=== PATIENT | female | born 1990 | race Caucasian/White ===

== ENCOUNTER 2023-05-04 19:56 | Outpatient (REF) | payer MEDICAID, SELFPAY ==
[2023-05-09 13:08] LABS: Age Gdln ACOG Testing Note (.); HPV Aptima Negative (Negative); IGP, Aptima HPV, rfx 16/18,45 Note (.)
== END 2023-05-04 19:57 ==
LOC: LAB 19:56
PROVIDERS: PCP Physician Assistant; Visit Provider Physician Assistant
DX: Z12.4 Encounter for screening for malignant neoplasm of cervix (principal)
CPT/HCPCS: 87624; G0145

== ENCOUNTER 2025-04-19 11:50 | Outpatient (OUT) | payer MEDICAID, SELFPAY ==
[2025-04-19 12:31] LABS: Basophils Percent Auto 0.3 % (0.2-2.0); Eosinophils Absolute Auto 0.1 10^3/uL (0.0-0.7); Eosinophils Percent Auto 1.3 % (0.9-7.0); Hematocrit 40.9 % (36.0-48.0); Hemoglobin 14.1 g/dL (12.0-16.0); Immature Granulocytes Abs Auto 0.01 10^3/uL (0.00-0.03); Immature Granulocytes Pct Auto 0.1 % (0.0-0.5); Lymphocytes Absolute Auto 1.7 10^3/uL (1.2-3.8); Lymphocytes Percent Auto 22.5 % (20.5-60.0); Mean Corpuscular HGB Conc 34.5 g/dL (29.9-35.2); Mean Corpuscular Hemoglobin 33.1 pg (26.7-34.0); Mean Platelet Volume 11.6 fL (9.5-13.5); Monocytes Absolute Auto 0.5 10^3/uL (0.3-0.8); Monocytes Percent Auto 6.9 % (1.7-12.0); Neutrophils Absolute Auto 5.2 10^3/uL (1.4-6.5); Neutrophils Percent Auto 68.9 % (43.0-75.0); Platelet Count 194 10^3/uL (150-450); Red Blood Count 4.26 10^6/uL (4.20-5.40); Red Cell Distribution Width 12.6 % (11.0-15.0); White Blood Count 7.5 10^3/uL (4.0-11.0)
[2025-04-19 12:40] LABS: Amphetamine Screen Urine NEGATIVE (NEGATIVE); Barbiturates Screen Urine NEGATIVE (NEGATIVE); Benzodiazepines Screen Urine NEGATIVE (NEGATIVE); Buprenorphine Screen Urine NEGATIVE (NEGATIVE); Cannabinoid Screen Urine NEGATIVE (NEGATIVE); Cocaine Screen Urine NEGATIVE (NEGATIVE); Methadone Screen Urine NEGATIVE (NEGATIVE); Methamphetamines Screen Urine NEGATIVE (NEGATIVE); Opiate Screen Urine NEGATIVE (NEGATIVE); Oxycodone Screen Urine NEGATIVE (NEGATIVE); Phencyclidine Screen Urine NEGATIVE (NEGATIVE); Tricyclic Antidepressant Urine NEGATIVE (NEGATIVE)
[2025-04-19 12:56] LABS: Estimated Average Glucose 111 mg/dL; Glycohemoglobin A1C 5.5 % (4.5-6.2)
[2025-04-19 13:07] LABS: BOX Test Reference Lab UNITY; BOX Test Sent Out UNITY
[2025-04-21 13:07] LABS: HBsAg Screen Negative (Negative); HCV Ab Non Reactive (Non Reactive); HIV Ab/p24 Ag Screen Non Reactive (Non Reactive)
[2025-04-23 12:08] LABS: Rapid Plasma Reagin, Quant Non Reactive titer (NonRea<1:1)
== END 2025-04-19 11:51 | disposition home or self-care (01) ==
LOC: LAB 12:37
PROVIDERS: PCP Family Medicine; Visit Provider Obstetrics & Gynecology
DX: Z34.01 Encounter for supervision of normal first pregnancy, first trimester (principal); Z36.0 Encounter for antenatal screening for chromosomal anomalies; N92.6 Irregular menstruation, unspecified
CPT/HCPCS: 36415; 80307; 83036; 85025; 86592; 86762; 86803; 86850; 86900; 86901; 87086; 87340; 87389

== ENCOUNTER 2025-05-23 08:53 | Outpatient (OUT) | payer MEDICAID, SELFPAY ==
--- OUTSIDE RECORDS SUMMARY | 2025-05-23 08:57 | XMS_ITS | Encounter Summary ---
Author Organization [facility] Address [address] [place] [address] Care Team Providers Care County Sheriff Name Role Phone Yamel Guerrero MD Primary Care Provider [phone] Yamel Guerrero MD Unavailable Encounter Details Date Type Department Care Team (Late st Contact Info) Description 05/15/2023 Abstract [facility] [address] [place] [address] Nellie Mnazo, RECOVERY ASSISTANT Social History Tobacco Use Types Packs/Day Years Used Date Smoking Tobacco: Never Smokeless Tobacco: Never Tobacco Cessation:Counseling Given: Not Answered Alcohol Use Standard Drinks/Week Comments Never 0 (1 standard drink = 0.6 oz pur e alcohol) caffeine: 2-3 cups per day Humiliation, Afraid, Rape, and Kick questionnair e Answer Date Recorded Within the last year, have y ou been afraid of your partner or ex-partner? No 05/09/2023 Within the last year, have y ou been humiliated or emotionally abused in other ways by your partner or ex-partner? No Within the last year, have y ou been kicked, hit, slapped, or otherwise physically hurt by your partner or ex-partner? No 05/09/2023 Within the last year, have y ou been raped or forced to have any kind of sexual activity by your partner or ex-partner? No 05/09/2023 Social Connection and Isolat ion Panel [NHANES] Answer Date Recorded In a typical week, how many times do you talk on the phone with family, friends, or neighbors? More than three times a week 05/09/2023 How often do you get togethe r with friends or relatives? Once a week 05/09/2023 How often do you attend chur ch or druze services? Never 05/09/2023 Do you belong to any clubs o r organizations such as faith groups, unions, fraternal or athletic groups, or school groups? No 05/09/2023 How often do you attend meet ings of the clubs or organizations you belong to? Never 05/09/2023 Are you , , di vorced, , never , or living with a partner? Living with partner 05/09/2023 AUDIT-C Answer Date Recorded Q1: How often do you have a drink containing alcohol? Never 05/09/2023 Q2: How many drinks containi ng alcohol do you have on a typical day when you are drinking? Patient does not drink Q3: How often do you have si x or more drinks on one occasion? Never 05/09/2023 Overall Financial Resource Strain (CARDIA) Answe r Date Recorded How hard is it for you to pa y for the very basics like food, housing, medical care, and heating? Not very hard 05/09/2023 PHQ-2 Answer Date Recorded Patient Health Questionnaire-2 Score 0 05/10/2023 [facility] - Occupational Stress Questionnaire Answer Date Recorded Do you feel stress - tense, restless, nervous, or anxious, or unable to sleep at night because your mind is troubled all the time - these days? To some extent 05/09/2023 Exercise Vital Sign Answer Date Recorde d On average, how many days pe r week do you engage in moderate to strenuous exercise (like a brisk walk)? 5 days 05/09/2023 On average, how many minutes do you engage in exercise at this level? 40 min 05/09/2023 Hunger Vital Sign Answer Date Recorded Within the past 12 months, y ou worried that your food would run out before you got the money to buy more. Never true 05/09/20 23 Within the past 12 months, t he food you bought just didn't last and you didn't have money to get more. Never true 05/09/2023 PRAPARE - Transportation Answer Date Re corded In the past 12 months, has l ack of transportation kept you from medical appointments or from getting medications? No 04/27 In the past 12 months, has l ack of transportation kept you from meetings, work, or from getting things needed for daily living? No 05/09/2023 Housing Stability Vital Sign Answer Sergey e Recorded In the last 12 months, was t here a time when you were not able to pay the mortgage or rent on time? No 05/09/2023 In the last 12 months, how many places have you lived? 1 05/09/2023 In the last 12 months, was t here a time when you did not have a steady place to sleep or slept in a mcc (including now)? No 05/09/2023 Comments No Sex and Gender Information Value Date Recorded Sex Assigned at Female 04/30/2023 3:31 PM EDT Legal Sex Female 7:09 PM EDT Gender Identity Female 04/30/2023 3:31 PM EDT Sexual Orientation Not on file COVID-19 Exposure Response Date Recorded In the last 10 days, have yo u been in contact with someone who was confirmed or suspected to have Coronavirus/COVID-19? No / Unsure 05/09/2023 10:38 PM EDT documented as of this encounter Plan of Treatment Upcoming Encounters Date Type Department Care Team (Late st Contact Info) Description 06/02/2025 9:50 AM EDT Routine [facility] [address] [address] Luis E Bray, DO [address] [facility] [address] [place], [place] [id number] documented as of this encounter Visit Diagnoses Not on filedocumented in this encounter Care Teams County Sheriff Relationship Specialty Start Date End Date Yamel Guerrero MD PCP - General Family Medicine 05/04/23 Yamel Guerrero MD [address] [place] [address] PCP - [facility] Jake STEWARD/[employer]ESS [employer] 02/26/24 documented as of this encounter
--- OUTSIDE RECORDS SUMMARY | 2025-05-23 08:57 | XMS_ITS | Encounter Summary ---
Author Organization [facility] Address [address] [place] [address] Care Team Providers Care Rug Dyer Helper Name Role Phone Yamel Guerrero MD Primary Care Provider [phone] Yamel Guerrero MD Unavailable Encounter Details Date Type Department Care Team (Late st Contact Info) Description 06/05/2023 Abstract [facility] [address] [place] [address] Nellie Manzo, FUR GRADER Social History Tobacco Use Types Packs/Day Years Used Date Smoking Tobacco: Never Smokeless Tobacco: Never Alcohol Use Standard Drinks/Week Comments Never 0 [...] often do you attend chur ch or taoism services? Never 05/09/2023 Do you belong to any clubs o r organizations such as religious groups, unions, fraternal or athletic groups, or [...] Date Recorded Patient Health Questionnaire-2 Score 0 05/31/2023 [facility] Occupational Stress Questionnaire Answer Date Recorded [...] place to sleep or slept in a fpc (including now)? No 05/09/2023 Comments No Sex [...] suspected to have Coronavirus/COVID-19? No / Unsure 05/30/2023 10:58 AM EDT documented as of this encounter Plan of Treatment Upcoming Encounters Date Type Department Care Team (Late st Contact Info) Description 06/02/2025 9:50 AM EDT Routine [facility] [address] [facility] [place] [address] Luis E Bray DO [address] [facility] [place] [address] documented as of this encounter Visit Diagnoses Not on filedocumented in this encounter Care Teams Rug Dyer Helper Relationship Specialty Start Date End Date Yamel Guerrero MD PCP - General Family Medicine 05/04/23 Yamel Guerrero MD [address] [facility] [place] [address] PCP - [facility] Jake BUSINESS SERVICES DIRECTOR 02/26/24 documented as of this encounter
--- OUTSIDE RECORDS SUMMARY | 2025-05-23 08:57 | XMS_ITS | Clinical Summary ---
Author Organization [employer] [facility] Address [id number] [address] [place] [address] Care Team Providers Care Steel Welder Name Role Phone Yamel Guerrero MD Primary Care Provider [phone] Allergies No known active allergies Medications PNV no.95/ferrous fum/folic ac ( ORAL) Take 1 tablet by mouth. Active CLINDAMYCIN PHOSPHATE TOP Apply topically. Active fluocinonide (LIDEX) 0.05 % external solution Apply 1 application topically 2 (two) times a day. Active promethazine (PHENERGAN) 25 mg tablet Take 25 mg by mouth every 6 (six) hours as needed for nausea or vomiting. Active hydroxyprogeste rafa caproate (HYDROXYPROGEST ERONE CAPR,BULK,) 100 % powder 9 Active vit,fabian 74/iron/folic ( VITAMIN 1+1 ORAL) Vitamin one daily Active fluticasone propionate (FLONASE) 50 mcg/actuation nasal spray fluticasone propionate 50 mcg/actuation nasal spray,suspension Active mupirocin (BACTROBAN) 2 % ointmentIndicat ions:Epistaxis Applied intranasally bilaterally 2 times daily 15 g 9 Active Active Problems Problem Noted Date Diagnosed Date Epistaxis 10/08/2019 Nasal congestion related to 10/08/2019 Tonsillar hypertrophy 10/08/2019 Raynaud's phenomenon 08/02/2019 History of delivery, currently 08/02/2019 Undifferentiated connective tissue disease 12/18 Resolved Problems Problem Noted Date Diagnosed Date Resolved Date Subacute sinusitis 09/04/2018 9 Nasal congestion 08/21/2018 08/02/2019 Family History Medical History Relation Name Comments Cancer Father Stroke Father Relation Name Status Comments Father Social History Tobacco Use Types Packs/Day Years Used Date Smoking Tobacco: Never Smokeless Tobacco: Never Alcohol Use Standard Drinks/Week Comments Never 0 (1 standard drink = 0.6 oz pur e alcohol) AUDIT-C Answer Date Recorded Frequency of Alcohol Consumption Never 07/26/2019 Average Number of Drinks Not on file 019 Frequency of Binge Drinking Not on file 06/29 PHQ-2 Answer Date Recorded Total Score 0 10/08/2019 Childcare Answer Date Recorded Childcare Unknown 05/08/2019 Employment Answer Date Recorded Employment Unknown 05/08/2019 Purpose - Life Answer Date Recorded Purpose and direction in life Unknown Comments No Sex and Gender Information Value Date Recorded Sex Assigned at Not on file Legal Sex Female 11:38 AM EDT Gender Identity Not on file Sexual Orientation Not on file Last Filed Vital Signs Vital Sign Reading Time Taken Comments Blood Pressure 112/62 10/08/2019 10:47 AM EST Pulse 80 08/02/2019 9:07 AM EDT Temperature - - Respiratory Rate - - Oxygen Saturation - - Inhaled Oxygen Concentration - - Weight 81.2 kg (179 lb) 10/08/2019 10:47 AM EST Height 162.6 cm (5' 4 ) 10/08/2019 10:47 AM EST Body Mass Index 30.73 10/08/2019 10:47 AM EST Plan of Treatment Health Maintenance Due Date Last Done Comments Depression Screening 2000 Tobacco Screening 2000 Adult BMI Screening 2006 Pap Smear 2009 Influenza Vaccine 07/28/2025 11/11/2022, 10/17/2019 DTaP,Tdap and Td Vaccines (7 - Tdap) 11/11/2032 11/11/2022, 08/03/1994, 07/01/1991, Additional history exists Medical Devices Not on file Insurance [facility] MEDICAID Care Teams Steel Welder Relationship Specialty Start Date End Date Yamel Guerrero MD PCP - General Family Medicine 06/03/17
--- OUTSIDE RECORDS SUMMARY | 2025-05-23 08:57 | XMS_ITS | Encounter Summary ---
Author Organization [facility] Address [address] [place] [address] Care Team Providers Care Metal Checker Name Role Phone Yamel Guerrero MD Primary Care Provider Yamel Guerrero MD Unavailable Encounter Details Date Type Department Care Team (Late st Contact Info) Description 04/14/2025 Results Follow-Up [facility] OB [address] [place] [address] Julissa Aranda LPN [address] [place] [address] Social History Tobacco Use Types Packs/Day Years [...] often do you attend chur ch or baptism services? Never 05/09/2023 Do you belong to any clubs o r organizations such as worship groups, unions, fraternal or athletic groups, or [...] Answer Date Recorded Patient Health Questionnaire-2 Score 1 10/12/2023 [facility] Answer Date Recorded [...] place to sleep or slept in a chcf (including now)? No 05/09/2023 Estimated Date of Delivery Comme nts Yes 11/14/2025 Based on last me nstrual period of 02/07/2025 Sex and Gender Information Value Date Recorded Sex Assigned at Female 04/30/2023 3:31 PM EDT Legal Sex Female 7:09 PM EDT Gender Identity Female 04/30/2023 3:31 PM EDT Sexual Orientation Not on file documented as of this encounter Miscellaneous Notes * Result Encounter Note - Julissa Aranda LPN - 04/14/2025 3:52 PM EDT Pt called back and was transferred upfront to schedule luisa friend. * Result Encounter Note - Julissa Aranda LPN - 04/14/2025 3:00 PM EDT Attempted to call pt but she did not answer. Left detailed voicemail to call office back documented in this encounter Plan of Treatment Upcoming Encounters Date Type Department Care Team (Late st Contact Info) Description 06/02/2025 9:50 AM EDT Routine [facility] OB [address] [facility] [place] [address] Luis E Bray, DO [address] [facility] [place] [address] documented as of this encounter Visit Diagnoses Not on filedocumented in this encounter Additional Health Concerns Assessment Noted Time PHQ-9 Depression Total Score: 4 10/12/20 23 9:00 AM EST documented as of this encounter Care Teams Metal Checker Relationship Specialty Start Date End Date Yamel Guerrero MD PCP - General Family Medicine 05/04/23 Yamel Guerrero MD [address] [place] [address] PCP - [facility] Jake TELEMETRY RN 02/26/24 documented as of this encounter
--- OUTSIDE RECORDS SUMMARY | 2025-05-23 08:57 | XMS_ITS ---
Author Organization [facility] ction (ClinicalSummary Clone) Address Unknown Care Team Providers Care Manifold Operator Name Role Phone Unavailable Primary Care Physician Unavailab le Results * [UNITY] ANEUPLOIDY NIPT Performed by: [employer] Component Value Range Date Fraction 5.7% 04/27/2025 05 :07 pm UTC Rh(D) NIPT RhD DETECTED 04/27/2025 05:0 7 pm UTC Sex Chromosome Aneuploidy NOT DETECTED 05:07 pm UTC Monosomy X LOW RISK <1 in 10,000 2024 05:07 pm UTC Trisomy 13 LOW RISK <1 in 10,000 2024 05:07 pm UTC Trisomy 18 LOW RISK <1 in 10,000 2024 05:07 pm UTC Trisomy 21 LOW RISK <1 in 10,000 2024 05:07 pm UTC Sex FEMALE 04/27/2025 05:0 7 pm UTC Gestation BRICEÑO 04/27/20 05:07 pm UTC For detailed report, see PDF See PDF 04/27/2025 05:07 pm UTC 04/27/2025 05:0 7 pm UTC Social History Observation Value Start Date End Date
--- OUTSIDE RECORDS SUMMARY | 2025-05-23 08:57 | XMS_ITS | Patient Health Record ---
Author Organization [facility] Address [address] [place], [place] [address] Care Team Providers Care Assistant Loan Processor Name Role Phone Frederick Renee Unavailable [phone] Angela Chua Unavailable [phone] Allergies No Known Allergies Reason For Referral No Information Medications Medication SIG (Take, Route, Fr equency, Duration) Notes Start Date End Date Status Peridex 0.12 % swish 30 seconds 2x/ day. Spit, do not rinse. Do not eat or drink for 30 minutes after. Mouth/Throat 2x/day for 14 days 03/24/2022 Not-Taking Social History Tobacco Use: Social History Observation Description Date Details (start date - stop date) Never Smoker NA - NA Sex Assigned At : Social History Observation Description Sex Assigned At Female Tobacco Use/Smoking Question Answer Notes Tobacco use: nonsmoker Problems Problem Type SNOMED Code ICD Code Onset Dates Problem Status W/U Status Risk Notes Problem [id number] BMI 36.0-36.9,ad ult (Z68.36) Active confirmed Problem [id number] BMI 37.0-37.9, adult (Z68.37) Active confirmed Vital Signs Heart Rate 86 /min 11/14/2024 Blood pressure diastolic 76 mm Hg 11/14/2024 Weight-kg 99.79 kg 11/14/2024 Height 64 in 11/14/2024 Blood pressure systolic 128 mm Hg 11/14/2024 Weight 220 lbs 11/14/2024 BMI 37.76 kg/m2 11/14/2024 Encounters Encounter Location Date Provider Diagnosis [facility] [address] [place], [place] [id number] 11/14/2024 Angela Chua BMI 37.0-37.9, tiffany lt Z68.37 ; Dietary counseling Z71.3 ; Exercise counseling Z71.82 and Encounter for dental examination and cleaning without abnormal findings Z01.20 Assessments Encounter Date Diagnosis (ICD Code) Assessment Notes Treatment Notes Treatment Clinical Notes Section Notes 11/14/2024 BMI 37.0-37.9, adult (ICD-10 - Z68.37) 11/14/2024 Dietary counseling (ICD-10 - Z71.3) 11/14/2024 Exercise counseling (ICD-10 - Z71.82) 11/14/2024 Encounter for dental examination and cleaning without abnormal findings (ICD-10 - Z01.20) Plan Of Treatment No Information Insurance Providers Payer Name Payer Address Payer Phone Subscriber Number Group Number Insured Name Patient Relationship to Insured Coverage Start Date Coverage End Date zzDAnthem [employer] [facility] [address] [place] [address] [id number] Betty Kennedy Self - patient is the insured 4 DMedicaid C after [place] [address] [place], [place] [id number] Betty Kennedy Self - patient is the insured 4
--- OUTSIDE RECORDS SUMMARY | 2025-05-23 08:57 | XMS_ITS | Encounter Summary ---
Author Organization [facility] Address [address] [place] [address] Care Team Providers Care Bacon Skinner Name Role Phone Yamel Guerrero MD Primary Care Provider [phone] Yamel Guerrero MD Unavailable Encounter Details Date Type Department Care Team (Late st Contact Info) Description 06/08/2023 Abstract [facility] [address] [place] [address] Yamel Guerrero MD [address] [place] [address] Social History Tobacco Use Types Packs/Day Years [...] often do you attend chur ch or congregational services? Never 05/09/2023 Do you belong to any clubs o r organizations such as anabaptist groups, unions, fraternal or athletic groups, or [...] Recorded Patient Health Questionnaire-2 Score 0 05/31/2023 [facility] - Occupational Stress Questionnaire Answer Date Recorded [...] place to sleep or slept in a longterm (including now)? No 05/09/2023 Comments No Sex [...] AM EDT Routine [facility] OB [address] [place] [address] Luis E Bray, DO [address] [facility] [address] [place] [place], [place] [id number] documented as of this encounter Visit Diagnoses Not on filedocumented in this encounter Care Teams Bacon Skinner Relationship Specialty Start Date End Date Yamel Guerrero MD PCP - General Family Medicine 05/04/23 Yamel Guerrero MD [address] [place] [address] PCP - NOMVivienne Joseph MICROFILM PROCESSOR 02/26/24 documented as of this encounter
--- OUTSIDE RECORDS SUMMARY | 2025-05-23 08:57 | XMS_ITS | Clinical Summary ---
Author Organization [facility] Address [address] [place] [address] Care Team Providers Care Appeals Manager Name Role Phone Yamel Guerrero MD Primary Care Provider [phone] Yamel Guerrero MD Unavailable Allergies No known active allergies Medications buPROPion XL (Wellbutrin XL) 300 MG 24 hr tabletIndicatio ns:Anxiety Take 1 tablet (300 mg) by mouth in the morning. Do not crush, chew, or split.. 30 tablet 1 08/29/2023 Active metFORMIN XR (Glucophage-XR) 500 MG 24 hr tabletIndicatio ns:Insulin resistance Take 1 tablet (500 mg) by mouth in the evening. Take with meals. Do not crush, chew, or split. 30 tablet 2 08/29/2023 Active albuterol HFA 90 mcg/act inhalerIndicati ons:Wheezing,Ac ofelia cough Inhale 2 puffs every 4 (four) hours if needed for wheezing. 18 g 10/14/2023 Active ondansetron (Zofran) 4 MG tabletIndicatio ns:Nausea and vomiting in ([facility]) Take 1 tablet (4 mg) by mouth every 6 (six) hours if needed for nausea or vomiting for up to 30 doses Take 1 tablet by mouth every 6 hours as needed for nausea. 30 tablet 3 04/07/2025 Active promethazine (Phenergan) 12.5 MG tabletIndicatio ns:Nausea and vomiting in ([facility]) Take 1 tablet (12.5 mg) by mouth every 6 (six) hours if needed for nausea or vomiting for up to 30 doses Take 1 tablet by mouth every 6 hours as needed for nausea. 30 tablet 2 04/16/2025 Active metoclopramide (Reglan) 10 MG tabletIndicatio ns:Nausea and vomiting in ([facility]) Take 1 tablet (10 mg) by mouth in the morning and 1 tablet (10 mg) at noon and 1 tablet (10 mg) in the evening. Take before meals. Take 1 tablet by mouth 30 minutes prior to meals 3 times daily as needed for nausea. 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, without psychotic features 05/10/2023 Thyromegaly 05/10/2023 Tonsillar hypertrophy 10/08/2019 Raynaud's phenomenon 08/02/2019 Undifferentiated connective tissue disease 12/18 Estimated Date of Delivery Comme nts Yes 11/14/2025 Based on last me nstrual period of 02/07/2025 Resolved Problems Problem Noted Date Diagnosed Date Resolved Date Carpal tunnel syndrome 05/10/202305/31 Encounters Date Type Department Care Team Description 05/01/2025 11:10 AM EDT Routine [facility] [address] [place] [address] Luis E Bray, First trimester ([facility]); 11 weeks gestation of ([facility]); Diabetes mellitus screening; Nausea and vomiting in ([facility]) 05/01/2025 Bamboo flowsheet [facility] [address] [place] [address] Luis E Bray, 04/28/2025 Abstract [facility] [address] [place] [address] Luis E Bray, DO 04/26/2025 Travel 04/19/2025 Clinisync Result Encounter [facility] External Department Unsolicited Provider, Generic External Data 04/16/2025 Telephone [facility] [address] [place] [address] Julissa Aranda LPN 04/14/2025 Results Follow-Up [facility] [address] [place] [address] Julissa Aranda LPN 04/11/2025 10:00 AM EDT Initial [facility] [address] [place] [id number] GA: [id number] 04/11/2025 9:30 AM EDT Ancillary Procedure [facility] [address] [place] [id number] Missed menses 04/10/2025 Travel 04/07/20[address] Tele[address] [facility] [address] [place] [address] Milly Guzman MA from Last 3 Months Family History Medical History Relation Name Comments Cancer Brother Ayo quintanilla (thyroid cancer) Cancer Father Panda quintanilla(throat cancer) Stroke Father Panda dwight(throat cancer) Throat cancer Father Panda dwight(throat cancer) Aneurysm Maternal Grandfather Colon cancer Maternal Grandmother Arthritis Mother Urszula dwight Arthritis Mother's Sister Aunt Diabetes Mother's Sister Aunt Stroke Paternal Grandfather Dad Relation Name Status Comments Brother Ayo dwight (thyroid cancer) Father Panad quintanilla(throat cancer) Alive Maternal Grandfather Maternal Grandmother Mother Urszula dwight Alive Mother's Sister Aunt Paternal Grandfather Dad Paternal Grandmother Social History Tobacco Use Types Packs/Day Years [...] 05/09/2023 How often do you attend chur or congregational services? Never 05/09/2023 Do you belong to any clubs o r organizations such as moravian groups, unions, fraternal or athletic groups, or [...] Recorded Patient Health Questionnaire-2 Score 1 10/12/2023 [facility] - Occupational Stress Questionnaire Answer [...] place to sleep or slept in a care home (including now)? No 05/09/2023 Estimated Date of Delivery Comme nts Yes 11/14/2025 Based on last me nstrual period of 02/07/2025 Sex and Gender Information Value Date Recorded Sex Assigned at Female 04/30/2023 3:31 PM EDT Legal Sex Female 7:09 PM EDT Gender Identity Female 04/30/2023 3:31 PM EDT Sexual Orientation Not on file Last Filed Vital Signs Vital Sign Reading Time Taken Comments Blood Pressure 112/70 05/01/2025 11:40 AM EDT Pulse 78 10/23/2023 4:27 PM EST Temperature 37 C (98.6 F) 10/23/2023 4:27 PM EST Respiratory Rate 18 10/23/2023 4:27 PM EST Oxygen Saturation 98% 10/23/2023 4:27 PM EST Inhaled Oxygen Concentration - - Weight 107 kg (234 lb 12.8 oz) 05/01/2025 11:40 AM EDT Height 162.6 cm (5' 4 ) 10/23/2023 4:27 PM EST Body Mass Index 40.3 10/23/2023 4:27 PM EST Plan of Treatment Upcoming Encounters Date Type Department Care Team (Late st Contact Info) Description 06/02/2025 9:50 AM EDT Routine [facility] [address] [place] [phone] Luis E Bray, DO [address] [place] [address] Health Maintenance Due Date Last Done Comments Influenza Vaccine (Season Ended) 2025 11/11/20, 10/17/2019 Pap Smear 04/06/2027 04/06/2022 Cervical Cancer Screening 07/13/2028 HPV/Cotest 07/13/2028 07/13/2023 Procedures Procedure Name Priority Date/Time Associated Diagnosis Comments HBSAG SCREEN Routine 04/19/2025 12:17 PM EDT RAPID PLASMA REAGIN, QUANT Routine 04/19/2025 12:17 PM EDT HIV AB/P24 AG WITH REFLEX Routine 04/19/2025 12:17 PM EDT HCV ANTIBODY RFX TO QUANT PCR Routine 04/19/2025 12:17 PM EDT ALL RUBELLA IGG AB Routine 04/19/2025 12 :17 PM EDT ALL TYPE AND SCREEN Routine 04/19/2025 1 2:17 PM EDT BOX TEST Routine 04/19/2025 12:17 PM EDT MLR HEMOGLOBIN A1C Routine 04/19/2025 12 :17 PM EDT ALL CBC WITH AUTO DIFF Routine 04/19/2025 12:17 PM EDT URINE CULTURE, ROUTINE Routine 04/19/2025 11:45 AM EDT [facility] DRUG SCREEN RAPID (URINE) Routine 04/19/2025 11:45 AM EDT POCT URINALYSIS DIPSTICK Routine 04/11/2025 10:37 AM EDT Missed menses POCT , URINE Routine 04/11/2025 10:37 AM EDT Missed menses US OB TRANSVAGINAL Routine 04/11/2025 10 :04 AM EDT Missed menses THINPREP PAP AND HPV MRNA E6/E7 W/RFL HPV 16,18/45 Routine 07/13/2023 10:11 AM EDT Well woman exam with routine gynecological exam PAP SMEAR Routine 04/06/2022 12:00 AM EDT from Last 3 Months or Most Recently Relevant to Health Maintenance Results * BOX TEST (04/19/2025 12:17 PM EDT) BOX TEST SENT OUT [facility] [address]1 [facility] BOX2 04/19/25 [facility] 04/19/2025 12:1 7 PM EDT 04/19/2025 12:23 PM EDT Narrative [facility] - 04/19/2025 1:07 PM EDT [place] us Luis E Katarina DO LAB BLOOD ORDERABLES Final Resul t [facility] * HBSAG SCREEN (04/19/2025 12:17 PM EDT) HBSAG SCREEN Negative Negative [facility] Comment: Performed at: - [facility] [id number] Room Service Runner: Floyd Baez PhD, Phone: [phone] 04/19/2025 12:1 7 PM EDT 04/19/2025 12:23 PM EDT Narrative [facility] - 04/23/2025 12:08 PM EDT Lusi E Katarina DO LAB BLOOD ORDERABLES Final Resul t Performing Organization Address [facility] [[email or web address]] Co de Phone Number [facility] * RAPID PLASMA REAGIN, QUANT (04/19/2025 12:17 PM EDT) RAPID PLASMA REAGIN, QUANT Non Reactive NonRea<1: 1 titer [facility] Comment: Please Note: This test does not meet current guidelines for screening and diagnosis of syphilis. This test is intended for following treatment response in patients being treated for syphilis infection. To screen for syphilis infection, a reflex cascade that includes both RPR and a treponema-specific assay should be utilized, such as Treponema pallidum (Syphilis) Screening [place] (099400) or Rapid Plasma Reagin (RPR) Test With Reflex to Quantitative RPR and Confirmatory Treponema pallidum Antibodies ([id number]). Performed at: [facility] [id number] Room Service Runner: Floyd Baez PhD, Phone: [phone] 04/19/2025 12:1 7 PM EDT 04/19/2025 12:23 PM EDT Narrative [facility] - 04/23/2025 12:08 PM EDT Luis E Katarina DO LAB BLOOD ORDERABLES Final Resul t Performing Organization Address City/[facility] [[email or web address]] Co de Phone Number [facility] * HIV AB/P24 AG WITH REFLEX (04/19/2025 12:17 PM EDT) Pathologist [facility] HIV AB/P24 AG SCREEN Non Reactive Non Reactive [facility] Comment: HIV-1/HIV-2 antibodies and HIV-1 p24 antigen were NOT detected. There is no laboratory evidence of HIV infection. HIV Negative Performed at: [facility] [id number] Room Service Runner: Floyd Baez PhD, Phone: [phone] 04/19/2025 12:1 7 PM EDT 04/19/2025 12:23 PM EDT Narrative [facility] - 04/21/2025 1:07 PM EDT Generic External Data Provider LAB BLOOD ORDERAB LES Final Result Performing Organization Address [facility] [[email or web address]] Co de Phone Number [facility] * HCV ANTIBODY RFX TO QUANT PCR (04/19/2025 12:17 PM EDT) [facility] HCV AB Non Reactive Non Reactive [facility] INTERPRETATION: Comment . [facility] Comment: Not infected with HCV unless early or acute infection is suspected (which may be delayed in an immunocompromised individual), or other evidence exists to indicate HCV infection. Performed at: [facility] [id number] Room Service Runner: Floyd Baez PhD, Phone: [phone] 04/19/2025 12:1 7 PM EDT 04/19/2025 12:23 PM EDT Narrative [facility] - 04/21/2025 1:07 PM EDT Generic External Data Provider LAB BLOOD ORDERAB LES Final Result Performing Organization Address [facility] [[email or web address]] Co de Phone Number [facility] * MLR HEMOGLOBIN A1C (04/19/2025 12:17 PM EDT) [facility] GLYCOHEMOGLOBIN A1C 5.5 4.5 - 6.2 % [facility] Comment: ADA RECOMMENDED LIMIT 4.0 - 6.0 ADA THERAPEUTIC TARGET < 7.0 ACTION SUGGESTED > 7.0 ESTIMATED AVERAGE GLUCOSE 111 mg/dL [facility] 04/19/2025 12:1 7 PM EDT 04/19/2025 12:23 PM EDT Narrative [facility] - 04/19/2025 1:03 PM EDT Generic External Data Provider [facility] F inal Result Performing Organization Address City/[facility]/ZIP Co de Phone Number [facility] * ALL TYPE AND SCREEN (04/19/2025 12:17 PM EDT) [facility] BLOOD TYPE O Positive [facility] ANTIBODY SCREEN NEGATIVE [facility] 04/19/2025 12:1 7 PM EDT 04/19/2025 12:23 PM EDT Narrative [facility] - 04/19/2025 1:57 PM EDT [facility] , us Luis E Bray DO CLINISYNC Final Result [facility] * ALL RUBELLA IGG AB (04/19/2025 12:17 PM EDT) [facility] RUBELLA ANTIBODIES, IGG 3.60 Immune >0.99 index [facility] Comment: Non-immune <0.90 Equivocal 0.90 - 0.99 Immune >0.99 Performed at: [facility] [address] [id number] Room Service Runner: Floyd Baez PhD, Phone: [phone] 04/19/2025 12:1 7 PM EDT 04/19/2025 12:23 PM EDT Narrative [facility] - 04/21/2025 1:07 PM EDT us Generic External Data Provider CLIN[facility]YNC F inal Result Performing Organization Address City/[facility]/ZIP Co de Phone Number [facility] * ALL CBC WITH AUTO DIFF (04/19/2025 12:17 PM EDT) Pathologist [facility] WBC 7.5 4.0 - 11.0 10 3/uL [facility] RBC 4.26 4.20 - 5.40 10 6/uL [facility] TB HGB 14.1 12.0 - 16.0 g/dL TB TB HCT 40.9 36.0 - 48.0 % [facility] MCV 96.0 81.0 - 99.0 fL [facility]H TBH MCH 33.1 26.7 - 34.0 pg TBH TBH MCHC 34.5 29.9 - 35.2 g/dL [facility] TB RDW 12.6 11.0 - 15.0 % [facility] TB PLT 194 150 - 450 10 3/uL [facility]H TBH MPV 11.6 9.5 - 13.5 fL [facility] NEUTROPHILS PERCENT AUTO 68.9 43.0 - 75.0 % [facility] LYMPHOCYTES PERCENT AUTO 22.5 20.5 - 60.0 % [facility] MONOCYTES PERCENT AUTO 6.9 1.7 - 12.0 % [facility]H EO % 1.3 0.9 - 7.0 % [facility] BASOPHILS PERCENT AUTO 0.3 0.2 - 2.0 % [facility] IMMATURE GRANULOCYTES PCT AUTO 0.1 0.0 - 0.5 % [facility] NEUTROPHILS ABSOLUTE AUTO 5.2 1.4 - 6.5 10 3/uL [facility] LYMPHOCYTES ABSOLUTE AUTO 1.7 1.2 - 3.8 10 3/uL [facility] MONOCYTES ABSOLUTE AUTO 0.5 0.3 - 0.8 10 3/uL TBH TBH EO # 0.1 0.0 - 0.7 10 3/uL TBH BASOPHILS ABSOLUTE AUTO 0.0 0.0 - 0.1 10 3/uL [facility] IMMATURE GRANULOCYTES ABS AUTO 0.01 0.00 - 0.03 10 3/uL [facility] 04/19/2025 12:1 7 PM EDT 04/19/2025 12:23 PM EDT Narrative [facility] - 04/19/2025 12:37 PM EDT Luis E Bray DO CLINISYNC Final Result [facility] * URINE CULTURE, ROUTINE (04/19/2025 11:45 AM EDT) Pathologist [facility] URINE CULTURE, ROUTINE Urine Culture, Routine [facility] URINE CULTURE, ROUTINE Mixed urogenital alesia [facility] URINE CULTURE, ROUTINE 10,000-25,000 colony forming units per mL [facility] URINE CULTURE, ROUTINE [facility]formed at: [facility]INE CULTURE, ROUTINE [address] [place], [place] [id number] [facility] URINE CULTURE, ROUTINE Room Service Runner: Floyd Baez PhD, Phone: [phone] [facility] 04/19/2025 11:4 5 AM EDT 04/19/2025 12:23 PM EDT Narrative [facility] - 04/21/2025 5:10 AM EDT Generic External Data Provider LAB BLOOD ORDERAB LES Final Result [facility] * [facility] DRUG SCREEN RAPID (URINE) (04/19/2025 11:45 AM EDT) CANNABINOID SCREEN URINE NEGATIVE NEGATIVE [facility]H PHENCYCLIDINE SCREEN URINE NEGATIVE NEGATIVE [facility] COCAINE SCREEN URINE NEGATIVE NEGATIVE [facility]H METHAMPHETAMINES SCREEN URINE NEGATIVE NEGATIVE TBH OPIATE SCREEN URINE NEGATIVE NEGATIVE TBH AMPHETAMINE SCREEN URINE NEGATIVE NEGATIVE TBH BENZODIAZEPINES SCREEN URINE NEGATIVE NEGATIVE TBH TRICYCLIC ANTIDEPRESSANT URINE NEGATIVE NEGATIVE TBH METHADONE SCREEN URINE NEGATIVE NEGATIVE TBH BARBITURATES SCREEN URINE NEGATIVE NEGATIVE TBH OXYCODONE SCREEN URINE NEGATIVE NEGATIVE TBH BUPRENORPHINE SCREEN URINE NEGATIVE NEGATIVE [facility] Comment: DRUG CLASS TEST SYSTEM CUT-OFF CONCENTRATIONS ARE FOLLOWS: AMP (Amphetamine): 500 ng/mL BAR (Barbiturates): 200 ng/mL BZO (Benzodiazepines): 150 ng/mL BUP (Buprenorphine): 10 ng/mL NARCISA (Cocaine): 150 ng/mL mAMP (Methamphetamine): 500 ng/mL MTD (Methadone): 200 ng/mL OPI (Opiates): 100 ng/mL OXY (Oxycodone): 100 ng/mL PCP (Phencyclidine): 25 ng/mL THC (Cannabinoids): 50 ng/mL TCA (Trycyclic Antidepressants): 300 ng/mL 04/19/2025 11:4 5 AM EDT 04/19/2025 12:23 PM EDT Narrative [facility] - 04/19/2025 12:40 PM EDT us Luis E Katarina DO CLINISYNC Final Result [facility] * (ABNORMAL) POCT , urine manually resulted (04/11/2025 10:37 AM EDT) Preg Test, Ur Positive Negative Urine 04/11/2025 10:3 7 AM EDT Luis E Katarina DO POINT OF CARE TEST ENTER/EDIT OR DERABLES Final Result * (ABNORMAL) POCT urinalysis dipstick manually resulted (04/11/2025 10:37 AM EDT) Color, UA Yellow Clarity, UA Clear Glucose, UA Negative Negative - 2000(110) ++++ mg/dL Bilirubin, UA Negative Negative - 4(70) +++ mg/dL Ketones, UA Negative Negative - 160(16) ++++ mg/dL Spec Grav, UA 1.015 1 - 1.03 Blood, UA Negative Negative - 50 Nico/mcL pH, UA 5.5 5 - 9 Protein, UA Positive Negative - 2000(20) ++++ mg/dL Urobilinogen, UA 1.0 0.2 - 12 mg/dL Leukocytes, UA Negative Negative - 500+++ Karson/mcL Nitrite, UA Negative Negative - Positive Urine 04/11/2025 10:3 7 AM EDT us Luis E Katarina DO POINT OF CARE TEST ENTER/EDIT OR DERABLES Final Result * US OB transvaginal (04/11/2025 10:04 AM EDT) Anatomical Region Laterality Modality Body Ultrasound 04/13/2025 9:20 PM EDT Narrative 04/13/2025 9:20 PM EDT EXAM: US OB TRANSVAGINAL HISTORY: Dating. COMPARISON: None available. TECHNIQUE: Two-dimensional transvaginal grayscale ultrasound imaging of the pelvis was performed. Color Doppler evaluation of the ovaries was also performed. FINDINGS: The uterus demonstrates a normal homogeneous echotexture. The cervix measures 4.3 cm in length and the cervical os is closed. The bilateral ovaries are not visualized. No fluid is present within the cul-de-sac. There is a single, live intrauterine gestation identified with a heart rate of 186 beats per minute and a crown-rump length measurement of 1.9 cm, correlating to a gestational age of 8 weeks 3 days (+/- 5 days). There is a 1.1 cm subchorionic hemorrhage visualized. A yolk sac is visualized. IMPRESSION: 1. Single, live intrauterine gestation 9 weeks, 0 days by LMP. Today's ultrasound measurements correlate with a gestational age of 8 weeks 3 days (+/- 5 days). KEVIN by today's ultrasound is 11/18/2025. 2. tachycardia. A short-term follow-up ultrasound is recommended to monitor heart rate. 3. Small subchorionic hemorrhage. 4. Bilateral ovaries not visualized. Interpreted by: Electronically signed by SANJAY NORMAN II, MD, PHD at 13-Apr-2025 09:18:27 PM [facility] Procedure Note Sanjay Norman MD - 04/13/2025 EXAM: US OB TRANSVAGINAL HISTORY: Dating. COMPARISON: None available. TECHNIQUE: Two-dimensional transvaginal grayscale ultrasound imaging ofthe pelvis was performed. Color Doppler evaluation of the ovaries was alsoperformed. FINDINGS: The uterus demonstrates a normal homogeneous echotexture. The cervixmeasures 4.3 cm in length and the cervical os is closed. The bilateral ovaries are not visualized. No fluid is present within the cul-de-sac. There is a single, live intrauterine gestation identified with a fetalheart rate of 186 beats per minute and a crown-rump length measurement of1.9 cm, correlating to a gestational age of 8 weeks 3 days (+/- 5 days).There is a 1.1 cm subchorionic hemorrhage visualized. A yolk sac isvisualized. IMPRESSION: 1. Single, live intrauterine gestation 9 weeks, 0 days by LMP. Today'sultrasound measurements correlate with a gestational age of 8 weeks 3 days(+/- 5 days). KEVIN by today's ultrasound is 11/18/2025. 2. tachycardia. A short-term follow-up ultrasound is recommended tomonitor heart rate. 3. Small subchorionic hemorrhage. 4. Bilateral ovaries not visualized. Interpreted by: Electronically signed by SANJAY NORMAN II, MD, PHD [id number] 09:18:27 PM [facility] us Luis E Bray DO [facility] US PROCEDURES Final Resul t * THINPREP PAP AND HPV MRNA E6/E7 W/RFL HPV 16,18/45 (07/13/2023 10:11 AM EDT) Fabi KELLEY LAB BLOOD ORDERABLES Final Resul t EXTERNAL LAB * Pap Smear (04/06/2022 12:00 AM EDT) Swab Cervical swab / Unknown Historical Provider LAB CYTOLOGY ORDERABLES F inal Result EXTERNAL LAB from Last 3 Months or Most Recently Relevant to Health Maintenance Insurance [facility] MEDICAID [place] Care Teams Appeals Manager Relationship Specialty Start Date End Date Yamel Guerrero MD PCP - General Family Medicine 05/04/23 Yamel Guerrero MD [address] [place] [address] PCP - [facility] Jake STRUCTURAL WELDER 02/26/24
--- OUTSIDE RECORDS SUMMARY | 2025-05-23 08:57 | XMS_ITS | Encounter Summary ---
Author Organization [facility] Address [address] [place] [address] Care Team Providers Care Office Helper Clerical Name Role Phone Yamel Guerrero MD Primary Care Provider [phone] Yamel Guerrero MD Unavailable Encounter Details Date Type Department Care Team (Late st Contact Info) Description 04/28/2025 Abstract [facility] OB [address] [place] [address] Luis E Bray, DO [address] [place] [place], [place] [id number] Social History Tobacco Use Types Packs/Day Years [...] often do you attend chur ch or jew services? Never 05/09/2023 Do you belong to any clubs o r organizations such as tenriism groups, unions, fraternal or athletic groups, or [...] Recorded Patient Health Questionnaire-2 Score 1 10/12/2023 [facility] Answer Date Recorded [...] place to sleep or slept in a senior care (including now)? No 05/09/2023 Estimated Date of Delivery Comme nts Yes 11/14/2025 Based on last me nstrual period of 02/07/2025 Sex and Gender Information Value Date Recorded Sex Assigned at Female 04/30/2023 3:31 PM EDT Legal Sex Female 7:09 PM EDT Gender Identity Female 04/30/2023 3:31 PM EDT Sexual Orientation Not on file documented as of this encounter Plan of Treatment Upcoming Encounters Date Type Department Care Team (Late st Contact Info) Description 06/02/2025 9:50 AM EDT Routine [facility] OB [address] [place] [address] Luis E Bray DO [address] [place] [address] documented as of this encounter Visit Diagnoses Not on filedocumented in this encounter Additional Health Concerns Assessment Noted Time PHQ-9 Depression Total Score: 4 10/12/20 23 9:00 AM EST documented as of this encounter Care Teams Office Helper Clerical Relationship Specialty Start Date End Date Yamel Guerrero MD PCP - General Family Medicine 05/04/23 Yamel Guerrero MD [address] [place] [address] PCP - [facility] Jake DRUGLESS DOCTOR 02/26/24 documented as of this encounter
--- OUTSIDE RECORDS SUMMARY | 2025-05-23 08:57 | XMS_ITS | Encounter Summary ---
Author Organization [facility] Address [address] [place] [address] Care Team Providers Care Health Care Recruiter Name Role Phone Yamel Guerrero MD Primary Care Provider [phone] Yamel Guerrero MD Unavailable Encounter Details Date Type Department Care Team (Late st Contact Info) Description 06/02/2023 Abstract [facility] [address] [place] [address] Nellie Manzo, POWDER CUTTING OPERATOR Social History Tobacco Use Types Packs/Day Years [...] often do you attend chur ch or advent services? Never 05/09/2023 Do you belong to any clubs o r organizations such as yarsanism groups, unions, fraternal or athletic groups, or [...] Recorded Patient Health Questionnaire-2 Score 0 05/31/2023 [facility] - [facility]ational Stress Questionnaire [...] a care home (including now)? No 05/09/2023 Comments No Sex [...] Description 06/02/2025 9:50 AM EDT [facility] OB [address] [place] [address] Luis E Bray DO [address] [facility] [place] [address] documented as of this encounter Visit Diagnoses Not on filedocumented in this encounter Care Teams Health Care Recruiter Relationship Specialty Start Date End Date aYmel Guerrero MD PCP - General Family Medicine 05/04/23 Yamel Guerrero MD [address] [facility] [place] [address] PCP - [facility] Jake BROOMCORN SEEDER 02/26/24 documented as of this encounter
[2025-05-23 10:38] LABS: Glucose 1 Hour 172 mg/dL (<130)
== END 2025-05-23 08:54 | disposition home or self-care (01) ==
LOC: LAB 08:54
PROVIDERS: PCP Family Medicine; Visit Provider Obstetrics & Gynecology
DX: Z13.1 Encounter for screening for diabetes mellitus (principal)
CPT/HCPCS: 36415; 82950

== ENCOUNTER 2025-06-02 19:32 | Outpatient (REF) | payer MEDICAID, SELFPAY ==
[2025-06-05 12:18] LABS: Age Gdln ACOG Testing Note (.); IGP, Aptima HPV, rfx 16/18,45 Note (.)
== END 2025-06-02 19:33 | disposition home or self-care (01) ==
LOC: LAB 19:32
PROVIDERS: PCP Family Medicine; Visit Provider Obstetrics & Gynecology
DX: Z01.419 Encounter for gynecological examination (general) (routine) without abnormal findings (principal)
CPT/HCPCS: 87624; 88175

== ENCOUNTER 2025-06-23 13:32 | Outpatient (OUT) | payer MEDICAID, SELFPAY ==
--- OUTSIDE RECORDS SUMMARY | 2025-06-23 13:35 | XMS_ITS | Encounter Summary ---
Author Organization [facility] Address [address] [place] [address] Care Team Providers Care Aircraft Launch And Recovery Technician Name Role Phone Yamel Guerrero MD Primary Care Provider [phone] Yamel Guerrero MD Unavailable Encounter Details Date Type Department Care Team (Late st Contact Info) Description 06/08/2023 Abstract [facility] Family Medicine [address] [place] [id number] Yamel Guerrero MD [address] [place] [address] Social History Tobacco Use Types [...] often do you attend chur ch or zoroastrianism services? Never 05/09/2023 Do you belong to any clubs o r organizations such as hindu groups, unions, fraternal or athletic groups, or [...] Recorded Patient Health Questionnaire-2 Score 0 [facility] Answer Date Recorded [...] place to sleep or slept in a fci (including now)? No 05/09/2023 Comments No Sex [...] Care Team (Late st Contact Info) Description 07/03/2025 9:00 AM EDT Ancillary Procedure [facility] Kaylen ALVARADO [address] [place] [id number] 07/03/2025 10:10 AM EDT Routine CHARLIE ALVARADO [address] [place] [phone] Luis E Bray DO [address] [place], [place] [id number] documented as of this encounter Visit Diagnoses Not on filedocumented in this encounter Care Teams Aircraft Launch And Recovery Technician Relationship Specialty Start Date End Date Yamel Guerrero MD PCP - General Family Medicine 05/04/23 Yamel Guerrero MD [address] [place] [address] PCP - CHARLIE Joseph [employer]CRETE STONE FINISHING SUPERVISOR 02/26/24 documented as of this encounter
--- OUTSIDE RECORDS SUMMARY | 2025-06-23 13:35 | XMS_ITS | Clinical Summary ---
Author Organization [facility] Address [address] [place] [address] Care Team Providers Care Stock Grader Name Role Phone Yamel Guerrero MD Primary Care Provider [phone] Yamel Guerrero MD Unavailable Allergies No known active allergies Medications buPROPion XL (Wellbutrin XL) 300 MG 24 hr tabletIndicatio ns:Anxiety Take 1 tablet (300 mg) by mouth in the morning. Do not crush, chew, or split.. 30 tablet 1 08/29/20 23 Active metFORMIN XR (Glucophage-XR) 500 MG 24 hr tabletIndicatio ns:Insulin resistance Take 1 tablet (500 mg) by mouth in the evening. Take with meals. Do not crush, chew, or split. 30 tablet 2 08/29/20 23 Active albuterol HFA 90 mcg/act inhalerIndicati ons:Wheezing,Ac sauk-suiattle cough Inhale 2 puffs every 4 (four) hours if needed for wheezing. 18 g 10/14/20 23 Active ondansetron (Zofran) 4 MG tabletIndicatio ns:Nausea and vomiting in ([facility]) Take 1 tablet (4 mg) by mouth every 6 (six) hours if needed for nausea or vomiting for up to 30 doses Take 1 tablet by mouth every 6 hours as needed for nausea. 30 tablet 3 04/07/20 25 Active promethazine (Phenergan) 12.5 MG tabletIndicatio ns:Nausea and vomiting in ([facility]) Take 1 tablet (12.5 mg) by mouth every 6 (six) hours if needed for nausea or vomiting for up to 30 doses Take 1 tablet by mouth every 6 hours as needed for nausea. 30 tablet 2 04/16/20 25 Active metoclopramide (Reglan) 10 MG tabletIndicatio ns:Nausea and vomiting in ([facility]) Take 1 tablet (10 mg) by mouth in the morning and 1 tablet (10 mg) at noon and 1 tablet (10 mg) in the evening. Take before meals. Take 1 tablet by mouth 30 minutes prior to meals 3 times daily as needed for nausea. 90 tablet 05/01/20 25 Active Pharmacist Choice Lancets miscIndications :Gestational diabetes mellitus (GDM), antepartum, gestational diabetes method of control unspecified ([facility]HS-HCC),[place] glucose tolerance test USE 1 LANCET TO CHECK FSBS 4 TIMES DAILY 150 each 3 06/02/20 25 Active Lancets Ultra Thin miscIndications :Gestational diabetes mellitus (GDM), antepartum, gestational diabetes method of control unspecified ([facility]-H[facility]),[place] glucose tolerance test 1 each by In Vitro route Daily Use to check FSBS four times daily 150 each 3 06/02/20 25 025 Active Alcohol Swabs (Alcohol Prep Pad) 70 % padsIndications :Gestational diabetes mellitus (GDM), antepartum, gestational diabetes method of control unspecified ([facility]-HCC),[place] glucose tolerance test Apply 1 Pad topically Daily Use four times daily to check FSBS. 150 each 3 06/02/20 25 Active Glucose Blood (Blood Glucose Test) stripIndication s:Gestational diabetes mellitus (GDM), antepartum, gestational diabetes method of control unspecified (HHS-HCC),[place] glucose tolerance test 1 strip by In Vitro route Daily Use in the morning prior to breakfast, 1 hour after each meal for a total of 4times daily. 150 strip 3 06/02/20 25 025 Active Blood Glucose Monitoring Suppl (D-Care Glucometer) w/Device kitIndications: Gestational diabetes mellitus (GDM), antepartum, gestational diabetes method of control unspecified (HHS-HCC),[place] glucose tolerance test 1 kit Daily Use four times daily to check FSBS. In the morning prior to breakfast & 1 hour after each meal for a total of 4times daily. 1 kit 06/02/20 25 026 Active Lancets Ultra Thin miscIndications :Gestational diabetes mellitus (GDM), antepartum, gestational diabetes method of control unspecified (HHS-HCC),[place] glucose tolerance test 1 each by In Vitro route Daily Use to check FSBS four times daily 150 each 3 05/26/20 25 025 Discontinued Alcohol Swabs (Alcohol Prep Pad) 70 % padsIndications :Gestational diabetes mellitus (GDM), antepartum, gestational diabetes method of control unspecified (HHS-HCC),[place] glucose tolerance test Apply 1 Pad topically Daily Use four times daily to check FSBS. 150 each 3 05/26/20 25 025 Discontinued( erapy completed) Glucose Blood (Blood Glucose Test) stripIndication s:Gestational diabetes mellitus (GDM), antepartum, gestational diabetes method of control unspecified (HHS-HCC),[place] glucose tolerance test 1 strip by In Vitro route Daily Use in the morning prior to breakfast, 1 hour after each meal for a total of 4times daily. 150 strip 3 05/26/20 25 025 Discontinued( erapy completed) Glucose Blood (Blood Glucose Test) stripIndication s:Gestational diabetes mellitus (GDM), antepartum, gestational diabetes method of control unspecified (HHS-HCC),[place] glucose tolerance test 1 strip by In Vitro route Daily Use in the morning prior to breakfast, 1 hour after each meal for a total of 4times daily. 150 strip 3 05/26/20 25 025 Discontinued( erapy completed) Active Problems Problem Noted Date Diagnosed Date [...] Encounters Date Type Department Care Team Description 06/20/2025 Patient Outreach [facility] [address] [place] [address] Fabi Sanchez LPN 06/10/2025 Orders Only [facility] [address] [place] [address] Ann Finn MA 06/02/2025 9:50 AM [place] [address] Fabi Martinez PA Second trimester ([facility]); 16 weeks gestation of ([facility]); Well woman exam with routine gynecological exam; Exposure to STD; Need for maternal serum alpha-protein (MSAFP) screening ([facility]); Screening, , for anatomic survey ([facility]); Gestational diabetes mellitus (GDM), antepartum, gestational diabetes method of control unspecified ([facility]); Elevated glucose tolerance test 06/02/2025 Clinisync Result Encounter [facility] External Department Unsolicited Luis E Bray, 06/02/2025 External Result Encounter [facility] External Department Unsolicited Luis E Bray, DO 06/02/2025 Bamboo flowsheet [facility] [place] [address] Luis E Bray, DO 06/01/2025 Refill [facility] [address] [place] [address] Luis E Bray, DO Gestational diabetes mellitus (GDM), antepartum, gestational diabetes method of control unspecified ([facility]); Elevated glucose tolerance test 05/26/2025 Telephone [facility] [address] [place] [address] Luis E Bray, 05/26/2025 Travel 05/23/2025 Clinisync Result Encounter [facility] External Department Unsolicited Provider, Generic External Data 05/01/2025 11:10 AM EDT Routine [facility] [place] [phone] Luis E Bray, DO First trimester ([facility]); 11 weeks gestation of ([facility]); Diabetes mellitus screening; Nausea and vomiting in ([facility]) 05/01/2025 Bamboo flowsheet [place] [address] Luis E Bray, 04/28/2025 Abstract [facility] [place] [address] Luis E Bray, DO 04/26/2025 Travel 04/19/2025 Clinisync Result Encounter [facility]OM[facility] External Department Unsolicited Provider, Generic External Data 04/16/20[place] [phone] Julissa Aranda, ORAL HYGIENIST 04/14/2025 Results Follow-Up [facility] [place] [phone] Julissa Aranda, ORAL HYGIENIST 04/11/2025 10:00 AM [place] [address] GA: [id number] 04/11/2025 9:30 AM EDT Ancillary Procedure [facility] [address] Missed menses 04/10/2025 Travel 04/07/2025 Telephone [place] [phone] Milly Guzman MA from Last 3 Months Family History Medical History Relation Name Comments Cancer Brother Ayo kennedy (thyroid cancer) Cancer Father Panda kennedy(throat cancer) Stroke Father Panda kennedy(throat cancer) Throat cancer Father Panda kennedy(throat cancer) Aneurysm Maternal Grandfather Colon cancer Maternal Grandmother Arthritis Mother Urszula dwight Arthritis Mother's Sister Aunt Diabetes Mother's Sister Aunt Stroke Paternal Grandfather Dad Relation Name Status Comments Brother Ayo kennedy (thyroid cancer) Father Panda kennedy(throat cancer) Alive Maternal Grandfather Maternal Grandmother Mother [...] often do you attend chur ch or restorationist services? Never 05/09/2023 Do you belong to any clubs o r organizations such as methodist groups, unions, fraternal or athletic groups, or [...] Recorded Patient Health Questionnaire-2 Score 1 10/12/2023 [facility] - Occupational Stress [...] place to sleep or slept in a residential (including now)? No 05/09/2023 Estimated Date of [...] Sign Reading Time Taken Comments Blood Pressure 112/68 06/02/2025 10:02 AM EDT Pulse 78 10/23/2023 4:27 PM EST Temperature 37 C (98.6 F) 10/23/2023 4:27 PM EST Respiratory Rate 18 10/23/2023 4:27 PM EST Oxygen Saturation 98% 10/23/2023 4:27 PM EST Inhaled Oxygen Concentration - - Weight 108 kg (237 lb) 06/02/2025 10:02 AM EDT Height 162.6 cm (5' 4 ) 10/23/2023 4:27 PM EST Body Mass Index 40.68 10/23/2023 4:27 PM EST Plan of Treatment Upcoming Encounters Date Type Department Care Team (Late st Contact Info) Description 07/03/2025 9:00 AM EDT Ancillary Procedure [facility] [address] [address] [place] [phone] 07/03/2025 10:10 AM EDT Routine [facility] [address] [address] [facility] [place] [address] Luis E Bray DO [address] [address] Health Maintenance Due Date Last Done Comments Influenza Vaccine (#1) 2025 11/11/2022, 2018 Cervical Cancer Screening 06/02/2030 HPV/Cotest 06/02/2030 07/13/2023 Pap Smear 06/02/2030 06/02/2025, 04/06/2022 Procedures Procedure Name Priority Date/Time Associated Diagnosis Comments RECURRENT VAGINITIS (HTRX) Routine 06/02/2025 11:14 AM EDT POCT URINALYSIS DIPSTICK Routine 06/02/2025 10:02 AM EDT Second trimester ([facility]) IGP,APTIMA HPV,AGE GDLN Routine 06/02/2025 9:42 AM EDT PAP SMEAR Routine 06/02/2025 12:00 AM EDT GLUCOSE 1 HOUR Routine 05/23/2025 10:05 AM EDT HBSAG SCREEN Routine 04/19/2025 12:17 PM EDT [...] CULTURE, ROUTINE Routine 04/19/2025 11:45 AM EDT [facility] DRUG SCREEN RAPID (URINE) Routine 04/19/2025 11:45 AM EDT POCT URINALYSIS DIPSTICK Routine 04/11/2025 10:37 AM EDT Missed menses POCT , URINE Routine 04/11/2025 10:37 AM EDT Missed menses US OB TRANSVAGINAL Routine 04/11/2025 10 :04 AM EDT Missed menses THINPREP PAP AND HPV MRNA E6/E7 W/RFL HPV 16,18/45 Routine 07/13/2023 10:11 AM EDT Well woman exam with routine gynecological exam from Last 3 Months or Most Recently Relevant to Health Maintenance Results * RECURRENT VAGINITIS (HTRX) (06/02/2025 11:14 AM EDT) [facility] ATOPOBIUM VAGINAE 0 19.961 - 24.689 ppm 06/03/2025 6:26 AM EDT [facility] ATOPOBIUM VAGINAE Not Detected 19.961 - 24.689 ppm 06/03/2025 6:26 AM EDT [facility] BVAB 2,3 (BACTERIAL VAGINOSIS ASSOCIATED BACTERIA 2, 3); MOBILUNCUS SPP 0 19.961 - 24.689 ppm 06/03/2025 6:26 AM EDT [facility] BVAB 2,3 (BACTERIAL VAGINOSIS ASSOCIATED BACTERIA 2, 3); MOBILUNCUS SPP Not Detected 19.961 - 24.689 ppm 06/03/2025 6:26 AM EDT [facility] HALEIGH ALBICANS, PARAPSILOSIS, TROPICALIS 0 19.961 - 30.770 ppm 06/03/2025 6:26 AM EDT [facility] HALEIGH ALBICANS, PARAPSILOSIS, TROPICALIS Not Detected 19.961 - 30.770 ppm 06/03/2025 6:26 AM EDT [facility] HALEIGH GLABRATA 0 23.000 - 32.138 ppm 06/03/2025 6:26 AM EDT [facility] HALEIGH GLABRATA Not Detected 23.000 - 32.138 ppm 06/03/2025 6:26 AM EDT [facility] HALEIGH KRUSEI 0 23.000 - 32.271 ppm 06/03/2025 6:26 AM EDT [facility] HALEIGH KRUSEI Not Detected 23.000 - 32.271 ppm 06/03/2025 6:26 AM EDT [facility] CHLAMYDIA TRACHOMATIS 0 23.000 - 31.467 ppm 06/03/2025 6:26 AM EDT [facility] CHLAMYDIA TRACHOMATIS Not Detected 23.000 - 31.467 ppm 06/03/2025 6:26 AM EDT [facility] GARDNERELLA VAGINALIS 0 19.961 - 24.689 ppm 06/03/2025 6:26 AM EDT [facility] GARDNERELLA VAGINALIS Not Detected 19.961 - 24.689 ppm 06/03/2025 6:26 AM EDT [facility] MEGASPHAERA (TYPES 1, 2) 0 19.961 - 24.689 ppm 06/03/2025 6:26 AM EDT [facility] MEGASPHAERA (TYPES 1, 2) Not Detected 19.961 - 24.689 ppm 06/03/2025 6:26 AM EDT [facility] NEISSERIA GONORRHOEAE 0 23.000 - 32.117 ppm 06/03/2025 6:26 AM EDT [facility] NEISSERIA GONORRHOEAE Not Detected 23.000 - 32.117 ppm 06/03/2025 6:26 AM EDT [facility] TRICHOMONAS VAGINALIS 0 23.000 - 32.119 ppm 06/03/2025 6:26 AM EDT [facility] TRICHOMONAS VAGINALIS Not Detected 23.000 - 32.119 ppm 06/03/2025 6:26 AM EDT [facility] MYCOPLASMA GENITALIUM 0 19.961 - 24.689 ppm 06/03/2025 6:26 AM EDT [facility] MYCOPLASMA GENITALIUM Not Detected 19.961 - 24.689 ppm 06/03/2025 6:26 AM EDT [facility] Tissue 06/02/2025 11:1 4 AM EDT 06/03/2025 1:25 AM EDT [employer] LAB BLOOD ORDERABLES Final Resul t [facility] [place] [address] * (ABNORMAL) POCT urinalysis dipstick manually resulted (06/02/2025 10:02 AM EDT) Only the most recent of2 resultswithin the time period is included. Color, UA Ivon Clarity, UA Clear Glucose, UA Negative Negative - 2000(110) ++++ mg/dL Bilirubin, UA Negative Negative - 4(70) +++ mg/dL Ketones, UA Positive Negative - 160(16) ++++ mg/dL Spec Grav, UA 1.010 1 - 1.03 Blood, UA Negative Negative - 50 Nico/mcL pH, UA 7.0 5 - 9 Protein, UA Negative Negative - 2000(20) ++++ mg/dL Urobilinogen, UA 0.2 0.2 - 12 mg/dL Leukocytes, UA Negative Negative - 500+++ Karson/mcL Nitrite, UA Negative Negative - Positive Urine 06/02/2025 10:0 2 AM EDT Luis E Katarina DO POINT OF CARE TEST ENTER/EDIT OR DERABLES Final Result * IGP,APTIMA HPV,AGE GDLN (06/02/2025 9:42 AM EDT) AGE GDLN ACOG TESTING Note . [facility] Comment: TESTS RESULT FLAG UNITS REF RANGE LAB Clinician Provided Cytology Information Source.............Cervix No. of containers..01 ThinPrep Vial Age Algo ACOG Lenore... 28 FLAG LEGEND: L-Low Normal,H-High Normal,LL-Alert Low,HH-Alert High <-Panic Low,>-Panic High,A-Abnormal,AA-Critical Abnormal Performed at: 01 =G [facility] [phone] Joan Hyatt MD, IGP, APTIMA HPV, RFX 16/18,45 Note . [facility] Comment: TESTS RESULT FLAG UNITS REF RANGE LAB DIAGNOSIS: 02 NEGATIVE FOR INTRAEPITHELIAL LESION OR MALIGNANCY. Specimen adequacy: 02 Satisfactory for evaluation. No endocervical component is identified. Performed by: 02 [facility] [employer] [facility] [employer] ([facility]) . 02 Note: Note 02 The Pap smear is a screening test designed to aid in the detection of premalignant and malignant conditions of the uterine cervix. It is not a diagnostic procedure and should not be used as the sole means of detecting cervical cancer. Both false-positive and false-negative reports do occur. Test Methodology: Note 02 This liquid based ThinPrep(R) pap test was screened with the use of an image guided system. HPV Genotype Reflex Note 02 Criteria not met, HPV Genotype not performed. FLAG LEGEND: L-Low Normal,H-High Normal,LL-Alert Low,HH-Alert High <-Panic Low,>-Panic High,A-Abnormal,AA-Critical Abnormal Performed at: [address] [phone] Joan Hyatt MD, HPV APTIMA Negative Negative [facility] Comment: This nucleic acid amplification test detects fourteen high- risk HPV types (16,18,31,33,35,39,45,51,52,56,58,59,66,68) without differentiation. Performed at: =[address] [id number] Project Analyst: Joan Hyatt MD, Phone: [phone] Performed at: [facility] [id number] Project Analyst: Joan Hyatt MD, Phone: [phone] 06/02/2025 9:42 AM EDT 06/02/2025 9:39 PM EDT Narrative [facility] - 06/05/2025 12:18 PM EDT SPATULA-ALONE CERVIX Generic External Data Provider LAB BLOOD ORDERAB LES Final Result Performing Organization Address [facility]/ZIP Co de Phone Number [facility] * Pap Smear (06/02/2025 12:00 AM EDT) Swab Cervical swab / Unknown Luis E Bray DO LAB CYTOLOGY ORDERABLES Final Re sult Performing Organization Address [facility]/ZIP Co de Phone Number EXTERNAL LAB * (ABNORMAL) GLUCOSE 1 HOUR (05/23/2025 10:05 AM EDT) GLUCOSE 1 HOUR 172(H) <130 mg/dL [facility] 05/23/2025 10:0 5 AM EDT 05/23/2025 10:06 AM EDT Narrative [facility] - 05/23/2025 10:47 AM EDT Luis E Katarina DO LAB BLOOD ORDERABLES Final Resul t Performing Organization Address [facility] Co de Phone Number [facility] * BOX TEST (04/19/2025 12:17 PM EDT) BOX TEST SENT OUT [facility] BOX1 [facility] BOX2 04/19/25 [facility] 04/19/2025 12:1 7 PM EDT 04/19/2025 12:23 PM EDT Narrative [facility] - 04/19/2025 1:07 PM EDT UNITY Luis E Katarina DO LAB BLOOD ORDERABLES Final Resul t Performing Organization Address [facility] de Phone Number [facility] * HBSAG SCREEN (04/19/2025 12:17 PM EDT) Pathologist [facility] HBSAG SCREEN Negative Negative [facility] Comment: Performed at: [address] [id number] Project Analyst: Floyd Baez PhD, Phone: [phone] 04/19/2025 12:1 7 PM EDT 04/19/2025 12:23 PM EDT Narrative [facility] - 04/23/2025 12:08 PM EDT Luis E Katarina DO LAB BLOOD ORDERABLES Final Resul t Performing Organization Address [facility] Co de Phone Number [facility] * RAPID PLASMA REAGIN, QUANT (04/19/2025 12:17 PM EDT) Pathologist [facility] RAPID PLASMA REAGIN, QUANT Non Reactive NonRea<1: 1 titer [facility] Comment: Please Note: This test does not meet current guidelines for screening and diagnosis of syphilis. This test is intended for following treatment response in patients being treated for syphilis infection. To screen for syphilis infection, a reflex cascade that includes both RPR and a treponema-specific assay should be utilized, such as Treponema pallidum (Syphilis) Screening [place] ([id number]) or Rapid Plasma Reagin (RPR) Test With Reflex to Quantitative RPR and Confirmatory Treponema pallidum Antibodies ([id number]). Performed at: [address] [id number] Project Analyst: Floyd Baez PhD, Phone: [phone] 04/19/2025 12:1 7 PM EDT 04/19/2025 12:23 PM EDT Narrative [facility] - 04/23/2025 12:08 PM EDT Luis E Bray DO LAB BLOOD ORDERABLES Final Resul t Performing Organization Address City/[facility]/ZIP Co de Phone Number [facility] TB * HIV AB/P24 AG WITH REFLEX (04/19/2025 12:17 PM EDT) Pathologist [facility] HIV AB/P24 AG SCREEN Non Reactive Non Reactive [facility] Comment: HIV-1/HIV-2 antibodies and HIV-1 p24 antigen were NOT detected. There is no laboratory evidence of HIV infection. HIV Negative Performed at: [address] [id number] Project Analyst: Floyd Baez PhD, Phone: [phone] 04/19/2025 12:1 7 PM EDT 04/19/2025 12:23 PM EDT Narrative [facility] - 04/21/2025 1:07 PM EDT Generic External Data Provider LAB BLOOD ORDERAB LES Final Result Performing Organization Address City/[facility]/ZIP Co de Phone Number [facility] TB * HCV ANTIBODY RFX TO QUANT PCR (04/19/2025 12:17 PM EDT) HCV AB Non Reactive Non Reactive TB INTERPRETATION: Comment . TB Comment: Not infected with HCV unless early or acute infection is suspected (which may be delayed in an immunocompromised individual), or other evidence exists to indicate HCV infection. Performed at: - [facility] [id number] Project Analyst: Floyd Baez PhD, Phone: [phone] 04/19/2025 12:1 7 PM EDT 04/19/2025 12:23 PM EDT Narrative [facility] - 04/21/2025 1:07 PM EDT Generic External Data Provider LAB BLOOD ORDERAB LES Final Result [facility] TB * MLR HEMOGLOBIN A1C (04/19/2025 12:17 PM EDT) [facility] GLYCOHEMOGLOBIN A1C 5.5 4.5 - 6.2 % [facility] Comment: ADA RECOMMENDED LIMIT 4.0 - 6.0 ADA THERAPEUTIC TARGET < 7.0 ACTION SUGGESTED > 7.0 ESTIMATED AVERAGE GLUCOSE 111 mg/dL [facility] 04/19/2025 12:1 7 PM EDT 04/19/2025 12:23 PM EDT Narrative [facility] - 04/19/2025 1:03 PM EDT Generic External Data Provider [facility] F inal Result Performing Organization Address [facility]/ZIP Co de Phone Number [facility] TB * ALL TYPE AND SCREEN (04/19/2025 12:17 PM EDT) [facility] BLOOD TYPE O Positive [facility] ANTIBODY SCREEN NEGATIVE [facility] 04/19/2025 12:1 7 PM EDT 04/19/2025 12:23 PM EDT Narrative [facility] - 04/19/2025 1:57 PM EDT [facility] , Luis E Bray DO CLINISYNC Final Result Performing Organization Address [facility]/ZIP Co de Phone Number [facility] TB * ALL RUBELLA IGG AB (04/19/2025 12:17 PM EDT) RUBELLA ANTIBODIES, IGG 3.60 Immune >0.99 index [facility] Comment: Non-immune <0.90 Equivocal 0.90 - 0.99 Immune >0.99 Performed at: [facility] [address] [id number] Project Analyst: Floyd Baez PhD, Phone: [phone] 04/19/2025 12:1 7 PM EDT 04/19/2025 12:23 PM EDT Narrative [facility] - 04/21/2025 1:07 PM EDT us Generic External Data Provider [facility] F inal Result [facility] * ALL CBC WITH AUTO DIFF (04/19/2025 12:17 PM EDT) TB WBC 7.5 4.0 - 11.0 10 3/uL [facility] TB RBC 4.26 4.20 - 5.40 10 6/uL [facility] TB HGB 14.1 12.0 - 16.0 g/dL TB TB HCT 40.9 36.0 - 48.0 % TB TB MCV 96.0 81.0 - 99.0 fL TB TB MCH 33.1 26.7 - 34.0 pg [facility] TB MCHC 34.5 29.9 - 35.2 g/dL TB TB RDW 12.6 11.0 - 15.0 % TB TB PLT 194 150 - 450 10 3/uL TB TB MPV 11.6 9.5 - 13.5 fL TB NEUTROPHILS PERCENT AUTO 68.9 43.0 - 75.0 % [facility] LYMPHOCYTES PERCENT AUTO 22.5 20.5 - 60.0 % [facility] MONOCYTES PERCENT AUTO 6.9 1.7 - 12.0 % [facility] TBH EO % 1.3 0.9 - 7.0 % [facility] BASOPHILS PERCENT AUTO 0.3 0.2 - 2.0 % TB IMMATURE GRANULOCYTES PCT AUTO 0.1 0.0 - [...] Narrative [facility] - 04/19/2025 12:37 PM EDT us Luis E Katarina DO CLINISYNC Final Result [facility] * URINE CULTURE, ROUTINE (04/19/2025 11:45 AM EDT) URINE CULTURE, ROUTINE Urine Culture, Routine [facility] URINE CULTURE, ROUTINE Mixed urogenital alesia [facility] URINE CULTURE, ROUTINE 10,000-25,000 colony forming units per mL [facility] URINE CULTURE, ROUTINE Performed at: - [facility] URINE CULTURE, ROUTINE [address] [place] [id number] [facility] URINE CULTURE, ROUTINE Project Analyst: Floyd Baez PhD, Phone: [phone] [facility] 04/19/2025 11:4 5 AM EDT 04/19/2025 12:23 PM EDT Narrative [facility] - 04/21/2025 5:10 AM EDT us Generic External Data Provider LAB BLOOD ORDERAB LES Final Result [facility] * TB DRUG SCREEN RAPID (URINE) (04/19/2025 11:45 AM [...] Luis E Katarina DO CLINIS[facility] Final Result [facility] * (ABNORMAL) POCT , urine manually resulted (04/11/2025 10:37 AM EDT) Preg Test, Ur Positive Negative Urine 04/11/2025 10:3 7 AM EDT us [...] II, MD, PHD at 13-Apr-2025 09:18:27 PM [facility] Procedure Note Sanjay Norman MD - [...] signed by SANJAY NORMAN II, MD, PHD [id number] 09:18:27 PM [facility] us Luis E Bray DO IMG OB US PROCEDURES Final Resul t * THINPREP PAP AND HPV MRNA E6/E7 W/RFL HPV 16,18/45 (07/13/2023 10:11 AM EDT) us Fabi [facility]ELLEY LAB BLOOD ORDERABLES Final Resul t EXTERNAL LAB from Last 3 Months or Most Recently Relevant to Health Maintenance Insurance [place] [employer] [place]ID [place] Member Subscriber Plan / Payer (Ef fective 2022-Present) Name:Betty Kennedy Relation to Subscriber:Self Name:Betty Kennedy Payer ID:Not on file Group ID:[id number] Type:Not on file Address: [facility] [id number] [place] [id number] Care Teams Stock Grader Relationship Specialty Start Date End Date Yamel Guerrero MD PCP - General Family Medicine 05/04/23 Yamel Guerrero MD [address] [place], [place] [id number] PCP - [facility] ANTIQUE FURNITURE RESTORER 02/26/24
--- OUTSIDE RECORDS SUMMARY | 2025-06-23 13:35 | XMS_ITS | Encounter Summary ---
Author Organization [facility] Address [address] [place] [address] Care Team Providers Care Track Watchman Name Role Phone Yamel Guerrero MD Primary Care Provider [phone] Yamel Guerrero MD Unavailable Encounter Details Date Type Department Care Team (Late st Contact Info) Description 06/05/2023 [facility] [address] [place] [id number] Nellie Manzo, MACHINE SETTER SHEET METAL Social History Tobacco Use Types Packs/Day Years [...] often do you attend chur ch or hoahaoism services? Never 05/09/2023 Do you belong to any clubs o r organizations such as lutheran groups, unions, fraternal or athletic groups, or [...] Recorded Patient Health Questionnaire-2 Score 0 05/31/2023 [facility] - Occupational Stress Questionnaire Answer Date [...] to sleep or slept in a senior living (including now)? No 05/09/2023 Comments No Sex [...] EDT Ancillary Procedure [facility] Kaylen ALVARADO [address] [place] [address] 07/03/2025 10:10 AM EDT Routine [facility] Kaylen ALVARADO [address] [place] [address] Luis E Bray DO [address] [place] [address] documented as of this encounter Visit Diagnoses Not on filedocumented in this encounter Care Teams Track Watchman Relationship Specialty Start Date End Date Yamel Guerrero MD PCP - General Family Medicine 05/04/23 Yamel Guerrero MD [address] [place] [address] PCP - CHARLIE Joseph HOUSING ASSISTANT PROPERTY MANAGER 02/26/24 documented as of this encounter
--- OUTSIDE RECORDS SUMMARY | 2025-06-23 13:35 | XMS_ITS | Encounter Summary ---
Author Organization [facility] Address [address] [place] [address] Care Team Providers Care Chemical Plant Operator Supervisor Name Role Phone Yamel Guerrero MD Primary Care Provider [phone] Yamel Guerrero MD Unavailable Encounter Details Date Type Department Care Team (Late st Contact Info) Description 04/28/2025 Abstract [facility] Kaylen ALVARADO [address] [place] [phone] Luis E Bray DO [address] [facility] [address] [place], [place] [id number] Social History Tobacco Use Types Packs/Day Years [...] often do you attend chur ch or sabianist services? Never 05/09/2023 Do you belong to any clubs o r organizations such as alevism groups, unions, fraternal or athletic groups, or [...] Score 1 10/12/2023 [facility] Questionnaire Answer Date Recorded [...] place to sleep or slept in a intermediate (including now)? No 05/09/2023 Estimated Date of [...] EDT Ancillary Procedure [facility] Kaylen ALVARADO [address] [facility] [place] [address] 07/03/2025 10:10 AM EDT Routine NOMVivienne ALVARADO [address] [place] [address] Luis E Bray DO [address] [place], [place] [id number] documented as of this encounter Visit Diagnoses Not on filedocumented in this encounter Additional Health Concerns Assessment Noted Time PHQ-9 Depression Total Score: 4 10/12/20 23 9:00 AM EST documented as of this encounter Care Teams Chemical Plant Operator Supervisor Relationship Specialty Start Date End Date Yamel Guerrero MD PCP - General Family Medicine 05/04/23 Yamel Guerrero MD [address] [place] [address] PCP - CHARLIE Joseph CLINICAL MATERIAL HANDLER 02/26/24 documented as of this encounter
--- OUTSIDE RECORDS SUMMARY | 2025-06-23 13:35 | XMS_ITS ---
Author Organization [facility] Address [address] [place] [address] Care Team Providers Care Insurance Executive Name Role Phone Yamel Guerrero MD Primary Care Provider [phone] Yamel Guerrero MD Unavailable Comprehensive Maternal Care ([facility]) Status:Closed (Closed) Start date:06/18/2025 Enrollment date:06/20/2025 Enrollment reason:Identified by Health Plan End date:06/20/2025 Close reason:Unable to reach patient Continued Care and Services Coordination
--- OUTSIDE RECORDS SUMMARY | 2025-06-23 13:35 | XMS_ITS | Patient Health Record ---
Author Organization [facility] vices Address [address] [place], [place] [id number] Care Team Providers Care Hydraulic Bull Riveter Operator Name Role Phone Frederick Renee Unavailable [phone] Angela Chua Unavailable [phone] Allergies No Known Allergies Reason For Referral [...] Problem Status W/U Status Risk Notes Problem [id number] BMI 36.0-36.9,ad ult (Z68.36) Active confirmed Problem [id number] BMI 37.0-37.9, adult (Z68.37) Active confirmed Vital Signs Heart Rate 86 /min 11/14/2024 Blood pressure diastolic 76 mm Hg 11/14/2024 Weight-kg 99.79 kg 11/14/2024 Height 64 in 11/14/2024 Blood pressure systolic 128 mm Hg 11/14/2024 Weight 220 lbs 11/14/2024 BMI 37.76 kg/m2 11/14/2024 Encounters Encounter Location Date Provider Diagnosis [facility] [address] [place], [place] [id number] 11/14/2024 Angela Chua BMI 37.0-37.9, tiffany lt [...] Start Date Coverage End Date zzDAnthem D[employer] [facility] [address] [place] [address] [id number] Betty Kennedy Self - patient is the insured 4 DMedicaid C after [place] [address] [place], [place] [id number] Betty Kennedy Self - patient is the insured 4
--- OUTSIDE RECORDS SUMMARY | 2025-06-23 13:35 | XMS_ITS | Encounter Summary ---
Author Organization [facility] Address [address] [place] [address] Care Team Providers Care Director Financial Planning Name Role Phone Yamel Guerrero MD Primary Care Provider Yamel Guerrero MD Unavailable Encounter Details Date Type Department Care Team (Late st Contact Info) Description 05/15/2023 Abstract [facility] Family Medicine [address] [place] [phone] Nellie Manzo, PAGE MAKEUP SYSTEM OPERATOR Social History Tobacco Use Types Packs/Day [...] often do you attend chur ch or evangelical services? Never 05/09/2023 Do you belong to any clubs o r organizations such as holiness groups, unions, fraternal or athletic groups, or [...] Recorded Patient Health Questionnaire-2 Score 0 05/10/2023 [facility] - Occupational Stress Questionnaire Answer Date [...] place to sleep or slept in a skilled nursing (including now)? No 05/09/2023 Comments No Sex [...] Description 07/03/2025 9:00 AM EDT Ancillary Procedure NOM[facility]ivienne ALVARADO [address] [facility] [address] 07/03/2025 10:10 AM EDT Routine CHARLIE ALVARADO [address] [place] [address] Luis E Bray DO [address] [place], [place] [id number] documented as of this encounter Visit Diagnoses Not on filedocumented in this encounter Care Teams Director Financial Planning Relationship Specialty Start Date End Date Yamel Guerrero MD PCP - General Family Medicine 05/04/23 Yamel Guerrero MD [address] [place] [address] PCP - CHARLIE Joseph CHIEF INVESTMENT OFFICER 02/26/24 documented as of this encounter
--- OUTSIDE RECORDS SUMMARY | 2025-06-23 13:35 | XMS_ITS | Encounter Summary ---
Author Organization [facility] Address [address] [place] [address] Care Team Providers Care Marine Fire Fighter Name Role Phone Yamel Guerrero MD Primary Care Provider [phone] Yamel Guerrero MD Unavailable Encounter Details Date Type Department Care Team (Late st Contact Info) Description 06/20/2025 Patient Outreach [facility] [address] [place] [address] Fabi Sanchez, LAUREL [address] [place] [address] Social History Tobacco Use Types Packs/Day Years [...] any clubs o r organizations such as restorationist groups, unions, fraternal or athletic groups, or [...] Recorded Patient Health Questionnaire-2 Score 1 10/12/2023 [facility]ational [facility] Questionnaire Answer Date [...] place to sleep or slept in a alf (including now)? No 05/09/2023 Estimated Date of Delivery Comme nts Yes 11/14/2025 Based on last me nstrual period of 02/07/2025 Sex and Gender Information Value Date Recorded Sex Assigned at Female 04/30/2023 3:31 PM EDT Legal Sex Female 7:09 PM EDT Gender Identity Female 04/30/2023 3:31 PM EDT Sexual Orientation Not on file documented as of this encounter Progress Notes * Fabi Sanchez LPN - 06/20/2025 11:22 AM EDT Initial Outreach. Call to pt X2, LVM. MyChart communication sent. documented in this encounter Plan of Treatment Upcoming Encounters Date Type Department Care Team (Late st Contact Info) Description 07/03/2025 9:00 AM EDT Ancillary Procedure [facility] Kaylen ALVARADO [address] [facility] [place] [place] [address] 07/03/2025 10:10 AM EDT Routine NOMVivienne ALVARADO [address] [place] [address] Luis E Bray DO [address] [place] [address] documented as of this encounter Visit Diagnoses Not on filedocumented in this encounter Additional Health Concerns Assessment Noted Time PHQ-9 Depression Total Score: 4 10/12/20 23 9:00 AM EST documented as of this encounter Care Teams Marine Fire Fighter Relationship Specialty Start Date End Date Yamel Guerrero MD PCP - General Family Medicine 05/04/23 Yamel Guerrero MD [address] [place] [address] PCP - CHARLIE Joseph FRONT ATTENDANT 02/26/24 documented as of this encounter
--- OUTSIDE RECORDS SUMMARY | 2025-06-23 13:35 | XMS_ITS | Clinical Summary ---
Author Organization [employer] [facility] Address [id number] [address] [place] [address] Care Team Providers Care Web Pressman Name Role Phone Yamel Guerrero MD Primary Care Provider [phone] Allergies No known active allergies Medications PNV [...] exists Medical Devices Not on file Insurance [facility] MEDICAID Care Teams Web Pressman Relationship Specialty Start Date End Date Yamel Guerrero MD PCP - General Family Medicine 06/03/17
--- OUTSIDE RECORDS SUMMARY | 2025-06-23 13:35 | XMS_ITS | Encounter Summary ---
Author Organization [facility] Address [address] [place] [address] Care Team Providers Care Paper Control Clerk Name Role Phone Yamel Guerrero MD Primary Care Provider [phone] Yamel Guerrero MD Unavailable Encounter Details Date Type Department Care Team (Late st Contact Info) Description 06/10/2025 Orders Only [facility] Kaylen ALVARADO [address] [facility] [place] [address] Ann Finn MA [address] [facility] [place] [address] Social History Tobacco Use Types Packs/Day Years [...] often do you attend chur ch or moravian services? Never 05/09/2023 Do you belong to [...] Recorded Patient Health Questionnaire-2 Score 1 10/12/2023 [facility]at ional [facility] - Occupational [...] place to sleep or slept in a assisted (including now)? No 05/09/2023 Estimated Date of [...] Description 07/03/2025 9:00 AM EDT Ancillary Procedure CHARLIE ALVARADO [address] [facility] [place] [address] 07/03/2025 10:10 AM EDT Routine CHARLIE ALVARADO [address] [facility] [facility] [place] [phone] Luis E Bray DO [address] [place], [place] [address] documented as of this encounter Procedures Procedure Name Priority Date/Time Associated Diagnosis Comments PAP SMEAR Routine 06/02/2025 12:00 AM EDT documented in this encounter Results * Pap Smear (06/02/2025 12:00 AM EDT) Swab Cervical swab / Unknown us Luis E Bray DO LAB CYTOLOGY ORDERABLES Final Re sult EXTERNAL LAB documented in this encounter Visit Diagnoses Not on filedocumented in this encounter Additional Health Concerns Assessment Noted Time PHQ-9 Depression Total Score: 4 10/12/20 23 9:00 AM EST documented as of this encounter Care Teams Paper Control Clerk Relationship Specialty Start Date End Date Yamel Guerrero MD PCP - General Family Medicine 05/04/23 Yamel Guerrero MD [address] [place] [address] PCP - CHARLIE Joseph REAL ESTATE OFFICER 02/26/24 documented as of this encounter
--- OUTSIDE RECORDS SUMMARY | 2025-06-23 13:35 | XMS_ITS | Encounter Summary ---
Author Organization [facility] Address [address] [place] [address] Care Team Providers Care Powerhouse Mechanic Name Role Phone Yamel Guerrero MD Primary Care Provider [phone] Yamel Guerrero MD Unavailable Encounter Details Date Type Department Care Team (Late st Contact Info) Description 06/02/2023 [facility] [address] [place] [phone] Nellie Manzo, ASSURANCE SERVICES MANAGER HEALTH CARE Social History Tobacco Use Types Packs/Day Years [...] often do you attend chur ch or anglican services? Never 05/09/2023 Do you belong to any clubs o r organizations such as confucianism groups, unions, fraternal or athletic groups, or [...] Recorded Patient Health Questionnaire-2 Score 0 05/31/2023 [facility] - Occupational Stress Questionnaire Answer Date [...] in a intermediate (including now)? No 05/09/2023 Comments No Sex [...] EDT Ancillary Procedure [facility] Kaylen ALVARADO [address] [facility] [place] [address] 07/03/2025 10:10 AM EDT Routine [facility] Kaylen ALVARADO [address] [place] [address] Luis E Bray DO [address] [place] [address] documented as of this encounter Visit Diagnoses Not on filedocumented in this encounter Care Teams Powerhouse Mechanic Relationship Specialty Start Date End Date Yamel Guerrero MD PCP - General Family Medicine 05/04/23 Yamel Guerrero MD [address] [place] [address] PCP - CHARLIE Joseph COPIER TECHNICIAN 02/26/24 documented as of this encounter
--- OUTSIDE RECORDS SUMMARY | 2025-06-23 13:36 | XMS_ITS | Encounter Summary ---
Author Organization [facility] Address [address] [place] [address] Care Team Providers Care Chief Of Safety And Protection Name Role Phone Yamel Guerrero MD Primary Care Provider [phone] Yamel Guerrero MD Unavailable Encounter Details Date Type Department Care Team (Late st Contact Info) Description 04/14/2025 Results Follow-Up CHARLIE ALVARADO [address] [place] [phone] Julissa Aranda LPN [address] [place] [address] Social History Tobacco Use Types [...] often do you attend chur ch or latter day services? Never 05/09/2023 Do you belong to any clubs o r organizations such as mandaen groups, unions, fraternal or athletic groups, or [...] Recorded Patient Health Questionnaire-2 Score 1 10/12/2023 [facility] of Occupat ional [facility] - Occupational Stress Questionnaire Answer [...] place to sleep or slept in a fdc (including now)? No 05/09/2023 Estimated Date of [...] 07/03/2025 9:00 AM EDT Ancillary Procedure [facility] Di OBGYN [address] [facility] [place] [address] 07/03/2025 10:10 AM EDT Routine [facility] Di OBGYN [address] [facility] [place] [place] [phone] Luis E Bray DO [address] [facility] [address] [place], [place] [address] documented as of this encounter Visit Diagnoses Not on filedocumented in this encounter Additional Health Concerns Assessment Noted Time PHQ-9 Depression Total Score: 4 10/12/20 23 9:00 AM EST documented as of this encounter Care Teams Chief Of Safety And Protection Relationship Specialty Start Date End Date Yamel Guerrero MD PCP - General Family Medicine 05/04/23 Yamel Guerrero MD [address] [facility] [place] [address] PCP - [facility] Jake SALON COORDINATOR 02/26/24 documented as of this encounter
== END 2025-06-23 13:33 | disposition home or self-care (01) ==
LOC: LAB 13:33
PROVIDERS: PCP Family Medicine; Visit Provider Obstetrics & Gynecology
DX: Z34.92 Encounter for supervision of normal pregnancy, unspecified, second trimester (principal); Z36.1 Encounter for antenatal screening for raised alphafetoprotein level
CPT/HCPCS: 36415; 82105

== ENCOUNTER 2025-08-27 09:42 | Outpatient (OUT) | payer MEDICAID, SELFPAY ==
--- OUTSIDE RECORDS SUMMARY | 2025-08-13 11:10 | XMS_ITS | Encounter Summary ---
Author Organization [facility] Address [address] [place] [address] Care Team Providers Care Print Controller Name Role Phone Yamel Guerrero MD Primary Care Provider [phone] Yamel Guerrero MD Unavailable Reason for Visit * Reason Comments Routine Visit Encounter Details Date Type Department Care Team (Late st Contact Info) Description 08/13/2025 11:10 AM EDT Routine [facility] [address] [phone] Luis E Bray DO [address] [place], [facility] 26 weeks gestation of ([facility]); Second trimester ([facility]); Gestational diabetes mellitus (GDM), antepartum, gestational diabetes method of control unspecified ([facility]) Social History Tobacco Use Types Packs/Day Years [...] often do you attend chur ch or restoration services? Never 05/09/2023 Do you belong to any clubs o r organizations such as jewish groups, unions, fraternal or athletic groups, or [...] Recorded Patient Health Questionnaire-2 Score 1 10/12/2023 [facility]at ionor Health - Occupational Stress Questionnaire Answer Date [...] on file documented as of this encounter Last Filed Vital Signs Vital Sign Reading Time Taken Comments Blood Pressure 110/70 08/13/2025 11:17 AM EDT Pulse - - Temperature - - Respiratory Rate - - Oxygen Saturation - - Inhaled Oxygen Concentration - - Weight 109 kg (241 lb 6.4 oz) 08/13/2025 11:17 A M EDT Height - - Body Mass Index 41.44 10/23/2023 4:27 PM EST documented in this encounter Progress Notes * Sonia Coker LPN - 08/13/2025 11:10 AM EDT Reason for Appointment: Patient ID: Betty Quintanilla is a 34 y.o. female who presents for Routine Visit Patient presents today for Return OB appointment. MEDICATIONS Current Outpatient Medications Medication Instructions albuterol HFA 90 mcg/act inhaler 2 puffs, Inhalation, Every 4 hours PRN Alcohol Swabs (Alcohol Prep Pad) 70 % pads 1 Pad, Topical, Daily, Use four times daily to check FSBS. Blood Glucose Monitoring Suppl ([employer] Glucometer) w/Device kit 1 kit, Does not apply, Daily, Use four times daily to check FSBS. In the morning prior to breakfast & 1 hour after each meal for a total of 4times daily. buPROPion XL (WELLBUTRIN XL) 300 mg, Oral, Daily, Do not crush, chew, or split. metFORMIN XR (GLUCOPHAGE-XR) 500 mg, Oral, Daily with evening meal, Do not crush, chew, or split. metoclopramide (REGLAN) 10 mg, Oral, 3 times daily before meals, Take 1 tablet by mouth 30 minutes prior to meals 3 times daily as needed for nausea. ondansetron (ZOFRAN) 4 mg, Oral, Every 6 hours PRN, Take 1 tablet by mouth every 6 hours as needed for nausea. Pharmacist Choice Lancets mis USE 1 LANCET TO CHECK FSBS 4 TIMES DAILY MV-Min-Fe Fum-FA-DHA ( 1 PO) 1 tablet, Daily promethazine (PHENERGAN) 12.5 mg, Oral, Every 6 hours PRN, Take 1 tablet by mouth every 6 hours as needed for nausea. ALLERGIES No Known Allergies PROBLEMS Active Ambulatory Problems Diagnosis Date Noted Elevated antinuclear antibody (ROSEMARY) level 05/10/2023 Gastroesophageal reflux disease without esophagitis 05/10/2023 Raynaud's phenomenon 08/02/2019 Severe single current episode of major depressive disorder, without psychotic features ([facility]) 05/10/2023 Thyromegaly 05/10/2023 Tonsillar hypertrophy 10/08/2019 Undifferentiated connective tissue disease ([facility]) 12/18/2017 Systemic lupus erythematosus ([facility]) 05/31/2023 Anxiety 06/29/2023 Obesity due to excess calories without serious comorbidity 06/29/2023 Resolved Ambulatory Problems Diagnosis Date Noted Carpal tunnel syndrome 05/10/2023 Past Medical History: Diagnosis Date ROSEMARY positive Autoimmune disorder ([facility]) COPD (chronic obstructive pulmonary disease) (HCC) Depression Folliculitis GERD (gastroesophageal reflux disease) Headache Obesity Ovarian cyst Pleurisy Raynaud phenomenon HISTORY PAST MEDICAL HISTORY SOCIAL HISTORY Past Medical History: Diagnosis Date ROSEMARY positive Anxiety Autoimmune disorder (HCC) COPD (chronic obstructive pulmonary disease) (HCC) Depression Folliculitis GERD (gastroesophageal reflux disease) Headache Obesity Ovarian cyst Pleurisy Raynaud phenomenon Thyromegaly Social History Tobacco Use Smoking status: Never Smokeless tobacco: Never Substance Use Topics Alcohol use: Never Comment: caffeine: 2-3 cups per day Drug use: Never FAMILY HISTORY Family History Problem Relation Name Age of Onset Arthritis Mother Urszula dwight Throat cancer Father Panda dwight(throat cancer) Stroke Father Panda quintanilla(throat cancer) Cancer Father Panda quintanilla(throat cancer) Colon cancer Maternal Grandmother Aneurysm Maternal Grandfather Stroke Paternal Grandfather Dad Arthritis Mother's Sister Aunt Diabetes Mother's Sister Aunt Cancer Brother Ayo quintanilla (thyroid cancer) SURGICAL HISTORY History reviewed. No pertinent surgical history. REVIEW OF SYSTEMS Review of Systems: Review of Systems Constitutional: Negative. HENT: Negative. Eyes: Negative. Respiratory: Negative. Cardiovascular: Negative. Gastrointestinal: Negative. Genitourinary: Negative. Musculoskeletal: Negative. Skin: Negative. Neurological: Negative. All other systems reviewed and are negative. Hematological: Negative. Endocrine: Negative. Allergic/Immunologic: Negative. OBJECTIVE Objective: Physical Exam Constitutional: Appearance: Normal appearance. She is well-developed. Cardiovascular: Rate and Rhythm: Normal rate and regular rhythm. Pulmonary: Effort: Pulmonary effort is normal. Breath sounds: Normal breath sounds. Abdominal: General: Bowel sounds are normal. There is no distension. Palpations: Abdomen is soft. Tenderness: There is no abdominal tenderness. There is no guarding or rebound. Musculoskeletal: General: No swelling. Normal range of motion. Right lower leg: No edema. Left lower leg: No edema. Neurological: Mental Status: She is alert and oriented to person, place, and time. Skin: General: Skin is warm and dry. Psychiatric: Mood and Affect: Mood normal. Behavior: Behavior normal. Vitals and nursing note reviewed. Exam conducted with a spin table operator present. Vitals: Estimated body mass index is 41.44 kg/m?? as calculated from the following: Height as of 10/23/23: 5' 4 . Weight as of this encounter: 241 lb 6.4 oz. BP: 110/70 Patient's last menstrual period was 02/07/2025. ASSESSMENT & PLAN ICD-10-CM 1. 26 weeks gestation of ([facility]) Z3A.26 POCT urinalysis dipstick manually resulted 2. Second trimester ([facility]) Z34.92 POCT urinalysis dipstick manually resulted Return OB: Patient presents today for a routine obstetrics appointment. Patient is currently 26w5d . Patient states she is doing well but has complaints of being tired due to current . Patient has verbalizes frequent movement. labor precautions was discussed/given and patient was instructed to perform kick counts three times a day. Orders Placed This Encounter Procedures POCT urinalysis dipstick manually resulted Follow Up: Patient is to return to office in 2 week for routine OB appointment. Documented by Sonia Coker LPN on behalf of: Luis E Bray DO documented in this encounter Plan of Treatment Upcoming Encounters Date Type Department Care Team (Late st Contact Info) Description 08/27/2025 10:20 AM EDT [facility] [address] [place] [address] Catarina Barnes NP [address] [place] [phone] Scheduled Orders Name Type Priority Associated Diagnoses Orde r Schedule US OB follow up transabdominal approach Imaging Routine Gestational diabetes mellitus (GDM), antepartum, gestational diabetes method of control unspecified ([facility]) [id number] for 4 Occurrences starting 08/13/2025 until 02/10/2026 documented as of this encounter Procedures Procedure Name Priority Date/Time Associated Diagnosis Comments POCT URINALYSIS DIPSTICK Routine 08/13/2025 11:24 AM EDT 26 weeks gestation of ([facility]) Second trimester ([facility]) documented in this encounter Results * (ABNORMAL) POCT urinalysis dipstick manually resulted (08/13/2025 11:24 AM EDT) Color, UA Yellow Clarity, UA Clear Glucose, UA Negative Negative - 1999(110) ++++ mg/dL Bilirubin, UA Negative Negative - 4(70) +++ mg/dL Ketones, UA Positive Negative - 160(16) ++++ mg/dL Spec Grav, UA 1.015 1 - 1.03 Blood, UA Negative Negative - 50 Nico/mcL pH, UA 6.0 5 - 9 Protein, UA Negative Negative - 1999(20) ++++ mg/dL Urobilinogen, UA 1.0 0.2 - 12 mg/dL Leukocytes, UA Negative Negative - 500+++ Karson/mcL Nitrite, UA Negative Negative - Positive Urine 08/13/2025 11:2 4 AM EDT Luis E Bray DO POINT OF CARE TEST ENTER/EDIT OR DERABLES Final Result documented in this encounter Visit Diagnoses Diagnosis 26 weeks gestation of ([facility]) Second trimester ([facility]) state, incidental Gestational diabetes mellitus (GDM), antepartum, gestational diabetes method of control unspecified ([facility]) documented in this encounter Additional Health Concerns Assessment Noted Time PHQ-9 Depression Total Score: 4 10/12/20 23 9:00 AM EST documented as of this encounter Care Teams Print Controller Relationship Specialty Start Date End Date Yamel Guerrero MD PCP - General Family Medicine 05/04/23 Yamel Guerrero MD [address] [place] [address] PCP - CHARLIE Joseph MANAGER CONTRACTING 02/26/24 documented as of this encounter
--- OUTSIDE RECORDS SUMMARY | 2025-08-27 09:45 | XMS_ITS | Encounter Summary ---
Author Organization [facility] Address [address] [place] [address] Care Team Providers Care Extended Day Teacher Name Role Phone Yamel Guerrero MD Primary Care Provider Yamel Guerrero MD Unavailable Encounter Details Date Type Department Care Team (Late st Contact Info) Description 06/05/2023 Abstract [facility] Family Medicine [address] [place] [phone] Nellie Manzo, ASSISTANT COOK Social History Tobacco Use Types Packs/Day Years [...] often do you attend chur ch or christian services? Never 05/09/2023 Do you belong to any clubs o r organizations such as temple groups, unions, fraternal or athletic groups, or [...] Recorded Patient Health Questionnaire-2 Score 0 05/31/2023 [facility] - Occupational Stress Questionnaire Answer Date [...] 08/27/2025 10:20 AM EDT Routine [facility] Kaylen WALTERN [address] [place] [place] [address] Catarina Barnes NP [address] [place] [address] documented as of this encounter Visit Diagnoses Not on filedocumented in this encounter Care Teams Extended Day Teacher Relationship Specialty Start Date End Date Yamel Guerrero MD PCP - General Family Medicine 05/04/23 Yamel Guerrero MD [address] [place] [address] PCP - [facility] COMMERCIAL COLLECTIONS SPECIALIST 02/26/24 documented as of this encounter
--- OUTSIDE RECORDS SUMMARY | 2025-08-27 09:45 | XMS_ITS | Encounter Summary ---
Author Organization [facility] Address [address] [place] [address] Care Team Providers Care Medical Staff Specialist Name Role Phone Yamel Guerrero MD Primary Care Provider [phone] Yamel Guerrero MD Unavailable Encounter Details Date Type Department Care Team (Late st Contact Info) Description 06/08/2023 [facility] [address] [place] [phone] Yamel Guerrero MD [address] [place] [address] Social History Tobacco Use Types [...] often do you attend chur ch or restorationism services? Never 05/09/2023 Do you belong to any clubs o r organizations such as jainism groups, unions, fraternal or athletic groups, or [...] Recorded Patient Health Questionnaire-2 Score 0 05/31/2023 [facility] Questionnaire Answer Date Recorded [...] in a residential (including now)? No 05/09/2023 Comments No Sex [...] 08/27/2025 10:20 AM EDT Routine [facility] OBGYBud [address] [place] [address] Catarina Barnes NP [address] [facility] [address] [place] [address] documented as of this encounter Visit Diagnoses Not on filedocumented in this encounter Care Teams Medical Staff Specialist Relationship Specialty Start Date End Date Yamel Guerrero MD PCP - General Family Medicine 05/04/23 Yamel Guerrero MD [address] [place] [address] PCP - [facility] DOCUMENTATION ANALYST 02/26/24 documented as of this encounter
--- OUTSIDE RECORDS SUMMARY | 2025-08-27 09:45 | XMS_ITS | Patient Health Record ---
Author Organization [facility] [place] Address [address] [place] [address] Care Team Providers Care Supervisor Bleach Plant Name Role Phone Yamel Guerrero MD Primary Care Provider Unavailabl e Reason For Referral No Information Medications Medication SIG (Take, Route, Frequency, Duration) Notes Start Date End Date Status Vitamin Act marcus Hydroxychloroquine Sulfate Not-Taking Social History Tobacco Use: Social History Observation Description Date Details (start date - stop date) Never Smoker NA - NA Tobacco Use/Smoking Question Answer Notes Patient is a nonsmoker Plan Of Treatment No Information Insurance Providers Payer Name Payer Address Payer Phone Subscriber Number Group Number Insured Name Patient Relationship to Insured Coverage Start Date Coverage End Date [employer] [address] [place] [address] [id number] AYDE THOMPSON Self - patient is the insured
--- OUTSIDE RECORDS SUMMARY | 2025-08-27 09:45 | XMS_ITS | Encounter Summary ---
Author Organization [facility] Address [address] [place] [address] Care Team Providers Care Senior Solutions Engineer Name Role Phone Yamel Guerrero MD Primary Care Provider [phone] Yamel Guerrero MD Unavailable Encounter Details Date Type Department Care Team (Late st Contact Info) Description 06/02/2023 Abstract [facility] Family Medicine [address] [place] [phone] Nellie Manzo, SUPERVISOR ASBESTOS TEXTILE Social History Tobacco Use Types Packs/Day Years [...] often do you attend chur ch or anabaptism services? Never 05/09/2023 Do you belong to [...] Recorded Patient Health Questionnaire-2 Score 0 05/31/2023 [facility] - Occupational Stress Questionnaire [...] a senior care (including now)? No 05/09/2023 Comments No Sex [...] AM EDT Routine [facility] WALTERN [address] [facility] [facility] [place] [address] Catarina Barnes NP [address] [facility] [address] [place] [address] documented as of this encounter Visit Diagnoses Not on filedocumented in this encounter Care Teams Senior Solutions Engineer Relationship Specialty Start Date End Date Yamel Guerrero MD PCP - General Family Medicine 05/04/23 Yamel Guerrero MD [address] [place] [address] PCP - [facility] FACILITIES MANAGER 02/26/24 documented as of this encounter
--- OUTSIDE RECORDS SUMMARY | 2025-08-27 09:45 | XMS_ITS | Clinical Summary ---
Author Organization [employer] Address [id number] [address] [place] [address] Care Team Providers Care Rn Informatics Name Role Phone Yamel Guerrero MD Primary Care Provider [phone] Allergies No known active allergies Medications PNV [...] exists Medical Devices Not on file Insurance [facility] MEDICAID Care Teams Rn Informatics Relationship Specialty Start Date End Date Yamel Guerrero MD PCP - General Family Medicine 06/03/17
--- OUTSIDE RECORDS SUMMARY | 2025-08-27 09:45 | XMS_ITS | Encounter Summary ---
Author Organization [facility] Address [address] [place] [address] Care Team Providers Care Construction Millwright Name Role Phone Yamel Guerrero MD Primary Care Provider [phone] Yamel Guerrero MD Unavailable Encounter Details Date Type Department Care Team (Late st Contact Info) Description 07/03/2025 Abstract [facility] ALVARADO [address] [place] [phone] Luis E Bray DO [address] [place], [place] [phone] Social History Tobacco Use Types Packs/Day Years [...] often do you attend chur ch or episcopalian services? Never 05/09/2023 Do you belong to any clubs o r organizations such as congregation groups, unions, fraternal or athletic groups, or [...] Recorded Patient Health Questionnaire-2 Score 1 10/12/2023 [facility]ational Stress Questionnaire Answer Date [...] place to sleep or slept in a long-term (including now)? No 05/09/2023 Estimated Date of [...] AM EDT Routine [facility]BGYN [address] [place] [address] Catarina Barnes NP [address] [place] [address] documented as of this encounter Visit Diagnoses Not on filedocumented in this encounter Additional Health Concerns Assessment Noted Time PHQ-9 Depression Total Score: 4 10/12/20 23 9:00 AM EST documented as of this encounter Care Teams Construction Millwright Relationship Specialty Start Date End Date Yamel Guerrero MD PCP - General Family Medicine 05/04/23 Yamel Guerrero MD [address] [place] [address] PCP - CHARLIE Joseph [facility] 02/26/24 documented as of this encounter
--- OUTSIDE RECORDS SUMMARY | 2025-08-27 09:45 | XMS_ITS | Encounter Summary ---
Author Organization [facility] Address [address] [place] [address] Care Team Providers Care Prenatal Genetic Counselor Name Role Phone Yamel Guerrero MD Primary Care Provider [phone] Yamel Guerrero MD Unavailable Encounter Details Date Type Department Care Team (Late st Contact Info) Description 05/15/2023 Abstract [facility] Family Medicine [address] [place] [address] Nellie Manzo, RN RESIDENTIAL Social History Tobacco Use Types Packs/Day Years [...] often do you attend chur ch or episcopal services? Never 05/09/2023 Do you belong to any clubs o r organizations such as druze groups, unions, fraternal or athletic groups, or [...] Recorded Patient Health Questionnaire-2 Score 0 05/10/2023 [facility] - Occupational Stress Questionnaire Answer Date [...] place to sleep or slept in a prison (including now)? No 05/09/2023 Comments No Sex [...] 08/27/2025 10:20 AM EDT Routine [facility] Kaylen ALVARADO [address] [place] [address] Catarina Barnes NP [address] [place] [address] documented as of this encounter Visit Diagnoses Not on filedocumented in this encounter Care Teams Prenatal Genetic Counselor Relationship Specialty Start Date End Date Yamel Guerrero MD PCP - General Family Medicine 05/04/23 Yamel Guerrero MD [address] [place] [address] PCP - [facility] CLAIMS CUSTOMER SERVICE REPRESENTATIVE 02/26/24 documented as of this encounter
--- OUTSIDE RECORDS SUMMARY | 2025-08-27 09:45 | XMS_ITS | Patient Health Record ---
Author Organization [facility] vices Address [address] [place], [place] [id number] Care Team Providers Care Concession Cashier Name Role Phone Renee Mack Unavailable [phone] Toma Angela Unavailable [phone] Allergies No Known Allergies Reason For Referral No Information Medications Medication SIG (Take, Route, Fr equency, Duration) Notes Start Date End Date Status Peridex 0.12 % swish 30 seconds 2x/ day. Spit, do not rinse. Do not eat or drink for 30 minutes after. Mouth/Throat 2x/day; Duration: 14 days 03/24/2022 Not-Taking Social History Tobacco Use: Social History Observation Description Date Details (start date - stop date) Never Smoker NA - NA Sex Assigned At : Social History Observation Description Sex Assigned At Female Tobacco Use/Smoking Question Answer Notes Tobacco use: nonsmoker Problems Problem Type SNOMED Code ICD Code Onset Dates Problem Status W/U Status Risk Notes Problem Obese class II (039038494443 105) BMI 36.0-36.9,ad ult (Z68.36) Active confirmed Problem Obese class II (019215890368 105) BMI 37.0-37.9, adult (Z68.37) Active confirmed Vital Signs Heart Rate 86 /min 11/14/2024 Blood pressure diastolic 76 mm Hg 11/14/2024 Weight-kg 99.79 kg 11/14/2024 Height 64 in 11/14/2024 Blood pressure systolic 128 mm Hg 11/14/2024 Weight 220 lbs 11/14/2024 BMI 37.76 kg/m2 11/14/2024 Encounters Encounter Location Date Provider Diagnosis [facility] [address] [place], [place] [id number] 11/14/2024 Angela Chua BMI 37.0-37.9, tiffany lt [...] Start Date Coverage End Date zzDAnthem [employer] [facility] [address] [place] [address] [id number] Betty Kennedy Self - patient is the insured 4 DMedicaid CFC after [place] [address] [place], [place] [id number] Betty Kennedy Self - patient is the insured 4
--- OUTSIDE RECORDS SUMMARY | 2025-08-27 09:45 | XMS_ITS | Encounter Summary ---
Author Organization [facility] Address [address] [place] [address] Care Team Providers Care Temporary Office Assistant Name Role Phone Yamel Guerrero MD Primary Care Provider [phone] Yamel Guerrero MD Unavailable Encounter Details Date Type Department Care Team (Late st Contact Info) Description 08/13/2025 Bamboo flowsheet [facility] [address] [place] [phone] Luis E Bray DO [address] [facility] [address] [place] [id number] Social History Tobacco Use Types Packs/Day Years [...] often do you attend chur ch or mandaen services? Never 05/09/2023 Do you belong to any clubs o r organizations such as latter-day groups, unions, fraternal or athletic groups, or [...] Recorded Patient Health Questionnaire-2 Score 1 10/12/2023 [facility] - Occupational Stress Questionnaire Answer Date [...] a skilled nursing (including now)? No 05/09/2023 Estimated Date of [...] AM EDT Routine [facility] [address] [place] [address] Catarina Barnes NP [address] [place] [address] documented as of this encounter Visit Diagnoses Not on filedocumented in this encounter Additional Health Concerns Assessment Noted Time PHQ-9 Depression Total Score: 4 10/12/20 9:00 AM EST documented as of this encounter Care Teams Temporary Office Assistant Relationship Specialty Start Date End Date Yamel Guerrero MD PCP - General Family Medicine 05/04/23 Yamel Guerrero MD [address] [place] [address] PCP - CHARLIE Joseph DATA PROCESSING EQUIPMENT REPAIRER 02/26/24 documented as of this encounter
--- OUTSIDE RECORDS SUMMARY | 2025-08-27 09:45 | XMS_ITS | Clinical Summary ---
Author Organization [facility] Address [address] [place] [address] Care Team Providers Care Trimming Inspector Name Role Phone Yamel Guerrero MD Primary Care Provider [phone] Yamel Guerrero MD Unavailable Allergies No known active allergies Medications buPROPion XL (Wellbutrin XL) 300 MG 24 hr tabletIndication s:Anxiety Take 1 tablet (300 mg) by mouth in the morning. Do not crush, chew, or split.. 30 tablet 1 3 Active Additional Information Patient not taking.Reported on 08/13/2025 metFORMIN XR (Glucophage-XR) 500 MG 24 hr tabletIndication s:Insulin resistance Take 1 tablet (500 mg) by mouth in the evening. Take with meals. Do not crush, chew, or split. 30 tablet 2 3 Active Additional Information Patient not taking.Reported on 08/13/2025 albuterol HFA 90 mcg/act inhalerIndicatio ns:Wheezing,Acut e cough Inhale 2 puffs every 4 (four) hours if needed for wheezing. 18 g 3 Active Additional Information Patient not taking.Reported on 08/13/2025 ondansetron (Zofran) 4 MG tabletIndication s:Nausea and vomiting in ([facility]) Take 1 tablet (4 mg) by mouth every 6 (six) hours if needed for nausea or vomiting for up to 30 doses Take 1 tablet by mouth every 6 hours as needed for nausea. 30 tablet 3 5 Active Additional Information Patient not taking.Reported on 08/13/2025 promethazine (Phenergan) 12.5 MG tabletIndication s:Nausea and vomiting in ([facility]) Take 1 tablet (12.5 mg) by mouth every 6 (six) hours if needed for nausea or vomiting for up to 30 doses Take 1 tablet by mouth every 6 hours as needed for nausea. 30 tablet 2 5 Active Additional Information Patient not taking.Reported on 08/13/2025 metoclopramide (Reglan) 10 MG tabletIndication s:Nausea and vomiting in ([facility]) Take 1 tablet (10 mg) by mouth in the morning and 1 tablet (10 mg) at noon and 1 tablet (10 mg) in the evening. Take before meals. Take 1 tablet by mouth 30 minutes prior to meals 3 times daily as needed for nausea. 90 tablet 5 Active Additional Information Patient not taking.Reported on 08/13/2025 Pharmacist Choice Lancets miscIndications: Gestational diabetes mellitus (GDM), antepartum, gestational diabetes method of control unspecified ([facility]),Elevat ed glucose tolerance test USE 1 LANCET TO CHECK FSBS 4 TIMES DAILY 150 each 3 5 Active Additional Information Patient not taking.Reported on 08/13/2025 Alcohol Swabs (Alcohol Prep Pad) 70 % padsIndications: Gestational diabetes mellitus (GDM), antepartum, gestational diabetes method of control unspecified ([facility]),Elevat ed glucose tolerance test Apply 1 Pad topically Daily Use four times daily to check FSBS. 150 each 3 5 Active Additional Information Patient not taking.Reported on 08/13/2025 Blood Glucose Monitoring Suppl (D-Care Glucometer) w/Device kitIndications:G estational diabetes mellitus (GDM), antepartum, gestational diabetes method of control unspecified ([facility]),Elevat ed glucose tolerance test 1 kit Daily Use four times daily to check FSBS. In the morning prior to breakfast & 1 hour after each meal for a total of 4times daily. 1 kit 5 06/02/20 26 Active Additional Information Patient not taking.Reported on 08/13/2025 MV-Min-Fe Fum-FA-DHA ( 1 PO) Take 1 tablet by mouth Daily Active Active Problems Problem Noted Date Diagnosed [...] Encounters Date Type Department Care Team Description 08/13/2025 11:10 [place] [address] Luis E Bray, 26 weeks gestation of ([facility]); Second trimester ([facility]); Gestational diabetes mellitus (GDM), antepartum, gestational diabetes method of control unspecified ([facility]) 08/13/2025 [place] [address] Luis E Bray, 08/12/2025 Travel 08/11/2025 [place] [address] Luis E Bray, 08/04/2025 10:00 AM [place] [address] Encounter for follow-up ultrasound of anatomy ([facility]) 07/29/2025 Travel 07/15/2025 9:00 [place] [address] Luis E Bray, Second trimester ([facility]); 22 weeks gestation of ([facility]); Encounter for follow-up ultrasound of anatomy ([facility]) 07/15/2025 [place] [address] Luis E Bray, 07/08/2025 Travel 07/03/2025 10:10 [place] [address] Luis E Bray, Second trimester ([facility]); 20 weeks gestation of ([facility]) 07/03/2025 9:00 AM EDT [place] [phone] Screening, , for anatomic survey ([facility]) 07/03/20[place] [address] Luis E Bray, 07/02/2025 Travel 06/23/2025 Clinisync Result Encounter NOM[facility] External Department Unsolicited Luis E Bray DO 06/20/2025 Patient Outreach [facility] [address] [place] [place] [address] Fabi Sanchez LPN 06/10/2025 [place] [address] Ann Finn MA 06/02/2025 9:50 [place] [phone] Fabi Martinez PA Second trimester ([facility]); 16 weeks gestation of ([facility]); Well woman exam with routine gynecological exam; Exposure to STD; Need for maternal serum alpha-protein (MSAFP) screening ([facility]); Screening, , for anatomic survey ([facility]); Gestational diabetes mellitus (GDM), antepartum, gestational diabetes method of control unspecified ([facility]); Elevated glucose tolerance test 06/02/2025 Clinisync Result Encounter NOM[facility] External Department Unsolicited Luis E Bray, DO 06/02/2025 External Result Encounter NOMS External Department Unsolicited Luis E Bray, DO 06/02/2025 Bamboo flowsheet [facility] [address] [place] [phone] Luis E Bray, DO 06/01/2025 Refill [facility] [address] [place] [address] Luis E Bray, DO Gestational diabetes mellitus (GDM), antepartum, gestational diabetes method of control unspecified ([facility]); Elevated glucose tolerance test from Last 3 Months Family History Medical [...] often do you attend chur ch or mandaeism services? Never 05/09/2023 Do you belong to [...] Recorded Patient Health Questionnaire-2 Score 1 10/12/2023 [facility] - Occupational Stress Questionnaire Answer Date [...] Pressure 110/70 08/13/2025 11:17 AM EDT Pulse 78 10/23/2023 4:27 PM EST Temperature 37 C (98.6 F) 10/23/2023 4:27 PM EST Respiratory Rate 18 10/23/2023 4:27 PM EST Oxygen Saturation 98% 10/23/2023 4:27 PM EST Inhaled Oxygen Concentration - - Weight 109 kg (241 lb 6.4 oz) 08/13/2025 11:17 A M EDT Height 162.6 cm (5' 4 ) 10/23/2023 4:27 PM EST Body Mass Index 41.44 10/23/2023 4:27 PM EST Plan of Treatment Upcoming Encounters Date Type Department Care Team (Late st Contact Info) Description 08/27/2025 10:20 AM EDT Routine [facility] [address] [place] [phone] Catarina Barnes, BUILDING ASSOCIATE [address] [place] [address] Health Maintenance Due Date Last Done Comments Influenza Vaccine (#1) 2025 11/11/2022, 2018 Cervical Cancer Screening 06/02/2030 HPV/Cotest 06/02/2030 07/13/2023 Pap Smear 06/02/2030 06/02/2025, 04/06/2022 Procedures Procedure Name Priority Date/Time Associated Diagnosis Comments POCT URINALYSIS DIPSTICK Routine 08/13/2025 11:24 AM EDT 26 weeks gestation of ([facility]) Second trimester ([facility]) US OB LIMITED 1+ FETUSES Routine 08/04/2025 10:29 AM EDT Encounter for follow-up ultrasound of anatomy ([facility]) POCT URINALYSIS DIPSTICK Routine 07/15/2025 9:30 AM EDT Second trimester ([facility]) 22 weeks gestation of ([facility]) POCT URINALYSIS DIPSTICK Routine 07/03/2025 10:25 AM EDT Second trimester ([facility]) 20 weeks gestation of ([facility]) US OB 14+ WEEKS ANATOMY SCAN Routine 07/03/2025 9:59 AM EDT Screening, , for anatomic survey ([facility]) AFP, SERUM, OPEN SPINA BIFIDA Routine 06/23/2025 1:45 PM EDT RECURRENT VAGINITIS (HTRX) Routine 06/02/2025 11:14 AM EDT POCT URINALYSIS DIPSTICK Routine 06/02/2025 10:02 AM EDT Second trimester ([facility]) IGP,APTIMA HPV,AGE GDLN Routine 06/02/2025 9:42 AM EDT PAP SMEAR Routine 06/02/2025 12:00 AM EDT THINPREP PAP AND HPV MRNA E6/E7 W/RFL HPV 16,18/45 Routine 07/13/2023 10:11 AM EDT Well woman exam with routine gynecological exam from Last 3 Months or Most Recently Relevant to Health Maintenance Results * (ABNORMAL) POCT urinalysis dipstick manually resulted (08/13/2025 11:24 AM EDT) Only the most recent of4 resultswithin the time period is included. Color, UA Yellow Clarity, UA Clear Glucose, [...] Positive Urine 08/13/2025 11:2 4 AM EDT us Luis E Katarina DO POINT OF CARE TEST ENTER/EDIT OR DERABLES Final Result * US OB limited 1+ fetuses (08/04/2025 10:29 AM EDT) Anatomical Region Laterality Modality Body Ultrasound 08/05/2025 11:0 0 AM EDT Impressions 08/05/2025 11:40 AM EDT Adequate morphologic evaluation, appropriate for age TRANSCRIBED BY: ELECTRONICALLY SIGNED BY: Michael Dennis MD Narrative 08/05/2025 11:40 AM EDT FINDINGS: Single viable intrauterine with cephalic presentation, normal cardiac and activity, heart rate 141 bpm. Normal, adequate visualization of the nose/lips, RVOT, LVOT with 3 vessel cord. Procedure Note Michael Dennis MD - 08/05/2025 FINDINGS: Single viable intrauterine with cephalic presentation, normalcardiac and activity, heart rate 141 bpm. Normal, adequate visualization of the nose/lips, RVOT, LVOT with 3 vesselcord. IMPRESSION: Adequate morphologic evaluation, appropriate for age TRANSCRIBED BY: ELECTRONICALLY SIGNED BY: Michael Dennis MD us Luis E Bray DO IM OB US PROCEDURES Final Resul t * US OB 14+ weeks anatomy scan (07/03/2025 9:59 AM EDT) Anatomical Region Laterality Modality Body Ultrasound 07/03/2025 2:41 PM EDT Impressions 07/04/2025 7:31 AM EDT Single, live intrauterine , current sonographic age of 20 weeks and 4 days, with an estimated date of delivery of November 16, 2025. * Estimated Weight (g) by Percentile is based upon an accurate estimated age based on last menstrual period. TRANSCRIBED BY: ELECTRONICALLY SIGNED BY: Michael Dennis MD Narrative 07/04/2025 7:31 AM EDT FINDINGS: A single, live intrauterine is present with normal cardiac rate of 148 beats per minute. Normal activity and amniotic fluid volume. Morphology is grossly normal. The placenta is posterior, inferior margin 3.5 cm from the closed internal cervical os, length 4 cm. The current sonographic age is 20 weeks and 4 days, based on the following measurements: BPD 4.6 cm (19 weeks, 5 days) Head Circumference 17.6 cm (20 weeks, 1 day) Abdominal Circumference 15.8 cm (21 weeks, 0 days) Femur Length 3.7 cm (21 weeks, 4 days) Presentation Breech Placenta Posterior Weight (g) by Percentile 57.7 % * These measurements result in an estimated date of delivery of November 16, 2025. The current estimated weight is 398 grams (0 pounds, 14 ounces). Procedure Note Michael Dennis MD - 07/04/2025 FINDINGS: A single, live intrauterine is present with normal cardiacrate of 148 beats per minute. Normal activity and amniotic fluidvolume. Morphology is grossly normal. The placenta is posterior, inferiormargin 3.5 cm from the closed internal cervical os, length 4 cm. Thecurrent sonographic age is 20 weeks and 4 days, based on the followingmeasurements: BPD 4.6 cm (19 weeks, 5 days) Head Circumference 17.6 cm (20 weeks, 1 day) Abdominal Circumference 15.8 cm (21 weeks, 0 days) Femur Length 3.7 cm (21 weeks, 4 days) Presentation Breech Placenta Posterior Weight (g) by Percentile 57.7 % * These measurements result in an estimated date of delivery of October. The current estimated weight is 398 grams (0 pounds, 14ounces). IMPRESSION: Single, live intrauterine , current sonographic age of 20 weeksand 4 days, with an estimated date of delivery of November 16, 2025. * Estimated Weight (g) by Percentile is based upon an accurateestimated age based on last menstrual period. TRANSCRIBED BY: ELECTRONICALLY SIGNED BY: Michael Dennis MD Luis E Bray DO [facility] OB US PROCEDURES Final Resul t * AFP, SERUM, OPEN SPINA BIFIDA (06/23/2025 1:45 PM EDT) Pathologist [facility] RESULTS Report . [facility] TEST RESULTS: *Screen Negative* . [facility] GEST. AGE ON COLLECTION DATE 19.4 . weeks [facility] GESTAT. AGE BASED ON LMP . [facility] Comment: Recalculations are not recommended when gestational dating by LMP and ultrasound are within 10 days. [age] [facility] RACE . [facility] WEIGHT 237 . lbs [facility] INSULIN DEP DIABETES No . [facility] MULTIPLE GESTATION No . [facility] AFP VALUE 45.9 . ng/mL [facility] AFP MOM 1.16 . [facility] OSBR RISK 1 IN 7366 . [facility] INTERPRETATION Comment . [facility] Comment: Interpretation: Screen Negative This result is screen negative for OSB. The AFP MoM calculated is based on the gestational age provided. MS-AFP can identify up to 80% of open neural tube defects. Closed neural tube defects and some open defects may not be detected by this test. This test does not screen for Down Syndrome or Trisomy 18. If screening for Down Syndrome or Trisomy 18 is desired, contact [facility] to discuss available options. The [employer] recommends amniocentesis be offered to women age 35 and older. COMMENT: Comment . [facility] Comment: Latoya Anderson, Ph.D., [facility] Director References: Available Upon Request. Multiples Of Median Cutoffs For AFP Elevations Altman 2.5 Black 2.8 IDD 2.0 Twins 4.5 Abbreviation Definitions IDD - Insulin Dep Diabetes OSBR - Open Spina Bifida Risk For further inquiries contact [employer] [facility] at [phone]. This test was developed and its performance characteristics determined by [employer]. It has not been cleared or approved by the Food and Drug Administration. Performed at: [facility] [place], [place] [id number] Work Force Advisor: Kyra Lozano [facility], Phone: [phone] 06/23/2025 1:45 PM EDT 06/23/2025 1:49 PM EDT Anahi TANNER - 06/25/2025 1:07 AM EDT N N LMP [id number] 3 16 N 1 Y 237 N N N N N White/ Generic External Data Provider LAB BLOOD ORDERAB LES Final Result [facility] * RECURRENT VAGINITIS (HTRX) (06/02/2025 11:14 AM EDT) ATOPOBIUM VAGINAE 0 19.961 - 24.689 ppm 06/03/2025 6:26 AM EDT [facility] ATOPOBIUM VAGINAE Not Detected 19.961 - 24.689 ppm 06/03/2025 6:26 AM EDT [facility] BVAB 2,3 (BACTERIAL VAGINOSIS ASSOCIATED BACTERIA 2, 3); MOBILUNCUS SPP 0 19.961 - 24.689 ppm 06/03/2025 6:26 AM EDT [facility] BVAB 2,3 (BACTERIAL VAGINOSIS ASSOCIATED BACTERIA 2, 3); MOBILUNCUS SPP Not Detected 19.961 - 24.689 ppm 06/03/2025 6:26 AM EDT [facility] HALEIGH ALBICANS, PARAPSILOSIS, TROPICALIS 0 19.961 - 30.770 ppm 06/03/2025 6:26 AM EDT [facility] HALEIGH ALBICANS, PARAPSILOSIS, TROPICALIS Not Detected 19.961 - 30.770 ppm 06/03/2025 6:26 AM EDT [facility] HALEIGH GLABRATA 0 23.000 - 32.138 ppm 06/03/2025 6:26 AM EDT [facility] HALEIGH GLABRATA Not Detected 23.000 - 32.138 ppm 06/03/2025 6:26 AM EDT [facility] HALEIGH KRUSEI 0 23.000 - 32.271 ppm 06/03/2025 6:26 AM EDT [facility] HALEIGH KRUSEI Not Detected 23.000 - 32.271 ppm 06/03/2025 6:26 AM EDT [facility] CHLAMYDIA TRACHOMATIS 0 23.000 - 31.467 ppm 06/03/2025 6:26 AM EDT [facility] CHLAMYDIA TRACHOMATIS Not Detected 23.000 - 31.467 ppm 06/03/2025 6:26 AM EDT [facility] GARDNERELLA VAGINALIS 0 19.961 - 24.689 ppm 06/03/2025 6:26 AM EDT [facility] GARDNERELLA VAGINALIS Not Detected 19.961 - 24.689 ppm 06/03/2025 6:26 AM EDT [facility] MEGASPHAERA (TYPES 1, 2) 0 19.961 - 24.689 ppm 06/03/2025 6:26 AM EDT [facility] MEGASPHAERA (TYPES 1, 2) Not Detected 19.961 - 24.689 ppm 06/03/2025 6:26 AM EDT [facility] NEISSERIA GONORRHOEAE 0 23.000 - 32.117 ppm 06/03/2025 6:26 AM EDT [facility] NEISSERIA GONORRHOEAE Not Detected 23.000 - 32.117 ppm 06/03/2025 6:26 AM EDT [facility] TRICHOMONAS VAGINALIS 0 23.000 - 32.119 ppm 06/03/2025 6:26 AM EDT [facility] TRICHOMONAS VAGINALIS Not Detected 23.000 - 32.119 ppm 06/03/2025 6:26 AM EDT [facility] MYCOPLASMA GENITALIUM 0 19.961 - 24.689 ppm 06/03/2025 6:26 AM EDT [facility] MYCOPLASMA GENITALIUM Not Detected 19.961 - 24.689 ppm 06/03/2025 6:26 AM EDT [facility] Tissue 06/02/2025 11:1 4 AM EDT 06/03/2025 1:25 AM EDT us Luis E Bray DO LAB BLOOD ORDERABLES Final Resul t [facility] [address] [place] [address] * IGP,APTIMA HPV,AGE GDLN (06/02/2025 9:42 AM EDT) AGE GDLN ACOG TESTING Note . [facility] Comment: TESTS RESULT FLAG UNITS REF RANGE LAB Clinician Provided Cytology Information Source.............Cervix No. of containers..01 ThinPrep Vial Age Algo ACOG Lenore... 30-65 01 FLAG LEGEND: L-Low Normal,H-High Normal,LL-Alert Low,HH-Alert High <-Panic Low,>-Panic High,A-Abnormal,AA-Critical Abnormal Performed at: 01 =G [address] [address] Joan Hyatt MD, IGP, APTIMA HPV, RFX 16/18,45 Note . [facility] Comment: TESTS RESULT FLAG UNITS REF RANGE LAB DIAGNOSIS: 02 NEGATIVE FOR INTRAEPITHELIAL LESION OR MALIGNANCY. Specimen adequacy: 02 Satisfactory for evaluation. No endocervical component is identified. Performed by: [employer], Ship Ceiler ([facility]) . 02 Note: Note 02 The [...] <-Panic Low,>-Panic High,A-Abnormal,AA-Critical Abnormal Performed at: [address] [address] Joan Hyatt MD, HPV APTIMA Negative Negative [facility] Comment: This nucleic acid amplification test detects fourteen high- risk HPV types (16,18,31,33,35,39,45,51,52,56,58,59,66,68) without differentiation. Performed at: =[address] [id number] Work Force Advisor: Joan Hyatt MD, Phone: [phone] Performed at: [address] [id number] Work Force Advisor: Joan Hyatt MD, Phone: [phone] 06/02/2025 9:42 AM EDT 06/02/2025 9:39 PM EDT Narrative ABELINOISYNC - 06/05/2025 12:18 PM EDT SPATULA-ALONE CERVIX Generic External Data Provider LAB BLOOD ORDERAB LES Final Result Performing Organization Address [facility] Co de Phone Number [facility] * Pap Smear (06/02/2025 12:00 AM EDT) Swab Cervical swab / Unknown us Luis E Bray DO LAB CYTOLOGY ORDERABLES Final Re sult Performing Organization Address [facility]/ZIP Co de Phone Number EXTERNAL LAB * THINPREP PAP AND HPV MRNA E6/E7 W/RFL HPV 16,18/45 (07/13/2023 10:11 AM EDT) us Fabi KELLEY LAB BLOOD ORDERABLES Final Resul t EXTERNAL LAB from Last 3 Months or Most Recently Relevant to Health Maintenance Insurance [facility] [employer] [place] Care Teams Trimming Inspector Relationship Specialty Start Date End Date Yamel Guerrero MD PCP - General Family Medicine 05/04/23 Yamel Guerrero MD [address] [place] [address] PCP - [facility] Jake [employer] 02/26/24
--- OUTSIDE RECORDS SUMMARY | 2025-08-27 09:45 | XMS_ITS | Encounter Summary ---
Author Organization [facility] Address [address] [place] [address] Care Team Providers Care Hotel Registration Clerk Name Role Phone Yamel Guerrero MD Primary Care Provider [phone] Yamel Guerrero MD Unavailable Encounter Details Date Type Department Care Team (Late st Contact Info) Description 08/11/2025 Abstract [facility] [address] [place] [phone] Luis E Bray DO [address] [place], [place] [id number] Social History Tobacco Use Types Packs/Day Years [...] often do you attend chur ch or spiritism services? Never 05/09/2023 Do you belong to any clubs o r organizations such as scientologist groups, unions, fraternal or athletic groups, or [...] Recorded Patient Health Questionnaire-2 Score 1 10/12/2023 [employer] [facility] Questionnaire Answer Date Recorded [...] place to sleep or slept in a retirement (including now)? No 05/09/2023 Estimated Date of [...] AM EDT Routine [facility] [address] [place] [address] Catarina Barnes NP [address] [place] [address] documented as of this encounter Visit Diagnoses Not on filedocumented in this encounter Additional Health Concerns Assessment Noted Time PHQ-9 Depression Total Score: 4 10/12/20 23 9:00 AM EST documented as of this encounter Care Teams Hotel Registration Clerk Relationship Specialty Start Date End Date Yamel Guerrero MD PCP - General Family Medicine 05/04/23 Yamel Guerrero MD [address] [place] [address] PCP - CHARLIE Joseph [facility] 02/26/24 documented as of this encounter
--- OUTSIDE RECORDS SUMMARY | 2025-08-27 09:45 | XMS_ITS | Encounter Summary ---
Author Organization [facility] Address [address] [place] [address] Care Team Providers Care Director Of Academic Support Name Role Phone Yamel Guerrero MD Primary Care Provider [phone] Yamel Guerrero MD Unavailable Encounter Details Date Type Department Care Team (Late st Contact Info) Description 04/28/2025 Abstract [facility] Kaylen ALVARADO [address] [place] [phone] Luis E Bray DO [address] [facility] [address] [address] [place], [place] [id number] Social History Tobacco Use Types Packs/Day Years [...] often do you attend chur ch or caodaism services? Never 05/09/2023 Do you belong to [...] Recorded Patient Health Questionnaire-2 Score 1 10/12/2023 [facility] Questionnaire Answer Date [...] AM EDT Routine [facility] Kaylen OBGYN [address] [place] [address] Catarina Barnes NP [address] [place] [address] documented as of this encounter Visit Diagnoses Not on filedocumented in this encounter Additional Health Concerns Assessment Noted Time PHQ-9 Depression Total Score: 4 10/12/20 23 9:00 AM EST documented as of this encounter Care Teams Director Of Academic Support Relationship Specialty Start Date End Date Yamel Guerrero MD PCP - General Family Medicine 05/04/23 Yamel Guerrero MD [address] [place] [address] PCP - CHARLIE Joseph [facility] 02/26/24 documented as of this encounter
--- OUTSIDE RECORDS SUMMARY | 2025-08-27 09:45 | XMS_ITS | Encounter Summary ---
Author Organization [facility] Address [address] [place] [address] Care Team Providers Care Lei Maker Name Role Phone Yamel Guerrero MD Primary Care Provider [phone] Yamel Guerrero MD Unavailable Encounter Details Date Type Department Care Team (Late st Contact Info) Description 06/10/2025 Orders Only [facility] Kaylen ALVARADO [address] [facility] [place] [address] Ann Finn MA [address] [facility] [place] [address] Social History Tobacco Use Types Packs/Day Years [...] any clubs o r organizations such as mosque groups, unions, fraternal or athletic groups, or [...] Recorded Patient Health Questionnaire-2 Score 1 10/12/2023 [facility]at ional [facility] - Occupational Stress [...] in a prison (including now)? No 05/09/2023 Estimated Date of [...] [address] [facility] [place] [address] Catarina Barnes NP [address] [facility] [address] [place] [address] documented as of this encounter Procedures Procedure Name Priority Date/Time Associated Diagnosis Comments PAP SMEAR Routine 06/02/2025 12:00 AM EDT documented in this encounter Results * Pap Smear (06/02/2025 12:00 AM EDT) Swab Cervical swab / Unknown us Lui Se Katarina DO LAB CYTOLOGY ORDERABLES Final Re sult EXTERNAL LAB documented in this encounter Visit Diagnoses Not on filedocumented in this encounter Additional Health Concerns Assessment Noted Time PHQ-9 Depression Total Score: 4 10/12/20 23 9:00 AM EST documented as of this encounter Care Teams Lei Maker Relationship Specialty Start Date End Date Yamel Guerrero MD PCP - General Family Medicine 05/04/23 Yamel Guerrero MD [address] [place] [address] PCP - [facility] Jake COMPENSATION SPECIALIST 02/26/24 documented as of this encounter
--- OUTSIDE RECORDS SUMMARY | 2025-08-27 09:46 | XMS_ITS | Encounter Summary ---
Author Organization [facility] Address [address] [place] [address] Care Team Providers Care Anthropologist Name Role Phone Yamel Guerrero MD Primary Care Provider [phone] Yamel Guerrero MD Unavailable Encounter Details Date Type Department Care Team (Late st Contact Info) Description 04/14/2025 Results Follow-Up CHARLIE MELGARGYBud [address] [place] [phone] Julissa Aranda LPN [address] [place] [address] OB transvaginal Social History Tobacco Use Types Packs/Day Years [...] often do you attend chur ch or bahai services? Never 05/09/2023 Do you belong to [...] Recorded Patient Health Questionnaire-2 Score 1 10/12/2023 [facility] Occupat ional Health - Occupational [...] place to sleep or slept in a long term (including now)? No 05/09/2023 Estimated Date of [...] luisa friend. * Result Encounter Note - Julisas Aranda LPN - 04/14/2025 3:00 PM EDT Attempted to call pt but she did not answer. Left detailed voicemail to call office back documented in this encounter Plan of Treatment Upcoming Encounters Date Type Department Care Team (Late st Contact Info) Description 08/27/2025 10:20 AM EDT Routine [facility] Di MELGARGYBud [address] [place] [address] Catarina Barnes, [place] [address] [place] [address] documented as of this encounter Visit Diagnoses Not on filedocumented in this encounter Additional Health Concerns Assessment Noted Time PHQ-9 Depression Total Score: 4 10/12/20 23 9:00 AM EST documented as of this encounter Care Teams Anthropologist Relationship Specialty Start Date End Date Yamel Guerrero MD PCP - General Family Medicine 05/04/23 Yamel Guerrero MD [address] [place] [address] PCP - [facility] Jake KITCHEN STEWARD 02/26/24 documented as of this encounter
--- NOTE | 2025-08-27 09:51 | US_ITS ---
The [address] [address] Patient Name: AYDE THOMPSON MRN: [id number] date: 1990 Sex: F Assigned Patient Location: Current Patient Location: US Accession/Order Number: [id number] Exam Date: 08/27/2025 09:52 Report Date: 08/27/2025 11:15 At the request of: JOSSY GAYTAN DO Procedure: US OB growth ULTRASOUND OB GROWTH COMPARISON: None CLINICAL DATA: History of labor There is a single live intrauterine gestation in cephalic presentation. There is cardiac and somatic activity with heart rate of 141 bpm. The amniotic fluid index measures 16.0 cm which is in normal range. There is an anterior placenta. The following measurements were obtained: Biparietal diameter 7.2 cm 28 weeks 6 days 40% Head circumference 27.0 cm 29 weeks 3 days 39% Abdominal circumference 26.9 cm 31 weeks 0 days 95% Femur length 5.4 cm 28 weeks 5 days 33% The composite ultrasound age based these measurements is 29 weeks 4 days +/- 2 weeks 0 days. The estimated date of delivery is 11/08/2025. The estimated weight is 3 lbs. 4 oz. +/- 8 ounces (81%). US/US OB growth IMPRESSION: SINGLE LIVE INTRAUTERINE GESTATION WITH ULTRASOUND AGE OF 29 WEEKS 4 DAYS. Impression dictated by: Sonia Hernandez M.D. 08/27/2025 11:15 AM Dictation Location: [place] [address] Electronically authenticated by: [id number] Y Date: 08/27/2025 11:15
== END 2025-08-27 09:43 | disposition home or self-care (01) ==
LOC: US 09:43
PROVIDERS: PCP Family Medicine; Visit Provider Obstetrics & Gynecology
DX: O24.419 Gestational diabetes mellitus in pregnancy, unspecified control (principal); Z3A.29 29 weeks gestation of pregnancy
CPT/HCPCS: 76816

== ENCOUNTER 2025-09-03 10:34 | Outpatient (OUT) | payer MEDICAID, SELFPAY ==
[2025-09-03 10:55] LABS: Hematocrit 35.6 % (36.0-48.0); Hemoglobin 12.1 g/dL (12.0-16.0); Immature Granulocytes Abs Auto 0.05 10^3/uL (0.00-0.03); Immature Granulocytes Pct Auto 0.5 % (0.0-0.5); Lymphocytes Absolute Auto 1.4 10^3/uL (1.2-3.8); Mean Corpuscular HGB Conc 34.0 g/dL (29.9-35.2); Mean Corpuscular Hemoglobin 33.6 pg (26.7-34.0); Mean Corpuscular Volume 98.9 fL (81.0-99.0); Platelet Count 151 10^3/uL (150-450); Red Blood Count 3.60 10^6/uL (4.20-5.40); White Blood Count 10.6 10^3/uL (4.0-11.0)
== END 2025-09-03 10:35 | disposition home or self-care (01) ==
LOC: LAB 10:35
PROVIDERS: PCP Family Medicine; Visit Provider Nurse Practitioner Family
DX: O24.419 Gestational diabetes mellitus in pregnancy, unspecified control (principal); Z13.1 Encounter for screening for diabetes mellitus
CPT/HCPCS: 36415; 83036; 85025

== ENCOUNTER 2025-09-22 11:26 | Outpatient (OUT) | payer MEDICAID, SELFPAY ==
--- OUTSIDE RECORDS SUMMARY | 2025-09-09 10:00 | XMS_ITS | Encounter Summary ---
Author Organization [facility] Address [address] [place] [address] Care Team Providers Care Oil Well Pumper Name Role Phone Yamel Guerrero MD Primary Care Provider [phone] Yamel Guerrero MD Unavailable Encounter Details DateTypeDepartmentCare Team (Latest Contact Info)Bunczgidvmn46/14/2025 10:00 AM EDTAncillary Procedure [facility] Kaylen OBGYBud [address] [place] [address] [place] [phone] Gestational diabetes mellitus (GDM), antepartum, gestational diabetes method of control unspecified([facility]) Social History Tobacco UseTypesPacks/DayYears UsedDateSmoking Tobacco: NeverSmokeless [...] relatives?Once a week05/09/2023How often do you attend pentecostal or restorationist services?Never05/09/2023o you belong to any clubs or organizations such as pentecostal groups, unions, fraternal or athletic groups, or school groups?No05/09/2023How often do you attend meetings of the clubs or organizations you belong to?Never05/09/2023re you , , , , never , or living with a partner?Living with chpchos3505/09/2023 AUDIT-CAnswerDate RecordedQ1: How often do you have [...] very hard 05/09/2023HQ-2AnswerDate RecordedPatient Health Questionnaire-2 Score1 10/12/2023[facility] - Occupational Stress QuestionnaireAnswerDate RecordedDo you feel stress - tense, restless, nervous, or anxious, or unable to sleep at night because yourmind is troubled all the time - these days?To some vmstyw7505/09/2023Exercise Vital SignAnswerDate Recorded On average, how many [...] steady place to sleep or slept in ashelter (including now)?No05/09/2023 Estimated Date of ZmbmezbpYskonymqWjz43/19/2025Based on last menstrual period of 02/07/2025Sex and Gender InformationValueDate RecordedSex Assigned at BirthFemale 04/30/2023 3:31 PM EDTLegal AnmVtrxiy74/15/2023 7:09 PM EDTGender IdentityFemale 04/30/2023 3:31 PM EDTSexual OrientationNot on filedocumented as of this encounter Plan of Treatment DateTypeDepartmentCare Team (Latest Contact Info)Iyxzjptkyhw87/28/2025 10:00 AM EDTRoutine [facility] Kaylen ALVARADO [address] [place] [address] Lusi E Bray, [address] [facility] [address] [place], [place] [address] 10/08/2025 11:00 AM ESTAncillary Procedure NOMVivienne ALVARADO [address] [facility] [place] [address] documented as of this encounter Procedures Procedure NamePriorityDate/TimeAssociated DiagnosisCommentsUS OB FOLLOW UP TRANSABDOMINAL FOFYBINIHfujpyc51/14/2025 10:39 AM EDT Gestational diabetes mellitus (GDM), antepartum, gestational diabetes method of control unspecified([facility]) documented in this encounter Results * US OB follow up transabdominal approach (09/09/2025 10:39 AM EDT)Anatomical RegionLateralityModalityBodyUltrasoundSpecimen (Source)Anatomical Location / LateralityCollection Method / VolumeCollection TimeReceived Time09/09/2025 12:26 PM EDT Impressions 09/10/2025 7:05 AM EDT Single, live intrauterine , current sonographic age of 31 weeks and 4 days, with an estimated date of delivery of November 07, 2025 * ??Estimated Weight (g) by Percentile is based upon an accurate estimated age based onlast menstrual period. ? TRANSCRIBED BY: ? ELECTRONICALLY SIGNED BY: Michael Dennis MD Narrative 09/10/2025 7:05 AM EDT FINDINGS: A single, live intrauterine is present with normal cardiac rate of 148 ??beats per minute. Normal activity and amniotic fluid volume. Amniotic fluid index is 15.0 ??cm. ??Morphology is grossly normal. Cervix not seen due to positioning. ??The current sonographic age is 31 weeks and 4 days, based on the following measurements: BPD ?7.6cm ?? (30 weeks,4 ??days) Head Circumference ?28.1cm (30 weeks, 6 days) Abdominal Circumference ? 28.8cm (32 weeks, 5 ??days) Femur Length ? 6.2cm (32 weeks,2 days) Presentation ? Cephalic ? Weight (g) by Percentile ??89.2 % * These measurements result in an estimated date of delivery of ??November 07, 2025. The current estimated weight is 1929 grams ( 4 pound, ?4ounces). ?? Comparison made with prior examination of August 04, 2025 and July 03, 2025 at that time percentile weight was 57.7% and estimated deliver was November 16, 2025. Procedure Note Michael Dennis MD - 09/10/2025 FINDINGS: A single, live intrauterine is present with normal cardiacrate of 148 beats per minute. Normal activity and amniotic fluidvolume. Amniotic fluid index is 15.0 cm. Morphology is grossly normal.Cervix not seen due to positioning. The current sonographic age is 31weeks and 4 days, based on the following measurements: BPD 7.6cm (30 weeks,4 days) Head Circumference 28.1cm (30 weeks, 6 days) Abdominal Circumference 28.8cm (32 weeks, 5 days) Femur Length 6.2cm (32 weeks,2 days) Presentation Cephalic Weight (g) by Percentile 89.2 % * These measurements result in an estimated date of delivery of 2024. The current estimated weight is 1929 grams ( 4 pound,4ounces). Comparison made with prior examination of August 04, 2025 and June at that time percentile weight was 57.7% and estimated deliver wasDecemb2024. IMPRESSION: Single, live intrauterine , current sonographic age of 31 weeksand 4 days, with an estimated date of delivery of November 07, 2025 * Estimated Weight (g) by Percentile is based upon an accurateestimated age based on last menstrual period. TRANSCRIBED BY: ELECTRONICALLY SIGNED BY: Michael Dennis MD Authorizing ProviderResult TypeResult StatusCorey [facility] [place] PROCEDURES Final Result documented in this encounter Visit Diagnoses Diagnosis Gestational diabetes mellitus (GDM), antepartum, gestational diabetes method of control unspecified([facility]) documented in this encounter Additional Health Concerns AssessmentNoted TimePHQ-9 Depression Total Score: 9:00 AM EST documented as of this encounter Care Teams Team MemberRelationshipSpecialtyStart DateEnd Date Yamel Guerrero MD PCP - GeneralFamily Medicine05/04/23 Yamel Guerrero MD [address] [place] [address] PCP - CHARLIE Joseph [facility]02/26/24documented as of this encounter
--- OUTSIDE RECORDS SUMMARY | 2025-09-09 10:50 | XMS_ITS | Encounter Summary ---
Author Organization [facility] Address [address] [place] [address] Care Team Providers Care Edge Finisher Name Role Phone Yamel Guerrero MD Primary Care Provider [phone] Yamel Guerrero MD Unavailable Reason for Visit * ReasonCommentsRoutine Visit Encounter Details DateTypeDepartmentCare Team (Latest Contact Info)Htmtxkczrcq69/14/2025 10:50 AM EDTRoutine [facility] Kaylen OBGEOFF [address] [place] [phone] Fabi Martinez PA [address] [place], [place] [id number] Third trimester ([facility]); 30 weeks gestation of ([facility]) Social History Tobacco UseTypesPacks/DayYears UsedDateSmoking Tobacco: NeverSmokeless [...] relatives?Once a week05/09/2023How often do you attend mormonism or religion services?Never05/09/2023o you belong to any clubs or organizations such as mormonism groups, unions, fraternal or athletic groups, or school groups?No05/09/2023How often do you attend meetings of the clubs or organizations you belong to?Never05/09/2023re you , , , , never , or living with a partner?Living with guskpzy0705/09/2023 AUDIT-CAnswerDate RecordedQ1: How often do you have [...] very hard 05/09/2023HQ-2AnswerDate RecordedPatient Health Questionnaire-2 Score1 10/12/2023[facility] [place] [facility] - Occupational Stress QuestionnaireAnswerDate RecordedDo you feel stress - tense, restless, nervous, or anxious, or unable to sleep at night because yourmind is troubled all the time - these days?To some xdwxjo7205/09/2023Exercise Vital SignAnswerDate Recorded On average, how many [...] steady place to sleep or slept in [facility] (including now)?No05/09/2023 Estimated Date of TgrdremqAihtfvquRue95/19/2025Based on last menstrual period of 02/07/2025Sex and Gender InformationValueDate RecordedSex Assigned at BirthFemale 04/30/2023 3:31 PM EDTLegal GabKvmsao50/15/2023 7:09 PM EDTGender IdentityFemale 04/30/2023 3:31 PM EDTSexual OrientationNot on filedocumented as of this encounter Last Filed Vital Signs Vital SignReadingTime TakenCommentsBlood Xmhqlwnj274/801 11:08 AM EDT Pulse--Temperature--Respiratory Rate--Oxygen Saturation--Inhaled Oxygen Concentration--Xivfli312 kg (244 lb 12.8 oz)09/09/2025 11:08 AM EDTHeight--Body Mass Index42.02112/23/2022 4:27 PM ESTdocumented in this encounter Progress Notes * ALLIE Farmer - 09/09/2025 10:50 AM EDT Reason for Appointment: Patient ID: Mercedes Quintanilla is a 35 y.o. female who [...] 6 hours as needed for nausea. ALLERGIES Allergies[1] PROBLEMS Active Ambulatory Problems Diagnosis Date Noted Elevated antinuclear antibody ([facility]) level 05/10/2023 Gastroesophageal reflux disease without esophagitis 05/10/2023 Raynaud's phenomenon 08/02/2019 Severe single current episode of major depressive disorder, without psychotic features ([facility]) 05/10/2023 Thyromegaly 05/10/2023 Tonsillar hypertrophy 10/08/2019 Undifferentiated connective tissue disease ([facility]) 12/18/2017 Systemic lupus erythematosus ([facility]) 05/31/2023 Anxiety 06/29/2023 Obesity due to excess calories without serious comorbidity 06/29/2023 Resolved Ambulatory Problems Diagnosis Date Noted Carpal tunnel syndrome 05/10/2023 Past Medical History: Diagnosis Date [facility] positive Autoimmune disorder ([facility]) COPD (chronic obstructive pulmonary disease) ([facility]) Depression Folliculitis GERD (gastroesophageal reflux disease) Headache Obesity Ovarian cyst Pleurisy Raynaud phenomenon HISTORY PAST MEDICAL HISTORY SOCIAL HISTORY Medical History[2] Social History Tobacco Use Smoking status: Never Smokeless tobacco: Never Substance Use Topics Alcohol use: Never Comment: caffeine: 2-3 cups per day Drug use: Never FAMILY HISTORY Family History[3] SURGICAL HISTORY Surgical History[4] REVIEW OF SYSTEMS Review of Systems: Review of Systems Constitutional: Negative. HENT: Negative. Eyes: Negative. Respiratory: Negative. Cardiovascular: Negative. Gastrointestinal: Negative. Genitourinary: Negative. Musculoskeletal: Negative. Skin: Negative. Neurological: Negative. All other systems reviewed and are negative. Hematological: Negative. Endocrine: Negative. Allergic/Immunologic: Negative. OBJECTIVE Objective: Physical Exam Constitutional: Appearance: Normal appearance. She is normal weight. HENT: Head: Normocephalic. Cardiovascular: Rate and Rhythm: Normal rate. Pulses: Normal pulses. Pulmonary: Effort: Pulmonary effort is normal. Breath sounds: Normal breath sounds. Abdominal: Palpations: Abdomen is soft. Musculoskeletal: General: Normal range of motion. Neurological: General: No focal deficit present. Mental Status: She is alert and oriented to person, place, and time. Psychiatric: Mood and Affect: Mood normal. Behavior: Behavior normal. Thought Content: Thought content normal. Judgment: Judgment normal. Vitals and nursing note reviewed. Vitals: Estimated body mass index is 42.02 kg/m?? as calculated from the following: Height as of 10/23/23: 5' 4 . Weight as of this encounter: 244 lb 12.8 oz. BP: 120/80 Patient's last menstrual period was 02/07/2025. ASSESSMENT & PLAN ICD-10-CM 1. Third trimester ([facility]) Z34.93 2. 30 weeks gestation of ([facility]) Z3A.30 POCT urinalysis dipstick manually resulted US biophysical profile w non stress test Return OB: Patient presents today for a routine obstetrics appointment. Patient is currently 30w4d . Patient states she is doing well but has complaints of being tired due to current . Patient has verbalizes frequent movement. labor precautions was discussed/given and patient was instructed to perform kick counts three times a day. Orders Placed This Encounter Procedures US biophysical profile w non stress test POCT urinalysis dipstick manually resulted Follow Up: Patient is to return to office in 2 week for routine OB appointment. Documented by ALLIE Farmer on behalf of: ALLIE Farmer [1] No Known Allergies [2] Past Medical History: Diagnosis Date [facility] positive Anxiety Autoimmune disorder ([facility]) COPD (chronic obstructive pulmonary disease) ([facility]) Depression Folliculitis GERD (gastroesophageal reflux disease) Headache Obesity Ovarian cyst Pleurisy Raynaud phenomenon Thyromegaly [3] Family History Problem Relation Name Age of Onset Arthritis Mother Urszula dwight Throat cancer Father Panda dwight(throat cancer) Stroke Father Panda dwight(throat cancer) Cancer Father Panda quintanilla(throat cancer) Colon cancer Maternal Grandmother Aneurysm Maternal Grandfather Stroke Paternal Grandfather Dad Arthritis Mother's Sister Aunt Diabetes Mother's Sister Aunt Cancer Brother Ayo quintanilla (thyroid cancer) [4] History reviewed. No pertinent surgical history. documented in this encounter Plan of Treatment DateTypeDepartmentCare Team (Latest Contact Info)Nwzbjyohaqg48/28/2025 10:00 AM EDTRoutine [facility] Kaylen ALVARADO [address] [place] [phone] Luis E Bray DO [address] [place] [address] 10/08/2025 11:00 AM ESTAncillary Procedure [facility] Kaylen ALVARADO [address] [place] [phone] NameTypePriorityAssociated DiagnosesOrder ScheduleUS biophysical profile w non stress testImagingRoutine 30 weeks gestation of ([facility]) Expected: 09/09/2025 (Approximate), Expires: 03/10/2026documented as of this encounter Procedures Procedure NamePriorityDate/TimeAssociated DiagnosisCommentsPOCT URINALYSIS MJHCJCPIYpuvnpe02/14/2025 11:15 AM EDT 30 weeks gestation of ([facility]) documented in this encounter Results * (ABNORMAL) POCT urinalysis dipstick manually resulted (09/09/2025 11:15 AM EDT)ComponentValueRef RangeTest MethodAnalysis TimePerformed AtPathologist SignatureColor, UAYellowClarity, UAClearGlucose, UANegativeNegative - 1999(110) ++++ mg/dLBilirubin, UANegativeNegative - 4(70) +++ mg/dLKetones, UA NegativeNegative - 160(16) ++++ mg/dLSpec Grav, UA1.0151 - 1.03Blood, UA NegativeNegative - 50 Nico/mcLpH, UA6.05 - 9Protein, UATraceNegative - 2000(20) ++++ mg/dLUrobilinogen, UA2.00.2 - 12 mg/dLLeukocytes, UANegativeNegative - 500+++ Karson/mcLNitrite, UANegativeNegative - PositiveSpecimen (Source) Anatomical Location / LateralityCollection Method / VolumeCollection Time Received TqubOjgeo55/14/2025 11:15 AM EDT Narrative Authorizing ProviderResult TypeResult StatusSentara Hal[facility] TEST ENTER/EDIT ORDERABLESFinal Result documented in this encounter Visit Diagnoses Diagnosis Third trimester ([facility]) state, incidental 30 weeks gestation of ([facility]) documented in this encounter Additional Health Concerns AssessmentNoted TimePHQ-9 Depression Total Score: 9:00 AM EST documented as of this encounter Care Teams Team MemberRelationshipSpecialtyStart DateEnd Date Yamel Guerrero MD PCP - GeneralFamily Medicine05/04/23 Yamel Guerrero MD [address] [place] [address] PCP - CHARLIE Joseph [facility]02/26/24documented as of this encounter
--- OUTSIDE RECORDS SUMMARY | 2025-09-22 11:29 | XMS_ITS ---
Author Organization [facility] Source Produ ction (ClinicalSummary Clone) Address Unknown Care Team Providers Care Mannequin Mold Maker Name Role Phone Unavailable Primary Care Physician Unavailab le Results * [UNITY] ANEUPLOIDY NIPT Performed by: [employer] Component Value Range Date Fraction 5.7% 04/27/2025 05:07 pm UTCRh(D) NIPTRhD XEHFDRPF87/01/2025 05:07 pm UTCSex Chromosome AneuploidyNOT ZUFNGHTX12/01/2025 05:07 pm UTCMonosomy XLOW RISK <1 in , 05:07 pm UTCTrisomy 13LOW RISK <1 in , 05:07 pm UTCTrisomy 18LOW RISK <1 in , 05:07 pm UTCTrisomy 21LOW RISK <1 in 10, 05:07 pm UTCFetal VncCEQSOZ78/01/2025 05:07 pm UTCPregnancy NgnsbgynfWVVPNDUSP26/01/2025 05:07 pm UTCFor detailed report, see PDFSee PDF 04/27/2025 05:07 pm UTC04/27/2025 05:07 pm UTC Social History Observation Value Start Date End Date
--- OUTSIDE RECORDS SUMMARY | 2025-09-22 11:29 | XMS_ITS | Encounter Summary ---
Author Organization [facility] Address [address] [place] [address] Care Team Providers Care Collar Packer Name Role Phone Yamel Guerrero MD Primary Care Provider [phone] Yamel Guerrero MD Unavailable Encounter Details DateTypeDepartmentCare Team (Latest Contact Info)Tlpmkhsmdce46/13/2025Travel Social History Tobacco UseTypesPacks/DayYears UsedDateSmoking Tobacco: NeverSmokeless [...] relatives?Once a week05/09/2023How often do you attend zoroastrianism or advent services?Never05/09/2023o you belong to any clubs or organizations such as zoroastrianism groups, unions, fraternal or athletic groups, or school groups?No05/09/2023How often do you attend meetings of the clubs or organizations you belong to?Never05/09/2023re you , , , , never , or living with a partner?Living with krtkfag3205/09/2023 AUDIT-CAnswerDate RecordedQ1: How often do you have [...] very hard 05/09/2023HQ-2AnswerDate RecordedPatient Health Questionnaire-2 Score1 10/12/2023[facility] [place] of Occup[facility] Health - Occupational Stress QuestionnaireAnswerDate RecordedDo you feel stress - tense, restless, nervous, or anxious, or unable to sleep at night because yourmind is troubled all the time - these days?To some wwenev9405/09/2023Exercise Vital SignAnswerDate Recorded On average, how many [...] in ashelter (including now)?No05/09/2023 Estimated Date of YhxwfyuqQlcpcdhfGxr49/19/2025Based on last menstrual period of 02/07/2025Sex and Gender InformationValueDate RecordedSex Assigned at BirthFemale 04/30/2023 3:31 PM EDTLegal WheNqthmi23/15/2023 7:09 PM EDTGender IdentityFemale 04/30/2023 3:31 PM EDTSexual OrientationNot on filedocumented as of this encounter Plan of Treatment DateTypeDepartmentCare Team (Latest Contact Info)Pbnmugechsy61/28/2025 10:00 AM EDTRoutine [facility] Kaylen ALVARADO [address] [place] [address] Luis E Bray DO [address] [place], [place] [address] 10/08/2025 11:00 AM ESTAncillary Procedure NOMVivienne ALVARADO [address] [place] [address] documented as of this encounter Visit Diagnoses Not on filedocumented in this encounter Additional Health Concerns AssessmentNoted TimePHQ-9 Depression Total Score: 9:00 AM EST documented as of this encounter Care Teams Team MemberRelationshipSpecialtyStart DateEnd Date Yamel Guerrero MD PCP - GeneralFamily Medicine05/04/23 Yamel Guerrero MD [address] [place] [address] PCP - [facility]02/26/24documented as of this encounter
--- OUTSIDE RECORDS SUMMARY | 2025-09-22 11:29 | XMS_ITS | Clinical Summary ---
Author Organization [facility] Address [address] [place] [address] Care Team Providers Care Youth Care Specialist Name Role Phone Yamel Guerrero MD Primary Care Provider [phone] Yamel Guerrero MD Unavailable Allergies No known active allergies Medications MedicationSigDispense QuantityRefillsLast FilledStart DateEnd DateStatus buPROPion XL (Wellbutrin XL) 300 MG 24 hr tablet Indications:AnxietyTake 1 tablet (300 mg) by mouth in the morning. Do not crush, chew, or split.. 30 tablet ctive Additional Information Patient not taking.Reported on 08/13/2025 metFORMIN XR (Glucophage-XR) 500 MG 24 hr tablet Indications:Insulin resistanceTake 1 tablet (500 mg) by mouth in the evening. Take with meals. Do not crush, chew, or split. 30 tablet ctive Additional Information Patient not taking.Reported on 08/13/2025 albuterol HFA 90 mcg/act inhaler Indications:Wheezing,Acute coughInhale 2 puffs every 4 (four) hours if needed for wheezing. 18 g 3Active Additional Information Patient not taking.Reported on 08/13/2025 ondansetron (Zofran) 4 MG tablet Indications:Nausea and vomiting in (HHS-HCC)Take 1 tablet (4 mg) by mouth every 6 (six) hours if needed for nausea or vomiting for up to 30 doses Take 1 tablet by mouth every 6 hours as needed for nausea. 30 tablet 5Active Additional Information Patient not taking.Reported on 08/13/2025 promethazine (Phenergan) 12.5 MG tablet Indications:Nausea and vomiting in (HHS-HCC)Take 1 tablet (12.5 mg) by mouth every 6 (six) hours if needed for nausea or vomiting for up to 30 doses Take 1 tablet by mouth every 6 hours as needed for nausea. 30 tablet 5Active Additional Information Patient not taking.Reported on 08/13/2025 metoclopramide (Reglan) 10 MG tablet Indications:Nausea and vomiting in (HHS-HCC)Take 1 tablet (10 mg) by mouth in the morning and 1 tablet (10 mg) at noon and 1 tablet (10 mg) in the evening. Take before meals. Take 1 tablet by mouth 30 minutes prior to meals 3 times daily as needed for nausea. 90 tablet 5Active Additional Information Patient not taking.Reported on 08/13/2025 Pharmacist Choice Lancets [facility] Indications:Gestational diabetes mellitus (GDM), antepartum, gestational diabetes method of control unspecified(HHS-HCC),Elevated glucose tolerance test USE 1 LANCET TO CHECK FSBS 4 TIMES DAILY 150 each 5Active Additional Information Patient not taking.Reported on 08/13/2025 Alcohol Swabs (Alcohol Prep Pad) 70 % pads Indications:Gestational diabetes mellitus (GDM), antepartum, gestational diabetes method of control unspecified(HHS-HCC),Elevated glucose tolerance test Apply 1 Pad topically Daily Use four times daily to check FSBS. 150 each 5Active Additional Information Patient not taking.Reported on 08/13/2025 Blood Glucose Monitoring Suppl (D-Care Glucometer) w/Device kit Indications:Gestational diabetes mellitus (GDM), antepartum, gestational diabetes method of control unspecified(HHS-HCC),Elevated glucose tolerance test1 kit Daily Use four times daily to check FSBS. In the morning prior to breakfast & 1 hour after each meal for a total of 4times daily. 1 kit 6Active Additional Information Patient not taking.Reported on 08/13/2025 MV-Min-Fe Fum-FA-DHA ( 1 PO) Take 1 tablet by mouth DailyActive Active Problems ProblemNoted DateDiagnosed FwfvTozvkec96/03/2023Obesity due to excess calories without serious zdttebzqvsw60/03/2023Systemic lupus zfqfdmhpggter19/05/2023 Elevated antinuclear antibody (ROSEMARY) level05/10/2023astroesophageal reflux disease without efarrgwqcdl36/14/2023Severe single current episode of major depressive disorder, without psychotic harsyvgn32/14/8586Cioywvpgghp88/14/2023 Tonsillar /12/2019Raynaud's fwqqyfrjvw69/06/2019Undifferentiated connective tissue ffmxiyo7612/18/2017Estimated Date of DeliveryCommentsYes 11/14/2025ased on last menstrual period of 02/07/2025 Resolved Problems ProblemNoted DateDiagnosed DateResolved DateCarpal tunnel hacdhlch14/14/2023 05/31/2023 Encounters DateTypeDepartmentCare WofgLdzxlmsevld21/14/2025 10:50 [place] [address] Fabi Martinez PA Third trimester ([facility]); 30 weeks gestation of ([facility])09/09/2025 10:00 AM EDTAncillary Procedure [facility] [address] [address] [place] [address] Gestational diabetes mellitus (GDM), antepartum, gestational diabetes method of control unspecified([facility])09/08/20257136Ieqebz88/08/2025linisync Result Encounter [facility]OM[facility] External Department Unsolicited Provider, Generic External Data 08/27/2025 10:20 AM EDTRoutine [facility] [address] [place] [address] Catarina Barnes NP 28 weeks gestation of ([facility]); Third trimester ([facility]); Gestational diabetes mellitus (GDM), antepartum, gestational diabetes method of control unspecified([facility]); Diabetes mellitus ouyxtjtnz27/01/2025bstract [facility] [address] [place] [address] Jossy Bray DO 08/27/2025linisync Result Encounter NOMS External Department Unsolicited Provider, Generic External Data 08/27/2025amb flowsheet [facility] [address] [place] [phone] Catarina Barnes NP 08/13/2025 11:10 AM EDTRoutine [facility] [address] [facility] [place] [phone] Jossy Bray, 26 weeks gestation of ([facility]); Second trimester ([facility]); Gestational diabetes mellitus (GDM), antepartum, gestational diabetes method of control unspecified([facility])08/13/2025amb flowsheet [facility] [address] [place] [address] Jossy Bray, 08/12/20258977Vvustf34/15/2025bstract [facility] [address] [place] [address] Jossy Bray, 08/04/2025 10:00 AM EDTAncillary Procedure [facility] [address] Encounter for follow-up ultrasound of anatomy ([facility])07/29/2025Travel 07/15/2025 9:00 AM EDTRoutine [facility] [place] [address] Jossy Bray, Second trimester ([facility]); 22 weeks gestation of ([facility]); Encounter for follow-up ultrasound of anatomy ([facility])07/15/2025amb flowsheet [facility] [address] [facility] [place] [address] Jossy Bray, 07/08/20250946Mwhfyf93/07/2025 10:10 AM EDTRoutine [facility] [address] Jossy Bray DO Second trimester ([facility]); 20 weeks gestation of ([facility])07/03/2025 9:00 AM EDTAncillary Procedure [facility] [address] [place], [place] [address] [address] Screening, , for anatomic survey ([facility])5Abstract [facility] [place] [address] Jossy Bray DO 07/02/20253035Tethrm95/28/2025Clinisync Result Encounter [facility]OM[facility] External Department Unsolicited Jossy Bray DO from Last 3 Months Family History Medical HistoryRelationNameCommentsCancerBrotherMatt donna (thyroid cancer) CancerFatherDan donna(throat cancer)StrokeFatherDan donna(throat cancer)Throat cancerFatherDan donna(throat cancer)AneurysmMaternal GrandfatherColon cancer Maternal GrandmotherArthritisMotherPatti bynataArthritisMother's SisterAunt DiabetesMother's SisterAuntStrokePaternal GrandfatherDadRelationNameStatus CommentsBrotherMatt donna (thyroid cancer)FatherDan donna(throat cancer)Alive Maternal GrandfatherDeceasedMaternal GrandmotherDeceasedMotherPatti byersAlive Mother's SisterAuntPaternal GrandfatherDadDeceasedPaternal GrandmotherDeceased Social History Tobacco UseTypesPacks/DayYears UsedDateSmoking Tobacco: NeverSmokeless Tobacco: Never Tobacco Cessation:Counseling Given: Not Answered Alcohol UseStandard Drinks/WeekCommentsNever0 (1 standard drink = 0.6 [...] week05/09/2023How often do you attend mormonism or shinto services?Never05/09/2023o you belong to any clubs or organizations such as mormonism groups, unions, fraternal or athletic groups, or school groups?No05/09/2023How often do you attend meetings of the clubs or organizations you belong to?Never05/09/2023re you , , , , never , or living with a partner?Living with yecdqrw0105/09/2023 AUDIT-CAnswerDate RecordedQ1: How often do you have [...] very hard 05/09/2023HQ-2AnswerDate RecordedPatient Health Questionnaire-2 Score1 10/12/2023Fin[facility] - Occupational Stress QuestionnaireAnswerDate RecordedDo you feel stress - tense, restless, nervous, or anxious, or unable to sleep at night because yourmind is troubled all the time - these days?To some vznmsf6905/09/2023Exercise Vital SignAnswerDate Recorded On average, how many [...] steady place to sleep or slept in [facility] (including now)?No05/09/2023 Estimated Date of DvvllexsPfgxygtkQlv45/19/2025Based on last menstrual period of 02/07/2025Sex and Gender InformationValueDate RecordedSex Assigned at BirthFemale 04/30/2023 3:31 PM EDTLegal UmpRgbbwp25/15/2023 7:09 PM EDTGender IdentityFemale 04/30/2023 3:31 PM EDTSexual OrientationNot on file Last Filed Vital Signs Vital SignReadingTime TakenCommentsBlood Euspoyrr948/8010 11:08 AM EDT Vcimd0612 4:27 PM BRMAaajguibuzk42 ??C (98.6 ??F)10/23/2023 4:27 PM EST Respiratory Jpxe976012/23/2022 4:27 PM ESTOxygen Mbumdpggdo06%10/23/2023 4:27 PM ESTInhaled Oxygen Concentration--Tfhgmu215 kg (244 lb 12.8 oz)09/09/2025 11:08 AM MOZXvzrgx778.6 cm (5' 4 )10/23/2023 4:27 PM ESTBody Mass Index42.02112/23/2022 4:27 PM EST Plan of Treatment DateTypeDepartmentCare Team (Latest Contact Info)Axthtpnrptf87/28/2025 10:00 AM EDTRoutine [facility] [address] [place] [address] Jossy Bray, [address] [place], [place] [phone] 10/08/2025 11:00 AM ESTAncillary Procedure [facility] [address] [facility] [place] [phone] Health MaintenanceDue DateLast DoneCommentsInfluenza Vaccine (#1)07/28/2025 11/11/2022, 10/17/2019Cervical Cancer Iseopdrjz45/07/2030HPV/Ipllay5906/02/2030 3Pap Smear06/02/, 04/06/2022 Procedures Procedure NamePriorityDate/TimeAssociated DiagnosisCommentsPOCT URINALYSIS ECNOXTIPJkanupr34/14/2025 11:15 AM EDT 30 weeks gestation of ([facility]) US OB FOLLOW UP TRANSABDOMINAL WAQMGEFZUfsjjag07/14/2025 10:39 AM EDT Gestational diabetes mellitus (GDM), antepartum, gestational diabetes method of control unspecified([facility]) MLR HEMOGLOBIN K5BPyxnqhc42/08/2025 10:44 AM EDT ALL CBC WITH AUTO AUWYPdndvvy58/08/2025 10:44 AM EDT US OB DTMBBX2408/27/2025 11:15 AM EDT POCT URINALYSIS JLPAZAAPKdfrdgs82/01/2025 10:37 AM EDT 28 weeks gestation of ([facility]) Third trimester ([facility]) POCT URINALYSIS TSNBAYPJCzcyfwz23/17/2025 11:24 AM EDT 26 weeks gestation of ([facility]) Second trimester ([facility]) US OB LIMITED 1+ JKGYLZRQarbtqy02/08/2025 10:29 AM EDT Encounter for follow-up ultrasound of anatomy ([facility]) POCT URINALYSIS TPBEODTZVhjdoty95/19/2025 9:30 AM EDT Second trimester ([facility]) 22 weeks gestation of ([facility]) POCT URINALYSIS FEXKWZWEXgwmqwg80/07/2025 10:25 AM EDT Second trimester ([facility]) 20 weeks gestation of ([facility]) US OB 14+ WEEKS ANATOMY YYQCSjoprrp82/07/2025 9:59 AM EDT Screening, , for anatomic survey ([facility]) AFP, SERUM, OPEN SPINA FUZEZKQknvwdn58/28/2025 1:45 PM EDT PAP GUKQTPvrntaw93/07/2025 12:00 AM EDTTHINPREP PAP AND HPV MRNA E6/E7 W/RFL HPV 16,18/27Gzhmwwv04/17/2023 10:11 AM EDT Well woman exam with routine gynecological exam from Last 3 Months or Most Recently Relevant to Health Maintenance Results * (ABNORMAL) POCT urinalysis dipstick manually resulted (09/09/2025 11:15 AM EDT) Only the most recent of5 resultswithin the time period is included. ComponentValueRef RangeTest MethodAnalysis TimePerformed AtPathologist Signature Color, UAYellowClarity, UAClearGlucose, UANegativeNegative - 2000(110) ++++ mg/dLBilirubin, UANegativeNegative - 4(70) +++ mg/dLKetones, UANegativeNegative - 160(16) ++++ mg/dLSpec Grav, UA1.0151 - 1.03Blood, UANegativeNegative - 50 Nico/mcLpH, UA6.05 - 9Protein, UATraceNegative - 2000(20) ++++ mg/dLUrobilinogen, UA2.00.2 - 12 mg/dLLeukocytes, UANegativeNegative - 500+++ Karson/mcLNitrite, UA NegativeNegative - PositiveSpecimen (Source)Anatomical Location / Laterality Collection Method / VolumeCollection TimeReceived BfpjEgvzb52/14/2025 11:15 AM EDT Narrative Authorizing ProviderResult TypeResult StatusAmy [facility] TEST ENTER/EDIT ORDERABLESFinal Result * US OB follow up transabdominal approach [...] percentile weight was 57.7% and estimated deliver wasNovember 16, 2025. IMPRESSION: Single, live intrauterine , current sonographic age of 31 weeksand 4 days, with an estimated date of delivery of November 07, 2025 * Estimated Weight (g) by Percentile is based upon an accurateestimated age based on last menstrual period. TRANSCRIBED BY: ELECTRONICALLY SIGNED BY: Michael Dennis MD Authorizing ProviderResult TypeResult StatusJossy Katarina DOIMG OB US PROCEDURES Final Result * MLR HEMOGLOBIN A1C (09/03/2025 10:44 AM EDT)ComponentValueRef RangeTest Method Analysis TimePerformed AtPathologist SignatureGLYCOHEMOGLOBIN A1C5.24.5 - 6.2 %TBHComment: ADA RECOMMENDED LIMIT 4.0 - 6.0 ADA THERAPEUTIC TARGET < 7.0 ACTION SUGGESTED > 7.0 ESTIMATED AVERAGE KCHIJVT566yz/dLTBHSpecimen (Source)Anatomical Location / LateralityCollection Method / VolumeCollection TimeReceived Time09/03/2025 10:44 AM EDT1 10:45 AM EDT Narrative [facility] - 09/03/2025 12:20 PM EDT Authorizing ProviderResult TypeResult StatusCatarina Molly NPCLINISYNCFinal ResultPerforming OrganizationAddressCity/State/ZIP CodePhone Number [facility]INPROM[facility] * (ABNORMAL) ALL CBC WITH AUTO DIFF (09/03/2025 10:44 AM EDT)ComponentValueRef RangeTest MethodAnalysis TimePerformed AtPathologist SignatureTBH WBC10.64.0 - 11.0 10 3/uLTBHTBH RBC3.60(L)4.20 - 5.40 10 6/uLTBHTBH HGB12.112.0 - 16.0 g/dL TBHTBH HCT35.6(L)36.0 - 48.0 %TBHTBH MCV98.981.0 - 99.0 fLTBHTBH MCH33.626.7 - 34.0 pgTBHTBH MCHC34.029.9 - 35.2 g/dLTBHTBH RDW14.311.0 - 15.0 %TBHTBH LZM013 150 - 450 10 3/uLTBHTBH MPV11.29.5 - 13.5 fLTBHNEUTROPHILS PERCENT AUTO79.8(H) 43.0 - 75.0 %TBHLYMPHOCYTES PERCENT AUTO12.9(L)20.5 - 60.0 %TBHMONOCYTES PERCENT AUTO5.51.7 - 12.0 %TBHTBH EO %0.90.9 - 7.0 %TBHBASOPHILS PERCENT AUTO 0.40.2 - 2.0 %TBHIMMATURE GRANULOCYTES PCT AUTO0.50.0 - 0.5 %TBHNEUTROPHILS ABSOLUTE AUTO8.5(H)1.4 - 6.5 10 3/uLTBHLYMPHOCYTES ABSOLUTE AUTO1.41.2 - 3.8 10 3/uLTBHMONOCYTES ABSOLUTE AUTO0.60.3 - 0.8 10 3/uLTBHTBH EO #0.10.0 - 0.7 10 3/uLTBHBASOPHILS ABSOLUTE AUTO0.00.0 - 0.1 10 3/uLTBHIMMATURE GRANULOCYTES ABS AUTO0.05(H)0.00 - 0.03 10 3/uLTBHSpecimen (Source)Anatomical Location / LateralityCollection Method / VolumeCollection TimeReceived Time09/03/2025 10:44 AM EDT1 10:45 AM EDT Narrative [facility] - 09/03/2025 10:56 AM EDT Authorizing ProviderResult TypeResult StatusKristina Molly NPCLINISYNCFinal ResultPerforming OrganizationAddressCity/State/ZIP CodePhone Number [facility]INIS[facility]NC TB * US OB GROWTH (08/27/2025 11:15 AM EDT)Anatomical RegionLateralityModalityOther Specimen (Source)Anatomical Location / LateralityCollection Method / Volume Collection TimeReceived Time08/27/2025 11:15 AM EDT Narrative 08/27/2025 11:17 AM EDT [facility] ?[address] ? [place] [address] ? Ultrasound Report ? Signed ? Patient: DONNABETTY R ? MR#: [id number] ?? : 1990 ?Acct:[id number] ?? Age/Sex: 35 / F ?ADM Date: 08/27/25 ?? Loc: US ? Attending Dr: Jossy Bray D.O. ? Ordering Physician: Jossy Bray D.O. ?? Date of Service: 08/27/25 ?? Procedure(s): US OB growth ?? Accession Number(s): [id number] ? cc: YAMEL GUERRERO ; Jossy Bray D.O. ? [facility] ? [address] ? [place] [address] ? Patient Name: ?? BETTY THOMPSON ? MRN: [facility]:[id number] ? date: 1990 ?Sex: F ?? Assigned Patient Location: US ?? Current Patient Location: US ?? Accession/Order Number: [id number] ?? Exam Date: 08/27/2025 ??09:52 ?Report Date: 08/27/2025 ??11:15 ? At the request of: ?? JOSSY ??KATARINA ??DO ? Procedure: ??US OB growth ? ULTRASOUND OB GROWTH ? COMPARISON: None ? CLINICAL DATA: History of labor ? There is a single live intrauterine gestation in cephalic presentation. ??There ?? is cardiac and somatic activity with heart rate of 141 bpm. ??The ?? amniotic fluid index measures 16.0 cm which is in normal range. ??There is an ?? anterior placenta. ?? The following measurements were obtained: ?? Biparietal diameter ? 7.2 cm ?? 28 weeks 6 days ?40% ?? Head circumference ? 27.0 cm ?? 29 weeks 3 days ?39% ?? Abdominal circumference ?26.9 cm ??31 weeks 0 days ? 95% ?? Femur length ?5.4 cm ?? 28 weeks 5 days ?33% ?? The composite ultrasound age based these measurements is 29 weeks 4 days +/- 2 ?? weeks 0 days. ??The estimated date of delivery is 11/08/2025. ??The estimated ?? weight is 3 lbs. 4 oz. +/- 8 ounces (81%). ? US/US OB growth ?? IMPRESSION: ? SINGLE LIVE INTRAUTERINE GESTATION WITH ULTRASOUND AGE OF 29 WEEKS 4 DAYS. ? Impression dictated by: Sonia Hernandez M.D. ??08/27/2025 11:15 AM ? Dictation Location: [facility]02 ? Electronically authenticated by: [id number] ??Y ?? Date: 08/27/2025 ??11:15 ? Dictated By: ?Sonia Hernandez M.D. ? Signed By: ?08/27/ 1117 ? DD/ 1115 ? TD/TT: ? Major Gifts Officer: Procedure Note Radiology, Radiologist, - 08/27/2025 [place] [address] Ultrasound Report Signed Patient: BETTY THOMPSON RMR#: [id number] : 1990Acct:[id number] Age/Sex: 35 / FADM Date: 08/27/25 Loc: US Attending Dr: Jossy Bray D.O. Ordering Physician: Jossy Bray D.O. Date of Service: 08/27/25 Procedure(s): US OB growth Accession Number(s): [id number] cc: YAMEL GUERRERO ; Jossy Bray D.O. The [place] [id number] Patient Name: BETTY THOMPSON MRN: H:[id number] date: 1990 Sex: F Assigned Patient Location: Current Patient Location: US Accession/Order Number: [id number] Exam Date: 08/27/2025 09:52 Report Date: 08/27/2025 11:15 At the request of: JOSSY BRAY DO Procedure: US OB growth ULTRASOUND OB GROWTH COMPARISON: None CLINICAL DATA: History of labor There is a single live intrauterine gestation in cephalic presentation.There is cardiac and somatic activity with heart rate of 141 bpm. The amniotic fluid index measures 16.0 cm which is in normal range. There isan anterior placenta. The following measurements were obtained: Biparietal diameter 7.2 cm 28 weeks 6 days 40% Head circumference 27.0 cm 29 weeks 3 days 39% Abdominal circumference 26.9 cm 31 weeks 0 days 95% Femur length 5.4 cm 28 weeks 5 days 33% The composite ultrasound age based these measurements is 29 weeks 4 days+/- 2 weeks 0 days. The estimated date of delivery is 11/08/2025. Theestimated weight is 3 lbs. 4 oz. +/- 8 ounces (81%). US/US OB growth IMPRESSION: SINGLE LIVE INTRAUTERINE GESTATION WITH ULTRASOUND AGE OF 29 WEEKS 4 DAYS. Impression dictated by: Sonia Hernandez M.D. 08/27/2025 11:15 AM Dictation Location: [place] [address] Electronically authenticated by: [id number] Y Date: 1:15 Dictated By: Sonia Hernandez M.D. Signed By:08/27/25 1117 DD/ 1115 TD/TT: Major Gifts Officer: Authorizing ProviderResult TypeResult StatusGeneric External Data Provider CLINIS[facility]NC IMAGINGFinal Result * US OB limited 1+ fetuses (08/04/2025 10:29 AM EDT)Anatomical RegionLaterality ModalityBodyUltrasoundSpecimen (Source)Anatomical Location / Laterality Collection Method / VolumeCollection TimeReceived Time08/05/2025 11:00 AM EDT Impressions 08/05/2025 11:40 AM EDT Adequate morphologic evaluation, appropriate for age TRANSCRIBED BY: ? ELECTRONICALLY SIGNED BY: Michael Dennis MD Narrative 08/05/2025 11:40 AM EDT FINDINGS: Single viable intrauterine with cephalic presentation, normal cardiac and activity,heart rate 141 bpm. Normal, adequate visualization of [...] Michael Dennis MD Authorizing ProviderResult TypeResult StatusCorey Katarina DOI OB US PROCEDURES Final Result * US OB 14+ weeks anatomy scan (07/03/2025 9:59 AM EDT)Anatomical Region LateralityModalityBodyUltrasoundSpecimen (Source)Anatomical Location / LateralityCollection Method / VolumeCollection TimeReceived Time07/03/2025 2:41 PM EDT Impressions 07/04/2025 7:31 AM EDT Single, live intrauterine , current sonographic age of 20 weeks and 4 days, with an estimated date of delivery of November 16, 2025. * ??Estimated Weight (g) by Percentile is based upon an accurate estimated age based onlast menstrual period. ?? TRANSCRIBED BY: ? ELECTRONICALLY SIGNED BY: Michael Dennis MD Narrative 07/04/2025 7:31 AM EDT FINDINGS: A single, live intrauterine is present with normal cardiac rate of 148 beats per minute. Normal activity and amniotic fluid volume. Morphology is grossly normal. The placenta isposterior, inferior margin 3.5 cm from the closed internal cervical os, length 4 cm. ??The current sonographic age is 20 weeks and 4 days, based on the following measurements: ?BPD ? 4.6 cm (19 weeks, 5 days) ?Head Circumference ?17.6 cm (20 weeks, 1 day) ?Abdominal Circumference ?15.8 cm (21 weeks, 0 days) ?Femur Length ?3.7 cm (21 weeks, 4 days) ?Presentation ? Breech ?Placenta ? Posterior ? Weight (g) by Percentile ??57.7 % * These measurements result in an estimated date of delivery of November 16, 2025. ??The current estimated weight is 398 grams (0 pounds, 14 ounces). ?? Procedure Note Michael Dennis MD - 07/04/2025 [...] Michael Dennis MD Authorizing ProviderResult TypeResult StatusCorey Katarina DOI OB US PROCEDURES Final Result * AFP, SERUM, OPEN SPINA BIFIDA (06/23/2025 1:45 PM EDT)ComponentValueRef Range Test MethodAnalysis TimePerformed AtPathologist SignatureRESULTSReport.TBHTEST RESULTS:*Screen Negative*.TBHGEST. AGE ON COLLECTION DATE19.4. weeksTBHGESTAT. AGE BASED ONLMP.TBHComment: Recalculations are not recommended when gestational dating by LMP and ultrasound are within 10 days. MATERNAL AGE AT EDD37.2. yrTBHRACECaucasian.SGBUFQCWQ283. lbsTBHINSULIN DEP DIABETESNo.TBHMULTIPLE GESTATIONNo.TBHAFP VALUE45.9. ng/mLTBHAFP MOM1.16.TBHOSBR RISK 1 [id number].TBHINTERPRETATIONComment.TBHComment: Interpretation: Screen Negative This result is screen [...] Genetic Customer Services to discuss available options. ??The [place] [employer] recommends amniocentesis be offered to women age 35 and older. COMMENT:Comment.TBHComment: Latoya Anderson, Ph.D., [facility] Director References: Available Upon Request. Multiples Of Median Cutoffs ?For AFP Elevations Altamn ?? 2.5 ? Black ?2.8 IDD ? 2.0 ? Twins ?4.5 ?Abbreviation Definitions IDD - Insulin Dep Diabetes OSBR - Open Spina Bifida Risk For further inquiries contact [email or web address] [facility] at [phone]. This test was developed and its performance characteristics determined by [employer]. It has not been cleared or approved by the Food and Drug Administration. Performed at: ??[facility] [place], [place] ??[id number] Dipping Machine Operator: Kyra Lozano Formerly [facility], Phone: ??[phone] Specimen (Source)Anatomical Location / LateralityCollection Method / Volume Collection TimeReceived Time06/23/2025 1:45 PM EDT06/23/2025 1:49 PM EDT Narrative [facility] - 06/25/2025 1:07 AM EDT N N LMP [id number] 3 16 N 1 Y 237 N N N N N White/ Authorizing ProviderResult TypeResult StatusGeneric External Data ProviderLAB BLOOD ORDERABLESFinal ResultPerforming OrganizationAddressCity/State/ZIP Code Phone Number [facility] * Pap Smear (06/02/2025 12:00 AM EDT)Specimen (Source)Anatomical Location / LateralityCollection Method / VolumeCollection TimeReceived TimeSwabCervical swab / Unknown Narrative Authorizing ProviderResult TypeResult StatusCorey Katarina DOLAB CYTOLOGY ORDERABLESFinal ResultPerforming OrganizationAddressCity/State/ZIP CodePhone Number EXTERNAL LAB * THINPREP PAP AND HPV MRNA E6/E7 W/RFL HPV 16,18/45 (07/13/2023 10:11 AM EDT) Narrative Authorizing ProviderResult TypeResult StatusAmy [place] PALAB BLOOD ORDERABLES Final ResultPerforming OrganizationAddressCity/State/ZIP CodePhone Number EXTERNAL LAB from Last 3 Months or Most Recently Relevant to Health Maintenance Insurance Care Teams Team MemberRelationshipSpecialtyStart DateEnd Date Yamel Guerrero MD PCP - GeneralFamily Medicine05/04/23 Yamel Guerrero MD [address] [place] [address] PCP - JORDANS Jake [facility]02/26/24
--- OUTSIDE RECORDS SUMMARY | 2025-09-22 11:29 | XMS_ITS | Clinical Summary ---
Author Organization [facility] Address [address] [place] [address] Care Team Providers Care Urban Planning Teacher Name Role Phone Unavailable Primary Care Provider Unavailabl e Social History Tobacco UseTypesPacks/DayYears UsedDateSmoking Tobacco: Never Assessed CommentsUnknownSex and Gender InformationValueDate RecordedSex Assigned at Not on fileLegal QaxIvcbii22/29/2022 11:30 PM EDTGender IdentityNot on file Sexual OrientationNot on file Last Filed Vital Signs Vital SignReadingTime TakenCommentsBlood Eyrpsbsi033/7611/14/2019 2:45 PM EST Ruyrl191411/14/2019 2:45 PM ESTTemperature--Respiratory Rate--Oxygen Kvcckcfflq07% 09/23/2019 2:45 PM EDTInhaled Oxygen Concentration--Eeirnm30.6 kg (160 lb) 11/14/2019 2:43 PM YMSYouejo026.6 cm (5' 4 )11/14/2019 2:43 PM ESTBody Mass Index27.4611/14/2019 2:43 PM EST Plan of Treatment Not on file
--- OUTSIDE RECORDS SUMMARY | 2025-09-22 11:29 | XMS_ITS | Clinical Summary ---
Author Organization [employer] Address [id number] [address] [place] [address] Care Team Providers Care Skin Tanner Name Role Phone Yamel Guerrero MD Primary Care Provider [phone] Allergies No known active allergies Medications MedicationSigDispense QuantityRefillsLast FilledStart DateEnd DateStatus PNV no.95/ferrous fum/folic ac ( ORAL) Take 1 tablet by mouth.Active CLINDAMYCIN PHOSPHATE TOP Apply topically.Active fluocinonide (LIDEX) 0.05 % external solution Apply 1 application topically 2 (two) times a day.Active promethazine (PHENERGAN) 25 mg tablet Take 25 mg by mouth every 6 (six) hours as needed for nausea or vomiting.Active hydroxyprogesterone caproate (HYDROXYPROGESTERONE CAPR,BULK,) 100 % powder 07/18/2019Active vit,fabian 74/iron/folic ( VITAMIN 1+1 ORAL) Vitamin one dailyActive fluticasone propionate (FLONASE) 50 mcg/actuation nasal spray fluticasone propionate 50 mcg/actuation nasal spray,suspensionActive mupirocin (BACTROBAN) 2 % ointment Indications:EpistaxisApplied intranasally bilaterally 2 times daily 15 g 10/08/2019Active Active Problems ProblemNoted DateDiagnosed FfcpJorvlofuq10/12/2019Nasal congestion related to vhmipifqn25/12/2019Tonsillar hfehyvssnxd22/12/2019Raynaud's huwdtuiavg47/06/2019 History of delivery, currently cxnjnred49/06/2019Undifferentiated connective tissue nrwgtcq2212/18/2017 Resolved Problems ProblemNoted DateDiagnosed DateResolved DateSubacute yvttqiisi62/09/2018 08/02/2019Nasal Family History Medical HistoryRelationNameCommentsCancerFatherStrokeFatherRelationNameStatus CommentsFather Social History Tobacco UseTypesPacks/DayYears UsedDateSmoking Tobacco: NeverSmokeless Tobacco: NeverAlcohol UseStandard Drinks/WeekCommentsNever0 (1 standard drink = 0.6 oz pure alcohol)AUDIT-CAnswerDate RecordedFrequency of Alcohol ConsumptionNever 07/26/2019Average Number of DrinksNot on file07/26/2019Frequency of Binge DrinkingNot on file07/26/2019PHQ-2AnswerDate RecordedTotal Kofgk77412/08/2018 ChildcareAnswerDate LflxkkjoVnyyknrbbMommjdt88/12/2019EmploymentAnswerDate ObtbitibEwtkadykysBncknep31/12/2019Purpose - LifeAnswerDate RecordedPurpose and direction in mklnHjoqqpu02/11/2021CommentsNoSex and Gender Information ValueDate RecordedSex Assigned at BirthNot on fileLegal WyyLtqpuv13/06/2015 11:38 AM EDTGender IdentityNot on fileSexual OrientationNot on file Last Filed Vital Signs Vital SignReadingTime TakenCommentsBlood Nvnpfhcv003/6210/08/2019 10:47 AM EST Jnshp1955/06/2019 9:07 AM EDTTemperature--Respiratory Rate--Oxygen Saturation-- Inhaled Oxygen Concentration--Atzznq80.2 kg (179 lb)10/08/2019 10:47 AM EST Arrtbu630.6 cm (5' 4 )10/08/2019 10:47 AM ESTBody Mass Index30.7310/08/2019 10:47 AM EST Plan of Treatment Health MaintenanceDue DateLast DoneCommentsDepression Qcutssknd14/28/2000Tobacco Wagqginkb20/28/2000Adult BMI Kdjumndat08/28/2006Pap Smear2009Influenza Adhfdpr01/01/127274/, 10/17/2019DTaP,Tdap and Td Vaccines (7 - Tdap) 2101/12/2022, 08/03/1994, 07/01/1991, Additional history exists Medical Devices Not on file Insurance Care Teams Team MemberRelationshipSpecialtyStart DateEnd Yamel Guerrero MD PCP - GeneralFamily Medicine06/03/17
--- NOTE | 2025-09-22 11:31 | US_ITS ---
[address] [address] Patient Name: AYDE THOMPSON MRN: [id number] date: 1990 Sex: F Assigned Patient Location: [facility] Current Patient Location: Accession/Order Number: [id number] Exam Date: 09/22/2025 11:34 Report Date: 09/22/2025 22:42 At the request of: ROMERO ARITA Procedure: US OB BPP w non-stress Ultrasound biophysical profile INDICATION: 30 weeks gestation COMPARISON: 08/27/2025 FINDINGS IMPRESSION: Cephalic position. heart rate 134 beats per minutes. PACO measures 14.3 cm. 8/8 score biophysical profile Impression dictated by: Alex Rich M.D. 09/22/2025 10:42 PM Dictation [facility] Electronically authenticated by: [id number] Y Date: 09/22/2025 22:42
[2025-09-22 12:13] VITALS: BP 123/60; PULSE 86
== END 2025-09-22 13:00 | disposition home or self-care (01) ==
LOC: US 11:26 → FBC 11:30
PROVIDERS: PCP Family Medicine; Visit Provider Physician Assistant
DX: Z34.93 Encounter for supervision of normal pregnancy, unspecified, third trimester (principal); Z3A.30 30 weeks gestation of pregnancy
CPT/HCPCS: 76818

== ENCOUNTER 2025-09-25 09:58 | Outpatient (OUT) | payer MEDICAID, SELFPAY ==
--- OUTSIDE RECORDS SUMMARY | 2025-08-27 10:20 | XMS_ITS | Encounter Summary ---
Author Organization [facility] Address [address] [place] [address] Care Team Providers Care Manager R D Name Role Phone Yamel Guerrero MD Primary Care Provider [phone] Yamel Guerrero MD Unavailable Reason for Visit * ReasonCommentsRoutine Visit Encounter Details DateTypeDepartmentCare Team (Latest Contact Info)Cvvumopcjnu75/01/2025 10:20 AM EDTRoutine [facility] [address] [place] [address] Catarina Barnes, [place] [address] [facility] [place] [address] 28 weeks gestation of ([facility]); Third trimester ([facility]); Gestational diabetes mellitus (GDM), antepartum, gestational diabetes method of control unspecified([facility]); Diabetes mellitus screening Social History Tobacco UseTypesPacks/DayYears [...] relatives?Once a week05/09/2023How often do you attend baptist or jainism services?Never05/09/2023o you belong to any clubs or organizations such as baptist groups, unions, fraternal or athletic groups, or school groups?No05/09/2023How often do you attend meetings of the clubs or organizations you belong to?Never05/09/2023re you , , , , never , or living with a partner?Living with jhekbuj6705/09/2023 AUDIT-CAnswerDate RecordedQ1: How often do you have [...] very hard 05/09/2023HQ-2AnswerDate RecordedPatient Health Questionnaire-2 Score1 10/12/2023[facility] [facility] - Occupational Stress QuestionnaireAnswerDate RecordedDo you feel stress - tense, restless, nervous, or anxious, or unable to sleep at night because yourmind is troubled all the time - these days?To some iystql0805/09/2023Exercise Vital SignAnswerDate Recorded On average, how many [...] steady place to sleep or slept in [facility] (including now)?No05/09/2023 Estimated Date of BpaeqljoYlbtczgbHsl05/19/2025Based on last menstrual period of 02/07/2025Sex and Gender InformationValueDate RecordedSex Assigned at BirthFemale 04/30/2023 3:31 PM EDTLegal LgfXrgjue78/15/2023 7:09 PM EDTGender IdentityFemale 04/30/2023 3:31 PM EDTSexual OrientationNot on filedocumented as of this encounter Last Filed Vital Signs Vital SignReadingTime TakenCommentsBlood Wfuawrka884/7008/27/2025 10:32 AM EDT Pulse--Temperature--Respiratory Rate--Oxygen Saturation--Inhaled Oxygen Concentration--Qelppt285 kg (243 lb 1.9 oz)08/27/2025 10:32 AM [...] to check FSBS. Blood Glucose Monitoring Suppl (D-Remerge Glucometer) w/Device kit 1 kit, Does not [...] as needed for nausea. Pharmacist Choice [facility] [place] LANCET TO CHECK FSBS 4 [...] of major depressive disorder, without psychotic features ([facility]) 05/10/2023 Thyromegaly 05/10/2023 Tonsillar hypertrophy 10/08/2019 Undifferentiated [...] nursing note reviewed. Exam conducted with a journeyman pipefitter present. Vitals: Estimated body mass index is 41.73 kg/m?? as calculated from the following: Height as of 11/27/23: 5' 4 . Weight as of this encounter: 243 lb 1.9 oz. BP: 110/70 Patient's last menstrual period was 02/07/2025. ASSESSMENT & PLAN ICD-10-CM 1. 28 weeks gestation of ([facility]) Z3A.28 POCT urinalysis dipstick manually resulted 2. Third trimester ([facility]) Z34.93 POCT urinalysis dipstick manually resulted 3. Gestational diabetes mellitus (GDM), antepartum, gestational diabetes method of control unspecified ([facility]) O24.419 Hemoglobin A1c 4. Diabetes mellitus screening [...] Plan of Treatment DateTypeDepartmentCare Team (Latest Contact Info)Jxyvxksejpz72/12/2025 11:00 AM ESTAncillary Procedure [facility] Kaylen ALVARADO [address] [place] [phone] 10/08/2025 11:30 AM ESTRoutine NOMVivienne ALVARADO [address] [place] [address] Fabi Martinez PA [address] [facility] [address] [address] NameTypePriorityAssociated DiagnosesOrder ScheduleCBCLabRoutine Diabetes mellitus screening Expected: 08/27/2025 (Approximate), Expires: 08/27/2026Hemoglobin Z6mCroYiigcpp Gestational diabetes mellitus (GDM), antepartum, gestational diabetes method of control unspecified([facility]) Diabetes mellitus screening Ordered: 08/27/2025documented as of this encounter Procedures Procedure NamePriorityDate/TimeAssociated DiagnosisCommentsPOCT URINALYSIS FNFLUSQPAmkrhgh47/01/2025 10:37 AM EDT 28 weeks gestation of ([facility]) Third trimester ([facility]) documented in this encounter Results * POCT [...] Visit Diagnoses Diagnosis 28 weeks gestation of ([facility]) Third trimester ([facility]) state, incidental Gestational diabetes mellitus (GDM), antepartum, gestational diabetes method of control unspecified([facility]) Diabetes mellitus screening Screening for diabetes mellitus documented in this encounter Additional Health Concerns AssessmentNoted TimePHQ-9 Depression Total Score: 9:00 AM EST documented as of this encounter Care Teams Team MemberRelationshipSpecialtyStart DateEnd Date Yamel Guerrero MD PCP - GeneralFacaly Medicine05/04/23 Yamel Guerrero MD [address] [place] [address] PCP - [facility] Jake [facility]02/26/24documented as of this encounter
--- OUTSIDE RECORDS SUMMARY | 2025-09-23 10:00 | XMS_ITS | Encounter Summary ---
Author Organization [facility] Address [address] [place] [address] Care Team Providers Care Poultry Scientist Name Role Phone Yamel Guerrero MD Primary Care Provider [phone] Yamel Guerrero MD Unavailable Reason for Visit * ReasonCommentsRoutine Visit Encounter Details DateTypeDepartmentCare Team (Latest Contact Info)Qcdnszuuefb62/28/2025 10:00 AM EDTRoutine [facility] [address] [phone] Luis E Bray DO [address] [place], [place] [phone] 32 weeks gestation of ([facility]); Third trimester ([facility]); Gestational diabetes mellitus (GDM), antepartum, gestational diabetes method of control unspecified([facility]) Social History Tobacco UseTypesPacks/DayYears UsedDateSmoking Tobacco: NeverSmokeless [...] relatives?Once a week05/09/2023How often do you attend lutheran or rastafari services?Never05/09/2023o you belong to any clubs or organizations such as lutheran groups, unions, fraCloudkick or athletic groups, or school groups?No05/09/2023How often do you attend meetings of the clubs or organizations you belong to?Never05/09/2023re you , , , , never , or living with a partner?Living with noaxaft6005/09/2023 AUDIT-CAnswerDate RecordedQ1: How often do you have [...] very hard 05/09/2023HQ-2AnswerDate RecordedPatient Health Questionnaire-2 Score1 10/12/2023[facility] [place] [facility] - Occupational Stress QuestionnaireAnswerDate RecordedDo you feel stress - tense, restless, nervous, or anxious, or unable to sleep at night because yourmind is troubled all the time - these days?To some sypfum5105/09/2023Exercise Vital SignAnswerDate Recorded On average, how many [...] steady place to sleep or slept in [place] (including now)?No05/09/2023 Estimated Date of KxnljhpaXiclrhjaBpi85/19/2025Based on last menstrual period of 02/07/2025Sex and Gender InformationValueDate RecordedSex Assigned at BirthFemale 04/30/2023 3:31 PM EDTLegal VwwZfgthz90/15/2023 7:09 PM EDTGender IdentityFemale 04/30/2023 3:31 PM EDTSexual OrientationNot on filedocumented as of this encounter Last Filed Vital Signs Vital SignReadingTime TakenCommentsBlood Xscttpfp604/7009/23/2025 10:09 AM EDT Pulse--Temperature--Respiratory Rate--Oxygen Saturation--Inhaled Oxygen Concentration--Opsbpp401 kg (246 lb 12.8 oz)09/23/2025 10:09 AM [...] nursing note reviewed. Exam conducted with a clinical training coordinator present. Vitals: Estimated body mass index is 42.36 kg/m?? as calculated from the following: Height as of 10/23/23: 5' 4 . Weight as of this encounter: 246 lb 12.8 oz. BP: 110/70 Patient's last menstrual period was 02/07/2025. Assessment/Plan ICD-10-CM 1. 32 weeks gestation of ([facility]) Z3A.32 POCT urinalysis dipstick manually resulted 2. Third trimester ([facility]) Z34.93 POCT urinalysis dipstick manually resulted 3. Gestational diabetes mellitus (GDM), antepartum, gestational diabetes method of control unspecified ([facility]) O24.419 Return OB: Patient presents today for [...] Plan of Treatment DateTypeDepartmentCare Team (Latest Contact Info)Zcbxivxcuuj41/12/2025 11:00 AM ESTAncillary Procedure [facility] [address] [phone] 10/08/2025 11:30 AM ESTRoutine [facility] [address] [phone] Fabi Martinez PA [address] [place], [place] [phone] documented as of this encounter Procedures Procedure NamePriorityDate/TimeAssociated DiagnosisCommentsPOCT URINALYSIS VESHZMNGRjhljol24/28/2025 10:15 AM EDT 32 weeks gestation of ([facility]) Third trimester ([facility]) documented in this encounter Results * (ABNORMAL) [...] Location / LateralityCollection Method / VolumeCollection TimeReceived YwcpRlcfz95/28/2025 10:15 AM EDT Narrative Authorizing ProviderResult TypeResult StatusCorey Katarina DOPOINT OF CARE TEST ENTER/EDIT ORDERABLESFinal Result documented in this encounter Visit Diagnoses Diagnosis 32 weeks gestation of ([facility]) Third trimester ([facility]) state, incidental Gestational diabetes mellitus (GDM), antepartum, gestational diabetes method of control unspecified([facility]) documented in this encounter Additional Health Concerns AssessmentNoted TimePHQ-9 Depression Total Score: 9:00 AM EST documented as of this encounter Care Teams Team MemberRelationshipSpecialtyStart DateEnd Date Yamel Guerrero MD PCP - GeneralFamily Medicine05/04/23 Yamel Guerrero MD [address] [place] [address] PCP - [facility]02/26/24documented as of this encounter
--- OUTSIDE RECORDS SUMMARY | 2025-09-25 10:02 | XMS_ITS | Encounter Summary ---
Author Organization [facility] Address [address] [place] [address] Care Team Providers Care Dynamic Etching Processor Name Role Phone Yamel Guerrero MD Primary Care Provider [phone] Yamel Guerrero MD Unavailable Encounter Details DateTypeDepartmentCare Team (Latest Contact Info)Lcadzwsvtag64/27/2025Travel Social History Tobacco UseTypesPacks/DayYears UsedDateSmoking Tobacco: NeverSmokeless [...] relatives?Once a week05/09/2023How often do you attend caodaism or restoration services?Never05/09/2023o you belong to any clubs or organizations such as caodaism groups, unions, fraternal or athletic groups, or school groups?No05/09/2023How often do you attend meetings of the clubs or organizations you belong to?Never05/09/2023re you , , , , never , or living with a partner?Living with rtqxfpu7505/09/2023 AUDIT-CAnswerDate RecordedQ1: How often do you have [...] RecordedPatient Health Questionnaire-2 Score1 10/12/2023[facility] [place] of Occupational Health - Occupational Stress QuestionnaireAnswerDate RecordedDo you feel stress - tense, restless, nervous, or anxious, or unable to sleep at night because yourmind is troubled all the time - these days?To some zwqykz0805/09/2023Exercise Vital SignAnswerDate Recorded On average, how many [...] in ashelter (including now)?No05/09/2023 Estimated Date of MhdwcwqqXmowpauhRru26/19/2025Based on last menstrual period of 02/07/2025Sex and Gender InformationValueDate RecordedSex Assigned at BirthFemale 04/30/2023 3:31 PM EDTLegal ZmxTcikpq77/15/2023 7:09 PM EDTGender IdentityFemale 04/30/2023 3:31 PM EDTSexual OrientationNot on filedocumented as of this encounter Plan of Treatment DateTypeDepartmentCare Team (Latest Contact Info)Rtxgsvbcjje85/12/2025 11:00 AM ESTAncillary Procedure [facility] [address] [place] [address] [place] [phone] 10/08/2025 11:30 AM ESTRoutine [facility] [address] [place] [phone] Fabi Martinez PA [address] [place] [address] documented as of this encounter Visit Diagnoses Not on filedocumented in this encounter Additional Health Concerns AssessmentNoted TimePHQ-9 Depression Total Score: 9:00 AM EST documented as of this encounter Care Teams Team MemberRelationshipSpecialtyStart DateEnd Date Yamel Guerrero MD PCP - GeneralFamily Medicine05/04/23 Yamel Guerrero MD [address] [place] [address] PCP - [facility]4/12/20documented as of this encounter
--- OUTSIDE RECORDS SUMMARY | 2025-09-25 10:02 | XMS_ITS | Encounter Summary ---
Author Organization [facility] Address [address] [place] [address] Care Team Providers Care Performance Improvement Consultant Name Role Phone Yamel Guerrero MD Primary Care Provider [phone] Yamel Guerrero MD Unavailable Encounter Details DateTypeDepartmentCare Team (Latest Contact Info)Uhilgddrtpp18/29/2025bstract [facility] [address] [place] [phone] Luis E Bray DO [address] [place], [place] [phone] Social History Tobacco UseTypesPacks/DayYears UsedDateSmoking Tobacco: NeverSmokeless [...] relatives?Once a week05/09/2023How often do you attend sikh or voodoo services?Never05/09/2023o you belong to any clubs or organizations such as sikh groups, unions, fraVODECLIC or athletic groups, or school groups?No05/09/2023How often do you attend meetings of the clubs or organizations you belong to?Never05/09/2023re you , , , , never , or living with a partner?Living with vfpeozu8505/09/2023 AUDIT-CAnswerDate RecordedQ1: How often do you have [...] very hard 05/09/2023HQ-2AnswerDate RecordedPatient Health Questionnaire-2 Score1 10/12/2023[facility] [place] of Occupational Health - Occupational Stress QuestionnaireAnswerDate RecordedDo you feel stress - tense, restless, nervous, or anxious, or unable to sleep at night because yourmind is troubled all the time - these days?To some xprpav1805/09/2023Exercise Vital SignAnswerDate Recorded On average, how many [...] in ashelter (including now)?No05/09/2023 Estimated Date of DnhkiefqMrhxvjaqExp64/19/2025Based on last menstrual period of 02/07/2025Sex and Gender InformationValueDate RecordedSex Assigned at BirthFemale 04/30/2023 3:31 PM EDTLegal SoxHbttwz16/15/2023 7:09 PM EDTGender IdentityFemale 04/30/2023 3:31 PM EDTSexual OrientationNot on filedocumented as of this encounter Plan of Treatment DateTypeDepartmentCare Team (Latest Contact Info)Izwsuikfemc84/12/2025 11:00 AM ESTAncillary Procedure [facility] [address] [place] [phone] 10/08/2025 11:30 AM ESTRoutine [facility] [address] [place] [address] Fabi Martinez PA [address] [place], [place] [phone] documented as of this encounter Visit Diagnoses Not on filedocumented in this encounter Additional Health Concerns AssessmentNoted TimePHQ-9 Depression Total Score: 9:00 AM EST documented as of this encounter Care Teams Team MemberRelationshipSpecialtyStart DateEnd Date Yamel Guerrero MD PCP - GeneralFamily Medicine05/04/23 Yamel Guerrero MD [address] [place] [address] PCP - [facility]02/26/24documented as of this encounter
--- OUTSIDE RECORDS SUMMARY | 2025-09-25 10:02 | XMS_ITS | Clinical Summary ---
Author Organization [facility] Address [address] [place] [address] Care Team Providers Care Biology Professor Name Role Phone Yamel Guerrero MD Primary Care Provider [phone] Yamel Guerrero MD Unavailable Allergies No known active allergies Medications MedicationSigDispense QuantityRefillsLast FilledStart DateEnd DateStatus MV-Min-Fe Fum-FA-DHA ( 1 PO) Take 1 tablet by mouth DailyActive buPROPion XL (Wellbutrin XL) 300 MG 24 hr tablet Indications:AnxietyTake 1 tablet (300 mg) by mouth in the morning. Do not crush, chew, or split.. 30 tablet Discontinued metFORMIN XR (Glucophage-XR) 500 MG 24 hr tablet Indications:Insulin resistanceTake 1 tablet (500 mg) by mouth in the evening. Take with meals. Do not crush, chew, or split. 30 tablet Discontinued albuterol HFA 90 mcg/act inhaler Indications:Wheezing,Acute coughInhale 2 puffs every 4 (four) hours if needed for wheezing. 18 g Discontinued ondansetron (Zofran) 4 MG tablet Indications:Nausea and vomiting in ([facility])Take 1 tablet (4 mg) by mouth every 6 (six) hours if needed for nausea or vomiting for up to 30 doses Take 1 tablet by mouth every 6 hours as needed for nausea. 30 tablet Discontinued promethazine (Phenergan) 12.5 MG tablet Indications:Nausea and vomiting in ([facility])Take 1 tablet (12.5 mg) by mouth every 6 (six) hours if needed for nausea or vomiting for up to 30 doses Take 1 tablet by mouth every 6 hours as needed for nausea. 30 tablet Discontinued metoclopramide (Reglan) 10 MG tablet Indications:Nausea and vomiting in ([facility])Take 1 tablet (10 mg) by mouth in the morning and 1 tablet (10 mg) at noon and 1 tablet (10 mg) in the evening. Take before meals. Take 1 tablet by mouth 30 minutes prior to meals 3 times daily as needed for nausea. 90 tablet Discontinued Pharmacist Choice Lancets [facility] [place] Indications:Gestational diabetes mellitus (GDM), antepartum, gestational diabetes method of control unspecified([facility]),Elevated glucose tolerance test USE 1 LANCET TO CHECK FSBS 4 TIMES DAILY 150 each Discontinued Alcohol Swabs (Alcohol Prep Pad) 70 % pads Indications:Gestational diabetes mellitus (GDM), antepartum, gestational diabetes method of control unspecified([facility]),Elevated glucose tolerance test Apply 1 Pad topically Daily Use four times daily to check FSBS. 150 each Discontinued Blood Glucose Monitoring Suppl (D-Care Glucometer) w/Device kit Indications:Gestational diabetes mellitus (GDM), antepartum, gestational diabetes method of control unspecified([facility]),Elevated glucose tolerance test1 kit Daily Use four times daily to check FSBS. In the morning prior to breakfast & 1 hour after each meal for a total of 4times daily. 1 kit Discontinued Active Problems ProblemNoted DateDiagnosed DygqKptadpm60/03/2023Obesity due to excess calories without serious mxcqnwodgrk50/03/2023Systemic lupus rlvqmukbifbrg00/05/2023 Elevated antinuclear antibody (ROSEMARY) level05/10/2023astroesophageal reflux disease without faclhxwobsc78/14/2023Severe single current episode of major depressive disorder, without psychotic lgnpxixl46/14/6450Tzgkuboxyjq47/14/2023 Tonsillar /12/2019Raynaud's yzvxlbvuif64/06/2019Undifferentiated connective tissue wfvkedp9412/18/2017Estimated Date of DeliveryCommentsYes 11/14/2025ased on last menstrual period of 02/07/2025 Resolved Problems ProblemNoted DateDiagnosed DateResolved DateCarpal tunnel crmmiwkg59/14/2023 05/31/2023 Encounters DateTypeDepartmentCare CzsjBnsjhmaitnc47/29/2025[place] [phone] Jossy Bray DO 09/23/2025 10:00 [place] [address] Jossy Bray, 32 weeks gestation of ([facility]); Third trimester ([facility]); Gestational diabetes mellitus (GDM), antepartum, gestational diabetes method of control unspecified([facility])09/23/2025amboo [place] [phone] Jossy Bray, 09/22/2025linisync Result Encounter [facility]OM[facility] External Department Unsolicited Fabi Arita PA 09/22/20252878Hqhxns11/14/2025 10:50 [place] [phone] Fabi Arita PA Third trimester ([facility]); 30 weeks gestation of ([facility])09/09/2025 10:00 AM EDTAncillary [place] [phone] Gestational diabetes mellitus (GDM), antepartum, gestational diabetes method of control unspecified([facility])09/08/20251101Idkzym61/08/2025Clinisync Result Encounter [facility]OM[facility] External Department Unsolicited Provider, Generic External Data 08/27/2025 10:20 AM EDTRoutine [facility] [address] [phone] Catarina Barnes, [place] 28 weeks gestation of ([facility]); Third trimester ([facility]); Gestational diabetes mellitus (GDM), antepartum, gestational diabetes method of control unspecified([facility]); Diabetes mellitus /01/2025bstract [facility] [address] [facility] [phone] Jossy Bray, DO 08/27/2025linisync Result Encounter [facility]OM[facility] External Department Unsolicited Provider, Generic External Data 08/27/2025amboo flowsheet [facility] [address] [facility] [address] Catarina Barnes NP 08/13/2025 11:10 AM EDTRoutine [facility] [address] [facility] [address] Jossy Bray, 26 weeks gestation of ([facility]); Second trimester ([facility]); Gestational diabetes mellitus (GDM), antepartum, gestational diabetes method of control unspecified([facility])08/13/2025amboo flowsheet [facility] [address] [facility] [phone] Jossy Bray, 08/12/20253711Vvfxzf06/15/2025bstract [facility] [place] [facility] [address] [phone] Jossy Bray, DO 08/04/2025 10:00 AM EDTAncillary Procedure [facility] [address] [facility] [address] Encounter for follow-up ultrasound of anatomy ([facility])07/29/2025Travel 07/15/2025 9:00 [place] [address] Jossy Bray, Second trimester ([facility]); 22 weeks gestation of ([facility]); Encounter for follow-up ultrasound of anatomy ([facility])07/15/2025[place] [address] Jossy Bray, 07/08/20256384Poduip56/07/2025 10:10 [place] [address] Jossy Bray, Second trimester ([facility]); 20 weeks gestation of ([facility])07/03/2025 9:00 AM EDTAncillary [place] [address] Screening, , for anatomic survey ([facility])07/03/20[place] [address] Jossy Bray, 07/02/2025Travelfrom Last 3 Months Family History Medical HistoryRelationNameCommentsCancerBrotherMatt donna (thyroid cancer) CancerFatherDan donna(throat cancer)StrokeFatherDan donna(throat cancer)Throat cancerFatherDan donna(throat cancer)AneurysmMaternal GrandfatherColon cancer Maternal GrandmotherArthritisMotherPatti byersArthritisMother's SisterAunt DiabetesMother's SisterAuntStrokePaternal GrandfatherDadRelationNameStatus CommentsBrotherMatt donna (thyroid [...] relatives?Once a week05/09/2023How often do you attend anabaptism or episcopal services?Never05/09/2023o you belong to any clubs or organizations such as anabaptism groups, unions, fraternal or athletic groups, or school groups?No05/09/2023How often do you attend meetings of the clubs or organizations you belong to?Never05/09/2023re you , , , , never , or living with a partner?Living with xqjrmab8805/09/2023 AUDIT-CAnswerDate RecordedQ1: How often do you have [...] very hard 05/09/2023HQ-2AnswerDate RecordedPatient Health Questionnaire-2 Score1 10/12/2023[facility] [employer] - Occupational Stress QuestionnaireAnswerDate RecordedDo you feel stress - tense, restless, nervous, or anxious, or unable to sleep at night because yourmind is troubled all the time - these days?To some iyolhp9405/09/2023Exercise Vital SignAnswerDate Recorded On average, how many [...] in ashelter (including now)?No05/09/2023 Estimated Date of QtbydxhcDxvvzejeOgw55/19/2025Based on last menstrual period of 02/07/2025Sex and Gender InformationValueDate RecordedSex Assigned at BirthFemale 04/30/2023 3:31 PM EDTLegal ErqUxxgxp98/15/2023 7:09 PM EDTGender IdentityFemale 04/30/2023 3:31 PM EDTSexual OrientationNot on file Last Filed Vital Signs Vital SignReadingTime TakenCommentsBlood Ejeuwurn481/7010 10:09 AM EDT Bswol3384 4:27 PM ZYROvnzzgfawse28 ??C (98.6 ??F)10/23/2023 4:27 PM EST Respiratory Rqao263412/23/2022 4:27 PM ESTOxygen Gzdhigpmpa46%10/23/2023 4:27 PM ESTInhaled Oxygen Concentration--Bfqbrj450 kg (246 lb 12.8 oz)09/23/2025 10:09 AM RTHPqtrhs132.6 cm (5' 4 )10/23/2023 4:27 PM ESTBody Mass Index42.36112/23/2022 4:27 PM EST Plan of Treatment DateTypeDepartmentCare Team (Latest Contact Info)Qfwvbbqouyk49/12/2025 11:00 AM ESTAncillary Procedure [facility] [address] [place] [address] [place] [phone] 10/08/2025 11:30 AM ESTRoutine [facility] [address] [place] [address] [place] [phone] Fabi Arita PA [address] [place], [place] [phone] Health MaintenanceDue DateLast DoneCommentsMMR Vaccines (1 of 1 - Standard series)1989DTaP/Tdap/Td Vaccines (1 - Tdap)1995Varicella Vaccines (1 of 2 - 13+ 2-dose series)2001Hepatitis B Vaccines (1 of 3 - 19+ 3-dose series)2007HPV Vaccines (1 - 3-dose SCDM series)2015COVID-19 Vaccine (1 - season)2025Influenza Vaccine (#1)/, 10/17/2019Cervical Cancer Drbfoviqs66/07/2030HPV/Yqgdkh72/3Pap Smear, 04/06/2022HIB VaccinesAged OutNo longer eligible based on patient's age to complete this topicHepatitis A VaccinesAged OutNo longer eligible based on patient's age to complete this topicIPV VaccinesAged OutNo longer eligible based on patient's age to complete this topicMeningococcal B VaccineAged OutNo longer eligible based on patient's age to complete this topicMeningococcal VaccineAged OutNo longer eligible based on patient's age to complete this topicPneumococcal Vaccine: Pediatrics (0 to 5 Years) and At-Risk Patients (6 to 64 Years)Aged OutNo longer eligible based on patient's age to complete this topicRotavirus VaccinesAged OutNo longer eligible based on patient's age to complete this topic Procedures Procedure NamePriorityDate/TimeAssociated DiagnosisCommentsPOCT URINALYSIS ALFPYVIITbnjsiw09/28/2025 10:15 AM EDT 32 weeks gestation of ([facility]) Third trimester ([facility]) US OB BPP W NON-QDWQQA5809/22/2025 10:42 PM EDT POCT URINALYSIS TFRYNGOXEmbqsko85/14/2025 11:15 AM EDT 30 weeks gestation of ([facility]) US OB FOLLOW UP TRANSABDOMINAL IJRQTEGXSbxzduc66/14/2025 10:39 AM EDT Gestational diabetes mellitus (GDM), antepartum, gestational diabetes method of control unspecified([facility]) MLR HEMOGLOBIN I2HFejpeap49/08/2025 10:44 AM EDT ALL CBC WITH AUTO JOWNSkfntzf22/08/2025 10:44 AM EDT US OB PTQPYU2508/27/2025 11:15 AM EDT POCT URINALYSIS ABOHHUATXtnrhfx22/01/2025 10:37 AM EDT 28 weeks gestation of ([facility]) Third trimester ([facility]) POCT URINALYSIS WIYANRASZxyytsc55/17/2025 11:24 AM EDT 26 weeks gestation of ([facility]) Second trimester ([facility]) US OB LIMITED 1+ XCKGJDIVmpounh00/08/2025 10:29 AM EDT Encounter for follow-up ultrasound of anatomy ([facility]) POCT URINALYSIS KEGDLQFNAycwdqu84/19/2025 9:30 AM EDT Second trimester ([facility]) 22 weeks gestation of ([facility]) POCT URINALYSIS OCFMEILWKbkkwcc76/07/2025 10:25 AM EDT Second trimester ([facility]) 20 weeks gestation of ([facility]) US OB 14+ WEEKS ANATOMY EEAVFnajxcl57/07/2025 9:59 AM EDT Screening, , for anatomic survey ([facility]) PAP EILFMCrxrdwg04/07/2025 12:00 AM EDTTHINPREP PAP AND HPV MRNA E6/E7 W/RFL HPV 16,18/33Jrapfrn24/17/2023 10:11 AM EDT Well woman exam with routine gynecological exam from Last 3 Months or Most Recently Relevant to Health Maintenance Results * (ABNORMAL) POCT urinalysis dipstick manually resulted (09/23/2025 10:15 AM EDT) Only the most recent of6 resultswithin the time period is included. ComponentValueRef RangeTest MethodAnalysis TimePerformed AtPathologist Signature Color, UAYellowClarity, UAClearGlucose, UANegativeNegative - 2000(110) ++++ mg/dLBilirubin, UANegativeNegative - 4(70) +++ mg/dLKetones, UAPositiveNegative - 160(16) ++++ mg/dLSpec Grav, UA1.0251 - 1.03Blood, UANegativeNegative - 50 Nico/mcLpH, UA6.05 - 9Protein, UAPositiveNegative - 2000(20) ++++ mg/dL Urobilinogen, UA1.00.2 - 12 mg/dLLeukocytes, UANegativeNegative - 500+++ Karson/mcL Nitrite, UANegativeNegative - PositiveSpecimen (Source)Anatomical Location / LateralityCollection Method / VolumeCollection TimeReceived AtoiSlyuu52/28/2025 10:15 AM EDT Narrative Authorizing ProviderResult TypeResult StatusCorey Katarina DOPOINT OF CARE TEST ENTER/EDIT ORDERABLESFinal Result * US OB BPP W NON-STRESS (09/22/2025 10:42 PM EDT)Anatomical Region LateralityModalityOtherSpecimen (Source)Anatomical Location / Laterality Collection Method / VolumeCollection TimeReceived Time09/22/2025 10:42 PM EDT Narrative 09/22/2025 10:45 PM EDT [facility] ?[address] ? [place] [address] ? Ultrasound Report ? Signed ? Patient: BETTY THOMPSON R ? MR#: [id number] ?? : 1990 ?Acct:[id number] ?? Age/Sex: 35 / F ?ADM Date: 09/22/25 ?? Loc: US ? Attending Dr: Fabi Arita ? Ordering Physician: Fabi Arita ?? Date of Service: 09/22/25 ?? Procedure(s): US OB BPP w non-stress ?? Accession Number(s): [id number] ? cc: Fabi Arita; YAMEL GUERRERO ? [facility] ? [address] ? [place] [address] ? Patient Name: ?? BETTY R DONNA ? MRN: [facility]:[id number] ? date: 1990 ?Sex: F ?? Assigned Patient Location: [facility] ?? Current Patient Location: ? Accession/Order Number: [id number] ?? Exam Date: 09/22/2025 ??11:34 ?Report Date: 09/22/2025 ??22:42 ? At the request of: ?? FABI ??JUAN J ? Procedure: ??US OB BPP w non-stress ? Ultrasound biophysical profile ? INDICATION: 30 weeks gestation ? COMPARISON: 08/27/2025 ? FINDINGS IMPRESSION: Cephalic position. ?? heart rate 134 beats per ?? minutes. ??PACO measures 14.3 cm. ??8/8 score biophysical profile ? Impression dictated by: Alex Rich M.D. ??09/22/2025 10:42 PM ? Dictation Location: RADIO-PC-29 ? Electronically authenticated by: [id number] ??Y ?? Date: 09/22/2025 ??22:42 ? Dictated By: ?Alex Rich M.D. ? Signed By: ?09/22/252244 ? DD/ 2242 ? TD/TT: ? Controlled Area Checker: Procedure Note Radiology, Radiologist, MD - 09/22/2025 [facility] [place] [id number] Ultrasound Report Signed Patient: BETTY THOMPSON RMR#: [id number] : 1990Acct:[id number] Age/Sex: 35 / FADM Date: 09/22/25 Loc: US Attending Dr: Fabi Arita Ordering Physician: Fabi Arita Date of Service: 09/22/25 Procedure(s): US OB BPP w non-stress Accession Number(s): [id number] cc: Fabi Arita; YAMEL GUERRERO [place] [id number] Patient Name: BETTY THOMPSON MRN: [id number]:[id number] date: 1990 Sex: F Assigned Patient Location: [facility] Current Patient Location: Accession/Order Number: [id number] Exam Date: 09/22/2025 11:34 Report Date: 09/22/2025 22:42 At the request of: FABI ARITA Procedure: US OB BPP w non-stress Ultrasound biophysical profile INDICATION: 30 weeks gestation COMPARISON: 08/27/2025 FINDINGS IMPRESSION: Cephalic position. heart rate 134 beats per minutes. PACO measures 14.3 cm. 8/8 score biophysical profile Impression dictated by: Alex Rich M.D. 09/22/2025 10:42 PM Dictation Location: [place] [address] Electronically authenticated by: [id number] Y Date: 2:42 Dictated By: Alex iRch M.D. Signed By:09/22/252244 DD/ 41 TD/TT: Controlled Area Checker: Authorizing ProviderResult TypeResult StatusAmy Petoskey [facility] IMAGINGFinal Result * US OB follow up transabdominal [...] Dennis MD Authorizing ProviderResult TypeResult StatusCorey Katarina DOIMG OB US PROCEDURES Final Result * MLR HEMOGLOBIN A1C (09/03/2025 10:44 AM EDT)ComponentValueRef RangeTest Method Analysis TimePerformed AtPathologist SignatureGLYCOHEMOGLOBIN A1C5.24.5 - 6.2 %TBHComment: ADA RECOMMENDED LIMIT 4.0 - 6.0 ADA THERAPEUTIC TARGET < 7.0 ACTION SUGGESTED > 7.0 ESTIMATED AVERAGE UOESAUN908ok/dLTBHSpecimen (Source)Anatomical Location / LateralityCollection Method / VolumeCollection TimeReceived Time10/06/2025 10:44 AM EDT1 10:45 AM EDT Narrative CLINISYNC - 09/03/2025 12:20 PM EDT Authorizing ProviderResult TypeResult StatusCatarina Barnes NPCLINISYNCFinal ResultPerforming OrganizationAddressCity/State/ZIP CodePhone Number [facility] * (ABNORMAL) ALL CBC WITH AUTO DIFF (09/03/2025 10:44 AM EDT)ComponentValueRef RangeTest MethodAnalysis TimePerformed AtPathologist SignatureTBH WBC10.64.0 - 11.0 10 3/uLTBHTBH RBC3.60(L)4.20 - 5.40 10 6/uLTBHTBH HGB12.112.0 - 16.0 g/dL TBHTBH HCT35.6(L)36.0 - 48.0 %TBHTBH MCV98.981.0 - 99.0 fLTBHTBH MCH33.626.7 - 34.0 pgTBHTBH MCHC34.029.9 - 35.2 g/dLTBHTBH RDW14.311.0 - 15.0 %TBHTBH HSO900 150 - 450 10 3/uLTBHTBH MPV11.29.5 - [...] Molly NPCLINISYNCFinal ResultPerforming OrganizationAddressCity/State/ZIP CodePhone Number CLINISYNC [facility] * US OB GROWTH (08/27/2025 11:15 AM EDT)Anatomical RegionLateralityModalityOther Specimen (Source)Anatomical Location / LateralityCollection Method / Volume Collection TimeReceived Time08/27/2025 11:15 AM EDT Narrative 08/27/2025 11:17 AM EDT [facility] ?[address] ? [place] [address] ? Ultrasound Report ? Signed ? Patient: BETTY THOMPSON R ? MR#: [id number] ?? : 1990 ?Acct:[id number] ?? Age/Sex: 35 / F ?ADM Date: 08/27/25 ?? Loc: US ? Attending Dr: Jossy Bray D.O. ? Ordering Physician: Jossy Bray D.O. ?? Date of Service: 08/27/25 ?? Procedure(s): US OB growth ?? Accession Number(s): [id number] ? cc: YAMEL GUERRERO ; Jossy Bray D.O. ? [facility] ? [address] ? [place] [address] ? Patient Name: ?? BETTY THOMPSON ? MRN: [id number] ? date: 1990 ?Sex: F ?? Assigned Patient Location: US ?? Current Patient Location: US ?? Accession/Order Number: [id number] ?? Exam Date: 08/27/2025 ??09:52 ?Report Date: [...] M.D. ??08/27/2025 11:15 AM ? Dictation Location: [place] [address] ? Electronically authenticated by: [id number] ??Y ?? Date: 08/27/2025 ??11:15 ? Dictated By: ?David,Sonia M.D. ? Signed By: ?08/27/25 1117 ? DD/ ? TD/TT: ? Controlled Area Checker: Procedure Note Radiology, Radiologist, MD - 08/27/2025 [facility] [place] [id number] Ultrasound Report Signed Patient: BETTY THOMPSON RMR#: [id number] : 1990Acct:[id number] Age/Sex: 35 / FADM Date: 08/27/25 Loc: US Attending Dr: Jossy Bray D.O. Ordering Physician: Jossy Bray D.O. Date of Service: 08/27/25 Procedure(s): US OB growth Accession Number(s): [id number] cc: YAMEL GUERRERO ; Jossy Bray D.O. [place] [id number] Patient Name: BETTY THOMPSON MRN: [facility]:[id number] date: 1990 Sex: F Assigned Patient Location: US Current Patient Location: US Accession/Order Number: [id number] Exam Date: 08/27/2025 09:52 Report Date: 08/27/2025 [...] Hernandez M.D. 08/27/2025 11:15 AM Dictation Location: [place] [address] Electronically authenticated by: [id number] Y Date: 1:15 Dictated By: Sonia Hernandez M.D. Signed By:08/27/25 1117 DD/ 1115 TD/TT: Controlled Area Checker: Authorizing ProviderResult TypeResult StatusGeneric External Data Provider [...] Dennis MD Authorizing ProviderResult TypeResult StatusCorey Katarina MENDEZ OB US PROCEDURES Final Result * US [...] BY: Michael Dennis MD Authorizing ProviderResult TypeResult StatusCorejulio cesar Bray DOIMG OB US PROCEDURES Final Result * Pap Smear (06/02/2025 12:00 AM EDT)Specimen (Source)Anatomical Location / LateralityCollection Method / VolumeCollection TimeReceived TimeSwabCervical swab / Unknown Narrative Authorizing ProviderResult TypeResult StatusCorey Katarina DOLAB CYTOLOGY ORDERABLESFinal ResultPerforming OrganizationAddressCity/State/ZIP CodePhone Number EXTERNAL LAB * THINPREP PAP AND HPV MRNA E6/E7 W/RFL HPV 16,18/45 (07/13/2023 10:11 AM EDT) Narrative Authorizing ProviderResult TypeResult StatusAmy Juan J PALAB BLOOD ORDERABLES Final ResultPerforming OrganizationAddressCity/State/ZIP CodePhone Number EXTERNAL LAB from Last 3 Months or Most Recently Relevant to Health Maintenance Insurance Care Teams Team MemberRelationshipSpecialtyStart DateEnd Yamel Guerrero MD PCP - GeneralFamily Medicine05/04/23 Yamel Guerrero MD [address] [place] [phone] CHARIS Joseph [facility]02/26/24
--- OUTSIDE RECORDS SUMMARY | 2025-09-25 10:02 | XMS_ITS | Clinical Summary ---
Author Organization [employer] Address [id number] [address] [place] [address] Care Team Providers Care Home Worker Name Role Phone Yamel Guerrero MD Primary Care Provider [phone] Allergies No known active allergies Medications MedicationSigDispense [...] 15 g 10/08/2019Active Active Problems ProblemNoted DateDiagnosed RilqWzoerwzqi61/12/2019Nasal congestion related to vwpzrniyf35/12/2019Tonsillar wnhrjqbojde04/12/2019Raynaud's /06/2019 History of delivery, currently bxodqscd68/06/2019Undifferentiated connective tissue mdwxfcw2912/18/2017 Resolved Problems ProblemNoted DateDiagnosed DateResolved DateSubacute zdbybodwv23/09/2018 08/02/2019Nasal ucdvnquace95 Family History Medical HistoryRelationNameCommentsCancerFatherStrokeFatherRelationNameStatus CommentsFather Social History Tobacco UseTypesPacks/DayYears UsedDateSmoking Tobacco: NeverSmokeless Tobacco: NeverAlcohol UseStandard Drinks/WeekCommentsNever0 (1 standard drink = 0.6 oz pure alcohol)AUDIT-CAnswerDate RecordedFrequency of Alcohol ConsumptionNever 07/26/2019Average Number of DrinksNot on file07/26/2019Frequency of Binge DrinkingNot on file07/26/2019PHQ-2AnswerDate RecordedTotal Qzdqa67712/08/2018 ChildcareAnswerDate ExicdiqzTedbzkhrwQlfgupm24/12/2019EmploymentAnswerDate MotpjvzvFrbspeihktUvzakzs39/12/2019Purpose - LifeAnswerDate RecordedPurpose and direction in dwrfNeqceen01/11/2021CommentsNoSex and Gender Information ValueDate RecordedSex Assigned at BirthNot on fileLegal YheIdsyby13/06/2015 11:38 AM EDTGender IdentityNot on fileSexual OrientationNot on file Last Filed Vital Signs Vital SignReadingTime TakenCommentsBlood Axcyqtcm028/6210/08/2019 10:47 AM EST Lkuiu6261/06/2019 9:07 AM EDTTemperature--Respiratory Rate--Oxygen Saturation-- Inhaled Oxygen Concentration--Uvmnzt56.2 kg (179 lb)10/08/2019 10:47 AM EST Wuxkkh480.6 cm (5' 4 )10/08/2019 10:47 AM ESTBody Mass Index30.7310/08/2019 10:47 AM EST Plan of Treatment Health MaintenanceDue DateLast DoneCommentsDepression Mpykhbepr84/28/2000Tobacco Vogcwsewu25/28/2000Adult BMI Cmtzfextc06/28/2006Pap Smear2009Influenza Wckugav63/01/272336/, 10/17/2019DTaP,Tdap and Td Vaccines (7 - Tdap) 2101/12/2022, 08/03/1994, 07/01/1991, Additional history exists Medical Devices Not on file Insurance Care Teams Team MemberRelationshipSpecialtyStart DateEnd Yamel Guerrero MD PCP - GeneralFamily Medicine06/03/17
--- OUTSIDE RECORDS SUMMARY | 2025-09-25 10:02 | XMS_ITS | Clinical Summary ---
Author Organization [facility] Address [address] [place] [address] Care Team Providers Care District Wire Chief Name Role Phone Unavailable Primary Care Provider Unavailabl e Social History Tobacco UseTypesPacks/DayYears UsedDateSmoking Tobacco: Never Assessed CommentsUnknownSex and Gender InformationValueDate RecordedSex Assigned at Not on fileLegal WztSnkdra05/29/2022 11:30 PM EDTGender IdentityNot on file Sexual OrientationNot on file Last Filed Vital Signs Vital SignReadingTime TakenCommentsBlood Tvkrvzqf795/7611/14/2019 2:45 PM EST Soxyr823011/14/2019 2:45 PM ESTTemperature--Respiratory Rate--Oxygen Koxxwhegrh24% 09/23/2019 2:45 PM EDTInhaled Oxygen Concentration--Lglnxv84.6 kg (160 lb) 11/14/2019 2:43 PM ZTAWuieto161.6 cm (5' 4 )11/14/2019 2:43 PM ESTBody Mass Index27.4611/14/2019 2:43 PM EST Plan of Treatment Not on file
--- OUTSIDE RECORDS SUMMARY | 2025-09-25 10:02 | XMS_ITS | Encounter Summary ---
Author Organization [facility] Address [address] [place] [address] Care Team Providers Care Litigation Secretary Name Role Phone Mino East MD Primary Care Provider [phone] Mino East MD Unavailable Encounter Details DateTypeDepartmentCare Team (Latest Contact Info)Qdgjehkthpc76/27/2025Clinisync Result Encounter [facility] External Department Unsolicited Fabi Arita PA [address] [place] [address] [place], [place] [id number] Social History Tobacco UseTypesPacks/DayYears UsedDateSmoking Tobacco: NeverSmokeless [...] relatives?Once a week05/09/2023How often do you attend protestant or adventist services?Never05/09/2023o you belong to any clubs or organizations such as protestant groups, unions, fraternal or athletic groups, or school groups?No05/09/2023How often do you attend meetings of the clubs or organizations you belong to?Never05/09/2023re you , , , , never , or living with a partner?Living with iujofli1105/09/2023 AUDIT-CAnswerDate RecordedQ1: How often do you have [...] very hard 05/09/2023HQ-2AnswerDate RecordedPatient Health Questionnaire-2 Score1 10/12/2023[facility] [place] of Occupational Health - Occupational Stress QuestionnaireAnswerDate RecordedDo you feel stress - tense, restless, nervous, or anxious, or unable to sleep at night because yourmind is troubled all the time - these days?To some rbutgq7305/09/2023Exercise Vital SignAnswerDate Recorded On average, how many [...] in ashelter (including now)?No05/09/2023 Estimated Date of FbpppytnRsmjkdksEck16/19/2025Based on last menstrual period of 02/07/2025Sex and Gender InformationValueDate RecordedSex Assigned at BirthFemale 04/30/2023 3:31 PM EDTLegal ZmqLeasbl75/15/2023 7:09 PM EDTGender IdentityFemale 04/30/2023 3:31 PM EDTSexual OrientationNot on filedocumented as of this encounter Plan of Treatment DateTypeDepartmentCare Team (Latest Contact Info)Qznmmoaqzgh25/12/2025 11:00 AM ESTAncillary Procedure [facility] [place] [facility] [address] [facility] [place] [address] 10/08/2025 11:30 AM ESTRoutine [facility] [place] [facility] [address] [facility] [place] [address] Fabi Arita PA [address] [facility] [address] [place], [place] [address] documented as of this encounter Procedures Procedure NamePriorityDate/TimeAssociated DiagnosisCommentsUS OB BPP W NON-QIWZAZ3509/22/2025 10:42 PM EDT documented in this encounter Results * US OB BPP W NON-STRESS (09/22/2025 10:42 PM EDT)Anatomical Region LateralityModalityOtherSpecimen (Source)Anatomical Location / Laterality Collection Method / VolumeCollection TimeReceived Time09/22/2025 10:42 PM EDT Narrative 09/22/2025 10:45 PM EDT [facility] ?[address] ? [place] [address] ? Ultrasound Report ? Signed ? Patient: DONNA,MERCEDES R ? MR#: [id number] ?? : 1990 ?Acct:[id number] ?? Age/Sex: 35 / F ?ADM Date: 09/22/25 ?? Loc: US ? Attending Dr: Fabi Arita ? Ordering Physician: Fabi Arita ?? Date of Service: 09/22/25 ?? Procedure(s): US OB BPP w non-stress ?? Accession Number(s): [id number] ? cc: Fabi Arita; [place] ? [facility] ? [address] ? [place] [address] ? Patient Name: ?? MERCEDES THOMPSON ? MRN: [facility]:[id number] ? date: 1990 ?Sex: F ?? Assigned Patient Location: [facility] ?? Current Patient Location: ? Accession/Order Number: [id number] ?? Exam Date: 09/22/2025 ??11:34 ?Report Date: [...] Dictation Location: RADIO-PC-29 ? Electronically authenticated by: [id number] ??Y ?? Date: 09/22/2025 ??22:42 ? Dictated By: ?Alex Rich M.D. ? Signed By: ?09/22/252244 ? DD/ 41 ? TD/TT: ? Affiliate Marketing Coordinator: Procedure Note Radiology, Radiologist, MD - 09/22/[address] [place] [address] Ultrasound Report Signed Patient: MERCEDES THOMPSON RMR#: [id number] : 1990Acct:[id number] Age/Sex: 35 / FADM Date: 09/22/25 Loc: US Attending Dr: Fabi Arita Ordering Physician: Fabi Arita Date of Service: 09/22/25 Procedure(s): US OB BPP w non-stress Accession Number(s): [id number] cc: Fabi Arita; [place] [address] Patient Name: MERCEDES THOMPSON MRN: [id number] date: 1990 Sex: F Assigned Patient Location: [facility] Current Patient Location: Accession/Order Number: [id number] Exam Date: 09/22/2025 11:34 Report Date: 09/22/2025 22:42 At the request of: FABI ARITA Procedure: US OB BPP w non-stress Ultrasound biophysical profile INDICATION: 30 weeks gestation COMPARISON: 08/27/2025 FINDINGS IMPRESSION: Cephalic position. heart rate 134 beats per minutes. PACO measures 14.3 cm. 8/8 score biophysical profile Impression dictated by: Alex Rich M.D. 09/22/2025 10:42 PM Dictation Location: [place] [address] Electronically authenticated by: [id number] Y Date: 2:42 Dictated By: Alex Rich M.D. Signed By:09/22/252244 DD/ 41 TD/TT: Affiliate Marketing Coordinator: Authorizing ProviderResult TypeResult StatusFabi Arita PACLINISYNC IMAGINGFinal Result documented in this encounter Visit Diagnoses Not on filedocumented in this encounter Additional Health Concerns AssessmentNoted TimePHQ-9 Depression Total Score: 9:00 AM EST documented as of this encounter Care Teams Team MemberRelationshipSpecialtyStart DateEnd Date Mino East MD PCP - GeneralFamily Medicine05/04/23 Mino East MD [address] [place] [address] PCP - [facility] Jake [facility]02/26/24documented as of this encounter
--- OUTSIDE RECORDS SUMMARY | 2025-09-25 10:02 | XMS_ITS | Encounter Summary ---
Author Organization [facility] Address [address] [place] [address] Care Team Providers Care Monument Setter Name Role Phone Yamel Guerrero MD Primary Care Provider [phone] Yamel Guerrero MD Unavailable Encounter Details DateTypeDepartmentCare Team (Latest Contact Info)Ejskbzylfst95/28/2025Bamboo flowsheet [facility] [place] [facility] [address] [place] [address] Luis E Bray DO [address] [place] [address] Social History Tobacco UseTypesPacks/DayYears UsedDateSmoking Tobacco: NeverSmokeless [...] week05/09/2023How often do you attend episcopalian or advent services?Never05/09/2023o you belong to any clubs or organizations such as episcopalian groups, unions, fraBiOxyDyn or athletic groups, or school groups?No05/09/2023How often do you attend meetings of the clubs or organizations you belong to?Never05/09/2023re you , , , , never , or living with a partner?Living with bspcrep6605/09/2023 AUDIT-CAnswerDate RecordedQ1: How often do you have [...] very hard 05/09/2023HQ-2AnswerDate RecordedPatient Health Questionnaire-2 Score1 10/12/2023[facility] [place] of Occupational Health - Occupational Stress QuestionnaireAnswerDate RecordedDo you feel stress - tense, restless, nervous, or anxious, or unable to sleep at night because yourmind is troubled all the time - these days?To some pmthxu5505/09/2023Exercise Vital SignAnswerDate Recorded On average, how many [...] in ashelter (including now)?No05/09/2023 Estimated Date of HxlmodgfJlmdtdjyRrk25/19/2025Based on last menstrual period of 02/07/2025Sex and Gender InformationValueDate RecordedSex Assigned at BirthFemale 04/30/2023 3:31 PM EDTLegal TotGxdfox10/15/2023 7:09 PM EDTGender IdentityFemale 04/30/2023 3:31 PM EDTSexual OrientationNot on filedocumented as of this encounter Plan of Treatment DateTypeDepartmentCare Team (Latest Contact Info)Xnhlxsslsgb34/12/2025 11:00 AM ESTAncillary Procedure [facility] [place] [facility] [address] [facility] [place] [address] 10/08/2025 11:30 AM ESTRoutine [facility] [facility] [address] [facility] [place] [address] Fabi Martinez PA [address] [facility] [address] [place], [place] [address] documented as of this encounter Visit Diagnoses Not on filedocumented in this encounter Additional Health Concerns AssessmentNoted TimePHQ-9 Depression Total Score: 9:00 AM EST documented as of this encounter Care Teams Team MemberRelationshipSpecialtyStart DateEnd Date Yamel Guerrero MD PCP - GeneralFamily Medicine05/04/23 Yamel Guerrero MD [address] [place] [address] PCP - CHARLIE Joseph [facility]02/26/24documented as of this encounter
[2025-09-25 10:08] VITALS: BP 115/65; PULSE 104
== END 2025-09-25 10:35 | disposition home or self-care (01) ==
LOC: FBCO 09:58 → FBC 10:04
PROVIDERS: PCP Family Medicine; Visit Provider Obstetrics & Gynecology
DX: O09.523 Supervision of elderly multigravida, third trimester (principal); Z3A.32 32 weeks gestation of pregnancy
CPT/HCPCS: 59025

== ENCOUNTER 2025-09-29 11:33 | Outpatient (OUT) | payer MEDICAID, SELFPAY ==
--- OUTSIDE RECORDS SUMMARY | 2025-08-27 09:20 | XMS_ITS | Encounter Summary ---
Author Organization [facility] Address [address] [place] [address] Care Team Providers Care Paper Finisher Name Role Phone Yamel Guerrero MD Primary Care Provider [phone] Yamel Guerrero MD Unavailable Reason for Visit * ReasonCommentsRoutine Visit Encounter Details DateTypeDepartmentCare Team (Latest Contact Info)Djqhtpdyfkv78/01/2025 10:20 AM EDTRoutine [facility] [address] [place] [place] [address] Catarina Barnes, [place] [address] [place] [address] 28 weeks gestation of ([facility]); Third trimester ([facility]); Gestational diabetes mellitus (GDM), antepartum, gestational diabetes method of control unspecified([facility]); Diabetes mellitus screening Social History Tobacco UseTypesPacks/DayYears [...] relatives?Once a week05/09/2023How often do you attend restoration or sikh services?Never05/09/2023o you belong to any clubs or organizations such as restoration groups, unions, fraternal or athletic groups, or school groups?No05/09/2023How often do you attend meetings of the clubs or organizations you belong to?Never05/09/2023re you , , , , never , or living with a partner?Living with tzowbrc7505/09/2023 AUDIT-CAnswerDate RecordedQ1: How often do you have [...] very hard 05/09/2023HQ-2AnswerDate RecordedPatient Health Questionnaire-2 Score1 10/12/2023[facility] [place] [facility] - Occupational Stress QuestionnaireAnswerDate RecordedDo you feel stress - tense, restless, nervous, or anxious, or unable to sleep at night because yourmind is troubled all the time - these days?To some xrgvdg6005/09/2023Exercise Vital SignAnswerDate Recorded On average, how many [...] steady place to sleep or [facility])?No05/09/2023 Estimated Date of NcweumaxJkbvjaixUqd92/19/2025Based on last menstrual period of 02/07/2025Sex and Gender InformationValueDate RecordedSex Assigned at BirthFemale 04/30/2023 3:31 PM EDTLegal YtzLvetfd38/15/2023 7:09 PM EDTGender IdentityFemale 04/30/2023 3:31 PM EDTSexual OrientationNot on filedocumented as of this encounter Last Filed Vital Signs Vital SignReadingTime TakenCommentsBlood Oxumgnfk507/7008/27/2025 10:32 AM EDT Pulse--Temperature--Respiratory Rate--Oxygen Saturation--Inhaled Oxygen Concentration--Iexgde209 kg (243 lb 1.9 oz)08/27/2025 10:32 AM [...] to check FSBS. Blood Glucose Monitoring Suppl (D-NextUser Glucometer) w/Device kit 1 kit, Does not [...] as needed for nausea. Pharmacist Choice Lancets [facility] USE 1 LANCET TO CHECK FSBS 4 [...] of major depressive disorder, without psychotic features ([facility]) 05/10/2023 Thyromegaly 05/10/2023 Tonsillar hypertrophy 10/08/2019 Undifferentiated [...] nursing note reviewed. Exam conducted with a geothermal installer present. Vitals: Estimated body mass index is 41.73 kg/m?? as calculated from the following: Height as of 11/27/23: 5' 4 . Weight as of this encounter: 243 lb 1.9 oz. BP: 110/70 Patient's last menstrual period was 02/07/2025. ASSESSMENT & PLAN ICD-10-CM 1. 28 weeks gestation of ([facility]) Z3A.28 POCT urinalysis dipstick manually resulted 2. Third trimester ([facility]) Z34.93 POCT urinalysis dipstick manually resulted 3. Gestational diabetes mellitus (GDM), antepartum, gestational diabetes method of control unspecified ([facility]) O24.419 Hemoglobin A1c 4. Diabetes mellitus screening [...] Plan of Treatment DateTypeDepartmentCare Team (Latest Contact Info)Iawomucgvcf23/12/2025 11:00 AM ESTAncillary Procedure [facility] ALVARADO [address] [place] [phone] 10/08/2025 11:30 AM ESTRoutine NOMVivienne ALVARADO [address] [place] [address] Fabi Martinez PA [address] [place] [address] NameTypePriorityAssociated DiagnosesOrder ScheduleCBCLabRoutine Diabetes mellitus screening Expected: 08/27/2025 (Approximate), Expires: 08/27/2026Hemoglobin T2wObkLvfjbbv Gestational diabetes mellitus (GDM), antepartum, gestational diabetes method of control unspecified([facility]) Diabetes mellitus screening Ordered: 08/27/2025documented as of this encounter Procedures Procedure NamePriorityDate/TimeAssociated DiagnosisCommentsPOCT URINALYSIS STRXDCSPPyhnofm49/01/2025 10:37 AM EDT 28 weeks gestation of ([facility]) Third trimester ([facility]) documented in this encounter Results * POCT [...] Visit Diagnoses Diagnosis 28 weeks gestation of ([facility]) Third trimester ([facility]) state, incidental Gestational diabetes mellitus (GDM), antepartum, gestational diabetes method of control unspecified([facility]) Diabetes mellitus screening Screening for diabetes mellitus documented in this encounter Additional Health Concerns AssessmentNoted TimePHQ-9 Depression Total Score: 9:00 AM EST documented as of this encounter Care Teams Team MemberRelationshipSpecialtyStart DateEnd Date Yamel Guerrero MD [address] [place], [place] [phone] PCP - GeneralFamily Medicine05/04/23 Yamel Guerrero MD [address] [place] [address] PCP - [facility] CPC02/26/24documented as of this encounter
--- OUTSIDE RECORDS SUMMARY | 2025-09-23 09:00 | XMS_ITS | Encounter Summary ---
Author Organization [facility] Address [address] [place] [address] Care Team Providers Care Tilt Wall Supervisor Name Role Phone Yamel Guerrero MD Primary Care Provider [phone] Yamel Guerrero MD Unavailable Reason for Visit * ReasonCommentsRoutine Visit Encounter Details DateTypeDepartmentCare Team (Latest Contact Info)Pcubvajywmw95/28/2025 10:00 AM EDTRoutine [facility] [address] [place] [phone] Luis E Bray DO [address] [place] [place], [place] [phone] 32 weeks gestation of ([facility]); Third trimester ([facility]); Gestational diabetes mellitus (GDM), antepartum, gestational diabetes method of control unspecified([facility]) Social History Tobacco UseTypesPacks/DayYears UsedDateSmoking Tobacco: NeverSmokeless [...] week05/09/2023How often do you attend mormonism or mormonism services?Never05/09/2023o you belong to any clubs or organizations such as mormonism groups, unions, fraPaperless Post or athletic groups, or school groups?No05/09/2023How often do you attend meetings of the clubs or organizations you belong to?Never05/09/2023re you , , , , never , or living with a partner?Living with ibljvwu0005/09/2023 AUDIT-CAnswerDate RecordedQ1: How often do you have [...] very hard 05/09/2023HQ-2AnswerDate RecordedPatient Health Questionnaire-2 Score1 10/12/2023[facility] [place] [facility] Occup[facility] - Occupational Stress QuestionnaireAnswerDate RecordedDo you feel stress - tense, restless, nervous, or anxious, or unable to sleep at night because yourmind is troubled all the time - these days?To some nnmypd9705/09/2023Exercise Vital SignAnswerDate Recorded On average, how many [...] steady place to sleep or slept in cl[place]elter (including now)?No05/09/2023 Estimated Date of DgbdcrhmDrilqjcaPha31/19/2025Based on last menstrual period of 02/07/2025Sex and Gender InformationValueDate RecordedSex Assigned at BirthFemale 04/30/2023 3:31 PM EDTLegal HbuJnlblj46/15/2023 7:09 PM EDTGender IdentityFemale 04/30/2023 3:31 PM EDTSexual OrientationNot on filedocumented as of this encounter Last Filed Vital Signs Vital SignReadingTime TakenCommentsBlood Iotdryze292/7009/23/2025 10:09 AM EDT Pulse--Temperature--Respiratory Rate--Oxygen Saturation--Inhaled Oxygen Concentration--Caqele838 kg (246 lb 12.8 oz)09/23/2025 10:09 AM [...] nursing note reviewed. Exam conducted with a rework operator present. Vitals: Estimated body mass index is 42.36 kg/m?? as calculated from the following: Height as of 10/23/23: 5' 4 . Weight as of this encounter: 246 lb 12.8 oz. BP: 110/70 Patient's last menstrual period was 02/07/2025. Assessment/Plan ICD-10-CM 1. 32 weeks gestation of ([facility]) Z3A.32 POCT urinalysis dipstick manually resulted 2. Third trimester ([facility]) Z34.93 POCT urinalysis dipstick manually resulted 3. Gestational diabetes mellitus (GDM), antepartum, gestational diabetes method of control unspecified ([facility]) O24.419 Return OB: Patient presents today for [...] Plan of Treatment DateTypeDepartmentCare Team (Latest Contact Info)Yzsjhfmrxze97/12/2025 11:00 AM ESTAncillary Procedure [facility] [address] [place] [address] 10/08/2025 11:30 AM ESTRoutine [facility] [address] [place] [phone] Fabi Martinez PA [address] [place], [place] [phone] documented as of this encounter Procedures Procedure NamePriorityDate/TimeAssociated DiagnosisCommentsPOCT URINALYSIS VUHOYKNNIrmhfsf66/28/2025 10:15 AM EDT 32 weeks gestation of ([facility]) Third trimester ([facility]) documented in this encounter Results * (ABNORMAL) [...] Location / LateralityCollection Method / VolumeCollection TimeReceived HfsmRsirv36/28/2025 10:15 AM EDT Narrative Authorizing ProviderResult TypeResult StatusCorey Katarina DOPOINT OF CARE TEST ENTER/EDIT ORDERABLESFinal Result documented in this encounter Visit Diagnoses Diagnosis 32 weeks gestation of ([facility]) Third trimester ([facility]) state, incidental Gestational diabetes mellitus (GDM), antepartum, gestational diabetes method of control unspecified([facility]) documented in this encounter Additional Health Concerns AssessmentNoted TimePHQ-9 Depression Total Score: 9:00 AM EST documented as of this encounter Care Teams Team MemberRelationshipSpecialtyStart DateEnd Date Yamel Guerrero MD [address] [place], [place] [phone] PCP - GeneralFamily Medicine05/04/23 Yamel Guerrero MD [address] [place], [place] [phone] PCP - [facility] Jake PLAZA02/26/24documented as of this encounter
--- OUTSIDE RECORDS SUMMARY | 2025-09-29 11:37 | XMS_ITS | Encounter Summary ---
Author Organization [facility] Address [address] [place] [address] Care Team Providers Care Tool Keeper Name Role Phone Mino East MD Primary Care Provider [phone] Mino East MD Unavailable Encounter Details DateTypeDepartmentCare Team (Latest Contact Info)Pmpmgvrljdu97/27/2025Clinisync Result Encounter [facility] External Department Unsolicited Fabi Arita PA [address] [place] [address] [place], [place] [address] Social History Tobacco UseTypesPacks/DayYears UsedDateSmoking Tobacco: NeverSmokeless [...] relatives?Once a week05/09/2023How often do you attend synagogue or caodaism services?Never05/09/2023o you belong to any clubs or organizations such as synagogue groups, unions, fraternal or athletic groups, or school groups?No05/09/2023How often do you attend meetings of the clubs or organizations you belong to?Never05/09/2023re you , , , , never , or living with a partner?Living with kxsdabj5005/09/2023 AUDIT-CAnswerDate RecordedQ1: How often do you have [...] very hard 05/09/2023HQ-2AnswerDate RecordedPatient Health Questionnaire-2 Score1 10/12/2023[facility] [place] of Occupational Health - Occupational Stress QuestionnaireAnswerDate RecordedDo you feel stress - tense, restless, nervous, or anxious, or unable to sleep at night because yourmind is troubled all the time - these days?To some pxvnkw7005/09/2023Exercise Vital SignAnswerDate Recorded On average, how many [...] in ashelter (including now)?No05/09/2023 Estimated Date of ZnrljzppXojqufufDbm88/19/2025Based on last menstrual period of 02/07/2025Sex and Gender InformationValueDate RecordedSex Assigned at BirthFemale 04/30/2023 3:31 PM EDTLegal WzeTqdqvz20/15/2023 7:09 PM EDTGender IdentityFemale 04/30/2023 3:31 PM EDTSexual OrientationNot on filedocumented as of this encounter Plan of Treatment DateTypeDepartmentCare Team (Latest Contact Info)Ttpoivqozzp23/12/2025 11:00 AM ESTAncillary Procedure [facility] [place] [facility] [address] [facility] [place] [address] 10/08/2025 11:30 AM ESTRoutine [facility] [place] [facility] [address] [facility] [place] [address] Fabi Arita PA [address] [facility] [address] [place], [place] [address] documented as of this encounter Procedures Procedure NamePriorityDate/TimeAssociated DiagnosisCommentsUS OB BPP W NON-ZXXPVW8109/22/2025 10:42 PM EDT documented in this encounter Results * US OB BPP W NON-STRESS (09/22/2025 10:42 PM EDT)Anatomical Region LateralityModalityOtherSpecimen (Source)Anatomical Location / Laterality Collection Method / VolumeCollection TimeReceived Time09/22/2025 10:42 PM EDT Narrative 09/22/2025 10:45 PM EDT [facility] ?[address] ? [place] [address] ? Ultrasound Report ? Signed ? Patient: DONNA,MERCEDES R ? MR#: [id number] ?? : 1990 ?Acct:[id number] ?? Age/Sex: 35 / F ?ADM Date: 09/22/25 ?? Loc: US ? Attending Dr: Fabi Arita ? Ordering Physician: Fabi Arita ?? Date of Service: 09/22/25 ?? Procedure(s): US OB BPP w non-stress ?? Accession Number(s): [id number] ? cc: Fabi Arita; [place] ? [facility] ? [address] ? [place] [address] ? Patient Name: ?? MERCEDES THOMPSON ? MRN: [facility]:[id number] ? date: 1990 ?Sex: F ?? Assigned Patient Location: [facility] ?? Current Patient Location: ? Accession/Order Number: [id number] ?? Exam Date: 09/22/2025 ??11:34 ?Report Date: [...] Dictation Location: RADIO-PC-29 ? Electronically authenticated by: [id number] ??Y ?? Date: 09/22/2025 ??22:42 ? Dictated By: ?Alex Rich M.D. ? Signed By: ?09/22/252244 ? DD/ 41 ? TD/TT: ? Post Acute Care Registered Nurse: Procedure Note Radiology, Radiologist, MD - 09/22/2025 [place] [address] Ultrasound Report Signed Patient: MERCEDES THOMPSON RMR#: [id number] : 1990Acct:[id number] Age/Sex: 35 / FADM Date: 09/22/25 Loc: US Attending Dr: Fabi Arita Ordering Physician: Fabi Arita Date of Service: 09/22/25 Procedure(s): US OB BPP w non-stress Accession Number(s): [id number] cc: Fabi Arita; [place] [address] Patient Name: MERCEDES THOMPSON MRN: [id number] date: 1990 Sex: F Assigned Patient [facility]: [facility] Current Patient Location: Accession/Order Number: [id number] Exam Date: 09/22/2025 11:34 Report Date: 09/22/2025 22:42 At the request of: FABI ARITA Procedure: US OB BPP w non-stress Ultrasound biophysical profile INDICATION: 30 weeks gestation COMPARISON: 08/27/2025 FINDINGS IMPRESSION: Cephalic position. heart rate 134 beats per minutes. PACO measures 14.3 cm. 8/8 score biophysical profile Impression dictated by: Alex Rich M.D. 09/22/2025 10:42 PM Dictation Location: [place] [address] Electronically authenticated by: [id number] Y Date: 2:42 Dictated By: Alex Rich M.D. Signed By:09/22/252244 DD/ 41 TD/TT: Post Acute Care Registered Nurse: Authorizing ProviderResult TypeResult StatusFabi Arita PACLINISYNC IMAGINGFinal Result documented in this encounter Visit Diagnoses Not on filedocumented in this encounter Additional Health Concerns AssessmentNoted TimePHQ-9 Depression Total Score: 9:00 AM EST documented as of this encounter Care Teams Team MemberRelationshipSpecialtyStart DateEnd Date Mino East MD [address] [place] [address] PCP - GeneralFamily Medicine05/04/23 Mino East MD [address] [place] [address] PCP - CHARLIE Joseph [facility]02/26/24documented as of this encounter
--- OUTSIDE RECORDS SUMMARY | 2025-09-29 11:37 | XMS_ITS | Encounter Summary ---
Author Organization [facility] Address [address] [place] [address] Care Team Providers Care Medical Physicist Name Role Phone Yamel Guerrero MD Primary Care Provider [phone] Yamel Guerrero MD Unavailable Encounter Details DateTypeDepartmentCare Team (Latest Contact Info)Clsqmhohvxk27/27/2025Travel Social History Tobacco UseTypesPacks/DayYears UsedDateSmoking Tobacco: NeverSmokeless [...] relatives?Once a week05/09/2023How often do you attend confucianism or church services?Never05/09/2023o you belong to any clubs or organizations such as confucianism groups, unions, fraternal or athletic groups, or school groups?No05/09/2023How often do you attend meetings of the clubs or organizations you belong to?Never05/09/2023re you , , , , never , or living with a partner?Living with cfuavxz5705/09/2023 AUDIT-CAnswerDate RecordedQ1: How often do you have [...] very hard 05/09/2023HQ-2AnswerDate RecordedPatient Health Questionnaire-2 Score1 10/12/2023[facility] [place] of Occupational Health - Occupational Stress QuestionnaireAnswerDate RecordedDo you feel stress - tense, restless, nervous, or anxious, or unable to sleep at night because yourmind is troubled all the time - these days?To some xgohic1405/09/2023Exercise Vital SignAnswerDate Recorded On average, how many [...] in ashelter (including now)?No05/09/2023 Estimated Date of EokxnbcyLfmgxuzlDqy53/19/2025Based on last menstrual period of 02/07/2025Sex and Gender InformationValueDate RecordedSex Assigned at BirthFemale 04/30/2023 3:31 PM EDTLegal LdzTvfryh68/15/2023 7:09 PM EDTGender IdentityFemale 04/30/2023 3:31 PM EDTSexual OrientationNot on filedocumented as of this encounter Plan of Treatment DateTypeDepartmentCare Team (Latest Contact Info)Tlcdqialksa58/12/2025 11:00 AM ESTAncillary Procedure [facility] [place] [facility] [address] [place] [address] [place] [address] 10/08/2025 11:30 AM ESTRoutine [facility] [place] [facility]O [address] [facility] [place] [address] Fabi Martinez PA [address] [place] [address] documented as of this encounter Visit Diagnoses Not on filedocumented in this encounter Additional Health Concerns AssessmentNoted TimePHQ-9 Depression Total Score: 9:00 AM EST documented as of this encounter Care Teams Team MemberRelationshipSpecialtyStart DateEnd Date Yamel Guerrero MD [address] [place] [address] PCP - GeneralFamily Medicine05/04/23 Yamel Guerrero MD [address] [place] [address] PCP - CHARLIE Joseph [facility]02/26/24documented as of this encounter
--- OUTSIDE RECORDS SUMMARY | 2025-09-29 11:37 | XMS_ITS | Encounter Summary ---
Author Organization [facility] Address [address] [place] [address] Care Team Providers Care Chief Psychology Name Role Phone Yamel Guerrero MD Primary Care Provider [phone] Yamel Guerrero MD Unavailable Encounter Details DateTypeDepartmentCare Team (Latest Contact Info)Mcfosjozebf71/29/2025bstract [facility] [place] [facility] [address] [place] [address] Luis E Bray DO [address] [place], [place] [address] Social History Tobacco UseTypesPacks/DayYears UsedDateSmoking Tobacco: NeverSmokeless [...] relatives?Once a week05/09/2023How often do you attend anabaptist or restorationist services?Never05/09/2023o you belong to any clubs or organizations such as anabaptist groups, unions, fraConvertigo or athletic groups, or school groups?No05/09/2023How often do you attend meetings of the clubs or organizations you belong to?Never05/09/2023re you , , , , never , or living with a partner?Living with pqlxhjg7905/09/2023 AUDIT-CAnswerDate RecordedQ1: How often do you have [...] RecordedPatient Health Questionnaire-2 Score1 10/12/2023[facility] [place] of Occupational Health - Occupational Stress QuestionnaireAnswerDate RecordedDo you feel stress - tense, restless, nervous, or anxious, or unable to sleep at night because yourmind is troubled all the time - these days?To some xwsacf0605/09/2023Exercise Vital SignAnswerDate Recorded On average, how many [...] in ashelter (including now)?No05/09/2023 Estimated Date of PflxkcipEjvzkexoDpp81/19/2025Based on last menstrual period of 02/07/2025Sex and Gender InformationValueDate RecordedSex Assigned at BirthFemale 04/30/2023 3:31 PM EDTLegal OsoDozlpt84/15/2023 7:09 PM EDTGender IdentityFemale 04/30/2023 3:31 PM EDTSexual OrientationNot on filedocumented as of this encounter Plan of Treatment DateTypeDepartmentCare Team (Latest Contact Info)Lfftbwfopbc62/12/2025 11:00 AM ESTAncillary Procedure [facility] [place] [facility] [address] [facility] [place] [address] 10/08/2025 11:30 AM ESTRoutine NOMVivienne ALVARADO [address] [facility] [place] [address] Fabi Martinez PA [address] [facility] [address] [place], [place] [address] documented as of this encounter Visit Diagnoses Not on filedocumented in this encounter Additional Health Concerns AssessmentNoted TimePHQ-9 Depression Total Score: 9:00 AM EST documented as of this encounter Care Teams Team MemberRelationshipSpecialtyStart DateEnd Date Yamel Guerrero MD [address] [place], [place] [address] PCP - GeneralFamily Medicine05/04/23 Yamel Guerrero MD [address] [place], [place] [address] PCP - [facility] Jake [facility]02/26/24documented as of this encounter
--- OUTSIDE RECORDS SUMMARY | 2025-09-29 11:37 | XMS_ITS | Clinical Summary ---
Author Organization [facility] Address [address] [place] [address] Care Team Providers Care Community Health Navigator Name Role Phone Yamel Guerrero MD Primary Care Provider [phone] Yamel Guerrero MD Unavailable Allergies No known [...] 4 MG tablet Indications:Nausea and vomiting in ([facility])Take 1 tablet (4 mg) by mouth every [...] nausea. 90 tablet Discontinued Pharmacist Choice Lancets [facility] [place] Indications:Gestational diabetes mellitus (GDM), [...] 1 kit Discontinued Active Problems ProblemNoted DateDiagnosed AxzxDlftvxf70/03/2023Obesity due to excess calories without serious qwylhcfogfq09/03/2023Systemic lupus vmkabkizdaceh13/05/2023 Elevated antinuclear antibody (ROSEMARY) level05/10/2023astroesophageal reflux disease without qsbkrgeobva16/14/2023Severe single current episode of major depressive disorder, without psychotic qbepwhit33/14/9760Xxjrmtljxms31/14/2023 Tonsillar ibzsfdntkbu22/12/2019Raynaud's /06/2019Undifferentiated connective tissue jwnepwj4912/18/2017Estimated Date of DeliveryCommentsYes 11/14/2025ased on last menstrual period of 02/07/2025 Resolved Problems ProblemNoted DateDiagnosed DateResolved DateCarpal tunnel fwibvzoe99/14/2023 05/31/2023 Encounters DateTypeDepartmentCare DjrqJdhpssrativ20/29/2025[place] [phone] Jossy Bray DO 09/23/2025 10:00 [place] [address] Jossy Bray, 32 weeks gestation of ([facility]); Third trimester ([facility]); Gestational diabetes mellitus (GDM), antepartum, gestational diabetes method of control unspecified([facility])09/23/2025[place] [address] Jossy Bray, 09/22/2025linisync Result Encounter NOMS External Department Unsolicited Fabi Arita PA 09/22/20257452Pltxub43/14/2025 10:50 [place] [phone] Fabi Arita PA Third trimester ([facility]); 30 weeks gestation of ([facility])09/09/2025 10:00 AM EDTAncillary [place] [phone] Gestational diabetes mellitus (GDM), antepartum, gestational diabetes method of control unspecified([facility])09/08/20258107Knrvmy87/08/2025Clinisync Result Encounter NOMS External Department Unsolicited Provider, Generic External Data 08/27/2025 10:20 AM EDTRoutine [facility] [address] [phone] Catarina Barnes, [place] 28 weeks gestation of ([facility]); Third trimester ([facility]); Gestational diabetes mellitus (GDM), antepartum, gestational diabetes method of control unspecified([facility]); Diabetes mellitus rswceanpj94/01/2025bstract [facility] [address] [phone] Jossy Bray, DO 08/27/2025linisync Result Encounter NOMS External Department Unsolicited Provider, Generic External Data 08/27/2025amboo flowsheet [facility] [address] [address] Catarina Barnes NP 08/13/2025 11:10 AM EDTRoutine [facility] [address] [address] Jossy Bray, 26 weeks gestation of ([facility]); Second trimester ([facility]); Gestational diabetes mellitus (GDM), antepartum, gestational diabetes method of control unspecified([facility])08/13/2025amboo flowsheet [facility] [address] [phone] Jossy Bray, 08/12/20252337Wmpohg03/15/2025bstract [facility] [place] [facility] [address] [phone] Jossy Bray, DO 08/04/2025 10:00 AM EDTAncillary Procedure [facility] [address] [address] Encounter for follow-up ultrasound of anatomy ([facility])07/29/2025Travel 07/15/2025 9:00 [place] [address] Jossy Bray, Second trimester ([facility]); 22 weeks gestation of ([facility]); Encounter for follow-up ultrasound of anatomy ([facility])07/15/2025[place] [address] Jossy Bray, 07/08/20252842Dvoccd14/07/2025 10:10 [place] [address] Jossy Bray, Second trimester ([facility]); 20 weeks gestation of ([facility])07/03/2025 9:00 AM EDTAncillary [place] [address] Screening, , for anatomic survey ([facility])07/03/20[place] [address] Jossy Bray, 07/02/2025Travelfrom Last 3 Months Family [...] relatives?Once a week05/09/2023How often do you attend uatsdin or mormonism services?Never05/09/2023o you belong to any clubs or organizations such as uatsdin groups, unions, fraternal or athletic groups, or school groups?No05/09/2023How often do you attend meetings of the clubs or organizations you belong to?Never05/09/2023re you , , , , never , or living with a partner?Living with fbyhprc4005/09/2023 AUDIT-CAnswerDate RecordedQ1: How often do you have [...] very hard 05/09/2023HQ-2AnswerDate RecordedPatient Health Questionnaire-2 Score1 10/12/2023[facility] [place] of Occupational Health - Occupational Stress QuestionnaireAnswerDate RecordedDo you feel stress - tense, restless, nervous, or anxious, or unable to sleep at night because yourmind is troubled all the time - these days?To some jdaocc8305/09/2023Exercise Vital SignAnswerDate Recorded On average, how many [...] in ashelter (including now)?No05/09/2023 Estimated Date of QmsrtdqhAybprgsvSei57/19/2025Based on last menstrual period of 02/07/2025Sex and Gender InformationValueDate RecordedSex Assigned at BirthFemale 04/30/2023 3:31 PM EDTLegal YwfXtzjis26/15/2023 7:09 PM EDTGender IdentityFemale 04/30/2023 3:31 PM EDTSexual OrientationNot on file Last Filed Vital Signs Vital SignReadingTime TakenCommentsBlood Cmgbeaqm014/7010 10:09 AM EDT Kgejt9062 4:27 PM JXQQcrtbknqioi18 ??C (98.6 ??F)10/23/2023 4:27 PM EST Respiratory Hqip827112/23/2022 4:27 PM ESTOxygen Wagclzdquu48%10/23/2023 4:27 PM ESTInhaled Oxygen Concentration--Fjmxym187 kg (246 lb 12.8 oz)09/23/2025 10:09 AM VIQAahvkt025.6 cm (5' 4 )10/23/2023 4:27 PM ESTBody Mass Index42.36112/23/2022 4:27 PM EST Plan of Treatment DateTypeDepartmentCare Team (Latest Contact Info)Dtqzdjcybwo30/12/2025 11:00 AM ESTAncillary Procedure [facility] [address] [place] [address] [place] [phone] 10/08/2025 11:30 AM ESTRoutine [facility] [address] [place] [address] [place] [phone] Fabi Arita PA [address] [place], [place] [phone] Health MaintenanceDue DateLast DoneCommentsMMR Vaccines (1 of 1 - Standard series)1989DTaP/Tdap/Td Vaccines (1 - Tdap)1995Varicella Vaccines (1 of 2 - 13+ 2-dose series)2001Hepatitis B Vaccines (1 of 3 - 19+ 3-dose series)2007HPV Vaccines (1 - 3-dose SCDM series)2015COVID-19 Vaccine (1 - season)2025Influenza Vaccine (#1)/, 10/17/2019Cervical Cancer Mehfqxpiz25/07/2030HPV/Dmnset54/3Pap Smear, 04/06/2022HIB VaccinesAged OutNo longer eligible based [...] this topic Procedures Procedure NamePriorityDate/TimeAssociated DiagnosisCommentsPOCT URINALYSIS WCPXBBZBWnspisw64/28/2025 10:15 AM EDT 32 weeks gestation of ([facility]) Third trimester ([facility]) US OB BPP W NON-BXFTRC8809/22/2025 10:42 PM EDT POCT URINALYSIS XQPQLPWWPhbhfiq93/14/2025 11:15 AM EDT 30 weeks gestation of ([facility]) US OB FOLLOW UP TRANSABDOMINAL TKQZQYHQBzjifmg31/14/2025 10:39 AM EDT Gestational diabetes mellitus (GDM), antepartum, gestational diabetes method of control unspecified([facility]) MLR HEMOGLOBIN U4AKixrryz26/08/2025 10:44 AM EDT ALL CBC WITH AUTO DUFXSguohap15/08/2025 10:44 AM EDT US OB JLJIIN7908/27/2025 11:15 AM EDT POCT URINALYSIS FUTPHYFDNvlaccw01/01/2025 10:37 AM EDT 28 weeks gestation of ([facility]) Third trimester ([facility]) POCT URINALYSIS IUWZYEIATkdqtid79/17/2025 11:24 AM EDT 26 weeks gestation of ([facility]) Second trimester ([facility]) US OB LIMITED 1+ ITAUAXWXrtwpbc20/08/2025 10:29 AM EDT Encounter for follow-up ultrasound of anatomy ([facility]) POCT URINALYSIS FYKYDAMYBpjqwqq16/19/2025 9:30 AM EDT Second trimester ([facility]) 22 weeks gestation of ([facility]) POCT URINALYSIS HDYFMJFBLkxaftx17/07/2025 10:25 AM EDT Second trimester ([facility]) 20 weeks gestation of ([facility]) US OB 14+ WEEKS ANATOMY JXRBVvuqzbo85/07/2025 9:59 AM EDT Screening, , for anatomic survey ([facility]) PAP MIUBFTkjqisx52/07/2025 12:00 AM EDTTHINPREP PAP AND HPV MRNA E6/E7 W/RFL HPV 16,18/54Pahsmmu04/17/2023 10:11 AM EDT Well woman exam with [...] Location / LateralityCollection Method / VolumeCollection TimeReceived CvzuDduvk95/28/2025 10:15 AM EDT Narrative Authorizing ProviderResult TypeResult StatusCorey Katarina DOPOINT OF CARE TEST ENTER/EDIT ORDERABLESFinal Result * US OB BPP W NON-STRESS (09/22/2025 10:42 PM EDT)Anatomical Region LateralityModalityOtherSpecimen (Source)Anatomical Location / Laterality Collection Method / VolumeCollection TimeReceived Time09/22/2025 10:42 PM EDT Narrative 09/22/2025 10:45 PM EDT [facility] ?[address] ? [place] [address] ? Ultrasound Report ? Signed ? Patient: BETTY THOMPSON R ? MR#: [id number] ?? : 1990 ?Acct:[id number] ?? Age/Sex: 35 / F ?ADM Date: 09/22/25 ?? Loc: US ? Attending Dr: Fabi Arita ? Ordering Physician: Fabi Arita ?? Date of Service: 09/22/25 ?? Procedure(s): US OB BPP w non-stress ?? Accession Number(s): [id number] ? cc: Fabi Arita; YAMEL GUERRERO ? [facility] ? [address] ? [place] [address] ? Patient Name: ?? BETTY R DONNA ? MRN: [id number] ? date: 1990 ?Sex: F ?? Assigned Patient Location: [facility] ?? Current Patient Location: ? Accession/Order Number: [id number] ?? Exam Date: 09/22/2025 ??11:34 ?Report Date: [...] Dictation Location: RADIO-PC-29 ? Electronically authenticated by: [id number] ??Y ?? Date: 09/22/2025 ??22:42 ? Dictated By: ?Alex Rich M.D. ? Signed By: ?09/22/252244 ? DD/ 2242 ? TD/TT: ? Fan Mail Editor: Procedure Note Radiology, Radiologist, MD - 09/22/2025 The [place] [id number] Ultrasound Report Signed Patient: BETTY THOMPSON RMR#: [id number] : 1990Acct:[id number] Age/Sex: 35 / FADM Date: 09/22/25 Loc: US Attending Dr: Fabi Arita Ordering Physician: Fabi Arita Date of Service: 09/22/25 Procedure(s): US OB BPP w non-stress Accession Number(s): [id number] cc: Fabi Arita; YAMEL GUERRERO [place] [id number] Patient Name: BETTY THOMPSON MRN: [id number] date: 1990 Sex: F Assigned Patient Location: [facility] Current Patient Location: Accession/Order Number: [id number] Exam Date: 09/22/2025 11:34 Report Date: 09/22/2025 22:42 At the request of: FABI ARITA Procedure: US OB BPP w non-stress Ultrasound biophysical profile INDICATION: 30 weeks gestation COMPARISON: 08/27/2025 FINDINGS IMPRESSION: Cephalic position. heart rate 134 beats per minutes. PACO measures 14.3 cm. 8/8 score biophysical profile Impression dictated by: Alex Rich M.D. 09/22/2025 10:42 PM Dictation Location: [place] [address] Electronically authenticated by: [id number] Y Date: 2:42 Dictated By: Alex Rich M.D. Signed By:09/22/252244 DD/ 41 TD/TT: Fan Mail Editor: Authorizing ProviderResult TypeResult StatusAmy Batavia [facility] IMAGINGFinal Result * US OB follow up [...] 7.0 ACTION SUGGESTED > 7.0 ESTIMATED AVERAGE HOMEBJP015ar/dLTBHSpecimen (Source)Anatomical Location / LateralityCollection Method / VolumeCollection TimeReceived Time10/06/2025 10:44 AM EDT1 10:45 AM EDT Narrative CLINISYNC - 09/03/2025 12:20 PM EDT Authorizing ProviderResult TypeResult StatusCatarina Barnes NPCLINISYNCFinal ResultPerforming OrganizationAddressCity/State/ZIP CodePhone Number [facility] * (ABNORMAL) ALL CBC WITH AUTO DIFF (09/03/2025 10:44 AM EDT)ComponentValueRef RangeTest MethodAnalysis TimePerformed AtPathologist SignatureTBH WBC10.64.0 - 11.0 10 3/uLTBHTBH RBC3.60(L)4.20 - 5.40 10 6/uLTBHTBH HGB12.112.0 - 16.0 g/dL TBHTBH HCT35.6(L)36.0 - 48.0 %TBHTBH MCV98.981.0 - 99.0 fLTBHTBH MCH33.626.7 - 34.0 pgTBHTBH MCHC34.029.9 - 35.2 g/dLTBHTBH RDW14.311.0 - 15.0 %TBHTBH GRJ702 150 - 450 10 3/uLTBHTBH MPV11.29.5 - [...] EDT Narrative 08/27/2025 11:17 AM EDT [facility] ?[address] ? [place] [address] ? Ultrasound Report ? Signed ? Patient: BETTY THOMPSON R ? MR#: [id number] ?? : 1990 ?Acct:[id number] ?? Age/Sex: 35 / F ?ADM Date: 08/27/25 ?? Loc: US ? Attending Dr: Jossy Bray D.O. ? Ordering Physician: Jossy Bray D.O. ?? Date of Service: 08/27/25 ?? Procedure(s): US OB growth ?? Accession Number(s): [id number] ? cc: YAMEL GUERRERO ; Jossy Bray D.O. ? [facility] ? [address] ? [place] [address] ? Patient Name: ?? BETTY THOMPSON ? MRN: [id number] ? date: 1990 ?Sex: F ?? Assigned Patient Location: US ?? Current Patient Location: US ?? Accession/Order Number: [id number] ?? Exam Date: 08/27/2025 ??09:52 ?Report Date: [...] M.D. ??08/27/2025 11:15 AM ? Dictation Location: [place] [address] ? Electronically authenticated by: [id number] ??Y ?? Date: 08/27/2025 ??11:15 ? Dictated By: ?David,Sonia M.D. ? Signed By: ?08/27/25 1117 ? DD/ ? TD/TT: ? Fan Mail Editor: Procedure Note Radiology, Radiologist, MD - 08/27/2025 [facility] [place] [id number] Ultrasound Report Signed Patient: BETTY THOMPSON RMR#: [id number] : 1990Acct:[id number] Age/Sex: 35 / FADM Date: 08/27/25 Loc: US Attending Dr: Josys Bray D.O. Ordering Physician: Jossy Bray D.O. Date of Service: 08/27/25 Procedure(s): US OB growth Accession Number(s): [id number] cc: YAMEL GUERRERO ; Jossy Bray D.O. [place] [id number] Patient Name: BETTY THOMPSON MRN: [facility]:[id number] date: 1990 Sex: F Assigned Patient Location: US Current Patient Location: US Accession/Order Number: [id number] Exam Date: 08/27/2025 09:52 Report Date: 08/27/2025 [...] Hernandez M.D. 08/27/2025 11:15 AM Dictation Location: [place] [address] Electronically authenticated by: [id number] Y Date: 1:15 Dictated By: Sonia Hernandez M.D. Signed By:08/27/25 1117 DD/ 1115 TD/TT: Fan Mail Editor: Authorizing ProviderResult TypeResult StatusGeneric External Data Provider [...] Teams Team MemberRelationshipSpecialtyStart DateEnd Yamel Guerrero MD [address] [place] [place], [place] [address] PCP - GeneralFamily Medicine05/04/23 Yamel Guerrero MD [address] [place] [address] CHARIS - CHARLIE Joseph [facility]02/26/24
--- OUTSIDE RECORDS SUMMARY | 2025-09-29 11:37 | XMS_ITS | Patient Health Record ---
Author Organization [facility] [place] Address [address] [place] [address] Care Team Providers Care Tractor Trailer Moving Van Driver Name Role Phone Yamel Guerrero MD Primary Care Provider Unavailabl e Reason For Referral No Information Medications Medication SIG (Take, Route, Frequency, Duration) Notes Start Date End Date Status Vitamin ActiveHydroxychloroquine SulfateNot-Taking Social History Tobacco Use: Social History Observation [...] [employer] [address] [place] [address] [id number] AYDE THOMPSON Self - patient is the insured
--- OUTSIDE RECORDS SUMMARY | 2025-09-29 11:37 | XMS_ITS | Clinical Summary ---
Author Organization [facility] Address [address] [place] [address] Care Team Providers Care Drum Operator Name Role Phone Unavailable Primary Care Provider Unavailabl e Social History Tobacco UseTypesPacks/DayYears UsedDateSmoking Tobacco: Never Assessed CommentsUnknownSex and Gender InformationValueDate RecordedSex Assigned at Not on fileLegal SgvDurupt28/29/2022 11:30 PM EDTGender IdentityNot on file Sexual OrientationNot on file Last Filed Vital Signs Vital SignReadingTime TakenCommentsBlood Gfblofma744/7611/14/2019 2:45 PM EST Idnse012711/14/2019 2:45 PM ESTTemperature--Respiratory Rate--Oxygen Ztdavzdgwt68% 09/23/2019 2:45 PM EDTInhaled Oxygen Concentration--Zblfcn21.6 kg (160 lb) 11/14/2019 2:43 PM PKOGtljlv578.6 cm (5' 4 )11/14/2019 2:43 PM ESTBody Mass Index27.4611/14/2019 2:43 PM EST Plan of Treatment Not on file
--- OUTSIDE RECORDS SUMMARY | 2025-09-29 11:37 | XMS_ITS | Encounter Summary ---
Author Organization [facility] Address [address] [place] [address] Care Team Providers Care Hand Sewer Name Role Phone Yamel Guerrero MD Primary Care Provider [phone] Yamel Guerrero MD Unavailable Encounter Details DateTypeDepartmentCare Team (Latest Contact Info)Unkyiblgaxj33/28/2025Bamboo flowsheet [facility] [address] [place] [address] Luis E Bray DO [address] [place] [address] Social History Tobacco UseTypesPacks/DayYears UsedDateSmoking Tobacco: [...] relatives?Once a week05/09/2023How often do you attend gnosticist or worship services?Never05/09/2023o you belong to any clubs or organizations such as gnosticist groups, unions, fraJumping Nuts or athletic groups, or school groups?No05/09/2023How often do you attend meetings of the clubs or organizations you belong to?Never05/09/2023re you , , , , never , or living with a partner?Living with fndbaan5905/09/2023 AUDIT-CAnswerDate RecordedQ1: How often do you have [...] RecordedPatient Health Questionnaire-2 Score1 10/12/2023[facility] [place] of Occupational Health - Occupational Stress QuestionnaireAnswerDate RecordedDo you feel stress - tense, restless, nervous, or anxious, or unable to sleep at night because yourmind is troubled all the time - these days?To some lfilfz5305/09/2023Exercise Vital SignAnswerDate Recorded On average, how many [...] in ashelter (including now)?No05/09/2023 Estimated Date of ObfhibprMhecdjefLxj96/19/2025Based on last menstrual period of 02/07/2025Sex and Gender InformationValueDate RecordedSex Assigned at BirthFemale 04/30/2023 3:31 PM EDTLegal JoyLvxbtj14/15/2023 7:09 PM EDTGender IdentityFemale 04/30/2023 3:31 PM EDTSexual OrientationNot on filedocumented as of this encounter Plan of Treatment DateTypeDepartmentCare Team (Latest Contact Info)Lvzivujqdep10/12/2025 11:00 AM ESTAncillary Procedure [facility] [address] [place] [place] [address] 10/08/2025 11:30 AM ESTRoutine [facility] [address] [place] [place] [address] Fabi Martinez PA [address] [place], [place] [address] documented as of this encounter Visit Diagnoses Not on filedocumented in this encounter Additional Health Concerns AssessmentNoted TimePHQ-9 Depression Total Score: 9:00 AM EST documented as of this encounter Care Teams Team MemberRelationshipSpecialtyStart DateEnd Date Yamel Guerrero MD [address], [place] [address] PCP - GeneralFamily Medicine05/04/23 Yamel Guerrero MD [address] [place], [place] [address] PCP - [facility]02/26/24documented as of this encounter
--- NOTE | 2025-09-29 11:38 | US_ITS ---
[address] [address] Patient Name: AYDE THOMPSON MRN: [id number] date: 1990 Sex: F Assigned Patient Location: [facility] Current Patient Location: Accession/Order Number: [id number] Exam Date: 09/29/2025 11:40 Report Date: 09/29/2025 15:51 At the request of: ROMERO ARITA Procedure: US OB BPP w non-stress Ultrasound biophysical profile INDICATION: 30 weeks gestation COMPARISON: 09/22/2025 FINDINGS IMPRESSION: Cephalic position. heart rate 163 beats per minutes. PACO measures 11.1 cm 8/8 score biophysical profile Impression dictated by: Alex Rich M.D. 09/29/2025 3:51 PM Dictation Location[facility] Electronically authenticated by: [id number] Y Date: 09/29/2025 15:51
--- OUTSIDE RECORDS SUMMARY | 2025-09-29 11:38 | XMS_ITS | Patient Health Record ---
Author Organization [facility] Address [address] [place], [place] [address] Care Team Providers Care Webfocus Developer Name Role Phone Renee Mack Unavailable [phone] Angela Chua Unavailable [phone] Allergies No Known Allergies Reason For Referral No Information Medications Medication SIG (Take, Route, Frequency, Duration) Notes Start Date End Date Status Peridex 0.12 % swish 30 seconds 2x/ day. Spit, do not rinse. Do not eat or drink for 30 minutes after. Mouth/Throat 2x/day; Duration: 14 days 03/24/2022Not-Taking Social History Tobacco Use: Social History Observation Description Date Details (start date - stop date) Never Smoker NA - NA Sex Assigned At : Social History Observation Description Sex Assigned At Female Tobacco Use/Smoking Question Answer Notes Tobacco use: nonsmoker Problems Problem Type SNOMED Code ICD Code Onset Dates Problem Status W/U Status Risk Notes Problem Obese class II (988933953843918) BMI 36.0 -36.9,adult (Z68.36) ActiveconfirmedProblemObese class II (039884768033716)BMI 37.0-37.9, adult (Z68.37)Activeconfirmed Vital Signs Heart Rate 86 /min 11/14/2024 Blood pressure ajyqxdfng46 mm Hg11/14/2024Weight-kg99.79 kg11/14/20249482Wxdxaj36 in 11/14/2024lood pressure mm Hg11/14/20248026Klypzo986 lbs101/15/2024MI 37.76 kg/m212/ Encounters Encounter Location Date Provider Diagnosis [facility] [address] [place], [place] [address] 11/14/2024 Angela Chua BMI 37.0-37.9, tiffany lt Z68.37 ; Dietary counseling Z71.3 ; Exercise counseling Z71.82 and Encounter for dental examination and cleaning without abnormal findings Z01.20 Assessments Encounter Date Diagnosis (ICD Code) Assessment Notes Treatment Notes Treatment Clinical Notes Section Notes 11/14/2024 BMI 37.0-37.9, adult (ICD-10 - Z 68.37) 11/14/2024ietary counseling (ICD-10 - Z71.3)11/14/2024Exercise counseling (ICD- 10 - Z71.82)11/14/2024Encounter for dental examination and cleaning without abnormal findings (ICD-10 - Z01.20) Plan Of Treatment No Information Insurance Providers Payer Name Payer Address Payer Phone Subscriber Number Group Number Insured Name Patient Relationship to Insured Coverage Start Date Coverage End Date zzDAntamanda Dentaqdaniella [facility] [address] [place] [address] [id number] Mauricio Kennedy - patient is the [id number] 2023Medicaid CFC [facility] [address] [place], [place] [id number], MeganSelf - patient is the [id number] 2023
[2025-09-29 11:56] VITALS: BP 109/58; PULSE 87
== END 2025-09-29 12:26 | disposition home or self-care (01) ==
LOC: US 11:33 → FBC 11:36
PROVIDERS: PCP Family Medicine; Visit Provider Physician Assistant
DX: Z34.93 Encounter for supervision of normal pregnancy, unspecified, third trimester (principal); Z3A.33 33 weeks gestation of pregnancy
CPT/HCPCS: 76818

== ENCOUNTER 2025-10-02 10:00 | Outpatient (OUT) | payer MEDICAID, SELFPAY ==
--- OUTSIDE RECORDS SUMMARY | 2025-08-27 09:20 | XMS_ITS | Encounter Summary ---
Author Organization [facility] Address [address] [place] [address] Care Team Providers Care Stemhole Borer And Topper Name Role Phone Yamel Guerrero MD Primary Care Provider [phone] Yamel Guerrero MD Unavailable Reason for Visit * ReasonCommentsRoutine Visit Encounter Details DateTypeDepartmentCare Team (Latest Contact Info)Izrfznkeujj19/01/2025 10:20 AM EDTRoutine [facility] [address] [place] [address] Catarina Barnes, [place] [address] [place] [address] 28 weeks gestation of ([facility]); Third trimester ([facility]); Gestational diabetes mellitus (GDM), antepartum, gestational diabetes method of control unspecified([facility]); Diabetes mellitus screening Social History Tobacco UseTypesPacks/DayYears [...] relatives?Once a week05/09/2023How often do you attend restorationism or sabianism services?Never05/09/2023o you belong to any clubs or organizations such as restorationism groups, unions, fraternal or athletic groups, or school groups?No05/09/2023How often do you attend meetings of the clubs or organizations you belong to?Never05/09/2023re you , , , , never , or living with a partner?Living with obfxzfx2205/09/2023 AUDIT-CAnswerDate RecordedQ1: How often do you have [...] very hard 05/09/2023HQ-2AnswerDate RecordedPatient Health Questionnaire-2 Score1 10/12/2023[facility] [place] of Occupational Health - Occupational Stress QuestionnaireAnswerDate RecordedDo you feel stress - tense, restless, nervous, or anxious, or unable to sleep at night because yourmind is troubled all the time - these days?To some pajkfk7905/09/2023Exercise Vital SignAnswerDate Recorded On average, how many [...] steady place to sleep or slept in [facility] (including now)?No05/09/2023 Estimated Date of PlppwkdwXunjxwvpNfc98/19/2025Based on last menstrual period of 02/07/2025Sex and Gender InformationValueDate RecordedSex Assigned at BirthFemale 04/30/2023 3:31 PM EDTLegal ElaBndmby11/15/2023 7:09 PM EDTGender IdentityFemale 04/30/2023 3:31 PM EDTSexual OrientationNot on filedocumented as of this encounter Last Filed Vital Signs Vital SignReadingTime TakenCommentsBlood Ummcyztv435/7008/27/2025 10:32 AM EDT Pulse--Temperature--Respiratory Rate--Oxygen Saturation--Inhaled Oxygen Concentration--Kvgqya854 kg (243 lb 1.9 oz)08/27/2025 10:32 AM [...] to check FSBS. Blood Glucose Monitoring Suppl (D-[employer] Glucometer) w/Device kit 1 kit, Does not [...] as needed for nausea. Pharmacist Choice Lancets [facility] USE 1 LANCET TO CHECK FSBS 4 [...] of major depressive disorder, without psychotic features ([facility]) 05/10/2023 Thyromegaly 05/10/2023 Tonsillar hypertrophy 10/08/2019 Undifferentiated [...] nursing note reviewed. Exam conducted with a side puller present. Vitals: Estimated body mass index is 41.73 kg/m?? as calculated from the following: Height as of 11/27/23: 5' 4 . Weight as of this encounter: 243 lb 1.9 oz. BP: 110/70 Patient's last menstrual period was 02/07/2025. ASSESSMENT & PLAN ICD-10-CM 1. 28 weeks gestation of ([facility]) Z3A.28 POCT urinalysis dipstick manually resulted 2. Third trimester ([facility]) Z34.93 POCT urinalysis dipstick manually resulted 3. Gestational diabetes mellitus (GDM), antepartum, gestational diabetes method of control unspecified ([facility]) O24.419 Hemoglobin A1c 4. Diabetes mellitus screening [...] Plan of Treatment DateTypeDepartmentCare Team (Latest Contact Info)Cdecaaezcky49/12/2025 11:00 AM ESTAncillary Procedure [facility] ALVARADO [address] [place] [phone] 10/08/2025 11:30 AM ESTRoutine NOMVivienne ALVARADO [address] [place] [address] Fabi Martinez PA [address] [place] [address] NameTypePriorityAssociated DiagnosesOrder ScheduleCBCLabRoutine Diabetes mellitus screening Expected: 08/27/2025 (Approximate), Expires: 08/27/2026Hemoglobin H5nNpsYacmtgp Gestational diabetes mellitus (GDM), antepartum, gestational diabetes method of control unspecified([facility]) Diabetes mellitus screening Ordered: 08/27/2025documented as of this encounter Procedures Procedure NamePriorityDate/TimeAssociated DiagnosisCommentsPOCT URINALYSIS VAJBGPMDIurpdab69/01/2025 10:37 AM EDT 28 weeks gestation of ([facility]) Third trimester ([facility]) documented in this encounter Results * POCT [...] Visit Diagnoses Diagnosis 28 weeks gestation of ([facility]) Third trimester ([facility]) state, incidental Gestational diabetes mellitus (GDM), antepartum, gestational diabetes method of control unspecified([facility]) Diabetes mellitus screening Screening for diabetes mellitus documented in this encounter Additional Health Concerns AssessmentNoted TimePHQ-9 Depression Total Score: 9:00 AM EST documented as of this encounter Care Teams Team MemberRelationshipSpecialtyStart DateEnd Date Yamel Guerrero MD [address] [place], [place] [phone] PCP - GeneralFamily Medicine05/04/23 Yamel Guerrero MD [address] [place] [address] PCP - [facility] CPC02/26/24documented as of this encounter
--- OUTSIDE RECORDS SUMMARY | 2025-09-23 09:00 | XMS_ITS | Encounter Summary ---
Author Organization [facility] Address [address] [place] [address] Care Team Providers Care Pyrometer Mechanic Name Role Phone Yamel Guerrero MD Primary Care Provider [phone] Yamel Guerrero MD Unavailable Reason for Visit * ReasonCommentsRoutine Visit Encounter Details DateTypeDepartmentCare Team (Latest Contact Info)Hqguvjamdls34/28/2025 10:00 AM EDTRoutine [facility] [address] [place] [phone] Luis E Bray DO [address] [place], [place] [phone] 32 weeks gestation of ([facility]); Third trimester ([facility]); Gestational diabetes mellitus (GDM), antepartum, gestational diabetes method of control unspecified([facility]) Social History Tobacco UseTypesPacks/DayYears UsedDateSmoking Tobacco: [...] relatives?Once a week05/09/2023How often do you attend tenriism or islam services?Never05/09/2023o you belong to any clubs or organizations such as tenriism groups, unions, fraRental K[employer] or athletic groups, or school groups?No05/09/2023How often do you attend meetings of the clubs or organizations you belong to?Never05/09/2023re you , , , , never , or living with a partner?Living with fgmgfmb9805/09/2023 AUDIT-CAnswerDate RecordedQ1: How often do you have [...] Health Questionnaire-2 Score1 10/12/2023[facility] - Occupational Stress QuestionnaireAnswerDate RecordedDo you feel stress - tense, restless, nervous, or anxious, or unable to sleep at night because yourmind is troubled all the time - these days?To some ainves5505/09/2023Exercise Vital SignAnswerDate Recorded On average, how many [...] steady place to sleep or slept in reinbeckelter (including now)?No05/09/2023 Estimated Date of VozuabcrLytbyojoGby55/19/2025Based on last menstrual period of 02/07/2025Sex and Gender InformationValueDate RecordedSex Assigned at BirthFemale 04/30/2023 3:31 PM EDTLegal KhwJflnex33/15/2023 7:09 PM EDTGender IdentityFemale 04/30/2023 3:31 PM EDTSexual OrientationNot on filedocumented as of this encounter Last Filed Vital Signs Vital SignReadingTime TakenCommentsBlood Zvfyajxk082/7009/23/2025 10:09 AM EDT Pulse--Temperature--Respiratory Rate--Oxygen Saturation--Inhaled Oxygen Concentration--Qdbvxh227 kg (246 lb 12.8 oz)09/23/2025 10:09 AM [...] nursing note reviewed. Exam conducted with a preschool lead teacher present. Vitals: Estimated body mass index is 42.36 kg/m?? as calculated from the following: Height as of 10/23/23: 5' 4 . Weight as of this encounter: 246 lb 12.8 oz. BP: 110/70 Patient's last menstrual period was 02/07/2025. Assessment/Plan ICD-10-CM 1. 32 weeks gestation of ([facility]) Z3A.32 POCT urinalysis dipstick manually resulted 2. Third trimester ([facility]) Z34.93 POCT urinalysis dipstick manually resulted 3. Gestational diabetes mellitus (GDM), antepartum, gestational diabetes method of control unspecified ([facility]) O24.419 Return OB: Patient presents today for [...] Plan of Treatment DateTypeDepartmentCare Team (Latest Contact Info)Aspmmkqpqor55/12/2025 11:00 AM ESTAncillary Procedure [facility] [address] [place] [phone] 10/08/2025 11:30 AM ESTRoutine [facility] [address] [place] [phone] Fabi Martinez PA [address] [facility] [address] [place], [place] [phone] documented as of this encounter Procedures Procedure NamePriorityDate/TimeAssociated DiagnosisCommentsPOCT URINALYSIS VKNNFLBZLozznre99/28/2025 10:15 AM EDT 32 weeks gestation of ([facility]) Third trimester ([facility]) documented in this encounter Results * [...] Location / LateralityCollection Method / VolumeCollection TimeReceived DymnMnswf75/28/2025 10:15 AM EDT Narrative Authorizing ProviderResult TypeResult StatusCorey Katarina DOPOINT OF CARE TEST ENTER/EDIT ORDERABLESFinal Result documented in this encounter Visit Diagnoses Diagnosis 32 weeks gestation of ([facility]) Third trimester ([facility]) state, incidental Gestational diabetes mellitus (GDM), antepartum, gestational diabetes method of control unspecified([facility]) documented in this encounter Additional Health Concerns AssessmentNoted TimePHQ-9 Depression Total Score: 9:00 AM EST documented as of this encounter Care Teams Team MemberRelationshipSpecialtyStart DateEnd Date Yamel Guerrero MD [address] [place], [place] [phone] PCP - GeneralFamily Medicine05/04/23 Yamel Guerrero MD [address] [place], [place] [phone] PCP - [facility] PLAZA02/26/24documented as of this encounter
--- OUTSIDE RECORDS SUMMARY | 2025-10-02 10:02 | XMS_ITS | Clinical Summary ---
Author Organization [facility] Address [address] [place] [address] Care Team Providers Care Patient Manager Name Role Phone Unavailable Primary Care Provider Unavailabl e Social History Tobacco UseTypesPacks/DayYears UsedDateSmoking Tobacco: Never Assessed CommentsUnknownSex and Gender InformationValueDate RecordedSex Assigned at Not on fileLegal XlbRtwoil03/29/2022 11:30 PM EDTGender IdentityNot on file Sexual OrientationNot on file Last Filed Vital Signs Vital SignReadingTime TakenCommentsBlood Obnfnbrz884/7611/14/2019 2:45 PM EST Zozuf721111/14/2019 2:45 PM ESTTemperature--Respiratory Rate--Oxygen Bcqmgxgrjp99% 09/23/2019 2:45 PM EDTInhaled Oxygen Concentration--Ogeooy64.6 kg (160 lb) 11/14/2019 2:43 PM QMDPkjann016.6 cm (5' 4 )11/14/2019 2:43 PM ESTBody Mass Index27.4611/14/2019 2:43 PM EST Plan of Treatment Not on file
--- OUTSIDE RECORDS SUMMARY | 2025-10-02 10:02 | XMS_ITS | Encounter Summary ---
Author Organization [facility] Address [address] [place] [address] Care Team Providers Care Boiler Inspector Name Role Phone Mino East MD Primary Care Provider Mino [place] MD Unavailable Encounter Details DateTypeDepartmentCare Team (Latest Contact Info)Uckixrrjucf07/27/2025Clinisync Result Encounter [facility] External Department Unsolicited Fabi Arita PA [address] [place] [address] [place], [place] [id number] Social History Tobacco UseTypesPacks/DayYears UsedDateSmoking Tobacco: NeverSmokeless [...] relatives?Once a week05/09/2023How often do you attend yazdanism or christian services?Never05/09/2023o you belong to any clubs or organizations such as yazdanism groups, unions, fraternal or athletic groups, or school groups?No05/09/2023How often do you attend meetings of the clubs or organizations you belong to?Never05/09/2023re you , , , , never , or living with a partner?Living with csuzvkc3005/09/2023 AUDIT-CAnswerDate RecordedQ1: How often do you have [...] RecordedPatient Health Questionnaire-2 Score1 10/12/2023[facility] [place] of Occupational [facility] - Occupational Stress QuestionnaireAnswerDate RecordedDo you feel stress - tense, restless, nervous, or anxious, or unable to sleep at night because yourmind is troubled all the time - these days?To some bkfbeu1005/09/2023Exercise Vital SignAnswerDate Recorded On average, how many [...] in ashelter (including now)?No05/09/2023 Estimated Date of AbiudhprVyblefwcXdx78/19/2025Based on last menstrual period of 02/07/2025Sex and Gender InformationValueDate RecordedSex Assigned at BirthFemale 04/30/2023 3:31 PM EDTLegal LlwOyqubv48/15/2023 7:09 PM EDTGender IdentityFemale 04/30/2023 3:31 PM EDTSexual OrientationNot on filedocumented as of this encounter Plan of Treatment DateTypeDepartmentCare Team (Latest Contact Info)Uxwzxhhfnwy37/12/2025 11:00 AM ESTAncillary Procedure [facility] [place] [facility] [address] [place] [address] 10/08/2025 11:30 AM ESTRoutine [facility] [place] [facility] [address] [place] [phone] Fabi Arita PA [address] [place], [place] [phone] documented as of this encounter Procedures Procedure NamePriorityDate/TimeAssociated DiagnosisCommentsUS OB BPP W NON-XLVKET1709/22/2025 10:42 PM EDT documented in this encounter Results * US OB BPP W NON-STRESS (09/22/2025 10:42 PM EDT)Anatomical Region LateralityModalityOtherSpecimen (Source)Anatomical Location / Laterality Collection Method / VolumeCollection TimeReceived Time09/22/2025 10:42 PM EDT Narrative 09/22/2025 10:45 PM EDT [facility] ?[address] ? [place] [address] ? Ultrasound Report ? Signed ? Patient: DONNA,MERCEDES R ? MR#: [id number] ?? : 1990 ?Acct:[id number] ?? Age/Sex: 35 / F ?ADM Date: 09/22/25 ?? Loc: US ? Attending Dr: Fabi Arita ? Ordering Physician: Fabi Arita ?? Date of Service: 09/22/25 ?? Procedure(s): US OB BPP w non-stress ?? Accession Number(s): [id number] ? cc: Fabi Arita; [place] ? [facility] ? [address] ? [place] [address] ? Patient Name: ?? MERCEDES THOMPSON ? MRN: [facility]:[id number] ? date: 1990 ?Sex: F ?? Assigned Patient Location: [facility] ?? Current Patient Location: ? Accession/Order Number: [id number] ?? Exam Date: 09/22/2025 ??11:34 ?Report Date: [...] Dictation Location: RADIO-PC-29 ? Electronically authenticated by: [id number] ??Y ?? Date: 09/22/2025 ??22:42 ? Dictated By: ?Alex Rich M.D. ? Signed By: ?09/22/252244 ? DD/ 41 ? TD/TT: ? Membership Correspondent: Procedure Note Radiology, Radiologist, MD - 09/22/2025 [place] [address] Ultrasound Report Signed Patient: MERCEDES THOMPSON RMR#: [id number] : 1990Acct:[id number] Age/Sex: 35 / FADM Date: 09/22/25 Loc: US Attending Dr: Fabi Arita Ordering Physician: Fabi Arita Date of Service: 09/22/25 Procedure(s): US OB BPP w non-stress Accession Number(s): [id number] cc: Fabi Arita; [place] [address] Patient Name: MERCEDES THOMPSON MRN: [id number] date: 1990 Sex: F Assigned Patient Location: [facility] Current Patient Location: Accession/Order Number: [id number] Exam Date: 09/22/2025 11:34 Report Date: 09/22/2025 22:42 At the request of: FABI ARITA Procedure: US OB BPP w non-stress Ultrasound biophysical profile INDICATION: 30 weeks gestation COMPARISON: 08/27/2025 FINDINGS IMPRESSION: Cephalic position. heart rate 134 beats per minutes. PACO measures 14.3 cm. 8/8 score biophysical profile Impression dictated by: Alex Rich M.D. 09/22/2025 10:42 PM Dictation Location: [place] [address] Electronically authenticated by: [id number] Y Date: 2:42 Dictated By: Alex Rich M.D. Signed By:09/22/252244 DD/ 41 TD/TT: Membership Correspondent: Authorizing ProviderResult TypeResult StatusFabi Arita PACLINISYNC IMAGINGFinal Result documented in this encounter Visit Diagnoses Not on filedocumented in this encounter Additional Health Concerns AssessmentNoted TimePHQ-9 Depression Total Score: 9:00 AM EST documented as of this encounter Care Teams Team MemberRelationshipSpecialtyStart DateEnd Date Mino East MD [address] [place] [address] PCP - GeneralFamily Medicine05/04/23 Mino East MD [address] [place] [address] PCP - CHARLIE Joseph [facility]02/26/24documented as of this encounter
--- OUTSIDE RECORDS SUMMARY | 2025-10-02 10:02 | XMS_ITS | Encounter Summary ---
Author Organization [facility] Address [address] [place] [address] Care Team Providers Care Process Helper Name Role Phone Yamel Guerrero MD Primary Care Provider [phone] Yamel Guerrero MD Unavailable Encounter Details DateTypeDepartmentCare Team (Latest Contact Info)Vupkscfqlas01/29/2025bstract [facility] [place] [facility] [address] [place] [phone] Luis E Bray DO [address] [place], [place] [address] Social History Tobacco UseTypesPacks/DayYears UsedDateSmoking Tobacco: NeverSmokeless [...] week05/09/2023How often do you attend episcopalian or alevism services?Never05/09/2023o you belong to any clubs or organizations such as episcopalian groups, unions, fraLili B Enterprises or athletic groups, or school groups?No05/09/2023How often do you attend meetings of the clubs or organizations you belong to?Never05/09/2023re you , , , , never , or living with a partner?Living with etulakq5305/09/2023 AUDIT-CAnswerDate RecordedQ1: How often do you have [...] very hard 05/09/2023HQ-2AnswerDate RecordedPatient Health Questionnaire-2 Score1 10/12/2023[facility] [place] of Occupational Health - Occupational Stress QuestionnaireAnswerDate RecordedDo you feel stress - tense, restless, nervous, or anxious, or unable to sleep at night because yourmind is troubled all the time - these days?To some cbpmja6505/09/2023Exercise Vital SignAnswerDate Recorded On average, how many [...] in ashelter (including now)?No05/09/2023 Estimated Date of LivikzsoXnltwlliFra48/19/2025Based on last menstrual period of 02/07/2025Sex and Gender InformationValueDate RecordedSex Assigned at BirthFemale 04/30/2023 3:31 PM EDTLegal CyePlkubh71/15/2023 7:09 PM EDTGender IdentityFemale 04/30/2023 3:31 PM EDTSexual OrientationNot on filedocumented as of this encounter Plan of Treatment DateTypeDepartmentCare Team (Latest Contact Info)Bmdknbiuckg70/12/2025 11:00 AM ESTAncillary Procedure [facility] [place] [facility] [address] [place] [place] [phone] 10/08/2025 11:30 AM ESTRoutine [facility] [address] [facility] [place] [address] Fabi Martinez PA [address] [place], [place] [phone] documented as of this encounter Visit Diagnoses Not on filedocumented in this encounter Additional Health Concerns AssessmentNoted TimePHQ-9 Depression Total Score: 9:00 AM EST documented as of this encounter Care Teams Team MemberRelationshipSpecialtyStart DateEnd Date Yamel Guerrero MD [address] [place], [place] [phone] PCP - GeneralFamily Medicine05/04/23 aYmel Guerrero MD [address] [place], [place] [phone] PCP - [facility] Jake [facility]02/26/24documented as of this encounter
--- OUTSIDE RECORDS SUMMARY | 2025-10-02 10:02 | XMS_ITS | Encounter Summary ---
Author Organization [facility] Address [address] [place] [address] Care Team Providers Care Hall Cleaner Name Role Phone Yamel Guerrero MD Primary Care Provider [phone] Yamel Guerrero MD Unavailable Encounter Details DateTypeDepartmentCare Team (Latest Contact Info)Fsxzsrokxsp32/28/2025Bamboo flowsheet [facility] [place] [facility] [address] [place] [address] Luis E Bray DO [address] [place] [address] Social History Tobacco UseTypesPacks/DayYears UsedDateSmoking Tobacco: [...] week05/09/2023How often do you attend mormonism or yarsani services?Never05/09/2023o you belong to any clubs or organizations such as mormonism groups, unions, fraTexas Energy Network or athletic groups, or school groups?No05/09/2023How often do you attend meetings of the clubs or organizations you belong to?Never05/09/2023re you , , , , never , or living with a partner?Living with broylny9505/09/2023 AUDIT-CAnswerDate RecordedQ1: How often do you have [...] Questionnaire-2 Score1 10/12/2023[facility] [place] of Occupational Health - Occupational Stress QuestionnaireAnswerDate RecordedDo you feel stress - tense, restless, nervous, or anxious, or unable to sleep at night because yourmind is troubled all the time - these days?To some ifmowx7405/09/2023Exercise Vital SignAnswerDate Recorded On average, how many [...] in ashelter (including now)?No05/09/2023 Estimated Date of VgwhmwhdGudopmtuHen40/19/2025Based on last menstrual period of 02/07/2025Sex and Gender InformationValueDate RecordedSex Assigned at BirthFemale 04/30/2023 3:31 PM EDTLegal IyzWkswpx58/15/2023 7:09 PM EDTGender IdentityFemale 04/30/2023 3:31 PM EDTSexual OrientationNot on filedocumented as of this encounter Plan of Treatment DateTypeDepartmentCare Team (Latest Contact Info)Hvnuqdqsrer61/12/2025 11:00 AM ESTAncillary Procedure [facility] [place] [facility] [address] [facility] [place] [phone] 10/08/2025 11:30 AM ESTRoutine [facility] [address] [facility] [place] [address] Fabi Martinez PA [address] [facility] [address] [place], [place] [phone] documented as of this encounter Visit Diagnoses Not on filedocumented in this encounter Additional Health Concerns AssessmentNoted TimePHQ-9 Depression Total Score: 9:00 AM EST documented as of this encounter Care Teams Team MemberRelationshipSpecialtyStart DateEnd Date Yamel Guerrero MD [address] [place], [place] [phone] PCP - GeneralFamily Medicine05/04/23 Yamel Guerrero MD [address] [place], [place] [phone] PCP - [facility] Jake [facility]02/26/24documented as of this encounter
--- OUTSIDE RECORDS SUMMARY | 2025-10-02 10:02 | XMS_ITS | Encounter Summary ---
Author Organization [facility] Address [address] [place] [address] Care Team Providers Care Nuclear Physician Name Role Phone Yamel Guerrero MD Primary Care Provider [phone] Yamel Guerrero MD Unavailable Encounter Details DateTypeDepartmentCare Team (Latest Contact Info)Xhnihhhxqfc30/27/2025Travel Social History Tobacco UseTypesPacks/DayYears UsedDateSmoking Tobacco: NeverSmokeless [...] relatives?Once a week05/09/2023How often do you attend moravian or anabaptism services?Never05/09/2023o you belong to any clubs or organizations such as moravian groups, unions, fraternal or athletic groups, or school groups?No05/09/2023How often do you attend meetings of the clubs or organizations you belong to?Never05/09/2023re you , , , , never , or living with a partner?Living with mrdbjpp1705/09/2023 AUDIT-CAnswerDate RecordedQ1: How often do you have [...] 05/09/2023HQ-2AnswerDate RecordedPatient Health Questionnaire-2 Score1 10/12/2023[facility] [place] of Occupational Health - Occupational Stress QuestionnaireAnswerDate RecordedDo you feel stress - tense, restless, nervous, or anxious, or unable to sleep at night because yourmind is troubled all the time - these days?To some nfgacf9105/09/2023Exercise Vital SignAnswerDate Recorded On average, how many [...] in ashelter (including now)?No05/09/2023 Estimated Date of PynaulgpVqjwiurtQaa98/19/2025Based on last menstrual period of 02/07/2025Sex and Gender InformationValueDate RecordedSex Assigned at BirthFemale 04/30/2023 3:31 PM EDTLegal RdcVhegcr46/15/2023 7:09 PM EDTGender IdentityFemale 04/30/2023 3:31 PM EDTSexual OrientationNot on filedocumented as of this encounter Plan of Treatment DateTypeDepartmentCare Team (Latest Contact Info)Khxljmdhbjv02/12/2025 11:00 AM ESTAncillary Procedure [facility] [place] [facility] [address] [place] [address] [place] [phone] 10/08/2025 11:30 AM ESTRoutine [facility] [place] [facility] [address] [facility] [place] [address] Fabi Martinez PA [address] [facility] [place] [address] documented as of this encounter Visit Diagnoses Not on filedocumented in this encounter Additional Health Concerns AssessmentNoted TimePHQ-9 Depression Total Score: 9:00 AM EST documented as of this encounter Care Teams Team MemberRelationshipSpecialtyStart DateEnd Date Yamel Guerrero MD [address] [place] [address] PCP - GeneralFamily Medicine05/04/23 Yamel Guerrero MD [address] [place] [address] PCP - CHARLIE Joseph [facility]02/26/24documented as of this encounter
--- OUTSIDE RECORDS SUMMARY | 2025-10-02 10:03 | XMS_ITS | Clinical Summary ---
Author Organization [facility] Address [address] [place] [address] Care Team Providers Care Chemical Processing Laborer Name Role Phone Yamel Guerrero MD Primary Care Provider [phone] Yamel Guerrero MD Unavailable Allergies No known [...] 4 MG tablet Indications:Nausea and vomiting in ([facility])Take 1 tablet (4 mg) by mouth every [...] nausea. 90 tablet Discontinued Pharmacist Choice Lancets [facility] [place] Indications:Gestational diabetes mellitus (GDM), [...] 1 kit Discontinued Active Problems ProblemNoted DateDiagnosed GfxfSljyyyg64/03/2023Obesity due to excess calories without serious mvsyunhwvdn37/03/2023Systemic lupus hpktrlojtpsdq11/05/2023 Elevated antinuclear antibody (ROSEMARY) level05/10/2023astroesophageal reflux disease without viphmieinfb78/14/2023Severe single current episode of major depressive disorder, without psychotic xhitgxgy18/14/9792Hhmfukjngol57/14/2023 Tonsillar nyyrhsxviaz01/12/2019Raynaud's twprhabuyr02/06/2019Undifferentiated connective tissue wnhdpsb3012/18/2017Estimated Date of DeliveryCommentsYes 11/14/2025ased on last menstrual period of 02/07/2025 Resolved Problems ProblemNoted DateDiagnosed DateResolved DateCarpal tunnel obitfezx25/14/2023 05/31/2023 Encounters DateTypeDepartmentCare JxdzUjzoasjqzxg30/03/2025linisync Result Encounter [facility] External Department Unsolicited Fabi Arita PA 09/24/2025bstract [facility] [address]VARADO [address] [place] [address] Jossy Bray, 09/23/2025 10:00 [place] [address] Jossy Bray, 32 weeks gestation of ([facility]); Third trimester ([facility]); Gestational diabetes mellitus (GDM), antepartum, gestational diabetes method of control unspecified([facility])09/23/2025amboo flowsheet [facility] Kaylen [address]O [address] [place] [address] Jossy Bray, 09/22/2025linisync Result Encounter [facility]OMS External Department Unsolicited Fabi Arita PA 09/22/20256687Zggaoy97/14/2025 10:50 AM EDTRoutine [facility] Kaylen MELGARGYN [address] [place] [address] Fabi Arita PA Third trimester ([facility]); 30 weeks gestation of ([facility])09/09/2025 10:00 AM EDTAncillary Procedure [facility] Kaylen MELGARGYN [address] [place] [address] Gestational diabetes mellitus (GDM), antepartum, gestational diabetes method of control unspecified([facility])09/08/20256083Ytaclb37/08/2025Clinisync Result Encounter NOMS External Department Unsolicited Provider, Generic External Data 08/27/2025 10:20 AM EDTRoutine [facility] OBGYN [address] [place] [phone] Catarina Barnes, [place] 28 weeks gestation of ([facility]); Third trimester ([facility]); Gestational diabetes mellitus (GDM), antepartum, gestational diabetes method of control unspecified([facility]); Diabetes mellitus tpwmuljjl51/01/2025bstract [facility] [place] [facility] [address] [place] [phone] Jossy Bray, DO 08/27/2025linisync Result Encounter [facility]OMS External Department Unsolicited Provider, Generic External Data 08/27/2025amboo flowsheet [facility] Kaylen [address] [phone] Catarina Barnes, [place] 08/13/2025 11:10 AM EDTRoutine [facility] [address] [place] [phone] Jossy Bray, 26 weeks gestation of ([facility]); Second trimester ([facility]); Gestational diabetes mellitus (GDM), antepartum, gestational diabetes method of control unspecified([facility])08/13/2025amboo flowsheet [facility] [address] [place] [address] Jossy Bray, 08/12/20258297Pperux08/15/2025bstract [facility] [address] [place] [phone] Jossy Bray, DO 08/04/2025 10:00 AM EDTAncillary Procedure [facility] [place] [place] [address] Encounter for follow-up ultrasound of anatomy ([facility])07/29/2025Travel 07/15/2025 9:00 AM EDTRoutine [facility] [address] [facility] [place] [address] Jossy Bray, Second trimester ([facility]); 22 weeks gestation of ([facility]); Encounter for follow-up ultrasound of anatomy ([facility])5Bamboo flowsheet [facility] [place] [facility] [address] [facility] [place] [address] Jossy Bray DO 07/08/20255358Hmvjvz73/07/2025 10:10 AM EDTRoutine [facility] [address] [place] [address] Jossy Bray, Second trimester ([facility]); 20 weeks gestation of ([facility])07/03/2025 9:00 AM EDTAncillary Procedure [facility] [address] [place] [phone] Screening, , for anatomic survey ([facility])5Abstract [facility] [address] [place] [address] Jossy Bray DO 07/02/2025Travelfrom Last 3 Months Family History Medical HistoryRelationNameCommentsCancerBrotherMatt dwight (thyroid cancer) CancerFatherDan dwight(throat cancer)StrokeFatherDan dwight(throat cancer)Throat cancerFatherDan dwight(throat cancer)AneurysmMaternal GrandfatherColon cancer Maternal GrandmotherArthritisMotherPatti byersArthritisMother's SisterAunt DiabetesMother's SisterAuntStrokePaternal GrandfatherDadRelationNameStatus CommentsBrotherMatt dwight (thyroid cancer)FatherDan dwight(throat cancer)Alive Maternal GrandfatherDeceasedMaternal GrandmotherDeceasedMotherPatti byersAlive Mother's SisterAuntPaternal [...] relatives?Once a week05/09/2023How often do you attend amish or rastafarian services?Never05/09/2023o you belong to any clubs or organizations such as amish groups, unions, fraternal or athletic groups, or school groups?No05/09/2023How often do you attend meetings of the clubs or organizations you belong to?Never05/09/2023re you , , , , never , or living with a partner?Living with qnfzqzp8005/09/2023 AUDIT-CAnswerDate RecordedQ1: How often do you have [...] very hard 05/09/2023HQ-2AnswerDate RecordedPatient Health Questionnaire-2 Score1 10/12/2023[facility] [place] [facility] - Occupational Stress QuestionnaireAnswerDate RecordedDo you feel stress - tense, restless, nervous, or anxious, or unable to sleep at night because yourmind is troubled all the time - these days?To some jyehkp3705/09/2023Exercise Vital SignAnswerDate Recorded On average, how many [...] in ashelter (including now)?No05/09/2023 Estimated Date of KrpjduohFbbhydqzDqe08/19/2025Based on last menstrual period of 02/07/2025Sex and Gender InformationValueDate RecordedSex Assigned at BirthFemale 04/30/2023 3:31 PM EDTLegal FtkRmjtrd67/15/2023 7:09 PM EDTGender IdentityFemale 04/30/2023 3:31 PM EDTSexual OrientationNot on file Last Filed Vital Signs Vital SignReadingTime TakenCommentsBlood Jqpjsmea614/7010 10:09 AM EDT Koqhp4872 4:27 PM LLVAsnqwbhkwkd54 ??C (98.6 ??F)10/23/2023 4:27 PM EST Respiratory Jwmq705912/23/2022 4:27 PM ESTOxygen Vmqvalbpqu01%10/23/2023 4:27 PM ESTInhaled Oxygen Concentration--Lnjlzf925 kg (246 lb 12.8 oz)09/23/2025 10:09 AM WVCPzesfw457.6 cm (5' 4 )10/23/2023 4:27 PM ESTBody Mass Index42.36112/23/2022 4:27 PM EST Plan of Treatment DateTypeDepartmentCare Team (Latest Contact Info)Qzcjkypfqsi99/12/2025 11:00 AM ESTAncillary Procedure [facility] ALVARADO [address] [place] [address] [place] [address] 10/08/2025 11:30 AM ESTRoutine NOMVivienne ALVARADO [address] [place] [address] [place] [address] Fabi Arita PA [address] [facility] [address] [place], [place] [phone] Health MaintenanceDue DateLast DoneCommentsCOVID-19 Vaccine ( season) 2025Influenza Vaccine (#1)/, 10/17/2019Cervical Cancer Opziodywu24/07/2030HPV/Rhrzki51/07//3Pap Smear/05/2025, 2Pneumococcal Vaccine: Pediatrics (0 to 5 Years) and At-Risk Patients (6 to 64 Years)Aged OutNo longer eligible based on patient's age to complete this topic Procedures Procedure NamePriorityDate/TimeAssociated DiagnosisCommentsUS OB BPP W NON-TAHZEU2509/29/2025 3:51 PM EST POCT URINALYSIS DTAICWIPCkinect49/28/2025 10:15 AM EDT 32 weeks gestation of ([facility]) Third trimester ([facility]) US OB BPP W NON-AAUADJ6309/22/2025 10:42 PM EDT POCT URINALYSIS TLXXOOQJRpnfvab56/14/2025 11:15 AM EDT 30 weeks gestation of ([facility]) US OB FOLLOW UP TRANSABDOMINAL XHJPDSIEKdisxzf78/14/2025 10:39 AM EDT Gestational diabetes mellitus (GDM), antepartum, gestational diabetes method of control unspecified([facility]) MLR HEMOGLOBIN O1ZQuxbrje76/08/2025 10:44 AM EDT ALL CBC WITH AUTO QWUWYbshuns48/08/2025 10:44 AM EDT US OB NAFVOM0508/27/2025 11:15 AM EDT POCT URINALYSIS SKTJHTPZZwmgbmt65/01/2025 10:37 AM EDT 28 weeks gestation of ([facility]) Third trimester ([facility]) POCT URINALYSIS BPVFNKQXWxkmxzc95/17/2025 11:24 AM EDT 26 weeks gestation of ([facility]) Second trimester ([facility]) US OB LIMITED 1+ GRUYXKEJzuwljk60/08/2025 10:29 AM EDT Encounter for follow-up ultrasound of anatomy ([facility]) POCT URINALYSIS OUBUIMLLNmwwcax10/19/2025 9:30 AM EDT Second trimester ([facility]) 22 weeks gestation of ([facility]) POCT URINALYSIS NNVCUQDTMwxehvf27/07/2025 10:25 AM EDT Second trimester ([facility]) 20 weeks gestation of ([facility]) US OB 14+ WEEKS ANATOMY HBNPOfrbuxu85/07/2025 9:59 AM EDT Screening, , for anatomic survey ([facility]) PAP RXPWFDltyrtz30/07/2025 12:00 AM EDTTHINPREP PAP AND HPV MRNA E6/E7 W/RFL HPV 16,18/38Yagfrgt49/17/2023 10:11 AM EDT Well woman exam with routine gynecological exam from Last 3 Months or Most Recently Relevant to Health Maintenance Results * US OB BPP W NON-STRESS (09/29/2025 3:51 PM EST) Only the most recent of2 resultswithin the time period is included. Anatomical RegionLateralityModalityOtherSpecimen (Source)Anatomical Location / LateralityCollection Method / VolumeCollection TimeReceived Time09/29/2025 3:51 PM EST Narrative 09/29/2025 3:54 PM EST [facility] ?[address] ? [place] [address] ? Ultrasound Report ? Signed ? Patient: BETTY THOMPSON ? MR#: [id number] ?? : 1990 ?Acct:[id number] ?? Age/Sex: 35 / F ?ADM Date: 09/29/25 ?? Loc: US ? Attending Dr: Fabi Arita ? Ordering Physician: Fabi Arita ?? Date of Service: 09/29/25 ?? Procedure(s): US OB BPP w non-stress ?? Accession Number(s): [id number] ? cc: Fabi Arita; YAMEL GUERRERO ? [facility] ? [address] ? [place] [address] ? Patient Name: ?? BETTY THOMPSON ? MRN: [id number] ? date: 1990 ?Sex: F ?? Assigned Patient Location: [facility] ?? Current Patient Location: US ?? Accession/Order Number: [id number] ?? Exam Date: 09/29/2025 ??11:40 ?Report Date: 09/29/2025 ??15:51 ? At the request of: ?? FABI ??JUAN J ? Procedure: ??US OB BPP w non-stress ? Ultrasound biophysical profile ? INDICATION: 30 weeks gestation ? COMPARISON: 09/22/2025 ? FINDINGS IMPRESSION: Cephalic position. ?? heart rate 163 beats per ?? minutes. ??PACO measures 11.1 cm 07/04 score biophysical profile ? Impression dictated by: Alex Rich M.D. ??09/29/2025 3:51 PM ? Dictation Location: RADIO-PC-23 ? Electronically authenticated by: [id number] ??Y ?? Date: 09/29/2025 ??15:51 ? Dictated By: ?Alxe Rich M.D. ? Signed By: ?09/29/25 1554 ? DD/ 1551 ? TD/TT: ? Line Builder: Procedure Note Radiology, Radiologist, - 09/29/2025 [place] [address] Ultrasound Report Signed Patient: BETTY THOMPSON RMR#: [id number] : 1990Acct:[id number] Age/Sex: 35 / FADM Date: 09/29/25 Loc: US Attending Dr: Fabi Arita Ordering Physician: Fabi Arita Date of Service: 09/29/25 Procedure(s): US OB BPP w non-stress Accession Number(s): [id number] cc: Fabi Arita; YAMEL GUERRERO [address] [address] Patient Name: BETTY THOMPSON MRN: [facility]:[id number] date: 1990 Sex: F Assigned Patient Location: [facility] Current Patient Location: US Accession/Order Number: [id number] Exam Date: 09/29/2025 11:40 Report Date: 09/29/2025 15:51 At the request of: FABI ARITA Procedure: US OB BPP w non-stress Ultrasound biophysical profile INDICATION: 30 weeks gestation COMPARISON: 09/22/2025 FINDINGS IMPRESSION: Cephalic position. heart rate 163 beats per minutes. PACO measures 11.1 cm 8/8 score biophysical profile Impression dictated by: Alex Rich M.D. 09/29/2025 3:51 PM Dictation Location: [place] [address] Electronically authenticated by: [id number] Y Date: :51 Dictated By: Alex Rich M.D. Signed By:09/29/25 1554 DD/ 1551 TD/TT: Line Builder: Authorizing ProviderResult TypeResult StatusAmy [facility] IMAGINGFinal Result * (ABNORMAL) POCT urinalysis dipstick manually [...] Location / LateralityCollection Method / VolumeCollection TimeReceived WdnkJcsdg95/28/2025 10:15 AM EDT Narrative Authorizing ProviderResult TypeResult [...] percentile weight was 57.7% and estimated deliver wasDecember 2024. IMPRESSION: Single, live intrauterine , current sonographic age of 31 weeksand 4 days, with an estimated date of delivery of November 07, 2025 * Estimated Weight (g) by Percentile is based upon an accurateestimated age based on last menstrual period. TRANSCRIBED BY: ELECTRONICALLY SIGNED BY: Michael Dennis MD Authorizing ProviderResult TypeResult StatusCorejulio cesar [place] OB US PROCEDURES Final Result * MLR HEMOGLOBIN A1C (09/03/2025 10:44 AM EDT)ComponentValueRef RangeTest Method Analysis TimePerformed AtPathologist SignatureGLYCOHEMOGLOBIN A1C5.24.5 - 6.2 %TBHComment: ADA RECOMMENDED LIMIT 4.0 - 6.0 ADA THERAPEUTIC TARGET < 7.0 ACTION SUGGESTED > 7.0 ESTIMATED AVERAGE MOKTKGB701qg/dLTBHSpecimen (Source)Anatomical Location / LateralityCollection Method / VolumeCollection TimeReceived Time09/03/2025 10:44 AM EDT1 10:45 AM EDT Narrative [facility] - 09/03/2025 12:20 PM EDT Authorizing ProviderResult TypeResult StatusCatarnia Barnes NPCLINISYNCFinal ResultPerforming OrganizationAddressCity/State/ZIP CodePhone Number [facility] * (ABNORMAL) ALL CBC WITH AUTO DIFF (09/03/2025 10:44 AM EDT)ComponentValueRef RangeTest MethodAnalysis TimePerformed AtPathologist SignatureTBH WBC10.64.0 - 11.0 10 3/uLTBHTBH RBC3.60(L)4.20 - 5.40 10 6/uLTBHTBH HGB12.112.0 - 16.0 g/dL TBHTBH HCT35.6(L)36.0 - 48.0 %TBHTBH MCV98.981.0 - 99.0 fLTBHTBH MCH33.626.7 - 34.0 pgTBHTBH MCHC34.029.9 - 35.2 g/dLTBHTBH RDW14.311.0 - 15.0 %TBHTBH PQE646 150 - 450 10 3/uLTBHTBH MPV11.29.5 - [...] 09/03/2025 10:56 AM EDT Authorizing ProviderResult TypeResult StatusCatarina Barnes NPCLINISYNCFinal ResultPerforming OrganizationAddressCity/State/ZIP CodePhone Number [facility]NC [facility] * US OB GROWTH (08/27/2025 11:15 AM EDT)Anatomical RegionLateralityModalityOther Specimen (Source)Anatomical Location / LateralityCollection Method / Volume Collection TimeReceived Time08/27/2025 11:15 AM EDT Narrative 08/27/2025 11:17 AM EDT [facility] ?[address] ? [place] [address] ? Ultrasound Report ? Signed ? Patient: BETTY THOMPSON R ? MR#: [id number] ?? : 1990 ?Acct:[id number] ?? Age/Sex: 35 / F ?ADM Date: 08/27/25 ?? Loc: US ? Attending Dr: Jossy Bray D.O. ? Ordering Physician: Jossy Bray D.O. ?? Date of Service: 08/27/25 ?? Procedure(s): US OB growth ?? Accession Number(s): [id number] ? cc: YAMEL GUERRERO ; Jossy Bray D.O. ? [facility] ? [address] [facility] ? [place] [address] ? Patient Name: ?? BETTY THOMPSON ? MRN: [facility]:[id number] ? date: 1990 ?Sex: F ?? Assigned Patient Location: ?? Current Patient Location: US ?? Accession/Order Number: [id number] ?? Exam Date: 08/27/2025 ??09:52 ?Report Date: [...] M.D. ??08/27/2025 11:15 AM ? Dictation Location: [place] [address] ? Electronically authenticated by: [id number] ??Y ?? Date: 08/27/2025 ??11:15 ? Dictated By: ?Sonia Hernandez M.D. ? Signed By: ?08/27/251116 ? DD/ 1115 ? TD/TT: ? Line Builder: Procedure Note Radiology, Radiologist, MD - 08/27/2025 [place] [address] Ultrasound Report Signed Patient: BETTY THOMPSON RMR#: [id number] : 1990Acct:[id number] Age/Sex: 35 / FADM Date: 08/27/25 Loc: US Attending Dr: Jossy Bray D.O. Ordering Physician: Jossy Bray D.O. Date of Service: 08/27/25 Procedure(s): US OB growth Accession Number(s): [id number] cc: YAMEL GUERRERO ; Jossy Bray D.O. The [address] [address] Patient Name: BETTY THOMPSON MRN: [id number]:[id number] date: 1990 Sex: F Assigned Patient Location: US Current Patient Location: US Accession/Order Number: [id number] Exam Date: 08/27/2025 09:52 Report Date: 08/27/2025 [...] Hernandez M.D. 08/27/2025 11:15 AM Dictation Location: [place] [address] Electronically authenticated by: [id number] Y Date: 1:15 Dictated By: Sonia Hernandez M.D. Signed By:08/27/25 1117 DD/ 1115 TD/TT: Line Builder: Authorizing ProviderResult TypeResult StatusGeneric External Data Provider [facility] IMAGINGFinal Result * US OB limited 1+ fetuses (08/04/2025 10:29 AM EDT)Anatomical RegionLaterality ModalityBodyUltrasoundSpecimen (Source)Anatomical Location / Laterality Collection Method / VolumeCollection TimeReceived Time08/05/2025 11:00 AM EDT Impressions 08/05/2025 11:40 AM EDT Adequate morphologic evaluation, appropriate for age TRANSCRIBED BY: ? ELECTRONICALLY SIGNED BY: Michael Dennis MD [facility] 08/05/2025 11:40 AM EDT FINDINGS: Single viable [...] Dennis MD Authorizing ProviderResult TypeResult StatusCorey Katarina [facility] OB US PROCEDURES Final Result * US [...] Dennis MD Authorizing ProviderResult TypeResult StatusCorey Katarina [facility] US PROCEDURES Final Result * Pap Smear (06/02/2025 12:00 AM EDT)Specimen (Source)Anatomical Location / LateralityCollection Method / VolumeCollection TimeReceived TimeSwabCervical swab / Unknown Narrative Authorizing ProviderResult TypeResult StatusCorejulio cesar Bray DOLAB CYTOLOGY ORDERABLESFinal ResultPerforming OrganizationAddressCity/State/ZIP CodePhone Number EXTERNAL LAB * THINPREP PAP AND HPV MRNA E6/E7 W/RFL HPV 16,18/45 (07/13/2023 10:11 AM EDT) Narrative Authorizing ProviderResult TypeResult StatusAmy Juan J RITTER BLOOD ORDERABLES Final ResultPerforming OrganizationAddressCity/State/ZIP CodePhone Number EXTERNAL LAB from Last 3 Months or Most Recently Relevant to Health Maintenance Insurance Care Teams Team MemberRelationshipSpecialtyStart DateEnd Date Yamel Guerrero MD [address], [place] [id number] PCP - GeneralFamily Medicine05/04/23 Yamel Guerrero MD [address], [place] [address] PCP - [facility]02/26/24
--- OUTSIDE RECORDS SUMMARY | 2025-10-02 10:03 | XMS_ITS | Encounter Summary ---
Author Organization [facility] Address [address] [place] [address] Care Team Providers Care Biomedical Engineering Director Name Role Phone Mino East MD Primary Care Provider [phone] Mino East MD Unavailable Encounter Details DateTypeDepartmentCare Team (Latest Contact Info)Iidsiydchml24/03/2025Clinisync Result Encounter [facility] External Department Unsolicited Fabi Arita PA [address] [place] [address] [place], [place] [id number] Social History Tobacco UseTypesPacks/DayYears UsedDateSmoking Tobacco: NeverSmokeless [...] relatives?Once a week05/09/2023How often do you attend worship or sabianism services?Never05/09/2023o you belong to any clubs or organizations such as worship groups, unions, fraternal or athletic groups, or school groups?No05/09/2023How often do you attend meetings of the clubs or organizations you belong to?Never05/09/2023re you , , , , never , or living with a partner?Living with hkentvh6705/09/2023 AUDIT-CAnswerDate RecordedQ1: How often do you have [...] Health Questionnaire-2 Score1 10/12/2023[facility] [place] of Occupational Health - Occupational Stress QuestionnaireAnswerDate RecordedDo you feel stress - tense, restless, nervous, or anxious, or unable to sleep at night because yourmind is troubled all the time - these days?To some gjacfz8905/09/2023Exercise Vital SignAnswerDate Recorded On average, how many [...] in ashelter (including now)?No05/09/2023 Estimated Date of BpwyyjpaNhuospkaSdn34/19/2025Based on last menstrual period of 02/07/2025Sex and Gender InformationValueDate RecordedSex Assigned at BirthFemale 04/30/2023 3:31 PM EDTLegal GguKyeero30/15/2023 7:09 PM EDTGender IdentityFemale 04/30/2023 3:31 PM EDTSexual OrientationNot on filedocumented as of this encounter Plan of Treatment DateTypeDepartmentCare Team (Latest Contact Info)Jbiagxagvji10/12/2025 11:00 AM ESTAncillary Procedure [facility] Kaylen ALVARADO [address] [place] [address] [place] [address] 10/08/2025 11:30 AM ESTRoutine [facility] Kaylen ALVARAOD [address] [facility] [place] [phone] Fabi Arita PA [address] [facility] [address] [place], [place] [phone] documented as of this encounter Procedures Procedure NamePriorityDate/TimeAssociated DiagnosisCommentsUS OB BPP W NON-EYRLOU9909/29/2025 3:51 PM EST documented in this encounter Results * US OB BPP W NON-STRESS (09/29/2025 3:51 PM EST)Anatomical Region LateralityModalityOtherSpecimen (Source)Anatomical Location / Laterality Collection Method / VolumeCollection TimeReceived Time09/29/2025 3:51 PM EST Narrative 09/29/2025 3:54 PM EST [facility] ?[address] ? [place], [facility] ? Ultrasound Report ? Signed ? Patient: DONNA,MERCEDES R ? MR#: [id number] ?? : 1990 ?Acct:[id number] ?? Age/Sex: 35 / F ?ADM Date: 09/29/25 ?? Loc: US ? Attending Dr: Fabi Arita ? Ordering Physician: Fabi Arita ?? Date of Service: 09/29/25 ?? Procedure(s): US OB BPP w non-stress ?? Accession Number(s): [id number] ? cc: Fabi Arita; CRUZITOMINO ? [facility] ? [address] ? [place] [address] ? Patient Name: ?? MERCEDES THOMPSON ? MRN: [facility]:[id number] ? date: 1990 ?Sex: F ?? Assigned Patient Location: [facility] ?? Current Patient Location: US ?? Accession/Order Number: [id number] ?? Exam Date: 09/29/2025 ??11:40 ?Report Date: 09/29/2025 ??15:51 ? At the request of: ?? FABI ??JUAN J ? Procedure: ??US OB BPP w non-stress ? Ultrasound biophysical profile ? INDICATION: 30 weeks gestation ? COMPARISON: 09/22/2025 ? FINDINGS IMPRESSION: Cephalic position. ?? heart rate 163 beats per ?? minutes. ??PACO measures 11.1 cm 8/8 score biophysical profile ? Impression dictated by: Alex Rich M.D. ??09/29/2025 3:51 PM ? Dictation Location: RADIO-PC-23 ? Electronically authenticated by: [id number] ??Y ?? Date: 09/29/2025 ??15:51 ? Dictated By: ?Alex Rich M.D. ? Signed By: ?09/29/25 1554 ? DD/ 1551 ? TD/TT: ? Director Engineering: Procedure Note Radiology, Radiologist, MD - 09/29/[address] [address] Ultrasound Report Signed Patient: MERCEDES THOMPSON RMR#: [id number] : 1990Acct:[id number] Age/Sex: 35 / FADM Date: 09/29/25 Loc: US Attending Dr: Fabi Arita Ordering Physician: Fabi Arita Date of Service: 09/29/25 Procedure(s): US OB BPP w non-stress Accession Number(s): [id number] cc: Fabi Arita; [place] [id number] Patient Name: MERCEDES THOMPSON MRN: [facility]:[id number] date: 1990 Sex: F Assigned Patient Location: [facility] Current Patient Location: US Accession/Order Number: [id number] Exam Date: 09/29/2025 11:40 Report Date: 09/29/2025 15:51 At the request of: FABI ARITA Procedure: US OB BPP w non-stress Ultrasound biophysical profile INDICATION: 30 weeks gestation COMPARISON: 09/22/2025 FINDINGS IMPRESSION: Cephalic position. heart rate 163 beats per minutes. PACO measures 11.1 cm 8/8 score biophysical profile Impression dictated by: Alex Rich M.D. 09/29/2025 3:51 PM Dictation Location: [place] [address] Electronically authenticated by: [id number] Y Date: 5:51 Dictated By: Alex Rich M.D. Signed By:09/29/25 1554 DD/ 1551 TD/TT: Director Engineering: Authorizing ProviderResult TypeResult StatusFabi Arita PACLINISYNC IMAGINGFinal Result documented in this encounter Visit Diagnoses Not on filedocumented in this encounter Additional Health Concerns AssessmentNoted TimePHQ-9 Depression Total Score: 9:00 AM EST documented as of this encounter Care Teams Team MemberRelationshipSpecialtyStart DateEnd Date Mino East MD [address] [place] [address] PCP - GeneralFamily Medicine05/04/23 Mino East MD [address] [place] [address] PCP - CHARLIE Joseph [facility]02/26/24documented as of this encounter
[2025-10-02 10:09] VITALS: BP 122/58; PULSE 90
== END 2025-10-02 10:38 | disposition home or self-care (01) ==
LOC: FBCO 10:00 → FBC 10:03
PROVIDERS: PCP Family Medicine; Visit Provider Obstetrics & Gynecology
DX: O26.893 Other specified pregnancy related conditions, third trimester (principal); Z3A.33 33 weeks gestation of pregnancy
CPT/HCPCS: 59025

== ENCOUNTER 2025-10-06 11:26 | Outpatient (OUT) | payer MEDICAID, SELFPAY ==
--- OUTSIDE RECORDS SUMMARY | 2025-08-27 09:20 | XMS_ITS | Encounter Summary ---
Author Organization [facility] Address [address] [place] [address] Care Team Providers Care Grocery Worker Name Role Phone Yamel Guerrero MD Primary Care Provider [phone] Yamel Guerrero MD Unavailable Reason for Visit * ReasonCommentsRoutine Visit Encounter Details DateTypeDepartmentCare Team (Latest Contact Info)Vcycazuogut65/01/2025 10:20 AM EDTRoutine [facility] [address] [place] [address] Catarina Barnes, [place] [address] [place] [address] 28 weeks gestation of ([facility]); Third trimester ([facility]); Gestational diabetes mellitus (GDM), antepartum, gestational diabetes method of control unspecified([facility]); Diabetes mellitus screening Social History Tobacco UseTypesPacks/DayYears UsedDateSmoking Tobacco: NeverSmokeless Tobacco: NeverAlcohol UseStandard Drinks/WeekCommentsNever0 (1 standard drink = 0.6 oz pure alcohol)caffeine: 2-3 cups per dayHumiliation, Afraid, Rape, and Kick questionnaireAnswerDate RecordedWithin the last year, have you been afraid of your partner or ex-partner?No05/09/2023Within the last year, have you been humiliated or emotionally abused in other ways by your partner or ex-partner?No 05/09/2023Within the last year, have you been kicked, hit, slapped, or otherwise physically hurt by your partner or ex-partner?No05/09/2023Within the last year, have you been raped or forced to have any kind of sexual activity by your part ner or ex-partner?No05/09/2023Social Connection and Isolation PanelAnswerDate RecordedIn a typical week, how many times do you talk on the phone with family, friends, or neighbors?More than three times a week05/09/2023How often do you get together with friends or relatives?Once a week05/09/2023How often do you attend faith or anabaptist services?Never05/09/2023o you belong to any clubs or organizations such as faith groups, unions, fraternal or athletic groups, or school groups?No05/09/2023How often do you attend meetings of the clubs or organizations you belong to?Never05/09/2023re you , , , , never , or living with a partner?Living with vfwbbvt4605/09/2023 AUDIT-CAnswerDate RecordedQ1: How often do you have a drink containing alcohol? Never05/09/2023Q2: How many drinks containing alcohol do you have on a typical day when you are drinking?Patient does not drink05/09/2023Q3: How often do you have six or more drinks on one occasion?Never05/09/2023Overall Financial Resource Strain (CARDIA)AnswerDate RecordedHow hard is it for you to pay for the very basics like food, housing, medical care, and heating?Not very hard 05/09/2023HQ-2AnswerDate RecordedPatient Health Questionnaire-2 Score1 10/12/2023[facility] - Occupational Stress QuestionnaireAnswerDate RecordedDo you feel stress - tense, restless, nervous, or anxious, or unable to sleep at night because yourmind is troubled all the time - these days?To some qwrvrc7905/09/2023Exercise Vital SignAnswerDate Recorded On average, how many days per week do you engage in moderate to strenuous exercise (like a brisk walk)?5 days05/09/2023On average, how many minutes do you engage in exercise at this level?40 min05/09/2023Hunger Vital SignAnswerDate RecordedWithin the past 12 months, you worried that your food would run out before you got the money to buymore.Never true05/09/2023Within the past 12 months, the food you bought just didn't last and you didn't have money to get more.Never true05/09/2023RAPARE - TransportationAnswerDate RecordedIn the past 12 months, has lack of transportation kept you from medical appointments or from getting medications?No05/09/2023In the past 12 months, has lack of transportation kept you from meetings, work, or from getting things needed for daily living?No05/09/2023Housing Stability Vital SignAnswerDate RecordedIn the last 12 months, was there a time when you were not able to pay the mortgage or rent on time?No05/09/2023In the last 12 months, how many places have you lived?1 05/09/2023In the last 12 months, was there a time when you did not have a steady place to sleep or slept in [facility] (including now)?No05/09/2023 Estimated Date of NlkriwafHnscsedrNtr42/19/2025Based on last menstrual period of 02/07/2025Sex and Gender InformationValueDate RecordedSex Assigned at BirthFemale 04/30/2023 3:31 PM EDTLegal JakWtiacd77/15/2023 7:09 PM EDTGender IdentityFemale 04/30/2023 3:31 PM EDTSexual OrientationNot on filedocumented as of this encounter Last Filed Vital Signs Vital SignReadingTime TakenCommentsBlood Fpwttnao524/7008/27/2025 10:32 AM EDT Pulse--Temperature--Respiratory Rate--Oxygen Saturation--Inhaled Oxygen Concentration--Hggxtw833 kg (243 lb 1.9 oz)08/27/2025 10:32 AM EDTHeight--Body Mass Index41.7310/23/2023 4:27 PM ESTdocumented in this encounter Progress Notes * Catarina Barnes NP - 08/27/2025 10:20 AM EDT Reason for Appointment: Patient ID: Betty Quintanilla is a 35 y.o. female who presents for Routine Visit Patient presents today for Return OB appointment. MEDICATIONS Current Outpatient Medications Medication Instructions albuterol HFA 90 mcg/act inhaler 2 puffs, Inhalation, Every 4 hours PRN Alcohol Swabs (Alcohol Prep Pad) 70 % pads 1 Pad, Topical, Daily, Use four times daily to check FSBS. Blood Glucose Monitoring Suppl ([employer] Glucometer) w/Device kit 1 kit, Does not [...] as needed for nausea. Pharmacist Choice Lancets [facility] USE 1 LANCET TO CHECK FSBS 4 [...] Tonsillar hypertrophy 10/08/2019 Undifferentiated connective tissue disease (HCC) 12/18/2017 Systemic lupus erythematosus (HCC) 05/31/2023 Anxiety 06/29/2023 Obesity due to excess calories without serious comorbidity 06/29/2023 Resolved Ambulatory Problems Diagnosis Date Noted Carpal tunnel syndrome 05/10/2023 Past Medical History: Diagnosis Date ROSEMARY positive Autoimmune disorder (HCC) COPD (chronic obstructive pulmonary [...] Father Panda dwight(throat cancer) Stroke Father Panda dwight(throat cancer) Cancer Father Panda dwight(throat cancer) Colon cancer Maternal Grandmother Aneurysm Maternal [...] nursing note reviewed. Exam conducted with a termite exterminator helper present. Vitals: Estimated body mass index is 41.73 kg/m?? as calculated from the following: Height as of 11/27/23: 5' 4 . Weight as of this encounter: 243 lb 1.9 oz. BP: 110/70 Patient's last menstrual period was 02/07/2025. ASSESSMENT & PLAN ICD-10-CM 1. 28 weeks gestation of ([facility]) Z3A.28 POCT urinalysis dipstick manually resulted 2. Third trimester ([facility]) Z34.93 POCT urinalysis dipstick manually resulted 3. Gestational diabetes mellitus (GDM), antepartum, gestational diabetes method of control unspecified ([facility]) O24.419 Hemoglobin A1c 4. Diabetes mellitus screening Z13.1 CBC CBC Hemoglobin A1c CANCELED: Glucose tolerance, 1 hour CANCELED: Glucose tolerance, 1 hour Return OB: Patient presents today for a routine obstetrics appointment. Patient is currently 28w5d . Patient states she is doing well but has complaints of being tired due to current . Patient has verbalizes frequent movement. labor precautions was discussed/given and patient was instructed to perform kick counts three times a day. Patient with complaints of carpal tunnel symptoms. She does have a cock up wrist splint and this has helped with symptoms. Reviewed glucose logs today and is maintaining good control with diet. Orders Placed This Encounter Procedures CBC Hemoglobin A1c POCT urinalysis dipstick manually resulted Follow Up: Patient is to return to office in 3 week for routine OB appointment. Documented by Catarina Barnes NP on behalf of: Catarina Barnes NP documented in this encounter Plan of Treatment DateTypeDepartmentCare Team (Latest Contact Info)Zptpzahxsjq55/12/2025 11:00 AM ESTAncillary Procedure [facility] [address] [place] [phone] 10/08/2025 11:30 AM ESTRoutine [facility] [address] [place] [phone] Fabi Martinez PA [address] [place] [address] NameTypePriorityAssociated DiagnosesOrder ScheduleCBCLabRoutine Diabetes mellitus screening Expected: 08/27/2025 (Approximate), Expires: 08/27/2026Hemoglobin [id number] Gestational diabetes mellitus (GDM), antepartum, gestational diabetes method of control unspecified([facility]) Diabetes mellitus screening Ordered: 08/27/2025documented as of this encounter Procedures Procedure NamePriorityDate/TimeAssociated DiagnosisCommentsPOCT URINALYSIS APCJPAAQSmxouya64/01/2025 10:37 AM EDT 28 weeks gestation of ([facility]) Third trimester ([facility]) documented in this encounter Results * POCT urinalysis dipstick manually resulted (08/27/2025 10:37 AM EDT)Component ValueRef RangeTest MethodAnalysis TimePerformed AtPathologist SignatureColor, UAYellowClarity, UAClearGlucose, UANegativeNegative - 2000(110) ++++ mg/dL Bilirubin, UANegativeNegative - 4(70) +++ mg/dLKetones, UANegativeNegative - 160(16) ++++ mg/dLSpec Grav, UA1.0101 - 1.03Blood, UANegativeNegative - 50 Nico/mcLpH, UA6.55 - 9Protein, UANegativeNegative - 2000(20) ++++ mg/dL Urobilinogen, UA1.00.2 - 12 mg/dLLeukocytes, UANegativeNegative - 500+++ Karson/mcLNitrite, UANegativeNegative - PositiveSpecimen (Source)Anatomical Location / LateralityCollection Method / VolumeCollection TimeReceived Time Urine08/27/2025 10:37 AM EDT Narrative Authorizing ProviderResult TypeResult StatusCatarina Barnes NPPOINT OF CARE TEST ENTER/EDIT ORDERABLESFinal Result documented in this encounter Visit Diagnoses Diagnosis 28 weeks gestation of ([facility]) Third trimester ([facility]) state, incidental Gestational diabetes mellitus (GDM), antepartum, gestational diabetes method of control unspecified([facility]) Diabetes mellitus screening Screening for diabetes mellitus documented in this encounter Additional Health Concerns AssessmentNoted TimePHQ-9 Depression Total Score: 9:00 AM EST documented as of this encounter Care Teams Team MemberRelationshipSpecialtyStart DateEnd Date Yamel Guerrero MD [address] [place], [place] [id number] PCP - GeneralFamily Medicine05/04/23 Yamel Guerrero MD [address] [place] [address] PCP - [facility]02/26/24documented as of this encounter
--- OUTSIDE RECORDS SUMMARY | 2025-09-23 09:00 | XMS_ITS | Encounter Summary ---
Author Organization [facility] Address [address] [place] [address] Care Team Providers Care Senior Planning Manager Name Role Phone Yamel Guerrero MD Primary Care Provider [phone] Yamel Guerrero MD Unavailable Reason for Visit * ReasonCommentsRoutine Visit Encounter Details DateTypeDepartmentCare Team (Latest Contact Info)Hlrtponsnfr59/28/2025 10:00 AM EDTRoutine [facility] [address] [place] [phone] Luis E Bray DO [address] [place] [place], [place] [id number] 32 weeks gestation of ([facility]); Third trimester ([facility]); Gestational diabetes mellitus (GDM), antepartum, gestational diabetes method of control unspecified([facility]) Social History Tobacco UseTypesPacks/DayYears UsedDateSmoking Tobacco: NeverSmokeless [...] relatives?Once a week05/09/2023How often do you attend episcopalian or zoroastrian services?Never05/09/2023o you belong to any clubs or organizations such as episcopalian groups, unions, fraZurex Pharma or athletic groups, or school groups?No05/09/2023How often do you attend meetings of the clubs or organizations you belong to?Never05/09/2023re you , , , , never , or living with a partner?Living with hqtwtwv0205/09/2023 AUDIT-CAnswerDate RecordedQ1: How often do you have [...] very hard 05/09/2023HQ-2AnswerDate RecordedPatient Health Questionnaire-2 Score1 10/12/2023[facility] [place] [facility] Occupational Health - Occupational Stress QuestionnaireAnswerDate RecordedDo you feel stress - tense, restless, nervous, or anxious, or unable to sleep at night because yourmind is troubled all the time - these days?To some jtkxsg7805/09/2023Exercise Vital SignAnswerDate Recorded On average, how many [...] steady place to sleep or slept in junturaelter (including now)?No05/09/2023 Estimated Date of OdimjosrJbqxyhviMyq87/19/2025Based on last menstrual period of 02/07/2025Sex and Gender InformationValueDate RecordedSex Assigned at BirthFemale 04/30/2023 3:31 PM EDTLegal MnyJghffo49/15/2023 7:09 PM EDTGender IdentityFemale 04/30/2023 3:31 PM EDTSexual OrientationNot on filedocumented as of this encounter Last Filed Vital Signs Vital SignReadingTime TakenCommentsBlood Ukkagykn773/7009/23/2025 10:09 AM EDT Pulse--Temperature--Respiratory Rate--Oxygen Saturation--Inhaled Oxygen Concentration--Buegrv568 kg (246 lb 12.8 oz)09/23/2025 10:09 AM EDTHeight--Body Mass Index42.36112/23/2022 4:27 PM ESTdocumented in this encounter Progress Notes * Sonia Coker LPN - 09/23/2025 10:00 AM EDT Reason for Appointment: Patient ID: Mercedes Quintanilal is a 35 y.o. female who presents for Routine Visit Patient presents today for Return OB appointment. MEDICATIONS Current Outpatient Medications Medication Instructions MV-Min-Fe Fum-FA-DHA ( 1 PO) 1 tablet, Daily ALLERGIES No Known Allergies PROBLEMS Active Ambulatory Problems Diagnosis Date Noted Elevated antinuclear antibody (ROSEMARY) level 05/10/2023 Gastroesophageal reflux disease without esophagitis 05/10/2023 Raynaud's phenomenon 08/02/2019 Severe single current episode of major depressive disorder, without psychotic features (HCC) 05/10/2023 Thyromegaly 05/10/2023 Tonsillar hypertrophy 10/08/2019 Undifferentiated [...] Mother Urszula dwight Throat cancer Father Panda quintanilla(throat cancer) Stroke Father Panda quintanilla(throat cancer) Cancer [...] nursing note reviewed. Exam conducted with a senior portfolio analyst present. Vitals: Estimated body mass index is 42.36 kg/m?? as calculated from the following: Height as of 10/23/23: 5' 4 . Weight as of this encounter: 246 lb 12.8 oz. BP: 110/70 Patient's last menstrual period was 02/07/2025. Assessment/Plan ICD-10-CM 1. 32 weeks gestation of ([facility]) Z3A.32 POCT urinalysis dipstick manually resulted 2. Third trimester ([facility]) Z34.93 POCT urinalysis dipstick manually resulted 3. Gestational diabetes mellitus (GDM), antepartum, gestational diabetes method of control unspecified ([facility]) O24.419 Return OB: Patient presents today for a routine obstetrics appointment. Patient is currently 32w4d . Patient states she is doing well but has complaints of being tired due to current . Patient has verbalizes frequent movement. labor precautions was discussed/given and patient was instructed to perform kick counts three times a day. Reviewed glucose log with pt in detail.Pt to continue NST/BPP Orders Placed This Encounter Procedures POCT urinalysis dipstick manually resulted Follow Up: Patient is to return to office in 2 week for routine OB appointment. Documented by Sonia Coker LPN on behalf of: Luis E Bray DO documented in this encounter Plan of Treatment DateTypeDepartmentCare Team (Latest Contact Info)Tvxmpumarug35/12/2025 11:00 AM ESTAncillary Procedure [facility] [address] [place] [phone] 10/08/2025 11:30 AM ESTRoutine [facility] [address] [place] [phone] Fabi Martinez PA [address] [place], [place] [phone] documented as of this encounter Procedures Procedure NamePriorityDate/TimeAssociated DiagnosisCommentsPOCT URINALYSIS NJULUGNGIxksxgl48/28/2025 10:15 AM EDT 32 weeks gestation of ([facility]) Third trimester ([facility]) documented in this encounter Results * (ABNORMAL) POCT urinalysis dipstick manually resulted (09/23/2025 10:15 AM EDT)ComponentValueRef RangeTest MethodAnalysis TimePerformed AtPathologist SignatureColor, UAYellowClarity, UAClearGlucose, UANegativeNegative - 2000(110) ++++ mg/dLBilirubin, UANegativeNegative - 4(70) +++ mg/dLKetones, UA PositiveNegative - 160(16) ++++ mg/dLSpec Grav, UA1.0251 - 1.03Blood, UA NegativeNegative - 50 Nico/mcLpH, UA6.05 - 9Protein, UAPositiveNegative - 2000(20) ++++ mg/dLUrobilinogen, UA1.00.2 - 12 mg/dLLeukocytes, UANegative Negative - 500+++ Karson/mcLNitrite, UANegativeNegative - PositiveSpecimen (Source)Anatomical Location / LateralityCollection Method / VolumeCollection TimeReceived DckqFowjs79/28/2025 10:15 AM EDT Narrative Authorizing ProviderResult TypeResult StatusCorey Katarina DOPOINT OF CARE TEST ENTER/EDIT ORDERABLESFinal Result documented in this encounter Visit Diagnoses Diagnosis 32 weeks gestation of ([facility]) Third trimester ([facility]) state, incidental Gestational diabetes mellitus (GDM), antepartum, gestational diabetes method of control unspecified([facility]) documented in this encounter Additional Health Concerns AssessmentNoted TimePHQ-9 Depression Total Score: 9:00 AM EST documented as of this encounter Care Teams Team MemberRelationshipSpecialtyStart DateEnd Date Yamel Guerrero MD [address] [place], [place] [phone] PCP - GeneralFamily Medicine05/04/23 Yamel Guerrero MD [address] [place], [place] [phone] PCP - [facility] PLAZA02/26/24documented as of this encounter
--- OUTSIDE RECORDS SUMMARY | 2025-10-06 11:28 | XMS_ITS | Clinical Summary ---
Author Organization [facility] Address [address] [place] [address] Care Team Providers Care Boot Maker Name Role Phone Unavailable Primary Care Provider Unavailabl e Social History Tobacco UseTypesPacks/DayYears UsedDateSmoking Tobacco: Never Assessed CommentsUnknownSex and Gender InformationValueDate RecordedSex Assigned at Not on fileLegal KmsXdockx68/29/2022 11:30 PM EDTGender IdentityNot on file Sexual OrientationNot on file Last Filed Vital Signs Vital SignReadingTime TakenCommentsBlood Suikulex799/7611/14/2019 2:45 PM EST Mdxbl681011/14/2019 2:45 PM ESTTemperature--Respiratory Rate--Oxygen Goilahrahc14% 09/23/2019 2:45 PM EDTInhaled Oxygen Concentration--Xruejn30.6 kg (160 lb) 11/14/2019 2:43 PM SFSZcluqy124.6 cm (5' 4 )11/14/2019 2:43 PM ESTBody Mass Index27.4611/14/2019 2:43 PM EST Plan of Treatment Not on file
--- OUTSIDE RECORDS SUMMARY | 2025-10-06 11:28 | XMS_ITS | Encounter Summary ---
Author Organization [facility] Address [address] [place] [address] Care Team Providers Care Music Rehabilitation Therapist Name Role Phone Yamel Guerrero MD Primary Care Provider [phone] Yamel Guerrero MD Unavailable Encounter Details DateTypeDepartmentCare Team (Latest Contact Info)Yhkgbakzmqh20/29/2025bstract [facility] [address] [place] [phone] uLis E Bray DO [address] [place], [place] [address] Social History Tobacco UseTypesPacks/DayYears UsedDateSmoking Tobacco: NeverSmokeless [...] relatives?Once a week05/09/2023How often do you attend mosque or buddhism services?Never05/09/2023o you belong to any clubs or organizations such as mosque groups, unions, fraVisuMotion or athletic groups, or school groups?No05/09/2023How often do you attend meetings of the clubs or organizations you belong to?Never05/09/2023re you , , , , never , or living with a partner?Living with swvfezf7605/09/2023 AUDIT-CAnswerDate RecordedQ1: How often do you have [...] very hard 05/09/2023HQ-2AnswerDate RecordedPatient Health Questionnaire-2 Score1 10/12/2023[facility] [place] of Occupational Health - Occupational Stress QuestionnaireAnswerDate RecordedDo you feel stress - tense, restless, nervous, or anxious, or unable to sleep at night because yourmind is troubled all the time - these days?To some ymqqkq5505/09/2023Exercise Vital SignAnswerDate Recorded On average, how many [...] in ashelter (including now)?No05/09/2023 Estimated Date of UqevjfdiChlldpsoSox73/19/2025Based on last menstrual period of 02/07/2025Sex and Gender InformationValueDate RecordedSex Assigned at BirthFemale 04/30/2023 3:31 PM EDTLegal OpsQzgdby56/15/2023 7:09 PM EDTGender IdentityFemale 04/30/2023 3:31 PM EDTSexual OrientationNot on filedocumented as of this encounter Plan of Treatment DateTypeDepartmentCare Team (Latest Contact Info)Lrtefjbcpyl75/12/2025 11:00 AM ESTAncillary Procedure [facility] Kaylen ALVARADO [address] [facility] [place] [address] 10/08/2025 11:30 AM ESTRoutine NOMVivienne ALVARADO [address] [facility] [place] [address] Fabi Martinez PA [address] [facility] [address] [place], [place] [phone] documented as of this encounter Visit Diagnoses Not on filedocumented in this encounter Additional Health Concerns AssessmentNoted TimePHQ-9 Depression Total Score: 9:00 AM EST documented as of this encounter Care Teams Team MemberRelationshipSpecialtyStart DateEnd Date Yamel Guerrero MD [address] [place], [place] [phone] PCP - GeneralFamily Medicine05/04/23 Yamel Guerrero MD [address] [place], [place] [phone] PCP - [facility] Jake [facility] [place]02/26/24documented as of this encounter
--- OUTSIDE RECORDS SUMMARY | 2025-10-06 11:28 | XMS_ITS | Encounter Summary ---
Author Organization [facility] Address [address] [place] [address] Care Team Providers Care Die Mechanic Name Role Phone Yamel Guerrero MD Primary Care Provider [phone] Yamel Guerrero MD Unavailable Encounter Details DateTypeDepartmentCare Team (Latest Contact Info)Ntmpegxkdzv99/28/2025Bamboo flowsheet [facility] aKylen [facility] [address] [facility] [place] [address] Luis E Bray DO [address] [place] [address] Social History Tobacco UseTypesPacks/DayYears UsedDateSmoking Tobacco: [...] relatives?Once a week05/09/2023How often do you attend sikhism or anglican services?Never05/09/2023o you belong to any clubs or organizations such as sikhism groups, unions, framyVBO or athletic groups, or school groups?No05/09/2023How often do you attend meetings of the clubs or organizations you belong to?Never05/09/2023re you , , , , never , or living with a partner?Living with igdhvhf3705/09/2023 AUDIT-CAnswerDate RecordedQ1: How often do you have [...] very hard 05/09/2023HQ-2AnswerDate RecordedPatient Health Questionnaire-2 Score1 10/12/2023[facility] [place] of Occupational Health - Occupational Stress QuestionnaireAnswerDate RecordedDo you feel stress - tense, restless, nervous, or anxious, or unable to sleep at night because yourmind is troubled all the time - these days?To some elykky4105/09/2023Exercise Vital SignAnswerDate Recorded On average, how many [...] in ashelter (including now)?No05/09/2023 Estimated Date of CoevovleWibkrqbrUiv44/19/2025Based on last menstrual period of 02/07/2025Sex and Gender InformationValueDate RecordedSex Assigned at BirthFemale 04/30/2023 3:31 PM EDTLegal HczYrxumj94/15/2023 7:09 PM EDTGender IdentityFemale 04/30/2023 3:31 PM EDTSexual OrientationNot on filedocumented as of this encounter Plan of Treatment DateTypeDepartmentCare Team (Latest Contact Info)Nracbecfflx67/12/2025 11:00 AM ESTAncillary Procedure [facility] Kaylen ALVARADO [address] [facility] [place] [phone] 10/08/2025 11:30 AM ESTRoutine NOMVivienne ALVARADO [address] [facility] [place] [address] Fabi Martinez PA [address] [facility] [address] [place], [place] [address] documented as of this encounter Visit Diagnoses Not on filedocumented in this encounter Additional Health Concerns AssessmentNoted TimePHQ-9 Depression Total Score: 9:00 AM EST documented as of this encounter Care Teams Team MemberRelationshipSpecialtyStart DateEnd Date Yamel Guerrero MD [address] [place], [place] [address] PCP - GeneralFamily Medicine05/04/23 Yamel Guerrero MD [address] [place], [place] [phone] PCP - [facility] Jake [facility]02/26/24documented as of this encounter
--- OUTSIDE RECORDS SUMMARY | 2025-10-06 11:28 | XMS_ITS | Clinical Summary ---
Author Organization [employer] Address [id number] [address] [place] [address] Care Team Providers Care Community Service Director Name Role Phone Yamel Guerrero MD Primary Care Provider [phone] Allergies No known active allergies Medications MedicationSigDispense [...] 15 g 10/08/2019Active Active Problems ProblemNoted DateDiagnosed OpcjKefzuvvih08/12/2019Nasal congestion related to ngdretceu40/12/2019Tonsillar pkehlpumpkl30/12/2019Raynaud's /06/2019 History of delivery, currently wbyprchr63/06/2019Undifferentiated connective tissue yidgugr9512/18/2017 Resolved Problems ProblemNoted DateDiagnosed DateResolved DateSubacute ourbznthm28/09/2018 08/02/2019Nasal qsrfxkpvuw39 Family History Medical HistoryRelationNameCommentsCancerFatherStrokeFatherRelationNameStatus CommentsFather Social History Tobacco UseTypesPacks/DayYears UsedDateSmoking Tobacco: NeverSmokeless Tobacco: NeverAlcohol UseStandard Drinks/WeekCommentsNever0 (1 standard drink = 0.6 oz pure alcohol)AUDIT-CAnswerDate RecordedFrequency of Alcohol ConsumptionNever 07/26/2019Average Number of DrinksNot on file07/26/2019Frequency of Binge DrinkingNot on file07/26/2019PHQ-2AnswerDate RecordedTotal Ywryg33312/08/2018 ChildcareAnswerDate YzuwyppjNpdnfpdrcFlinxqw27/12/2019EmploymentAnswerDate SbzsxqafQmytkpikenJanbxja12/12/2019Purpose - LifeAnswerDate RecordedPurpose and direction in bycbEttsclu48/11/2021CommentsNoSex and Gender Information ValueDate RecordedSex Assigned at BirthNot on fileLegal DowBittul81/06/2015 11:38 AM EDTGender IdentityNot on fileSexual OrientationNot on file Last Filed Vital Signs Vital SignReadingTime TakenCommentsBlood Dzpwtzxr424/6210/08/2019 10:47 AM EST Zzojy3134/06/2019 9:07 AM EDTTemperature--Respiratory Rate--Oxygen Saturation-- Inhaled Oxygen Concentration--Mxmkkr46.2 kg (179 lb)10/08/2019 10:47 AM EST Xmdirg448.6 cm (5' 4 )10/08/2019 10:47 AM ESTBody Mass Index30.7310/08/2019 10:47 AM EST Plan of Treatment Health MaintenanceDue DateLast DoneCommentsDepression Foyqfdcso08/28/2000Tobacco Hospweuww45/28/2000Adult BMI Uzhdxmzjl00/28/2006Pap Smear2009Influenza Rxpytcq40/01/286816/, 10/17/2019DTaP,Tdap and Td Vaccines (7 - Tdap) 2101/12/2022, 08/03/1994, 07/01/1991, Additional history exists Medical Devices Not on file Insurance Care Teams Team MemberRelationshipSpecialtyStart DateEnd Yamel Guerrero MD PCP - GeneralFamily Medicine06/03/17
--- OUTSIDE RECORDS SUMMARY | 2025-10-06 11:28 | XMS_ITS | Encounter Summary ---
Author Organization [facility] Address [address] [place] [address] Care Team Providers Care Business Risk Consultant Name Role Phone Mino East MD Primary Care Provider [phone] Mino East MD Unavailable Encounter Details DateTypeDepartmentCare Team (Latest Contact Info)Vmbbvbwbvpa42/03/2025Clinisync Result Encounter [facility] External Department Unsolicited Fabi Arita PA [address] [place] [address] [place], [place] [phone] Social History Tobacco UseTypesPacks/DayYears UsedDateSmoking Tobacco: NeverSmokeless [...] relatives?Once a week05/09/2023How often do you attend confucianist or lutheran services?Never05/09/2023o you belong to any clubs or organizations such as confucianist groups, unions, fraternal or athletic groups, or school groups?No05/09/2023How often do you attend meetings of the clubs or organizations you belong to?Never05/09/2023re you , , , , never , or living with a partner?Living with brxpnym3805/09/2023 AUDIT-CAnswerDate RecordedQ1: How often do you have [...] Health Questionnaire-2 Score1 10/12/2023[facility] [place] of Occupational Health - Occupational Stress QuestionnaireAnswerDate RecordedDo you feel stress - tense, restless, nervous, or anxious, or unable to sleep at night because yourmind is troubled all the time - these days?To some zlbzfq4505/09/2023Exercise Vital SignAnswerDate Recorded On average, how many [...] in ashelter (including now)?No05/09/2023 Estimated Date of MbxjooksDyevqpnqPle41/19/2025Based on last menstrual period of 02/07/2025Sex and Gender InformationValueDate RecordedSex Assigned at BirthFemale 04/30/2023 3:31 PM EDTLegal HwxJpthcm22/15/2023 7:09 PM EDTGender IdentityFemale 04/30/2023 3:31 PM EDTSexual OrientationNot on filedocumented as of this encounter Plan of Treatment DateTypeDepartmentCare Team (Latest Contact Info)Gmulsxyavnm28/12/2025 11:00 AM ESTAncillary Procedure [facility] Kaylen ALVARADO [address] [place] [address] [place] [address] 10/08/2025 11:30 AM ESTRoutine [facility] Kaylen ALVARADO [address] [facility] [place] [phone] Fabi Arita PA [address] [facility] [address] [place], [place] [phone] documented as of this encounter Procedures Procedure NamePriorityDate/TimeAssociated DiagnosisCommentsUS OB BPP W NON-XOVPZV9709/29/2025 3:51 PM EST documented in this encounter Results * US OB BPP W NON-STRESS (09/29/2025 3:51 PM EST)Anatomical Region LateralityModalityOtherSpecimen (Source)Anatomical Location / Laterality Collection Method / VolumeCollection TimeReceived Time09/29/2025 3:51 PM EST Narrative 09/29/2025 3:54 PM EST [facility] ?[address] ? [place], [facility] ? Ultrasound Report ? Signed ? Patient: DONNA,MERCEDES R ? MR#: [id number] ?? : 1990 ?Acct:[id number] ?? Age/Sex: 35 / F ?ADM Date: 09/29/25 ?? Loc: US ? Attending Dr: Fabi Arita ? Ordering Physician: Fabi Arita ?? Date of Service: 09/29/25 ?? Procedure(s): US OB BPP w non-stress ?? Accession Number(s): [id number] ? cc: Fabi Arita; CRUZITOMINO ? [facility] ? [address] ? [place] [address] ? Patient Name: ?? MERCEDES THOMPSON ? MRN: [facility]:[id number] ? date: 1990 ?Sex: F ?? Assigned Patient Location: [facility] ?? Current Patient Location: US ?? Accession/Order Number: [id number] ?? Exam Date: 09/29/2025 ??11:40 ?Report Date: [...] Dictation Location: RADIO-PC-23 ? Electronically authenticated by: [id number] ??Y ?? Date: 09/29/2025 ??15:51 ? Dictated By: ?Alex Rich M.D. ? Signed By: ?09/29/25 1554 ? DD/ 1551 ? TD/TT: ? Investment Representative: Procedure Note Radiology, Radiologist, MD - 09/29/[address] [address] Ultrasound Report Signed Patient: MERCEDES THOMPSON RMR#: [id number] : 1990Acct:[id number] Age/Sex: 35 / FADM Date: 09/29/25 Loc: US Attending Dr: Fabi Arita Ordering Physician: Fabi Arita Date of Service: 09/29/25 Procedure(s): US OB BPP w non-stress Accession Number(s): [id number] cc: Fabi Arita; [place]O E[place] [id number] Patient Name: MERCEDES THOMPSON MRN: [facility]:[id number] date: 1990 Sex: F Assigned Patient Location: [facility] Current Patient Location: US Accession/Order Number: [id number] Exam Date: 09/29/2025 11:40 Report Date: 09/29/2025 15:51 At the request of: FABI ARITA Procedure: US OB BPP w non-stress Ultrasound biophysical profile INDICATION: 30 weeks gestation COMPARISON: 09/22/2025 FINDINGS IMPRESSION: Cephalic position. heart rate 163 beats per minutes. PACO measures 11.1 cm 8/8 score biophysical profile Impression dictated by: Alex Rich M.D. 09/29/2025 3:51 PM Dictation Location: [place] [address] Electronically authenticated by: [id number] Y Date: 5:51 Dictated By: Alex Rich M.D. Signed By:09/29/25 1554 DD/ 1551 TD/TT: Investment Representative: Authorizing ProviderResult TypeResult StatusFabi Arita PACLINISYNC IMAGINGFinal Result documented in this encounter Visit Diagnoses Not on filedocumented in this encounter Additional Health Concerns AssessmentNoted TimePHQ-9 Depression Total Score: 9:00 AM EST documented as of this encounter Care Teams Team MemberRelationshipSpecialtyStart DateEnd Date Mino East MD [address] [place] [address] PCP - GeneralFamily Medicine05/04/23 Mino East MD [address] [place] [address] PCP - CHARLIE Joseph [facility]02/26/24documented as of this encounter
--- OUTSIDE RECORDS SUMMARY | 2025-10-06 11:28 | XMS_ITS | Clinical Summary ---
Author Organization [facility] Address [address] [place] [address] Care Team Providers Care Core Cutter And Reamer Name Role Phone Yamel East MD Primary Care Provider [phone] Yamel East MD Unavailable Allergies No known active allergies [...] 4 MG tablet Indications:Nausea and vomiting in ([facility])Take 1 tablet (4 mg) by mouth every [...] nausea. 90 tablet Discontinued Pharmacist Choice [facility] Indications:Gestational diabetes mellitus [...] 1 kit Discontinued Active Problems ProblemNoted DateDiagnosed SdscVvaheea19/03/2023Obesity due to excess calories without serious ckbvokakuug06/03/2023Systemic lupus dubqepoepikwt67/05/2023 Elevated antinuclear antibody (ROSEMARY) level05/10/2023astroesophageal reflux disease without lrnwgjyvlex83/14/2023Severe single current episode of major depressive disorder, without psychotic /14/2177Epoiwajszvq74/14/2023 Tonsillar qyqicbddrbl85/12/2019Raynaud's fhdqfaxlwa56/06/2019Undifferentiated connective tissue otvomxb1512/18/2017Estimated Date of DeliveryCommentsYes 11/14/2025ased on last menstrual period of 02/07/2025 Resolved Problems ProblemNoted DateDiagnosed DateResolved DateCarpal tunnel yhjtcgli58/14/2023 05/31/2023 Encounters DateTypeDepartmentCare UqwjHoussxbowbq59/03/2025linisync Result Encounter [facility] External Department Unsolicited Fabi Arita PA 09/24/2025bstract [facility] [place] [address] [place] [address] Jossy Bray, 09/23/2025 10:00 [place] [address] Jossy Bray, 32 weeks gestation of ([facility]); Third trimester ([facility]); Gestational diabetes mellitus (GDM), antepartum, gestational diabetes method of control unspecified([facility])09/23/2025amboo flowsheet [facility] [place] [address] [place] [address] Jossy Bray, 09/22/2025linisync Result Encounter NOMS External Department Unsolicited Fabi Arita PA 09/22/20257431Kodbpe86/14/2025 10:50 AM EDTRoutine [facility] [place] [address]ARGYN [address] [place] [address] Fabi Arita PA Third trimester ([facility]); 30 weeks gestation of ([facility])09/09/2025 10:00 AM EDTAncillary Procedure [facility] [place] [address]ARGYN [address] [place] [address] Gestational diabetes mellitus (GDM), antepartum, gestational diabetes method of control unspecified([facility])09/08/20256632Flesdc18/08/2025Clinisync Result Encounter NOMS External Department Unsolicited Provider, Generic External Data 08/27/2025 10:20 AM EDTRoutine [facility] [place] [facility] [address] [facility] [address] Catarina Barnes, [place] 28 weeks gestation of ([facility]); Third trimester ([facility]); Gestational diabetes mellitus (GDM), antepartum, gestational diabetes method of control unspecified([facility]); Diabetes mellitus cnjfsyuwi79/01/2025bstract [facility] [place] [facility] [address] [place] [address] Jossy Bray, DO 08/27/2025linisync Result Encounter NOMS External Department Unsolicited Provider, Generic External Data 08/27/2025amboo flowsheet [facility] [place] Paul [facility] [place] [address] Catarina Barnes, [place] 08/13/2025 11:10 AM EDTRoutine [facility] [place] [facility] [address] [place] [address] Jossy Bray, 26 weeks gestation of ([facility]); Second trimester ([facility]); Gestational diabetes mellitus (GDM), antepartum, gestational diabetes method of control unspecified([facility])08/13/2025amboo flowsheet [facility] [place] [facility] [address] [facility] [address] Jossy Bray, 08/12/20254423Hrcfvv23/15/2025bstract [facility] [place] [facility] [address] [facility] [place] [address] Jossy Bray, DO 08/04/2025 10:00 AM EDTAncillary Procedure [facility] [place] [address] Encounter for follow-up ultrasound of anatomy ([facility])07/29/2025Travel 07/15/2025 9:00 AM EDTRoutine [facility] [place] [address] [place] [address] Jossy Bray, Second trimester ([facility]); 22 weeks gestation of ([facility]); Encounter for follow-up ultrasound of anatomy ([facility])07/15/2025amboo flowsheet [facility] [place] [address] [place] [address] Jossy Bray DO 07/08/2025Travelfrom Last 3 Months Family History Medical HistoryRelationNameCommentsCancerBrotherMatt [...] relatives?Once a week05/09/2023How often do you attend alevism or islam services?Never05/09/2023o you belong to any clubs or organizations such as alevism groups, unions, fraEcal or athletic groups, or school groups?No05/09/2023How often do you attend meetings of the clubs or organizations you belong to?Never05/09/2023re you , , , , never , or living with a partner?Living with nqwqehi6605/09/2023 AUDIT-CAnswerDate RecordedQ1: How often do you have [...] very hard 05/09/2023HQ-2AnswerDate RecordedPatient Health Questionnaire-2 Score1 10/12/2023[facility] Occupational Health - Occupational Stress QuestionnaireAnswerDate RecordedDo you feel stress - tense, restless, nervous, or anxious, or unable to sleep at night because yourmind is troubled all the time - these days?To some hxmbxf2705/09/2023Exercise Vital SignAnswerDate Recorded On average, how many [...] steady place to sleep or slept in [facility] (including now)?No05/09/2023 Estimated Date of DotzjbhhWtvtojwjKle95/19/2025Based on last menstrual period of 02/07/2025Sex and Gender InformationValueDate RecordedSex Assigned at BirthFemale 04/30/2023 3:31 PM EDTLegal WzwJefjxa94/15/2023 7:09 PM EDTGender IdentityFemale 04/30/2023 3:31 PM EDTSexual OrientationNot on file Last Filed Vital Signs Vital SignReadingTime TakenCommentsBlood Mkujbqpr140/7010 10:09 AM EDT Fwfxx5786 4:27 PM VVQQtlosanifng02 ??C (98.6 ??F)10/23/2023 4:27 PM EST Respiratory Kzsw740712/23/2022 4:27 PM ESTOxygen Aximhydtla31%10/23/2023 4:27 PM ESTInhaled Oxygen Concentration--Jeujmf985 kg (246 lb 12.8 oz)09/23/2025 10:09 AM AVXYychcu214.6 cm (5' 4 )10/23/2023 4:27 PM ESTBody Mass Index42.36112/23/2022 4:27 PM EST Plan of Treatment DateTypeDepartmentCare Team (Latest Contact Info)Xihdfagxfot47/12/2025 11:00 AM ESTAncillary Procedure [facility] [place] [address] [place] [address] [place] [phone] 10/08/2025 11:30 AM ESTRoutine [facility] [place] [facility] [address] [place] [address] [place] [address] Fabi Arita PA [address] [facility] [address] [place], [place] [address] Health MaintenanceDue DateLast DoneCommentsCOVID-19 Vaccine () 07/28/2025Influenza Vaccine (#1)/, 10/17/2019Cervical Cancer Mqyrnqsee09/07/2030HPV/Abbimc37/07//3Pap Smear06/02//05/2025, 2Pneumococcal Vaccine: Pediatrics (0 to 5 Years) and At-Risk Patients (6 to 64 Years)Aged OutNo longer eligible based on patient's age to complete this topic Procedures Procedure NamePriorityDate/TimeAssociated DiagnosisCommentsUS OB BPP W NON-LPQWOE2509/29/2025 3:51 PM EST POCT URINALYSIS EVSUWSHJVukstuj89/28/2025 10:15 AM EDT 32 weeks gestation of ([facility]) Third trimester ([facility]) US OB BPP W NON-QPFSYV5809/22/2025 10:42 PM EDT POCT URINALYSIS JYANMBQTLpazzwh72/14/2025 11:15 AM EDT 30 weeks gestation of ([facility]) US OB FOLLOW UP TRANSABDOMINAL OTAIZODFUpmfdtq25/14/2025 10:39 AM EDT Gestational diabetes mellitus (GDM), antepartum, gestational diabetes method of control unspecified([facility]) MLR HEMOGLOBIN S8YNxltzqy29/08/2025 10:44 AM EDT ALL CBC WITH AUTO HARTEbuwsdm85/08/2025 10:44 AM EDT US OB NMHSJY5008/27/2025 11:15 AM EDT POCT URINALYSIS MFJUIBOPCwoanjg64/01/2025 10:37 AM EDT 28 weeks gestation of ([facility]) Third trimester ([facility]) POCT URINALYSIS IAEFGXEJDhqncha76/17/2025 11:24 AM EDT 26 weeks gestation of ([facility]) Second trimester ([facility]) US OB LIMITED 1+ IPNYVLCSukheog01/08/2025 10:29 AM EDT Encounter for follow-up ultrasound of anatomy ([facility]) POCT URINALYSIS JMDSQYTWZqbmnwh59/19/2025 9:30 AM EDT Second trimester ([facility]) 22 weeks gestation of ([facility]) PAP HETXNLaypotb47/07/2025 12:00 AM EDTTHINPREP PAP AND HPV MRNA E6/E7 W/RFL HPV 16,18/58Sfhjbee35/17/2023 10:11 AM EDT Well woman exam with routine gynecological exam from Last 3 Months or Most Recently Relevant to Health Maintenance Results * US OB BPP W NON-STRESS (09/29/2025 3:51 PM EST) Only the most recent of2 resultswithin the time period is included. Anatomical RegionLateralityModalityOtherSpecimen (Source)Anatomical Location / LateralityCollection Method / VolumeCollection TimeReceived Time09/29/2025 3:51 PM EST Narrative 09/29/2025 3:54 PM EST [facility] ?[address] ? [place] [address] ? Ultrasound Report ? Signed ? Patient: DONNA,BETTY R ? MR#: [id number] ?? : 1990 ?Acct:[id number] ?? Age/Sex: 35 / F ?ADM Date: 09/29/25 ?? Loc: US ? Attending Dr: Fabi Arita ? Ordering Physician: Fabi Arita ?? Date of Service: 09/29/25 ?? Procedure(s): US OB BPP w non-stress ?? Accession Number(s): [id number] ? cc: Fabi Arita; [facility] ? [facility] ? [address] ? [place] [address] ? Patient Name: ?? [place] THOMPSON ? MRN: [facility]:[id number] ? date: 1990 ?Sex: F ?? Assigned Patient Location: FB ?? Current Patient Location: US ?? Accession/Order Number: [id number] ?? Exam Date: 09/29/2025 ??11:40 ?Report Date: [...] M.D. ??09/29/2025 3:51 PM ? Dictation Location: [facility]-- ? Electronically authenticated by: [id number] ??Y ?? Date: 09/29/2025 ??15:51 ? Dictated By: ?Alex Rich M.D. ? Signed By: ?09/29/25 1554 ? DD/ 1551 ? TD/TT: ? Payroll Assistant: Procedure Note Radiology, Radiologist, MD - 09/29/[address] [address] Ultrasound Report Signed Patient: [place] THOMPSON RMR#: [id number] : 1990Acct:[id number] Age/Sex: 35 / FADM Date: 09/29/25 Loc: US Attending Dr: Fabi Arita Ordering Physician: Fabi Arita Date of Service: 09/29/25 Procedure(s): US OB BPP w non-stress Accession Number(s): [id number] cc: Fabi Arita; [place] [address] [address] Patient Name: [place] THOMPSON MRN: [facility]:[id number] date: 1990 Sex: F Assigned Patient Location: [facility] Current Patient Location: US Accession/Order Number: [id number] Exam Date: 09/29/2025 11:40 Report Date: 09/29/2025 15:51 At the request of: FABI ARITA Procedure: US OB BPP w non-stress Ultrasound biophysical profile INDICATION: 30 weeks gestation COMPARISON: 09/22/2025 FINDINGS IMPRESSION: Cephalic position. heart rate 163 beats per minutes. PACO measures 11.1 cm 8/8 score biophysical profile Impression dictated by: Alex Rich M.D. 09/29/2025 3:51 PM Dictation Location: [place] [address] Electronically authenticated by: [id number] Y Date: 5:51 Dictated By: Alex Rich M.D. Signed By:09/29/25 1554 DD/ 1551 TD/TT: Payroll Assistant: Authorizing ProviderResult TypeResult StatusFabi Arita PACLINISYNC IMAGINGFinal Result * (ABNORMAL) POCT urinalysis dipstick manually resulted (09/23/2025 10:15 AM EDT) Only the most recent of5 [...] Location / LateralityCollection Method / VolumeCollection TimeReceived UowiTjxoq43/28/2025 10:15 AM EDT Narrative Authorizing ProviderResult TypeResult [...] deliver was November 16, 2025. Procedure Note Mihcael Dennis MD - 09/10/2025 FINDINGS: A single, [...] percentile weight was 57.7% and estimated deliver wasDece2024. IMPRESSION: Single, live intrauterine , current sonographic [...] 7.0 ACTION SUGGESTED > 7.0 ESTIMATED AVERAGE DKRZUJU647ns/dLTBHSpecimen (Source)Anatomical Location / LateralityCollection Method / VolumeCollection TimeReceived Time09/03/2025 10:44 AM EDT1 10:45 AM EDT Narrative CLINISYNC - 09/03/2025 12:20 PM EDT Authorizing ProviderResult TypeResult StatusKristina Molly NPCLINISYNCFinal ResultPerforming OrganizationAddressCity/State/ZIP CodePhone Number [facility] * (ABNORMAL) ALL CBC WITH AUTO DIFF (09/03/2025 10:44 AM EDT)ComponentValueRef RangeTest MethodAnalysis TimePerformed AtPathologist SignatureTBH WBC10.64.0 - 11.0 10 3/uLTBHTBH RBC3.60(L)4.20 - 5.40 10 6/uLTBHTBH HGB12.112.0 - 16.0 g/dL TBHTBH HCT35.6(L)36.0 - 48.0 %TBHTBH MCV98.981.0 - 99.0 fLTBHTBH MCH33.626.7 - 34.0 pgTBHTBH MCHC34.029.9 - 35.2 g/dLTBHTBH RDW14.311.0 - 15.0 %TBHTBH KVY579 150 - 450 10 3/uLTBHTBH MPV11.29.5 - [...] EDT Narrative 08/27/2025 11:17 AM EDT [facility] ?[address] ? [place] [address] ? Ultrasound Report ? Signed ? Patient: FREDDY THOMPSONN Jermaine ? MR#: [id number] ?? : 1990 ?Acct:[id number] ?? Age/Sex: 35 / F ?ADM Date: 08/27/25 ?? Loc: US ? Attending Dr: Jossy Bray D.O. ? Ordering Physician: Jossy Brya D.O. ?? Date of Service: 08/27/25 ?? Procedure(s): US OB growth ?? Accession Number(s): [id number] ? cc: [facility] ; Jossy Bray D.O. ? [facility] ? [address] ? [place] [address] ? Patient Name: ?? [place] THOMPSON ? MRN: [facility]:[id number] ? date: 1990 ?Sex: F ?? Assigned Patient Location: ?? Current Patient Location: ?? Accession/Order Number: [id number] ?? Exam Date: 08/27/2025 ??09:52 ?Report Date: [...] M.D. ??08/27/2025 11:15 AM ? Dictation Location: RADIO-PC-02 ? Electronically authenticated by: [id number] ??Y ?? Date: 08/27/2025 ??11:15 ? Dictated By: ?Sonia Hernandez M.D. ? Signed By: ?08/27/251116 ? DD/ ? TD/TT: ? Payroll Assistant: Procedure Note Radiology, Radiologist, MD - 08/27/[address] [address] Ultrasound Report Signed Patient: [place] THOMPSON RMR#: [id number] : 1990Acct:[id number] Age/Sex: 35 / FADM Date: 08/27/25 Loc: US Attending Dr: Jossy Bray D.O. Ordering Physician: Jossy Bray D.O. Date of Service: 08/27/25 Procedure(s): US OB growth Accession Number(s): [id number] cc: [facility] ; Jossy Bray D.O. [address] [address] Patient Name: [place] THOMPSON MRN: [id number] date: 1990 Sex: F Assigned Patient Location: Current Patient Location: US Accession/Order Number: [id number] Exam Date: 08/27/2025 09:52 Report Date: 08/27/2025 [...] Hernandez M.D. 08/27/2025 11:15 AM Dictation Location: [place] [address] Electronically authenticated by: [id number] Y Date: 1:15 Dictated By: Sonia Hernandez M.D. Signed By:08/27/25 1117 DD/ 1115 TD/TT: Payroll Assistant: Authorizing ProviderResult TypeResult StatusGeneric External Data Provider [...] DOI OB US PROCEDURES Final Result * Pap Smear (06/02/2025 12:00 AM EDT)Specimen (Source)Anatomical Location / LateralityCollection Method / VolumeCollection TimeReceived TimeSwabCervical swab / Unknown Narrative Authorizing ProviderResult TypeResult StatusCorey Katarina DOLAB CYTOLOGY ORDERABLESFinal ResultPerforming OrganizationAddressCity/State/ZIP CodePhone Number EXTERNAL LAB * THINPREP PAP AND HPV MRNA E6/E7 W/RFL HPV 16,18/45 (07/13/2023 10:11 AM EDT) Narrative Authorizing ProviderResult TypeResult StatusAmy Higden PALAB BLOOD ORDERABLES Final ResultPerforming OrganizationAddressCity/State/ZIP CodePhone Number EXTERNAL LAB from Last 3 Months or Most Recently Relevant to Health Maintenance Insurance Care Teams Team MemberRelationshipSpecialtyStart DateEnd Y[place] East MD [address] [place], [place] [phone] PCP - GeneralFamily Medicine05/04/23 Yamel East MD [address], [place] [phone] PCP - [facility]02/26/24
--- OUTSIDE RECORDS SUMMARY | 2025-10-06 11:29 | XMS_ITS | Encounter Summary ---
Author Organization [facility] Address [address] [place] [address] Care Team Providers Care Body Builder Apprentice Name Role Phone Mino East MD Primary Care Provider [phone] Mino East MD Unavailable Encounter Details DateTypeDepartmentCare Team (Latest Contact Info)Tgmwuixanxa05/27/2025Clinisync Result Encounter [facility] External Department Unsolicited Fabi Arita PA [address] [place] [address] [place], [place] [phone] Social History Tobacco UseTypesPacks/DayYears UsedDateSmoking Tobacco: NeverSmokeless [...] relatives?Once a week05/09/2023How often do you attend catholic or evangelical services?Never05/09/2023o you belong to any clubs or organizations such as catholic groups, unions, fraternal or athletic groups, or school groups?No05/09/2023How often do you attend meetings of the clubs or organizations you belong to?Never05/09/2023re you , , , , never , or living with a partner?Living with ywypmet9105/09/2023 AUDIT-CAnswerDate RecordedQ1: How often do you have [...] very hard 05/09/2023HQ-2AnswerDate RecordedPatient Health Questionnaire-2 Score1 10/12/2023[facility] [place] [facility] Health - Occupational Stress QuestionnaireAnswerDate RecordedDo you feel stress - tense, restless, nervous, or anxious, or unable to sleep at night because yourmind is troubled all the time - these days?To some askzpr6805/09/2023Exercise Vital SignAnswerDate Recorded On average, how many [...] in ashelter (including now)?No05/09/2023 Estimated Date of NnyfcchqFokdiooxSam28/19/2025Based on last menstrual period of 02/07/2025Sex and Gender InformationValueDate RecordedSex Assigned at BirthFemale 04/30/2023 3:31 PM EDTLegal SmdFnxakt61/15/2023 7:09 PM EDTGender IdentityFemale 04/30/2023 3:31 PM EDTSexual OrientationNot on filedocumented as of this encounter Plan of Treatment DateTypeDepartmentCare Team (Latest Contact Info)Hezdnjyvrxh52/12/2025 11:00 AM ESTAncillary Procedure [facility] [place] [facility] [address] [place] [address] 10/08/2025 11:30 AM ESTRoutine [facility] [place] [facility] [address] [place] [phone] Fabi Arita PA [address] [facility] [address] [place], [place] [address] documented as of this encounter Procedures Procedure NamePriorityDate/TimeAssociated DiagnosisCommentsUS OB BPP W NON-JSNATW3809/22/2025 10:42 PM EDT documented in this encounter Results * US OB BPP W NON-STRESS (09/22/2025 10:42 PM EDT)Anatomical Region LateralityModalityOtherSpecimen (Source)Anatomical Location / Laterality Collection Method / VolumeCollection TimeReceived Time09/22/2025 10:42 PM EDT Narrative 09/22/2025 10:45 PM EDT [facility] ?[address] ? [place] [address] ? Ultrasound Report ? Signed ? Patient: DONNA,MERCEDES R ? MR#: [id number] ?? : 1990 ?Acct:[id number] ?? Age/Sex: 35 / F ?ADM Date: 09/22/25 ?? Loc: US ? Attending Dr: Fabi Arita ? Ordering Physician: Fabi Arita ?? Date of Service: 09/22/25 ?? Procedure(s): US OB BPP w non-stress ?? Accession Number(s): [id number] ? cc: Fabi Arita; [place] [facility] ? [facility] ? [address] ? [place] [address] ? Patient Name: ?? MERCEDES THOMPSON ? MRN: [facility]:[id number] ? date: 1990 ?Sex: F ?? Assigned Patient Location: [facility] ?? Current Patient Location: ? Accession/Order Number: [id number] ?? Exam Date: 09/22/2025 ??11:34 ?Report Date: [...] Dictation Location: RADIO-PC-29 ? Electronically authenticated by: [id number] ??Y ?? Date: 09/22/2025 ??22:42 ? Dictated By: ?Alex Rich M.D. ? Signed By: ?09/22/252244 ? DD/ 41 ? TD/TT: ? Clay Dry Press Mixer Operator: Procedure Note Radiology, Radiologist, MD - 09/22/2025 [place] [address] Ultrasound Report Signed Patient: MERCEDES THOMPSON RMR#: [id number] : 1990Acct:[id number] Age/Sex: 35 / FADM Date: 09/22/25 Loc: US Attending Dr: Fabi Arita Ordering Physician: Fabi Arita Date of Service: 09/22/25 Procedure(s): US OB BPP w non-stress Accession Number(s): [id number] cc: Fabi Arita; [place] [facility] [place] [address] Patient Name: MERCEDES THOMPSON MRN: [id number] date: 1990 Sex: F Assigned Patient Location: [facility] Current Patient Location: Accession/Order Number: [id number] Exam Date: 09/22/2025 11:34 Report Date: 09/22/2025 22:42 At the request of: FABI ARITA Procedure: US OB BPP w non-stress Ultrasound biophysical profile INDICATION: 30 weeks gestation COMPARISON: 08/27/2025 FINDINGS IMPRESSION: Cephalic position. heart rate 134 beats per minutes. PACO measures 14.3 cm. 8/8 score biophysical profile Impression dictated by: Alex Rich M.D. 09/22/2025 10:42 PM Dictation Location: [place] [address] Electronically authenticated by: [id number] Y Date: 2:42 Dictated By: Alex Rich M.D. Signed By:09/22/252244 DD/ 41 TD/TT: Clay Dry Press Mixer Operator: Authorizing ProviderResult TypeResult StatusFabi Arita PACLINISYNC IMAGINGFinal Result documented in this encounter Visit Diagnoses Not on filedocumented in this encounter Additional Health Concerns AssessmentNoted TimePHQ-9 Depression Total Score: 9:00 AM EST documented as of this encounter Care Teams Team MemberRelationshipSpecialtyStart DateEnd Date Mino East MD [address] [place] [address] PCP - GeneralFamily Medicine05/04/23 Mino East MD [address] [place] [address] PCP - CHARLIE Joseph [facility]02/26/24documented as of this encounter
--- OUTSIDE RECORDS SUMMARY | 2025-10-06 11:29 | XMS_ITS | Encounter Summary ---
Author Organization [facility] Address [address] [place] [address] Care Team Providers Care Slash Trimmer Name Role Phone [place] Guerrero MD Primary Care Provider [phone] [place] Guerrero MD Unavailable Encounter Details DateTypeDepartmentCare Team (Latest Contact Info)Ljssgebxkeu33/27/2025Travel Social History Tobacco UseTypesPacks/DayYears UsedDateSmoking Tobacco: NeverSmokeless [...] week05/09/2023How often do you attend baptist or bahai services?Never05/09/2023o you belong to any clubs or organizations such as baptist groups, unions, fraternal or athletic groups, or school groups?No05/09/2023How often do you attend meetings of the clubs or organizations you belong to?Never05/09/2023re you , , , , never , or living with a partner?Living with zaaovex9505/09/2023 AUDIT-CAnswerDate RecordedQ1: How often do you have [...] very hard 05/09/2023HQ-2AnswerDate RecordedPatient Health Questionnaire-2 Score1 10/12/2023[facility] [place] of Occup[facility] Health - Occupational Stress QuestionnaireAnswerDate RecordedDo you feel stress - tense, restless, nervous, or anxious, or unable to sleep at night because yourmind is troubled all the time - these days?To some bcvlen4305/09/2023Exercise Vital SignAnswerDate Recorded On average, how many [...] in ashelter (including now)?No05/09/2023 Estimated Date of NgftjtyeQtiwlffoLgj06/19/2025Based on last menstrual period of 02/07/2025Sex and Gender InformationValueDate RecordedSex Assigned at BirthFemale 04/30/2023 3:31 PM EDTLegal DikXoqnby54/15/2023 7:09 PM EDTGender IdentityFemale 04/30/2023 3:31 PM EDTSexual OrientationNot on filedocumented as of this encounter Plan of Treatment DateTypeDepartmentCare Team (Latest Contact Info)Bnfovlelfzo04/12/2025 11:00 AM ESTAncillary Procedure [facility] [place] [facility] [address] [place] [address] [place] [phone] 10/08/2025 11:30 AM ESTRoutine [facility] [place] [facility] [address] [facility] [address] Fabi Martinez PA [address] [facility] [place] [address] documented as of this encounter Visit Diagnoses Not on filedocumented in this encounter Additional Health Concerns AssessmentNoted TimePHQ-9 Depression Total Score: 9:00 AM EST documented as of this encounter Care Teams Team MemberRelationshipSpecialtyStart DateEnd Date [place] Guerrero MD [address] [place] [address] PCP - GeneralFamily Medicine05/04/23 [place] Guerrero MD [address] [place] [address] PCP - CHARLIE Joseph [facility]02/26/24documented as of this encounter
--- NOTE | 2025-10-06 11:30 | US_ITS ---
[facility] [place] [id number] Patient Name: AYDE THOMPSON MRN: [id number] date: 1990 Sex: F Assigned Patient Location: [facility] Current Patient Location: [facility] Accession/Order Number: [id number] Exam Date: 10/06/2025 11:34 Report Date: 10/06/2025 12:00 At the request of: ROMERO ARITA Procedure: US OB BPP w non-stress BIOPHYSICAL PROFILE: CLINICAL INFORMATION: 30 WEEKS GESTATION OF Z3A.30 COMPARISON: 09/29/2025 There is a single live intrauterine gestation in cephalic presentation. The reported gestational age is 34 weeks 3 days. The heart rate measures 138 beats per minute. FINDINGS: TONE: 1 or more episodes of activity extension and flexion of extremity or opening and closing of the hand [Y] 2/2 GROSS BODY MOVEMENTS: 3 or more discrete body or limb movements [Y] 2/2 BREATHING MOVEMENTS: 1 or more episodes of breathing lasting at least 30 seconds [Y] 2/2 PACO: A single deepest vertical pocket of amniotic fluid greater than 2 cm [Y] 2/2 PACO: 15.8 cm Total score: 8/8 US/US OB BPP w non-stress IMPRESSION: NORMAL BIOPHYSICAL PROFILE. Impression dictated by: Sonia Hernandez M.D. 10/06/2025 12:00 PM Dictation Location: [place] [address] Electronically authenticated by: [id number] Y Date: 10/06/2025 12:00
[2025-10-06 11:58] VITALS: BP 120/62; PULSE 91
== END 2025-10-06 12:25 | disposition home or self-care (01) ==
LOC: US 11:26 → FBC 11:28
PROVIDERS: PCP Family Medicine; Visit Provider Physician Assistant
DX: O26.893 Other specified pregnancy related conditions, third trimester (principal); O09.523 Supervision of elderly multigravida, third trimester; Z3A.34 34 weeks gestation of pregnancy
CPT/HCPCS: 76818

== ENCOUNTER 2025-10-09 09:50 | Outpatient (OUT) | payer MEDICAID, SELFPAY ==
--- OUTSIDE RECORDS SUMMARY | 2025-10-08 11:00 | XMS_ITS | Encounter Summary ---
Author Organization [facility] Address [address] [place] [address] Care Team Providers Care Chef De Cuisine Name Role Phone Yamel Guerrero MD Primary Care Provider Yamel Guerrero MD Unavailable Encounter Details DateTypeDepartmentCare Team (Latest Contact Info)Pylmbhvqmtc79/12/2025 11:00 AM ESTAncillary Procedure [facility] [address] [place] [address] [place] [address] Gestational diabetes mellitus (GDM), antepartum, gestational diabetes method of control unspecified([facility]) Social History Tobacco UseTypesPacks/DayYears UsedDateSmoking [...] relatives?Once a week05/09/2023How often do you attend yazidi or caodaism services?Never05/09/2023o you belong to any clubs or organizations such as yazidi groups, unions, fraternal or athletic groups, or school groups?No05/09/2023How often do you attend meetings of the clubs or organizations you belong to?Never05/09/2023re you , , , , never , or living with a partner?Living with fjdjvux6305/09/2023 AUDIT-CAnswerDate RecordedQ1: How often do you have [...] very hard 05/09/2023HQ-2AnswerDate RecordedPatient Health Questionnaire-2 Score1 10/12/2023[facility] [place] of Occupational Health - Occupational Stress QuestionnaireAnswerDate RecordedDo you feel stress - tense, restless, nervous, or anxious, or unable to sleep at night because yourmind is troubled all the time - these days?To some krrwyb5905/09/2023Exercise Vital SignAnswerDate Recorded On average, how many [...] in ashelter (including now)?No05/09/2023 Estimated Date of LkmnmyadYohnpfprFil99/19/2025Based on last menstrual period of 02/07/2025Sex and Gender InformationValueDate RecordedSex Assigned at BirthFemale 04/30/2023 3:31 PM EDTLegal AxtDzrhsv92/15/2023 7:09 PM EDTGender IdentityFemale 04/30/2023 3:31 PM EDTSexual OrientationNot on filedocumented as of this encounter Plan of Treatment DateTypeDepartmentCare Team (Latest Contact Info)Xafawifwqxr80/26/2025 11:30 AM ESTRoutine [facility] [address] [place] [address] Luis E Bray DO [address] [facility] [address] [facility] [address] [place], [place] [id number] documented as of this encounter Procedures Procedure NamePriorityDate/TimeAssociated DiagnosisCommentsUS OB FOLLOW UP TRANSABDOMINAL QYMZFAMEHikuluv74/12/2025 11:36 AM EST Gestational diabetes mellitus (GDM), [...] diabetes method of control unspecified([facility]) documented in this encounter Additional Health Concerns AssessmentNoted TimePHQ-9 Depression Total Score: 411 9:00 AM EST documented as of this encounter Care Teams Team MemberRelationshipSpecialtyStart DateEnd Date Yamel Guerrero MD [address] [place] [address] PCP - GeneralFamily Medicine05/04/23 Yamel Guerrero MD [address] [place] [address] PCP - CHARLIE PLAZA02/26/24documented as of this encounter
--- OUTSIDE RECORDS SUMMARY | 2025-10-08 11:30 | XMS_ITS | Encounter Summary ---
Author Organization [facility] Address [address] [place] [address] Care Team Providers Care Operations Management Trainee Name Role Phone Yamel Guerrero MD Primary Care Provider [phone] Yamel Guerrero MD Unavailable Reason for Visit * ReasonCommentsRoutine Visit Encounter Details DateTypeDepartmentCare Team (Latest Contact Info)Dkqidyexche98/12/2025 11:30 AM ESTRoutine [facility] [address] [place] [address] Fabi Martinez PA [address] [facility] [address] [place], [facility]11 Third trimester ([facility]); 34 weeks gestation of ([facility]) Social History Tobacco UseTypesPacks/DayYears UsedDateSmoking Tobacco: NeverSmokeless [...] relatives?Once a week05/09/2023How often do you attend episcopal or adventism services?Never05/09/2023o you belong to any clubs or organizations such as episcopal groups, unions, fraternal or athletic groups, or school groups?No05/09/2023How often do you attend meetings of the clubs or organizations you belong to?Never05/09/2023re you , , , , never , or living with a partner?Living with wevkdfk5805/09/2023 AUDIT-CAnswerDate RecordedQ1: How often do you have [...] very hard 05/09/2023HQ-2AnswerDate RecordedPatient Health Questionnaire-2 Score1 10/12/2023[facility] [place] of Occupational Health - Occupational Stress QuestionnaireAnswerDate RecordedDo you feel stress - tense, restless, nervous, or anxious, or unable to sleep at night because yourmind is troubled all the time - these days?To some zsaqge2805/09/2023Exercise Vital SignAnswerDate Recorded On average, how many [...] steady place to sleep or slept in [facility] (including now)?No05/09/2023 Estimated Date of XbfddvgfCfveahyeQdx70/19/2025Based on last menstrual period of 02/07/2025Sex and Gender InformationValueDate RecordedSex Assigned at BirthFemale 04/30/2023 3:31 PM EDTLegal RbfZsnyzf69/15/2023 7:09 PM EDTGender IdentityFemale 04/30/2023 3:31 PM EDTSexual OrientationNot on filedocumented as of this encounter Last Filed Vital Signs Vital SignReadingTime TakenCommentsBlood Lyxcwuak679/80112/08/2024 11:35 AM EST Pulse--Temperature--Respiratory Rate--Oxygen Saturation--Inhaled Oxygen Concentration--Jffpou282 kg (246 lb 12.8 oz)10/08/2025 11:35 AM ESTHeight--Body Mass Index42.36112/23/2022 4:27 PM ESTdocumented in this encounter Progress Notes * ALLIE Farmer - 10/08/2025 11:30 AM EST Reason for Appointment: Patient ID: Mercedes Kennedy is a 35 y.o. female who [...] ASSESSMENT & PLAN ICD-10-CM 1. Third trimester ([facility]) Z34.93 2. 34 weeks gestation of ([facility]) Z3A.34 Assessment/Plan Return OB: Patient presents today [...] of: ALLIE Farmer documented in this encounter Plan of Treatment DateTypeDepartmentCare Team (Latest Contact Info)Mhzernqwppb55/26/2025 11:30 AM ESTRoutine [facility] [address] [place] [address] [place] [address] Luis E Bray, [address] [place] [address] documented as of this encounter Procedures Procedure NamePriorityDate/TimeAssociated DiagnosisCommentsPOCT URINALYSIS ARRVQCZKChhgemo61/12/2025 11:48 AM EST 34 weeks gestation of ([facility]) documented in this encounter Results * [...] Location / LateralityCollection Method / VolumeCollection TimeReceived CjafDcgyf19/12/2025 11:48 AM EST Narrative Authorizing ProviderResult TypeResult StatusC[facility] TEST ENTER/EDIT ORDERABLESFinal Result documented in this encounter Visit Diagnoses Diagnosis Third trimester ([facility]) state, incidental 34 weeks gestation of ([facility]) documented in this encounter Additional Health Concerns AssessmentNoted TimePHQ-9 Depression Total Score: 9:00 AM EST documented as of this encounter Care Teams Team MemberRelationshipSpecialtyStart DateEnd Date Yamel Guerrero MD [address] [place] [address] PCP - GeneralFamily Medicine05/04/23 Yamel Guerrero MD [address] [place] [address] PCP - CHARLIE Joseph [facility]02/26/24documented as of this encounter
--- OUTSIDE RECORDS SUMMARY | 2025-10-09 09:52 | XMS_ITS | Encounter Summary ---
Author Organization [facility] Address [address] [place] [address] Care Team Providers Care Hosiery Looper Name Role Phone Mino aEst MD Primary Care Provider [phone] Mino East MD Unavailable Encounter Details DateTypeDepartmentCare Team (Latest Contact Info)Kljttbyukpl33/10/2025Clinisync Result Encounter [facility] External Department Unsolicited Fabi Arita PA [address] [place] [address] Dr [place], [place] [id number] Social History Tobacco UseTypesPacks/DayYears UsedDateSmoking Tobacco: NeverSmokeless [...] relatives?Once a week05/09/2023How often do you attend anglican or scientologist services?Never05/09/2023o you belong to any clubs or organizations such as anglican groups, unions, fraternal or athletic groups, or school groups?No05/09/2023How often do you attend meetings of the clubs or organizations you belong to?Never05/09/2023re you , , , , never , or living with a partner?Living with rghcaoc4805/09/2023 AUDIT-CAnswerDate RecordedQ1: How often do you have [...] RecordedPatient Health Questionnaire-2 Score1 10/12/2023[facility] [place] of Occupational Health - Occupational Stress QuestionnaireAnswerDate RecordedDo you feel stress - tense, restless, nervous, or anxious, or unable to sleep at night because yourmind is troubled all the time - these days?To some eyifdj7105/09/2023Exercise Vital SignAnswerDate Recorded On average, how many [...] in ashelter (including now)?No05/09/2023 Estimated Date of HrgnfovlQcebefdxFml83/19/2025Based on last menstrual period of 02/07/2025Sex and Gender InformationValueDate RecordedSex Assigned at BirthFemale 04/30/2023 3:31 PM EDTLegal XmsJothra10/15/2023 7:09 PM EDTGender IdentityFemale 04/30/2023 3:31 PM EDTSexual OrientationNot on filedocumented as of this encounter Plan of Treatment DateTypeDepartmentCare Team (Latest Contact Info)Cwwmtbluuej17/26/2025 11:30 AM ESTRoutine [facility] [address] [place] [address] Luis E Bray DO [address] [facility] [place] [address] documented as of this encounter Procedures Procedure NamePriorityDate/TimeAssociated DiagnosisCommentsUS OB BPP W NON-TGCIQJ6010/06/2025 12:00 PM EST documented in this encounter Results * US OB BPP W NON-STRESS (10/06/2025 12:00 PM EST)Anatomical Region LateralityModalityOtherSpecimen (Source)Anatomical Location / Laterality Collection Method / VolumeCollection TimeReceived Time10/06/2025 12:00 PM EST Narrative 10/06/2025 12:02 PM EST [facility] ?[address] ? [place] [address] ? Ultrasound Report ? Signed ? Patient: MERCEDES THOMPSON R ? MR#: [id number] ?? : 1990 ?Acct:[id number] ?? Age/Sex: 35 / F ?ADM Date: 11/10/25 ?? Loc: [facility] ??250-1 ? Attending Dr: Fabi Arita ? Ordering Physician: Fabi Arita ?? Date of Service: 10/06/25 ?? Procedure(s): US OB BPP w non-stress ?? Accession Number(s): [id number] ? cc: Fabi Arita; [place] ? [facility] ? [address] ? [place] [address] ? Patient Name: ?? MECREDES THOMPSON ? MRN: [facility]:[id number] ? date: 1990 ?Sex: F ?? Assigned Patient Location: [facility] ?? Current Patient Location: [facility] ?? Accession/Order Number: [id number] ?? Exam Date: 10/06/2025 ??11:34 ?Report Date: 10/06/2025 ??12:00 ? At the request of: ?? FABI ??JUAN J ? Procedure: ??US OB BPP w non-stress ? BIOPHYSICAL PROFILE: ? CLINICAL INFORMATION: 30 WEEKS GESTATION OF Z3A.30 ? COMPARISON: 09/29/2025 ? There is a single live intrauterine gestation in cephalic presentation. ??The ?? reported gestational age is 34 weeks 3 days. ??The heart rate measures ?? 138 beats per minute. ? FINDINGS: ? TONE: 1 or more episodes of activity extension and flexion of ?? extremity or opening and closing of the hand ?[Y] ? 2/2 ?? GROSS BODY MOVEMENTS: 3 or more discrete body or limb movements ?[Y] ? 2/2 ?? BREATHING MOVEMENTS: 1 or more episodes of breathing lasting at ?? least 30 seconds ? [Y] ? 2/2 ?? PACO: A single deepest vertical pocket of amniotic fluid greater than 2 cm ? [Y] ? 2/2 ?PACO: 15.8 cm ? Total score: ? 8/8 ? US/US OB BPP w non-stress ?? IMPRESSION: ? NORMAL BIOPHYSICAL PROFILE. ? Impression dictated by: Sonia Hernandez M.D. ??10/06/2025 12:00 PM ? Dictation Location: RADIO-PC-02 ? Electronically authenticated by: [id number] ??Y ?? Date: 10/06/2025 ??12:00 ? Dictated By: ?Sonia Hernandez M.D. ? Signed By: ?11/10/25 1202 ? DD/DT: //25 1200 ? TD/TT: ? Coordinating Producer: Procedure Note Radiology, Radiologist, - 10/06/2025 [place] [address] Ultrasound Report Signed Patient: MERCEDES THOMPSON RMR#: [id number] : 1990Acct:[id number] Age/Sex: 35 / FADM Date: 10/06/25 Loc: [facility] 250-[address]: Fabi Arita Ordering Physician: Fabi Arita Date of Service: 10/06/25 Procedure(s): US OB BPP w non-stress Accession Number(s): [id number] cc: Fabi Arita; [place] [address] Patient Name: MERCEDES THOMPSON MRN: [facility]:[id number] date: 1990 Sex: F Assigned Patient Location: [facility] Current Patient Location: [facility] Accession/Order Number: [id number] Exam Date: 10/06/2025 11:34 Report Date: 10/06/2025 12:00 At the request of: FABI ARITA Procedure: US OB BPP w non-stress BIOPHYSICAL PROFILE: CLINICAL INFORMATION: 30 WEEKS GESTATION OF Z3A.30 COMPARISON: 09/29/2025 There is a single live intrauterine gestation in cephalic presentation.The reported gestational age is 34 weeks 3 days. The heart ratemeasures 138 beats per minute. FINDINGS: TONE: 1 or more episodes of activity extension and flexion of extremity or opening and closing of the hand [Y] 2/2 GROSS BODY MOVEMENTS: 3 or more discrete body or limb movements [Y] 2/2 BREATHING MOVEMENTS: 1 or more episodes of breathing lastingat least 30 seconds [Y] 2/2 PACO: A single deepest vertical pocket of amniotic fluid greater than 2 cm [Y] 2/2 PACO: 15.8 cm Total score: 8/8 US/US OB BPP w non-stress IMPRESSION: NORMAL BIOPHYSICAL PROFILE. Impression dictated by: Sonia Hernandez M.D. 10/06/2025 12:00 PM Dictation Location: [place] [address] Electronically authenticated by: [id number] Y Date: 2:00 Dictated By: Sonia Hernandez M.D. Signed By:10/06/25 1202 DD/ 1200 TD/TT: Coordinating Producer: Authorizing ProviderResult TypeResult StatusAmy Temple PACLINISYNC IMAGINGFinal Result documented in this encounter Visit Diagnoses Not on filedocumented in this encounter Additional Health Concerns AssessmentNoted TimePHQ-9 Depression Total Score: 9:00 AM EST documented as of this encounter Care Teams Team MemberRelationshipSpecialtyStart DateEnd Date Mino East MD [address] [place] [address] PCP - GeneralFamily Medicine05/04/23 Mino East MD [address] [place], [place] [address] PCP - [facility] Jake PLAZA02/26/24documented as of this encounter
--- OUTSIDE RECORDS SUMMARY | 2025-10-09 09:53 | XMS_ITS | Clinical Summary ---
Author Organization [facility] Address [address] [place] [address] Care Team Providers Care Hide Examiner Name Role Phone Unavailable Primary Care Provider Unavailabl e Social History Tobacco UseTypesPacks/DayYears UsedDateSmoking Tobacco: Never Assessed CommentsUnknownSex and Gender InformationValueDate RecordedSex Assigned at Not on fileLegal CftHplgba28/29/2022 11:30 PM EDTGender IdentityNot on file Sexual OrientationNot on file Last Filed Vital Signs Vital SignReadingTime TakenCommentsBlood Vnboyees255/7611/14/2019 2:45 PM EST Ysogg106511/14/2019 2:45 PM ESTTemperature--Respiratory Rate--Oxygen Mufikyoery92% 09/23/2019 2:45 PM EDTInhaled Oxygen Concentration--Marokq32.6 kg (160 lb) 11/14/2019 2:43 PM MXSVqulex558.6 cm (5' 4 )11/14/2019 2:43 PM ESTBody Mass Index27.4611/14/2019 2:43 PM EST Plan of Treatment Not on file
--- OUTSIDE RECORDS SUMMARY | 2025-10-09 09:53 | XMS_ITS | Encounter Summary ---
Author Organization [facility] Address [address] [place] [address] Care Team Providers Care Computer Systems Analyst Name Role Phone Mino East MD Primary Care Provider [phone] Mino East MD Unavailable Encounter Details DateTypeDepartmentCare Team (Latest Contact Info)Xeycagwopxm79/03/2025Clinisync Result Encounter [facility] External Department Unsolicited Fabi Arita PA [address] [place] [address] [place], [place] [address] Social History Tobacco UseTypesPacks/DayYears UsedDateSmoking Tobacco: NeverSmokeless [...] relatives?Once a week05/09/2023How often do you attend mandaen or tenriism services?Never05/09/2023o you belong to any clubs or organizations such as mandaen groups, unions, fraternal or athletic groups, or school groups?No05/09/2023How often do you attend meetings of the clubs or organizations you belong to?Never05/09/2023re you , , , , never , or living with a partner?Living with annkive4305/09/2023 AUDIT-CAnswerDate RecordedQ1: How often do you have [...] very hard 05/09/2023HQ-2AnswerDate RecordedPatient Health Questionnaire-2 Score1 10/12/2023[facility] [place] of Occupational Health - Occupational Stress QuestionnaireAnswerDate RecordedDo you feel stress - tense, restless, nervous, or anxious, or unable to sleep at night because yourmind is troubled all the time - these days?To some ngpgfo2605/09/2023Exercise Vital SignAnswerDate Recorded On average, how many [...] in ashelter (including now)?No05/09/2023 Estimated Date of WkceojplCubhmahtBtv84/19/2025Based on last menstrual period of 02/07/2025Sex and Gender InformationValueDate RecordedSex Assigned at BirthFemale 04/30/2023 3:31 PM EDTLegal NvfKaewdh75/15/2023 7:09 PM EDTGender IdentityFemale 04/30/2023 3:31 PM EDTSexual OrientationNot on filedocumented as of this encounter Plan of Treatment DateTypeDepartmentCare Team (Latest Contact Info)Nssxrhkwbre92/26/2025 11:30 AM ESTRoutine [facility] [address] [facility] [address] Luis E Bray DO [address] [facility] [place] [address] documented as of this encounter Procedures Procedure NamePriorityDate/TimeAssociated DiagnosisCommentsUS OB BPP W NON-JQFIGE8909/29/2025 3:51 PM EST documented in this encounter Results * US OB BPP W NON-STRESS (09/29/2025 3:51 PM EST)Anatomical Region LateralityModalityOtherSpecimen (Source)Anatomical Location / Laterality Collection Method / VolumeCollection TimeReceived Time09/29/2025 3:51 PM EST Narrative 09/29/2025 3:54 PM EST [facility] ?[address] ? [place], [facility] ? Ultrasound Report ? Signed ? Patient: MERCEDES THOMPSON ? MR#: [id number] ?? : 1990 ?Acct:[id number] ?? Age/Sex: 35 / F ?ADM Date: 09/29/25 ?? Loc: US ? Attending Dr: Fabi Arita ? Ordering Physician: Fabi Arita ?? Date of Service: 09/29/25 ?? Procedure(s): US OB BPP w non-stress ?? Accession Number(s): [id number] ? cc: Fabi Arita; [place] ? [facility] ? [address] ? [place] [address] ? Patient Name: ?? MERCEDES THOMPSON ? MRN: [facility]:[id number] ? date: 1990 ?Sex: F ?? Assigned Patient [facility]: [facility] ?? Current Patient Location: US ?? Accession/Order Number: [id number] ?? Exam Date: 09/29/2025 ??11:40 ?Report Date: [...] M.D. ??09/29/2025 3:51 PM ? [facility]ation [facility]-- ? Electronically authenticated by: [id number] ??Y ?? Date: 09/29/2025 ??15:51 ? Dictated By: ?Alex Rich M.D. ? Signed By: ?09/29/25 1554 ? DD/ 1551 ? TD/TT: ? Idea Man: Procedure Note Radiology, Radiologist, - 09/29/[address] [address] Ultrasound Report Signed Patient: MERCEDES THOMPSON RMR#: [id number] : 1990Acct:[id number] Age/Sex: 35 / FADM Date: 09/29/25 Loc: US Attending Dr: Fabi Arita Ordering Physician: Fabi Arita Date of Service: 09/29/25 Procedure(s): US OB BPP w non-stress Accession Number(s): [id number] cc: Fabi Arita; [place] [address] [place] [address] Patient Name: MERCEDES THOMPSON MRN: [facility]:[id number] date: 1990 Sex: F Assigned Patient Location: [facility] Current Patient Location: [place] Accession/Order Number: [id number] Exam Date: 09/29/2025 11:40 Report Date: 09/29/2025 15:51 At the request of: FABI ARITA Procedure: US OB BPP w non-stress Ultrasound biophysical profile INDICATION: 30 weeks gestation COMPARISON: 09/22/2025 FINDINGS IMPRESSION: Cephalic position. heart rate 163 beats per minutes. PACO measures 11.1 cm 8/8 score biophysical profile Impression dictated by: Alex Rich M.D. 09/29/2025 3:51 PM Dictation Location: [place] [address] Electronically authenticated by: [id number] Y Date: 5:51 Dictated By: Alex Rich M.D. Signed By:09/29/25 1554 DD/ 1551 TD/TT: Idea Man: Authorizing ProviderResult TypeResult StatusFabi Arita PACLINISYNC IMAGINGFinal Result documented in this encounter Visit Diagnoses Not on filedocumented in this encounter Additional Health Concerns AssessmentNoted TimePHQ-9 Depression Total Score: 9:00 AM EST documented as of this encounter Care Teams Team MemberRelationshipSpecialtyStart DateEnd Date Mino East MD [address] [place] [address] [facility] - [facility] Mino East MD [address] [place] [address] PCP - CHARLIE Joseph CPC/12/20documented as of this encounter
--- OUTSIDE RECORDS SUMMARY | 2025-10-09 09:53 | XMS_ITS | Clinical Summary ---
Author Organization [employer] tem Address [id number] [address] [place] [address] Care Team Providers Care Registration Rep Name Role Phone Yamel Guerrero MD Primary Care Provider [phone] Allergies No known active allergies Medications MedicationSigDispense [...] 15 g 10/08/2019Active Active Problems ProblemNoted DateDiagnosed XabdDarzcohev58/12/2019Nasal congestion related to dzmtuiimm40/12/2019Tonsillar mrdjayocbdt70/12/2019Raynaud's vbudvypfid36/06/2019 History of delivery, currently /06/2019Undifferentiated connective tissue odeyevx9312/18/2017 Resolved Problems ProblemNoted DateDiagnosed DateResolved DateSubacute yxevtkdcb75/09/2018 08/02/2019Nasal pppkqtffiy20 Family History Medical HistoryRelationNameCommentsCancerFatherStrokeFatherRelationNameStatus CommentsFather Social History Tobacco UseTypesPacks/DayYears UsedDateSmoking Tobacco: NeverSmokeless Tobacco: NeverAlcohol UseStandard Drinks/WeekCommentsNever0 (1 standard drink = 0.6 oz pure alcohol)AUDIT-CAnswerDate RecordedFrequency of Alcohol ConsumptionNever 07/26/2019Average Number of DrinksNot on file07/26/2019Frequency of Binge DrinkingNot on file07/26/2019PHQ-2AnswerDate RecordedTotal Gnqqk91312/08/2018 ChildcareAnswerDate HonmywpiMdhzqwqjhXtruajo93/12/2019EmploymentAnswerDate MujzplncByfqttbmcbVkdhyyb29/12/2019Purpose - LifeAnswerDate RecordedPurpose and direction in tsbhTvhcbkj38/11/2021CommentsNoSex and Gender Information ValueDate RecordedSex Assigned at BirthNot on fileLegal AveQhoxei19/06/2015 11:38 AM EDTGender IdentityNot on fileSexual OrientationNot on file Last Filed Vital Signs Vital SignReadingTime TakenCommentsBlood Arpktbnv556/6210/08/2019 10:47 AM EST Mmrzw4260/06/2019 9:07 AM EDTTemperature--Respiratory Rate--Oxygen Saturation-- Inhaled Oxygen Concentration--Qtvrcy86.2 kg (179 lb)10/08/2019 10:47 AM EST Nbjmml569.6 cm (5' 4 )10/08/2019 10:47 AM ESTBody Mass Index30.7310/08/2019 10:47 AM EST Plan of Treatment Health MaintenanceDue DateLast DoneCommentsDepression Tivfanrhj33/28/2000Tobacco Zdznzyqnu45/28/2000Adult BMI Uyqzyioel82/28/2006Pap Smear2009Influenza Wcxdmhu92/01/229524/, 10/17/2019DTaP,Tdap and Td Vaccines (7 - Tdap) 2101/12/2022, 08/03/1994, 07/01/1991, Additional history exists Medical Devices Not on file Insurance Care Teams Team MemberRelationshipSpecialtyStart DateEnd Yamel Guerrero MD PCP - GeneralFamily Medicine06/03/17
--- OUTSIDE RECORDS SUMMARY | 2025-10-09 09:53 | XMS_ITS | Clinical Summary ---
Author Organization [facility] Address [address] [place] [address] Care Team Providers Care Supervisor Painting Name Role Phone Yamel East MD Primary Care Provider [phone] Yamel East MD Unavailable Allergies No known active allergies Medications MedicationSigDispense QuantityRefillsLast FilledStart DateEnd DateStatus MV-Min-Fe Fum-FA-DHA ( 1 PO) Take 1 tablet by mouth DailyActive hydroxychloroquine (Plaquenil) 100 MG tablet Hydroxychloroquine SulfateActive Vit-Fe Fumarate-FA ( Vitamin) 27-0.8 MG tablet VitaminActive buPROPion XL (Wellbutrin XL) 300 MG 24 [...] hours if needed for wheezing. 18 g /Discontinued ondansetron (Zofran) 4 MG tablet Indications:Nausea and vomiting in ([facility])Take 1 tablet (4 mg) by mouth every 6 (six) hours if needed for nausea or vomiting for up to 30 doses Take 1 tablet by mouth every 6 hours as needed for nausea. 30 tablet Discontinued promethazine (Phenergan) 12.5 MG tablet Indications:Nausea and vomiting in ([facility])Take 1 tablet (12.5 mg) by mouth every 6 (six) hours if needed for nausea or vomiting for up to 30 doses Take 1 tablet by mouth every 6 hours as needed for nausea. 30 tablet Discontinued metoclopramide (Reglan) 10 MG tablet Indications:Nausea and vomiting in ([facility])Take 1 tablet (10 mg) by mouth in the morning and 1 tablet (10 mg) at noon and 1 tablet (10 mg) in the evening. Take before meals. Take 1 tablet by mouth 30 minutes prior to meals 3 times daily as needed for nausea. 90 tablet Discontinued Pharmacist Choice Lancets [facility] [place] Indications:Gestational diabetes mellitus (GDM), antepartum, gestational diabetes method of control unspecified([facility]),Elevated glucose tolerance test USE 1 LANCET TO CHECK FSBS 4 TIMES DAILY 150 each Discontinued Alcohol Swabs (Alcohol Prep Pad) 70 % pads Indications:Gestational diabetes mellitus (GDM), antepartum, gestational diabetes method of control unspecified([facility]),Elevated glucose tolerance test Apply 1 Pad topically Daily Use four times daily to check FSBS. 150 each Discontinued Blood Glucose Monitoring Suppl (D-Care Glucometer) w/Device kit Indications:Gestational diabetes mellitus (GDM), antepartum, gestational diabetes method of control unspecified([facility]),Elevated glucose tolerance test1 kit Daily Use four times daily to check FSBS. In the morning prior to breakfast & 1 hour after each meal for a total of 4times daily. 1 kit Discontinued Active Problems ProblemNoted DateDiagnosed IivoCncjvpc07/03/2023Obesity due to excess calories without serious rhdmumzufxi64/03/2023Systemic lupus fbmcuavurpvta21/05/2023 Elevated antinuclear antibody (ROSEMARY) level05/10/2023astroesophageal reflux disease without pzeiywmmirj00/14/2023Severe single current episode of major depressive disorder, without psychotic kmbnozsq11/14/7361Gqmjhhphnnh80/14/2023 Tonsillar twajbglbgrl75/12/2019Raynaud's hbljhihqdd80/06/2019Undifferentiated connective tissue ikfymop0012/18/2017Estimated Date of DeliveryCommentsYes 11/14/2025ased on last menstrual period of 02/07/2025 Resolved Problems ProblemNoted DateDiagnosed DateResolved DateCarpal tunnel rczkjfit11/14/2023 05/31/2023 Encounters DateTypeDepartmentCare GdncNovthtmmspw29/12/2025 11:30 [place] [phone] Fabi Arita PA Third trimester ([facility]); 34 weeks gestation of ([facility])10/08/2025 11:00 AM ESTAncillary Procedure [facility] [place] [address] Gestational diabetes mellitus (GDM), antepartum, gestational diabetes method of control unspecified([facility])5Clinisync Result Encounter NOMS External Department Unsolicited Fabi Arita PA 5Clinisync Result Encounter NOMS External Department Unsolicited Fabi Arita PA 5[place] [phone] Jossy Bray DO 09/23/2025 10:00 [place] [address] Jossy Bray DO 32 weeks gestation of ([facility]); Third trimester ([facility]); Gestational diabetes mellitus (GDM), antepartum, gestational diabetes method of control unspecified([facility])09/23/2025amboo flowsheet [facility] [address] [place] [phone] Jossy Bray, DO 09/22/2025linisync Result Encounter NOMS External Department Unsolicited Fabi Arita PA 09/22/20251969Zrofqc35/14/2025 10:50 AM EDTRoutine [facility] [address] [place] [phone] Fabi Arita PA Third trimester ([facility]); 30 weeks gestation of ([facility])09/09/2025 10:00 AM EDTAncillary Procedure [facility] [address] [place] [phone] Gestational diabetes mellitus (GDM), antepartum, gestational diabetes method of control unspecified([facility])09/08/20253354Yphsmj67/08/2025Clinisync Result Encounter NOMS External Department Unsolicited Provider, Generic External Data 08/27/2025 10:20 AM EDTRoutine [facility] [address] [place] [address] Catarina Barnes NP 28 weeks gestation of ([facility]); Third trimester ([facility]); Gestational diabetes mellitus (GDM), antepartum, gestational diabetes method of control unspecified([facility]); Diabetes mellitus vvqekgbfr49/01/2025bstract [facility] [address] [place] [address] Jossy Bray, 08/27/2025linisync Result Encounter [facility]OMS External Department Unsolicited Provider, Generic External Data 5Bamboo flowsheet [facility] [address] [place] [phone] Catarina Barnes NP 08/13/2025 11:10 AM EDTRoutine [facility] [address] [place] [phone] Jossy Bray DO 26 weeks gestation of ([facility]); Second trimester ([facility]); Gestational diabetes mellitus (GDM), antepartum, gestational diabetes method of control unspecified([facility])08/13/2025amboo flowsheet [facility] [address] [place] [address] Jossy Bray, 08/12/20254811Rccskw95/15/2025bstract [facility] [address] [place] [phone] Jossy Bray DO 08/04/2025 10:00 AM EDTAncillary Procedure [facility] [address] [place] [phone] Encounter for follow-up ultrasound of anatomy ([facility])07/29/2025Travel 07/15/2025 9:00 AM EDTRoutine [facility] [address] [place] [address] Jossy Bray DO Second trimester ([facility]); 22 weeks gestation of ([facility]); Encounter for follow-up ultrasound of anatomy ([facility])07/15/2025amb flowsheet [facility] [address] [place] [phone] Jossy Bray DO from Last 3 Months Family History Medical HistoryRelationNameCommentsCancerBrotherMatt donna (thyroid cancer) CancerFatherDan donna(throat cancer)Rheum arthritisFatherDan donna(throat cancer)StrokeFatherDan donna(throat cancer)Throat cancerFatherDan donna(throat cancer)AneurysmMaternal GrandfatherColon cancerMaternal GrandmotherArthritis MotherPatti byersRheum arthritisMotherPatti byersArthritisMother's SisterAunt DiabetesMother's SisterAuntStrokePaternal GrandfatherRelationNameStatusComments BrotherMatt donna (thyroid cancer)FatherDan donna(throat cancer)AliveMaternal GrandfatherDeceasedMaternal GrandmotherDeceasedMotherPatti byersAliveMother's SisterAuntPaternal GrandfatherDeceasedPaternal GrandmotherDeceased Social History Tobacco UseTypesPacks/DayYears UsedDateSmoking Tobacco: [...] relatives?Once a week05/09/2023How often do you attend mu-ism or tenriism services?Never05/09/2023o you belong to any clubs or organizations such as mu-ism groups, unions, fraternal or athletic groups, or school groups?No05/09/2023How often do you attend meetings of the clubs or organizations you belong to?Never05/09/2023re you , , , , never , or living with a partner?Living with lepllug0905/09/2023 AUDIT-CAnswerDate RecordedQ1: How often do you have [...] very hard 05/09/2023HQ-2AnswerDate RecordedPatient Health Questionnaire-2 Score1 10/12/2023FinMethod[facility] - Occupational Stress QuestionnaireAnswerDate RecordedDo you feel stress - tense, restless, nervous, or anxious, or unable to sleep at night because yourmind is troubled all the time - these days?To some nnhaid4405/09/2023Exercise Vital SignAnswerDate Recorded On average, how many [...] steady place to sleep or slept in [place] (including now)?No05/09/2023 Estimated Date of InlsbqnkYuritqbgIgx19/19/2025Based on last menstrual period of 02/07/2025Sex and Gender InformationValueDate RecordedSex Assigned at BirthFemale 04/30/2023 3:31 PM EDTLegal CjeBofifz68/15/2023 7:09 PM EDTGender IdentityFemale 04/30/2023 3:31 PM EDTSexual OrientationNot on file Last Filed Vital Signs Vital SignReadingTime TakenCommentsBlood Apxiwsge379/80112/08/2024 11:35 AM EST Zhnud985810/23/2023 4:27 PM FLQPhrquqkcuqn65 ??C (98.6 ??F)10/23/2023 4:27 PM EST Respiratory Gzul312912/23/2022 4:27 PM ESTOxygen Yaktxlsevm38%10/23/2023 4:27 PM ESTInhaled Oxygen Concentration--Hyccyj918 kg (246 lb 12.8 oz)10/08/2025 11:35 AM MXNUhkwvu769.6 cm (5' 4 )10/23/2023 4:27 PM ESTBody Mass Index42.36112/23/2022 4:27 PM EST Plan of Treatment DateTypeDepartmentCare Team (Latest Contact Info)Qocvhweaoil68/26/2025 11:30 AM ESTRoutine [facility] [address] [place] [phone] Jossy Bray DO [address] [place], [place] [phone] Health MaintenanceDue DateLast DoneCommentsCOVID-19 Vaccine ( season) 2025Influenza Vaccine (#1)/, 10/17/2019Cervical Cancer Olbbozlfo27/07/2030HPV/Lfiqiw28/3Pap Smear/05/2025, 04/06/2022neumococcal Vaccine: Pediatrics (0 to 5 Years) and At-Risk Patients (6 to 64 Years)Aged OutNo longer eligible based on patient's age to complete this topic Procedures Procedure NamePriorityDate/TimeAssociated DiagnosisCommentsPOCT URINALYSIS EGVUJTNRRifzxez37/12/2025 11:48 AM EST 34 weeks gestation of ([facility]) US OB FOLLOW UP TRANSABDOMINAL LZTNZGGQTdptvsu60/12/2025 11:36 AM EST Gestational diabetes mellitus (GDM), antepartum, gestational diabetes method of control unspecified([facility]) US OB BPP W NON-GNIZJC7710/06/2025 12:00 PM EST US OB BPP W NON-SORTZA7609/29/2025 3:51 PM EST POCT URINALYSIS JOTJNQPYPkrdrjp19/28/2025 10:15 AM EDT 32 weeks gestation of ([facility]) Third trimester ([facility]) US OB BPP W NON-JEBJAI5709/22/2025 10:42 PM EDT POCT URINALYSIS NUWUQOHTQzowybc78/14/2025 11:15 AM EDT 30 weeks gestation of ([facility]) US OB FOLLOW UP TRANSABDOMINAL PBRRVCLFPcgyzkc51/14/2025 10:39 AM EDT Gestational diabetes mellitus (GDM), antepartum, gestational diabetes method of control unspecified([facility]) MLR HEMOGLOBIN U4MRajpnzp70/08/2025 10:44 AM EDT ALL CBC WITH AUTO DVCEHpdetsi95/08/2025 10:44 AM EDT US OB RRYZCR3708/27/2025 11:15 AM EDT POCT URINALYSIS COLHQWXPYyloqnc41/01/2025 10:37 AM EDT 28 weeks gestation of ([facility]) Third trimester ([facility]) POCT URINALYSIS DLPRYVCTKmwpxaj16/17/2025 11:24 AM EDT 26 weeks gestation of ([facility]) Second trimester ([facility]) US OB LIMITED 1+ NVUIKDYXileccs81/08/2025 10:29 AM EDT Encounter for follow-up ultrasound of anatomy ([facility]) POCT URINALYSIS VPVAGLNGZelsgod68/19/2025 9:30 AM EDT Second trimester ([facility]) 22 weeks gestation of ([facility]) PAP BTUFSAxoztff09/07/2025 12:00 AM EDTTHINPREP PAP AND HPV MRNA E6/E7 W/RFL HPV 16,18/93Slaadko77/17/2023 10:11 AM EDT Well woman exam with routine gynecological exam from Last 3 Months or Most Recently Relevant to Health Maintenance Results * (ABNORMAL) POCT urinalysis dipstick manually resulted (10/08/2025 11:48 AM EST) Only the most recent of6 resultswithin the time period is included. ComponentValueRef RangeTest MethodAnalysis TimePerformed AtPathologist Signature Color, UAYellowClarity, UAClearGlucose, UANegativeNegative - 2000(110) ++++ mg/dLBilirubin, UANegativeNegative - 4(70) +++ mg/dLKetones, UAPositiveNegative - 160(16) ++++ mg/dLSpec Grav, UA1.0101 - 1.03Blood, UANegativeNegative - 50 Nico/mcLpH, UA6.05 - 9Protein, UANegativeNegative - 2000(20) ++++ mg/dL Urobilinogen, UA1.00.2 - 12 mg/dLLeukocytes, UATraceNegative - 500+++ Karson/mcL Nitrite, UANegativeNegative - PositiveSpecimen (Source)Anatomical Location / LateralityCollection Method / VolumeCollection TimeReceived SrmqTcvwu01/12/2025 11:48 AM EST Narrative Authorizing ProviderResult TypeResult StatusEncompass Health Rehabilitation [facility] ThompsonsOhioHealth Mansfield HospitalOINT OF CARE TEST ENTER/EDIT ORDERABLESFinal Result * US OB follow up transabdominal approach (10/08/2025 11:36 AM EST) Only the most recent of2 resultswithin the time period is included. Anatomical RegionLateralityModalityBodyUltrasoundSpecimen (Source)Anatomical Location / LateralityCollection Method / VolumeCollection TimeReceived Time 10/08/2025 8:24 PM EST Impressions 10/09/2025 7:13 AM [...] DOIMG OB US PROCEDURES Final Result * US OB BPP W NON-STRESS (10/06/2025 12:00 PM EST) Only the most recent of3 resultswithin the time period is included. Anatomical RegionLateralityModalityOtherSpecimen (Source)Anatomical Location / LateralityCollection Method / VolumeCollection TimeReceived Time10/06/2025 12:00 PM EST Narrative 10/06/2025 12:02 PM EST [facility] ?[address] ? [place] [address] ? Ultrasound Report ? Signed ? Patient: DONNA,BETTY R ? MR#: [id number] ?? : 1990 ?Acct:[id number] ?? Age/Sex: 35 / F ?ADM Date: 10/06/25 ?? Loc: [facility] ??250-1 ? Attending Dr: Fabi Arita ? Ordering Physician: Fabi Arita ?? Date of Service: 10/06/25 ?? Procedure(s): US OB BPP w non-stress ?? Accession Number(s): [id number] ? cc: Fabi Arita; [facility] ? [facility] ? [address] ? [place] [address] ? Patient Name: ?? BETTY THOMPSON ? MRN: [facility]:[id number] ? date: 1990 ?Sex: F ?? Assigned Patient Location: [facility] ?? Current Patient Location: [facility] ?? Accession/Order Number: [id number] ?? Exam Date: 10/06/2025 ??11:34 ?Report Date: [...] Dictation Location: RADIO-PC-02 ? Electronically authenticated by: [id number] ??Y ?? Date: 10/06/2025 ??12:00 ? Dictated By: ?Sonia Hernandez M.D. ? Signed By: ?10/06/25 1202 ? DD/ 1200 ? TD/TT: ? Ict Sales Assistant: Procedure Note Radiology, Radiologist, MD - 10/06/2025 [place] [address] Ultrasound Report Signed Patient: BETTY THOMPSON R#: [id number] : 1990Acct:[id number] Age/Sex: 35 / FADM Date: 10/06/25 Loc: [facility] 250-[address]: Fabi Arita Ordering Physician: Fabi Arita Date of Service: 10/06/25 Procedure(s): US OB BPP w non-stress Accession Number(s): [id number] cc: Fabi Arita; [facility] [place] [address] Patient Name: BETTY THOMPSON MRN: [facility]:[id number] date: 1990 Sex: F Assigned Patient Location: [facility] Current Patient Location: [facility] Accession/Order Number: [id number] Exam Date: 10/06/2025 11:34 Report Date: 10/06/2025 [...] Hernandez M.D. 10/06/2025 12:00 PM Dictation Location: [place] [address] Electronically authenticated by: [id number] Y Date: 2:00 Dictated By: Sonia Hernandez M.D. Signed By:10/06/25 1202 DD/ 1200 TD/TT: Ict Sales Assistant: Authorizing ProviderResult TypeResult StatusFabi Huffey PACLINISYNC IMAGINGFinal Result * MLR HEMOGLOBIN A1C (09/03/2025 10:44 AM EDT)ComponentValueRef RangeTest Method Analysis TimePerformed AtPathologist SignatureGLYCOHEMOGLOBIN A1C5.24.5 - 6.2 %TBHComment: ADA RECOMMENDED LIMIT 4.0 - 6.0 ADA THERAPEUTIC TARGET < 7.0 ACTION SUGGESTED > 7.0 ESTIMATED AVERAGE VZHMAFY581my/dLTBHSpecimen (Source)Anatomical Location / LateralityCollection Method / VolumeCollection TimeReceived Time09/03/2025 10:44 AM EDT1 10:45 AM EDT Narrative ABELINOISYNC - 09/03/2025 12:20 PM EDT Authorizing ProviderResult TypeResult StatusKristina Molly NPCLINISYNCFinal ResultPerforming OrganizationAddressCity/State/ZIP CodePhone Number CLINISYNC [facility] * (ABNORMAL) ALL CBC WITH AUTO DIFF (09/03/2025 10:44 AM EDT)ComponentValueRef RangeTest MethodAnalysis TimePerformed AtPathologist SignatureTBH WBC10.64.0 - 11.0 10 3/uLTBHTBH RBC3.60(L)4.20 - 5.40 10 6/uLTBHTBH HGB12.112.0 - 16.0 g/dLTBHTBH HCT35.6(L)36.0 - 48.0 %TBHTBH MCV98.981.0 - 99.0 fLTBHTBH MCH33.6 26.7 - 34.0 pgTBHTBH MCHC34.029.9 - 35.2 g/dLTBHTBH RDW14.311.0 - 15.0 %TBHTBH ZUM875614 - 450 10 3/uLTBHTBH MPV11.29.5 - 13.5 fLTBHNEUTROPHILS PERCENT AUTO 79.8(H)43.0 - 75.0 %TBHLYMPHOCYTES PERCENT AUTO12.9(L)20.5 - 60.0 %TBH MONOCYTES PERCENT AUTO5.51.7 - 12.0 %TBHTBH EO %0.90.9 - 7.0 %TBHBASOPHILS PERCENT AUTO0.40.2 - 2.0 %TBHIMMATURE GRANULOCYTES PCT AUTO0.50.0 - 0.5 %TBH NEUTROPHILS ABSOLUTE AUTO8.5(H)1.4 - 6.5 10 3/uLTBHLYMPHOCYTES ABSOLUTE AUTO 1.41.2 - 3.8 10 3/uLTBHMONOCYTES ABSOLUTE AUTO0.60.3 - 0.8 10 3/uLTBHTBH EO # 0.10.0 - 0.7 10 3/uLTBHBASOPHILS ABSOLUTE AUTO0.00.0 - 0.1 10 3/uLTBHIMMATURE GRANULOCYTES ABS AUTO0.05(H)0.00 - 0.03 10 3/uLTBHSpecimen (Source)Anatomical Location / LateralityCollection Method / VolumeCollection TimeReceived Time 09/03/2025 10:44 AM EDT1 10:45 AM EDT Narrative CLINISYNC - 09/03/2025 10:56 AM EDT Authorizing ProviderResult TypeResult StatusKristina Molly NPCLINISYNCFinal ResultPerforming OrganizationAddressCity/State/ZIP CodePhone Number CLINISYNC [facility] * US OB GROWTH (08/27/2025 11:15 AM EDT)Anatomical RegionLateralityModalityOther Specimen (Source)Anatomical Location / LateralityCollection Method / Volume Collection TimeReceived Time08/27/2025 11:15 AM EDT Narrative 08/27/2025 11:17 AM EDT [facility] ?[address] ? [place] [address] ? Ultrasound Report ? Signed ? Patient: DONNA,BETTY R ? MR#: [id number] ?? : 1990 ?Acct:[id number] ?? Age/Sex: 35 / F ?ADM Date: 08/27/25 ?? Loc: US ? Attending Dr: Jossy Bray D.O. ? Ordering Physician: Jossy Bray D.O. ?? Date of Service: 08/27/25 ?? Procedure(s): US OB growth ?? Accession Number(s): [id number] ? cc: [facility] ; Jossy Bray D.O. ? [facility] ? [address] ? [place] [address] ? Patient Name: ?? BETTY THOMPSON ? MRN: [facility]:[id number] ? date: 1990 ?Sex: F ?? Assigned Patient Location: US ?? Current Patient Location: US ?? Accession/Order Number: [id number] ?? Exam Date: 08/27/2025 ??09:52 ?Report Date: [...] M.D. ??08/27/2025 11:15 AM ? Dictation Location: [place] [address] ? Electronically authenticated by: [id number] ??Y ?? Date: 08/27/2025 ??11:15 ? Dictated By: ?Sonia Hernandez M.D. ? Signed By: ?08/27/251116 ? DD/ ? TD/TT: ? Ict Sales Assistant: Procedure Note Radiology, Radiologist, MD - 08/27/[address] [address] Ultrasound Report Signed Patient: BETTY THOMPSON RMR#: [id number] : 1990Acct:[id number] Age/Sex: 35 / FADM Date: 08/27/25 Loc: US Attending Dr: Jossy Bray D.O. Ordering Physician: Jossy Bray D.O. Date of Service: 08/27/25 Procedure(s): US OB growth Accession Number(s): [id number] cc: [facility] ; Jossy Bray D.O. [place] [id number] Patient Name: BETTY THOMPSON MRN: [facility]:[id number] date: 1990 Sex: F Assigned Patient Location: Current Patient Location: US Accession/Order Number: [id number] Exam Date: 08/27/2025 09:52 Report Date: 08/27/2025 [...] 08/27/2025 11:15 AM Dictation Location: [place] [address] Electronically authenticated by: [id number] Y Date: 1:15 Dictated By: Sonia Hernandez M.D. Signed By:08/27/25 1117 DD/ 1115 TD/TT: Ict Sales Assistant: Authorizing ProviderResult TypeResult StatusGeneric External Data [...] MD Authorizing ProviderResult TypeResult StatusCorejulio cesar Bray [facility] OB US PROCEDURES Final Result * Pap Smear (06/02/2025 12:00 AM EDT)Specimen (Source)Anatomical Location / LateralityCollection Method / VolumeCollection TimeReceived TimeSwabCervical swab / Unknown Narrative Authorizing ProviderResult TypeResult StatusCorejulio cesar ALLEN CYTOLOGY ORDERABLESFinal ResultPerforming OrganizationAddressCity/State/ZIP CodePhone Number EXTERNAL LAB * THINPREP PAP AND HPV MRNA E6/E7 W/RFL HPV 16,18/45 (07/13/2023 10:11 AM EDT) Narrative Authorizing ProviderResult TypeResult StatusAmy Juan J PALAB BLOOD ORDERABLES Final ResultPerforming OrganizationAddressCity/State/ZIP CodePhone Number EXTERNAL LAB from Last 3 Months or Most Recently Relevant to Health Maintenance Insurance Care Teams Team MemberRelationshipSpecialtyStart DateEnd Yamel East MD [address] [place], [place] [phone] PCP - GeneralFamily Medicine05/04/23 Yamel East MD [address], [place] [phone] PCP - [facility]02/26/24
[2025-10-09 10:00] VITALS: BP 122/59; PULSE 92
== END 2025-10-09 10:35 | disposition home or self-care (01) ==
LOC: FBCO 09:50 → FBC 09:52
PROVIDERS: PCP Family Medicine; Visit Provider Obstetrics & Gynecology
DX: O09.529 Supervision of elderly multigravida, unspecified trimester (principal)
CPT/HCPCS: 59025

== ENCOUNTER 2025-10-13 11:08 | Outpatient (OUT) | payer MEDICAID, SELFPAY ==
--- OUTSIDE RECORDS SUMMARY | 2025-10-13 11:14 | XMS_ITS | Clinical Summary ---
Author Organization [employer] Address [id number] [address] [place] [address] Care Team Providers Care Custodian Name Role Phone Yamel Guerrero MD Primary Care Provider [phone] Allergies No known active allergies Medications MedicationSigDispense [...] 15 g 10/08/2019Active Active Problems ProblemNoted DateDiagnosed UbstAizvxjmug09/12/2019Nasal congestion related to jbqgadwew90/12/2019Tonsillar sgomvrptnln75/12/2019Raynaud's vojjkrqijt94/06/2019 History of delivery, currently lorvuxma61/06/2019Undifferentiated connective tissue dsvsatw8012/18/2017 Resolved Problems ProblemNoted DateDiagnosed DateResolved DateSubacute vkgaipmpf51/09/2018 08/02/2019Nasal psakannywz81 Family History Medical HistoryRelationNameCommentsCancerFatherStrokeFatherRelationNameStatus CommentsFather Social History Tobacco UseTypesPacks/DayYears UsedDateSmoking Tobacco: NeverSmokeless Tobacco: NeverAlcohol UseStandard Drinks/WeekCommentsNever0 (1 standard drink = 0.6 oz pure alcohol)AUDIT-CAnswerDate RecordedFrequency of Alcohol ConsumptionNever 07/26/2019Average Number of DrinksNot on file07/26/2019Frequency of Binge DrinkingNot on file07/26/2019PHQ-2AnswerDate RecordedTotal Psjxb72012/08/2018 ChildcareAnswerDate WprxfcixDxfwngsnkInljuqr22/12/2019EmploymentAnswerDate UruqalxaSfutectiibJbzxaoz00/12/2019Purpose - LifeAnswerDate RecordedPurpose and direction in blqfRosfpzr45/11/2021CommentsNoSex and Gender Information ValueDate RecordedSex Assigned at BirthNot on fileLegal CcwBtupyj24/06/2015 11:38 AM EDTGender IdentityNot on fileSexual OrientationNot on file Last Filed Vital Signs Vital SignReadingTime TakenCommentsBlood Atxcfpxj944/6210/08/2019 10:47 AM EST Smgel4517/06/2019 9:07 AM EDTTemperature--Respiratory Rate--Oxygen Saturation-- Inhaled Oxygen Concentration--Puxbub76.2 kg (179 lb)10/08/2019 10:47 AM EST Aycivc028.6 cm (5' 4 )10/08/2019 10:47 AM ESTBody Mass Index30.7310/08/2019 10:47 AM EST Plan of Treatment Health MaintenanceDue DateLast DoneCommentsDepression Anpaypvsk71/28/2000Tobacco Pqngcoxoz57/28/2000Adult BMI Apzdiihny07/28/2006Pap Smear2009Influenza Wtyyucj69/01/152235/, 10/17/2019DTaP,Tdap and Td Vaccines (7 - Tdap) 2101/12/2022, 08/03/1994, 07/01/1991, Additional history exists Medical Devices Not on file Insurance Care Teams Team MemberRelationshipSpecialtyStart DateEnd Yamel Guerrero MD PCP - GeneralFamily Medicine06/03/17
--- NOTE | 2025-10-13 11:23 | US_ITS ---
The [address] [address] Patient Name: AYDE THOMPSON MRN: [id number] date: 1990 Sex: F Assigned Patient Location: Current Patient Location: US Accession/Order Number: [id number] Exam Date: 10/13/2025 11:28 Report Date: 10/13/2025 11:50 At the request of: ROMERO ARITA Procedure: US OB BPP w non-stress BIOPHYSICAL PROFILE: CLINICAL INFORMATION: 30 weeks gestation of COMPARISON: 10/06/2025 There is a single live intrauterine gestation in cephalic presentation. The reported gestational age is 35 weeks 3 days. The heart rate measures 141 beats per minute. FINDINGS: TONE: 1 or more episodes of activity extension and flexion of extremity or opening and closing of the hand [Y] 2/2 GROSS BODY MOVEMENTS: 3 or more discrete body or limb movements [Y] 2/2 BREATHING MOVEMENTS: 1 or more episodes of breathing lasting at least 30 seconds [Y] 2/2 PACO: A single deepest vertical pocket of amniotic fluid greater than 2 cm [Y] 2/2 PACO: 14.8 cm Total score: 8/8 US/US OB BPP w non-stress IMPRESSION: NORMAL BIOPHYSICAL PROFILE Impression dictated by: Sonia Hernandez M.D. 10/13/2025 11:50 AM Dictation Location: [place] [address] Electronically authenticated by: [id number] Y Date: 10/13/2025 11:50
[2025-10-13 12:01] VITALS: BP 105/49; PULSE 84
[2025-10-13 12:17] VITALS: BP 81/44; PULSE 87
[2025-10-13 12:28] VITALS: BP 134/72; PULSE 89
== END 2025-10-13 12:30 | disposition home or self-care (01) ==
LOC: US 11:09 → FBC 11:28
PROVIDERS: PCP Family Medicine; Visit Provider Physician Assistant
DX: Z34.93 Encounter for supervision of normal pregnancy, unspecified, third trimester (principal); Z3A.30 30 weeks gestation of pregnancy
CPT/HCPCS: 76818

== ENCOUNTER 2025-10-16 09:56 | Outpatient (OUT) | payer MEDICAID, SELFPAY ==
[2025-10-16 10:07] VITALS: BP 102/55; PULSE 86
== END 2025-10-16 10:35 | disposition home or self-care (01) ==
LOC: FBCO 09:56 → FBC 09:57
PROVIDERS: PCP Family Medicine; Visit Provider Obstetrics & Gynecology
DX: O09.529 Supervision of elderly multigravida, unspecified trimester (principal); Z87.51 Personal history of pre-term labor
CPT/HCPCS: 59025

== ENCOUNTER 2025-10-20 11:25 | Outpatient (OUT) | payer MEDICAID, SELFPAY ==
--- OUTSIDE RECORDS SUMMARY | 2025-10-08 11:00 | XMS_ITS | Encounter Summary ---
Author Organization [facility] Address [address] [place] [address] Care Team Providers Care Parking Meter Installer Name Role Phone Yamel Guerrero MD Primary Care Provider [phone] Yamel Guerrero MD Unavailable Encounter Details DateTypeDepartmentCare Team (Latest Contact Info)Pmzrelvpqrb14/12/2025 11:00 AM ESTAncillary Procedure [facility] [address] [place] [address] [place] [address] Gestational diabetes mellitus (GDM), antepartum, gestational diabetes method of control unspecified([facility]) Social History Tobacco UseTypesPacks/DayYears UsedDateSmoking Tobacco: [...] relatives?Once a week05/09/2023How often do you attend roman catholic or caodaism services?Never05/09/2023o you belong to any clubs or organizations such as roman catholic groups, unions, fraternal or athletic groups, or school groups?No05/09/2023How often do you attend meetings of the clubs or organizations you belong to?Never05/09/2023re you , , , , never , or living with a partner?Living with mahfzva8505/09/2023 AUDIT-CAnswerDate RecordedQ1: How often do you have [...] very hard 05/09/2023HQ-2AnswerDate RecordedPatient Health Questionnaire-2 Score1 10/12/2023[facility] [place] of Occupational Health - Occupational Stress QuestionnaireAnswerDate RecordedDo you feel stress - tense, restless, nervous, or anxious, or unable to sleep at night because yourmind is troubled all the time - these days?To some fpzxdl3305/09/2023Exercise Vital SignAnswerDate Recorded On average, how many [...] in ashelter (including now)?No05/09/2023 Estimated Date of TdenbugfAqgixqinLwf31/19/2025Based on last menstrual period of 02/07/2025Sex and Gender InformationValueDate RecordedSex Assigned at BirthFemale 04/30/2023 3:31 PM EDTLegal YevJpbque57/15/2023 7:09 PM EDTGender IdentityFemale 04/30/2023 3:31 PM EDTSexual OrientationNot on filedocumented as of this encounter Plan of Treatment DateTypeDepartmentCare Team (Latest Contact Info)Lkzrlepfxsr67/26/2025 3:20 PM ESTRoutine [facility] [address] [facility] [address] Luis E Bray DO [address] [facility] [address] [place], [place] [id number] documented as of this encounter Procedures Procedure NamePriorityDate/TimeAssociated DiagnosisCommentsUS OB FOLLOW UP TRANSABDOMINAL XKADETXCUrmsrmr20/12/2025 11:36 AM EST Gestational diabetes mellitus (GDM), antepartum, gestational diabetes method of control unspecified([facility]) documented in this encounter Results * US [...] gestational diabetes method of control unspecified([facility]) documented in this encounter Additional Health Concerns AssessmentNoted TimePHQ-9 Depression Total Score: 411 9:00 AM EST documented as of this encounter Care Teams Team MemberRelationshipSpecialtyStart DateEnd Date Yamel Guerrero MD [address] [place] [address] PCP - GeneralFamily Medicine05/04/23 Yamel Guerrero MD [address] [place] [address] PCP - CHARLIE PLAZA02/26/24documented as of this encounter
--- OUTSIDE RECORDS SUMMARY | 2025-10-08 11:30 | XMS_ITS | Encounter Summary ---
Author Organization [facility] Address [address] [place] [address] Care Team Providers Care Track Mechanic Name Role Phone Yamel Guerrero MD Primary Care Provider [phone] Yamel Guerrero MD Unavailable Reason for Visit * ReasonCommentsRoutine Visit Encounter Details DateTypeDepartmentCare Team (Latest Contact Info)Lxhydqedlqw22/12/2025 11:30 AM ESTRoutine [facility] [address] [facility] [address] Fabi Martinez PA [address] [facility] [address] [place], [facility] Third trimester ([facility]); 34 weeks gestation of ([facility]); Common cold Social History Tobacco UseTypesPacks/DayYears UsedDateSmoking [...] relatives?Once a week05/09/2023How often do you attend bahai or alevism services?Never05/09/2023o you belong to any clubs or organizations such as bahai groups, unions, fraternal or athletic groups, or school groups?No05/09/2023How often do you attend meetings of the clubs or organizations you belong to?Never05/09/2023re you , , , , never , or living with a partner?Living with ztndxbg3705/09/2023 AUDIT-CAnswerDate RecordedQ1: How often do you have [...] very hard 05/09/2023HQ-2AnswerDate RecordedPatient Health Questionnaire-2 Score1 10/12/2023[facility] [place] of Occupational Health - Occupational Stress QuestionnaireAnswerDate RecordedDo you feel stress - tense, restless, nervous, or anxious, or unable to sleep at night because yourmind is troubled all the time - these days?To some aevmfx9405/09/2023Exercise Vital SignAnswerDate Recorded On average, how many [...] steady place to sleep or slept in [facility] (including now)?No05/09/2023 Estimated Date of DufuhnpiYkhosaeuNew08/19/2025Based on last menstrual period of 02/07/2025Sex and Gender InformationValueDate RecordedSex Assigned at BirthFemale 04/30/2023 3:31 PM EDTLegal JolEztzay94/15/2023 7:09 PM EDTGender IdentityFemale 04/30/2023 3:31 PM EDTSexual OrientationNot on filedocumented as of this encounter Last Filed Vital Signs Vital SignReadingTime TakenCommentsBlood Xkivdkbc325/80112/08/2024 11:35 AM EST Pulse--Temperature--Respiratory Rate--Oxygen Saturation--Inhaled Oxygen Concentration--Wmkvit314 kg (246 lb 12.8 oz)10/08/2025 11:35 AM [...] ASSESSMENT & PLAN ICD-10-CM 1. Third trimester ([facility]) Z34.93 2. 34 weeks gestation of ([facility]) Z3A.34 Assessment/Plan Return OB: Patient presents today [...] encounter Miscellaneous Notes * Addendum Note - Raghu Guzman MA - 10/08/2025 11:30 AM ESTAddended by: RAGHU GUZMAN on: 10/09/2025 09:56 AM Modules accepted: Orders documented in this encounter Plan of Treatment DateTypeDepartmentCare Team (Latest Contact Info)Igvabjrxwef19/26/2025 3:20 PM ESTRoutine [facility] [address] [facility] [address] Luis E Bray DO [address] [facility] [address] [place] [address] documented as of this encounter Procedures Procedure NamePriorityDate/TimeAssociated DiagnosisCommentsPOCT URINALYSIS FDBLXLFDRtqahfi78/12/2025 11:48 AM EST 34 weeks gestation of ([facility]) documented in this encounter Results * (ABNORMAL) [...] Location / LateralityCollection Method / VolumeCollection TimeReceived AnfqGojyw57/12/2025 11:48 AM EST Narrative Authorizing ProviderResult TypeResult Status[facility] TEST ENTER/EDIT ORDERABLESFinal Result documented in this encounter Visit Diagnoses Diagnosis Third trimester ([facility]) state, incidental 34 weeks gestation of ([facility]) Common cold Acute nasopharyngitis (common cold) documented in this encounter Additional Health Concerns AssessmentNoted TimePHQ-9 Depression Total Score: 9:00 AM EST documented as of this encounter Care Teams Team MemberRelationshipSpecialtyStart DateEnd Date Yamel Guerrero MD [address] [facility] [address] [place], [place] [address] PCP - GeneralFamily Medicine05/04/23 Yamel Guerrero MD [address] [facility] [address] [place], [place] [address] PCP - CHARLIE PLAZA02/26/24documented as of this encounter
--- NOTE | 2025-10-20 | US_ITS ---
[address] [address] Patient Name: AYDE THOMPSON MRN: [id number] date: 1990 Sex: F Assigned Patient Location: Current Patient Location: Accession/Order Number: [id number] Exam Date: 10/20/2025 11:28 Report Date: 10/20/2025 12:21 At the request of: ROMERO ARITA Procedure: US OB BPP w non-stress BIOPHYSICAL PROFILE: CLINICAL INFORMATION: 30 WEEKS Z3A.30 COMPARISON: 10/13/2025 There is a single live intrauterine gestation in cephalic presentation. The reported gestational age is 36 weeks 4 days. The heart rate measures 145 beats per minute. FINDINGS: TONE: 1 or more episodes of activity extension and flexion of extremity or opening and closing of the hand [Y] 2/2 GROSS BODY MOVEMENTS: 3 or more discrete body or limb movements [Y] 2/2 BREATHING MOVEMENTS: 1 or more episodes of breathing lasting at least 30 seconds [Y] 2/2 PACO: A single deepest vertical pocket of amniotic fluid greater than 2 cm [Y] 2/2 PACO: 16.6 cm Total score: 8/8 US/US OB BPP w non-stress IMPRESSION: NORMAL BIOPHYSICAL PROFILE Impression dictated by: Sonia Hernandez M.D. 10/20/2025 12:21 PM Dictation Location: [place] [address] Electronically authenticated by: [id number] Y Date: 10/20/2025 12:21
--- OUTSIDE RECORDS SUMMARY | 2025-10-20 11:29 | XMS_ITS | Clinical Summary ---
Author Organization [employer] Address [id number] [address] [place] [address] Care Team Providers Care Traffic Inspector Name Role Phone Yamel Guerrero MD Primary Care Provider [phone] Allergies No known active allergies Medications MedicationSigDispense [...] 15 g 10/08/2019Active Active Problems ProblemNoted DateDiagnosed PrmcUwrhklpcf58/12/2019Nasal congestion related to xvhabomll68/12/2019Tonsillar huyuznpysbs44/12/2019Raynaud's lgfdjfpluk56/06/2019 History of delivery, currently qdhertap56/06/2019Undifferentiated connective tissue tyopvbu5612/18/2017 Resolved Problems ProblemNoted DateDiagnosed DateResolved DateSubacute ldwemdiup05/09/2018 08/02/2019Nasal bolcubpbmx74 Family History Medical HistoryRelationNameCommentsCancerFatherStrokeFatherRelationNameStatus CommentsFather Social History Tobacco UseTypesPacks/DayYears UsedDateSmoking Tobacco: NeverSmokeless Tobacco: NeverAlcohol UseStandard Drinks/WeekCommentsNever0 (1 standard drink = 0.6 oz pure alcohol)AUDIT-CAnswerDate RecordedFrequency of Alcohol ConsumptionNever 07/26/2019Average Number of DrinksNot on file07/26/2019Frequency of Binge DrinkingNot on file07/26/2019PHQ-2AnswerDate RecordedTotal Reozb51912/08/2018 ChildcareAnswerDate OjymtwpmHxxytsiimCzsjeyp88/12/2019EmploymentAnswerDate JipdcodyTmfahaxhofIlcsbqt29/12/2019Purpose - LifeAnswerDate RecordedPurpose and direction in abfoRblocts03/11/2021CommentsNoSex and Gender Information ValueDate RecordedSex Assigned at BirthNot on fileLegal QepGuhsap22/06/2015 11:38 AM EDTGender IdentityNot on fileSexual OrientationNot on file Last Filed Vital Signs Vital SignReadingTime TakenCommentsBlood Dfvtzohv240/6210/08/2019 10:47 AM EST Rylaj7212/06/2019 9:07 AM EDTTemperature--Respiratory Rate--Oxygen Saturation-- Inhaled Oxygen Concentration--Eyrmms13.2 kg (179 lb)10/08/2019 10:47 AM EST Aumdxp849.6 cm (5' 4 )10/08/2019 10:47 AM ESTBody Mass Index30.7310/08/2019 10:47 AM EST Plan of Treatment Health MaintenanceDue DateLast DoneCommentsDepression Rcqlpmjkr35/28/2000Tobacco Coxllctxo56/28/2000Adult BMI Tupkilekg12/28/2006Pap Smear2009Influenza Rlgnqdz61/01/177844/, 10/17/2019DTaP,Tdap and Td Vaccines (7 - Tdap) 2101/12/2022, 08/03/1994, 07/01/1991, Additional history exists [employer] Devices Not on file Insurance Care Teams Team MemberRelationshipSpecialtyStart DateEnd Yamel Guerrero MD PCP - GeneralFamily Medicine06/03/17
--- OUTSIDE RECORDS SUMMARY | 2025-10-20 11:29 | XMS_ITS | Clinical Summary ---
Author Organization [facility] Address [address] [place] [address] Care Team Providers Care Department Operations Manager Name Role Phone Unavailable Primary Care Provider Unavailabl e Social History Tobacco UseTypesPacks/DayYears UsedDateSmoking Tobacco: Never Assessed CommentsUnknownSex and Gender InformationValueDate RecordedSex Assigned at Not on fileLegal LwsZoxekz53/29/2022 11:30 PM EDTGender IdentityNot on file Sexual OrientationNot on file Last Filed Vital Signs Vital SignReadingTime TakenCommentsBlood Vcwlygyq719/7611/14/2019 2:45 PM EST Ijgic818411/14/2019 2:45 PM ESTTemperature--Respiratory Rate--Oxygen Mgyjhzbcbf98% 09/23/2019 2:45 PM EDTInhaled Oxygen Concentration--Rbrklp04.6 kg (160 lb) 11/14/2019 2:43 PM QJNZyambk567.6 cm (5' 4 )11/14/2019 2:43 PM ESTBody Mass Index27.4611/14/2019 2:43 PM EST Plan of Treatment Not on file
--- OUTSIDE RECORDS SUMMARY | 2025-10-20 11:29 | XMS_ITS | Clinical Summary ---
Author Organization [facility] Address [address] [place] [address] Care Team Providers Care Husbandry Person Name Role Phone Yamel Guerrero MD Primary Care Provider [phone] Yamel Guerrero MD Unavailable Allergies No known active allergies Medications MedicationSigDispense QuantityRefillsLast FilledStart DateEnd DateStatus MV-Min-Fe Fum-FA-DHA ( 1 PO) Take 1 tablet by mouth DailyActive hydroxychloroquine (Plaquenil) 100 MG tablet Hydroxychloroquine SulfateActive Vit-Fe Fumarate-FA ( Vitamin) 27-0.8 MG tablet VitaminActive azithromycin (Zithromax Z-Edwin) 250 MG tablet Indications:Common coldAs directed 6 tablet 5Active buPROPion XL (Wellbutrin XL) 300 MG 24 [...] 4 MG tablet Indications:Nausea and vomiting in ([facility])Take 1 tablet (4 mg) by mouth every 6 (six) hours if needed for nausea or vomiting for up to 30 doses Take 1 tablet by mouth every 6 hours as needed for nausea. 30 tablet Discontinued promethazine (Phenergan) 12.5 MG tablet Indications:Nausea and vomiting in ([facility])Take 1 tablet (12.5 mg) by mouth every 6 (six) hours if needed for nausea or vomiting for up to 30 doses Take 1 tablet by mouth every 6 hours as needed for nausea. 30 tablet Discontinued metoclopramide (Reglan) 10 MG tablet Indications:Nausea and vomiting in ([facility])Take 1 tablet (10 mg) by mouth in [...] of control unspecified([facility]),Elevated glucose tolerance test USE 1 LANCET TO CHECK FSBS 4 TIMES DAILY 150 each Discontinued Alcohol Swabs (Alcohol Prep Pad) 70 % pads Indications:Gestational diabetes mellitus (GDM), antepartum, gestational diabetes method of control unspecified([facility]),Elevated glucose tolerance test Apply 1 Pad topically Daily Use four times daily to check FSBS. 150 each Discontinued Blood Glucose Monitoring Suppl (D-Care Glucometer) w/Device kit Indications:Gestational diabetes mellitus (GDM), antepartum, gestational diabetes method of control unspecified([facility]),Elevated glucose tolerance test1 kit Daily Use four times daily to check FSBS. In the morning prior to breakfast & 1 hour after each meal for a total of 4times daily. 1 kit Discontinued Active Problems ProblemNoted DateDiagnosed SlhdTvlhxbd97/03/2023Obesity due to excess calories without serious lprfoljmxpa77/03/2023Systemic lupus ibkvxbfrtobag12/05/2023 Elevated antinuclear antibody (ROSEMARY) level05/10/2023astroesophageal reflux disease without kfaxzsionbd14/14/2023Severe single current episode of major depressive disorder, without psychotic clzokotv07/14/6984Rfrxpsfooqc49/14/2023 Tonsillar ohebykybtof98/12/2019Raynaud's swxdgjuyvv28/06/2019Undifferentiated connective tissue mwztjhf8212/18/2017Estimated Date of DeliveryCommentsYes 11/14/2025ased on last menstrual period of 02/07/2025 Resolved Problems ProblemNoted DateDiagnosed DateResolved DateCarpal tunnel rryvcwch76/14/2023 05/31/2023 Encounters DateTypeDepartmentCare ZtzlMnxhgbwiecr69/24/2025bstract [facility] [address]VAR[address] [place] [address] Fabi Arita PA 10/13/2025linisync Result Encounter NOMS External Department Unsolicited Fabi Arita PA 10/08/2025 11:30 [place] [address] Fabi Arita PA Third trimester ([facility]); 34 weeks gestation of ([facility]); Common cold10/08/2025 11:00 AM ESTAncillary [place] [address] Gestational diabetes mellitus (GDM), antepartum, gestational diabetes method of control unspecified([facility])10/06/2025linisync Result Encounter NOMS External Department Unsolicited Fabi Arita PA 09/29/2025linisync Result Encounter NOMS External Department Unsolicited Fabi Arita PA 09/24/2025bstract NOMVivienne [address]O [address] [place] [address] Jossy Bray DO 09/23/2025 10:00 AM EDTRoutine [facility] [address] [place] [address] Jossy Bray, 32 weeks gestation of ([facility]); Third trimester ([facility]); Gestational diabetes mellitus (GDM), antepartum, gestational diabetes method of control unspecified([facility])09/23/2025amboo flowsheet [facility]len WALTERN Humberto [facility] [place] [address] Jossy Bray, 09/22/2025linisync Result Encounter NOMS External Department Unsolicited Fabi Arita PA 09/22/20250443Zkdlyg65/14/2025 10:50 AM EDTRoutine [facility] [place] [address] Fabi Arita PA Third trimester ([facility]); 30 weeks gestation of ([facility])09/09/2025 10:00 AM EDTAncillary Procedure [facility] Kaylen WALTERN [address] [place] [address] Gestational diabetes mellitus (GDM), antepartum, gestational diabetes method of control unspecified([facility])09/08/20250731Ddnlhu81/08/2025linisync Result Encounter NOMS External Department Unsolicited Provider, Generic External Data 08/27/2025 10:20 [place] [address] Catarina Barnes NP 28 weeks gestation of ([facility]); Third trimester ([facility]); Gestational diabetes mellitus (GDM), antepartum, gestational diabetes method of control unspecified([facility]); Diabetes mellitus uejyyqriy86/01/2025bstract [facility] [address] [place] [address] Jossy Bray, 08/27/2025linisync Result Encounter NOMS External Department Unsolicited Provider, Generic External Data 08/27/2025amboo flowsheet [facility] MEL[address]ARGYBud [address] [place] [address] Catarina Barnes NP 08/13/2025 11:10 AM EDTRoutine [facility] [address]VAR[address] [place] [address] Jossy Bray, DO 26 weeks gestation of ([facility]); Second trimester ([facility]); Gestational diabetes mellitus (GDM), antepartum, gestational diabetes method of control unspecified([facility])08/13/2025amboo flowsheet [facility] Kaylen [address] [place] [address] Jossy Bray, 08/12/20252403Otgukc35/15/2025bstract [facility] [address] [place] [address] Jossy Bray, 08/04/2025 10:00 AM EDTAncillary Procedure [facility] Kay[facility] [address]VAR[address] [address] [facility] [place] [address] Encounter for follow-up ultrasound of anatomy ([facility])07/29/2025Travel from Last 3 Months Family History Medical [...] week05/09/2023How often do you attend sikhism or hinduism services?Never05/09/2023o you belong to any clubs or organizations such as sikhism groups, unions, fraternal or athletic groups, or school groups?No05/09/2023How often do you attend meetings of the clubs or organizations you belong to?Never05/09/2023re you , , , , never , or living with a partner?Living with dusroaj9805/09/2023 AUDIT-CAnswerDate RecordedQ1: How often do you have [...] very hard 05/09/2023HQ-2AnswerDate RecordedPatient Health Questionnaire-2 Score1 10/12/2023[facility] - Occupational Stress QuestionnaireAnswerDate RecordedDo you feel stress - tense, restless, nervous, or anxious, or unable to sleep at night because yourmind is troubled all the time - these days?To some rwwata6605/09/2023Exercise Vital SignAnswerDate Recorded On average, how many [...] in ashelter (including now)?No05/09/2023 Estimated Date of XxzfdfdbUazqoisbRcy56/19/2025Based on last menstrual period of 02/07/2025Sex and Gender InformationValueDate RecordedSex Assigned at BirthFemale 04/30/2023 3:31 PM EDTLegal JluEzlkio17/15/2023 7:09 PM EDTGender IdentityFemale 04/30/2023 3:31 PM EDTSexual OrientationNot on file Last Filed Vital Signs Vital SignReadingTime TakenCommentsBlood Cpezbgpu180/80112/08/2024 11:35 AM EST Nzgzw071310/23/2023 4:27 PM HKIVfmexexhgyi74 ??C (98.6 ??F)10/23/2023 4:27 PM EST Respiratory Ijlr180812/23/2022 4:27 PM ESTOxygen Syyijrbgfk13%10/23/2023 4:27 PM ESTInhaled Oxygen Concentration--Cxdqpu614 kg (246 lb 12.8 oz)10/08/2025 11:35 AM CQDHmepbo813.6 cm (5' 4 )10/23/2023 4:27 PM ESTBody Mass Index42.36112/23/2022 4:27 PM EST Plan of Treatment DateTypeDepartmentCare Team (Latest Contact Info)Eghvypvwuap44/26/2025 3:20 PM ESTRoutine [facility] [address] [place] [address] Jossy Bray DO [address] [place], [place] [id number] Health MaintenanceDue DateLast DoneCommentsCOVID-19 Vaccine ( season) 2025Influenza Vaccine (#1)512/, 10/17/2019Cervical Cancer Vjedielyr11/07/2030HPV/Idlvxp10/07//3Pap Smear06/02/, 04/06/2022neumococcal Vaccine: Pediatrics (0 to 5 Years) and At-Risk Patients (6 to 64 Years)Aged OutNo longer eligible based on patient's age to complete this topic Procedures Procedure NamePriorityDate/TimeAssociated DiagnosisCommentsUS OB BPP W NON-IJJKTP5410/13/2025 11:50 AM EST POCT URINALYSIS SHPTIFEHFsjcyle65/12/2025 11:48 AM EST 34 weeks gestation of ([facility]) US OB FOLLOW UP TRANSABDOMINAL IITLVIJXXnlysnh14/12/2025 11:36 AM EST Gestational diabetes mellitus (GDM), antepartum, gestational diabetes method of control unspecified([facility]) US OB BPP W NON-JJGECJ5310/06/2025 12:00 PM EST US OB BPP W NON-QMXAHI4609/29/2025 3:51 PM EST POCT URINALYSIS REVPPRGSVmrooei78/28/2025 10:15 AM EDT 32 weeks gestation of ([facility]) Third trimester ([facility]) US OB BPP W NON-VIFAZL7509/22/2025 10:42 PM EDT POCT URINALYSIS GVDSAWPKJqoansc87/14/2025 11:15 AM EDT 30 weeks gestation of ([facility]) US OB FOLLOW UP TRANSABDOMINAL BJNEGMPVKvxcnay61/14/2025 10:39 AM EDT Gestational diabetes mellitus (GDM), antepartum, gestational diabetes method of control unspecified([facility]) MLR HEMOGLOBIN K2TIsruvxf15/08/2025 10:44 AM EDT ALL CBC WITH AUTO IVNWLfiplxr11/08/2025 10:44 AM EDT US OB PRJAWX7008/27/2025 11:15 AM EDT POCT URINALYSIS KZHEBKCCHdoyhyi65/01/2025 10:37 AM EDT 28 weeks gestation of ([facility]) Third trimester ([facility]) POCT URINALYSIS KPVRJWXLZalihec57/17/2025 11:24 AM EDT 26 weeks gestation of ([facility]) Second trimester ([facility]) US OB LIMITED 1+ BSSAOYNWykfyjx16/08/2025 10:29 AM EDT Encounter for follow-up ultrasound of anatomy ([facility]) PAP YFWUTDkmjpjz25/07/2025 12:00 AM EDTTHINPREP PAP AND HPV MRNA E6/E7 W/RFL HPV 16,18/23Hywyjej69/17/2023 10:11 AM EDT Well woman exam with routine gynecological exam from Last 3 Months or Most Recently Relevant to Health Maintenance Results * US OB BPP W NON-STRESS (10/13/2025 11:50 AM EST) Only the most recent of4 resultswithin the time period is included. Anatomical RegionLateralityModalityOtherSpecimen (Source)Anatomical Location / LateralityCollection Method / VolumeCollection TimeReceived Time10/13/2025 11:50 AM EST Narrative 10/13/2025 11:53 AM EST [facility] ?[address] ? [place] [address] ? Ultrasound Report ? Signed ? Patient: DONNA,BETTY R ? MR#: [id number] ?? : 1990 ?Acct:[id number] ?? Age/Sex: 35 / F ?ADM Date: 10/13/25 ?? Loc: [facility] ??250-1 ? Attending Dr: Fabi Arita ? Ordering Physician: Fabi Arita ?? Date of Service: 10/13/25 ?? Procedure(s): US OB BPP w non-stress ?? Accession Number(s): [id number] ? cc: Fabi Arita; YAMEL GUERRERO ? [facility] ? [address] ? [place] [address] ? Patient Name: ?? BETTY THOMPSON ? MRN: [id number] ? date: 1990 ?Sex: F ?? Assigned Patient Location: US ?? Current Patient Location: US ?? Accession/Order Number: [id number] ?? Exam Date: 10/13/2025 ??11:28 ?Report Date: 10/13/2025 ??11:50 ? At the request of: ?? FABI ??JUAN J ? Procedure: ??US OB BPP w non-stress ? BIOPHYSICAL PROFILE: ? CLINICAL INFORMATION: 30 weeks gestation of ? COMPARISON: 10/06/2025 ? There is a single live intrauterine gestation in cephalic presentation. ??The ?? reported gestational age is 35 weeks 3 days. ??The heart rate measures ?? 141 beats per minute. ? FINDINGS: ? TONE: [...] 2 cm ? [Y] ? 2/2 ?PACO: 14.8 cm ? Total score: ? 8/8 ? US/US OB BPP w non-stress ?? IMPRESSION: ? NORMAL BIOPHYSICAL PROFILE ? Impression dictated by: Sonia Hernandez M.D. ??10/13/2025 11:50 AM ? Dictation Location: RADIO-PC-02 ? Electronically authenticated by: [id number] ??Y ?? Date: 10/13/2025 ??11:50 ? Dictated By: ?Sonia Hernandez M.D. ? Signed By: ?11/17/25 1153 ? DD/ 1150 ? TD/TT: ? Field Contractor: Procedure Note Radiology, Radiologist, MD - 10/13/2025 The [place] [id number] Ultrasound Report Signed Patient: BETTY THOMPSON RMR#: [id number] : 1990Acct:[id number] Age/Sex: 35 / FADM Date: 10/13/25 Loc: [facility] 250-[address]: Fabi Arita Ordering Physician: Fabi Arita Date of Service: 10/13/25 Procedure(s): US OB BPP w non-stress Accession Number(s): [id number] cc: Fabi Arita; YAMEL GUERRERO [address] [address] Patient Name: BETTY THOMPSON MRN: [facility]:[id number] date: 1990 Sex: F Assigned Patient Location: US Current Patient Location: US Accession/Order Number: [id number] Exam Date: 10/13/2025 11:28 Report Date: 10/13/2025 11:50 At the request of: FABI ARITA Procedure: US OB BPP w non-stress BIOPHYSICAL PROFILE: CLINICAL INFORMATION: 30 weeks gestation of COMPARISON: 10/06/2025 There is a single live intrauterine gestation in cephalic presentation.The reported gestational age is 35 weeks 3 days. The heart ratemeasures 141 beats per minute. FINDINGS: TONE: 1 or [...] greater than 2 cm [Y] 2/2 PACO: 14.8 cm Total score: 8/8 US/US OB BPP w non-stress IMPRESSION: NORMAL BIOPHYSICAL PROFILE Impression dictated by: Sonia Hernandez M.D. 10/13/2025 11:50 AM Dictation Location: [place] [address] Electronically authenticated by: [id number] Y Date: 1:50 Dictated By: Sonia Hernandez M.D. Signed By:10/13/25 1153 DD/ 1150 TD/TT: Field Contractor: Authorizing ProviderResult TypeResult StatusAmy [facility] IMAGINGFinal Result * (ABNORMAL) POCT urinalysis dipstick manually resulted (10/08/2025 11:48 AM EST) Only the most recent of5 resultswithin the [...] Location / LateralityCollection Method / VolumeCollection TimeReceived ExglPtpjb52/12/2025 11:48 AM EST Narrative Authorizing ProviderResult TypeResult StatusFabi Arita [facility] TEST ENTER/EDIT ORDERABLESFinal Result * US OB [...] Michael Dennis MD Authorizing ProviderResult TypeResult StatusCorey [facility] US PROCEDURES Final Result * MLR HEMOGLOBIN A1C (09/03/2025 10:44 AM EDT)ComponentValueRef RangeTest Method Analysis TimePerformed AtPathologist SignatureGLYCOHEMOGLOBIN A1C5.24.5 - 6.2 %TBHComment: ADA RECOMMENDED LIMIT 4.0 - 6.0 ADA THERAPEUTIC TARGET < 7.0 ACTION SUGGESTED > 7.0 ESTIMATED AVERAGE PXORYJN588mq/dLTBHSpecimen (Source)Anatomical Location / LateralityCollection Method / VolumeCollection TimeReceived Time09/03/2025 10:44 AM EDT1 10:45 AM EDT Narrative CLINISYNC - 09/03/2025 12:20 PM EDT Authorizing ProviderResult TypeResult StatusCatarina Barnes NPCLINISYNCFinal ResultPerforming OrganizationAddressCity/State/ZIP CodePhone Number [facility] * (ABNORMAL) ALL CBC WITH AUTO DIFF (09/03/2025 10:44 AM EDT)ComponentValueRef RangeTest MethodAnalysis TimePerformed AtPathologist SignatureTBH WBC10.64.0 - 11.0 10 3/uLTBHTBH RBC3.60(L)4.20 - 5.40 10 6/uLTBHTBH HGB12.112.0 - 16.0 g/dLTBHTBH HCT35.6(L)36.0 - 48.0 %TBHTBH MCV98.981.0 - 99.0 fLTBHTBH MCH33.6 26.7 - 34.0 pgTBHTBH MCHC34.029.9 - 35.2 g/dLTBHTBH RDW14.311.0 - 15.0 %TBHTBH KJI538980 - 450 10 3/uLTBHTBH MPV11.29.5 - 13.5 [...] EDT Narrative 08/27/2025 11:17 AM EDT [facility] ?[address] ? [place] [address] ? Ultrasound Report ? Signed ? Patient: BETTY THOMPSON ? MR#: [id number] ?? : 1990 ?Acct:[id number] ?? Age/Sex: 35 / F ?ADM Date: 08/27/25 ?? Loc: US ? Attending Dr: Jossy Bray D.O. ? Ordering Physician: Jossy Bray D.O. ?? Date of Service: 08/27/25 ?? Procedure(s): US OB growth ?? Accession Number(s): [id number] ? cc: YAMEL GUERRERO ; Jossy Bray D.O. ? [facility] ? [address] [facility] ? [place] [address] ? Patient Name: ?? BETTY THOMPSON ? MRN: [id number] ? date: 1990 ?Sex: F ?? Assigned Patient Location: US ?? Current Patient Location: US ?? Accession/Order Number: [id number] ?? Exam Date: 08/27/2025 ??09:52 ?Report Date: [...] M.D. ??08/27/2025 11:15 AM ? Dictation Location: [place] [address] ? Electronically authenticated by: [id number] ??Y ?? Date: 08/27/2025 ??11:15 ? Dictated By: ?Sonia Hernandez M.D. ? Signed By: ?08/27/25 1117 ? DD/ 1115 ? TD/TT: ? Field Contractor: Procedure Note Radiology, Radiologist, - 08/27/2025 [place] [address] Ultrasound Report Signed Patient: BETTY THOMPSON R#: [id number] : 1990Acct:[id number] Age/Sex: 35 / FADM Date: 08/27/25 Loc: US Attending Dr: Jossy Bray D.O. Ordering Physician: Jossy Bray D.O. Date of Service: 08/27/25 Procedure(s): OB growth Accession Number(s): [id number] cc: YAMEL GUERRERO ; Jossy Bray D.O. The [place] [address] Patient Name: BETTY THOMPSON MRN: [facility]:[id number] date: 1990 Sex: F Assigned Patient Location: Current Patient Location: US Accession/Order Number: [id number] Exam Date: 08/27/2025 09:52 Report Date: 08/27/2025 [...] Hernandez M.D. 08/27/2025 11:15 AM Dictation Location: [place] [address] Electronically authenticated by: [id number] Y Date: 1:15 Dictated By: Sonia Hernandez M.D. Signed By:08/27/25 1117 DD/ 1115 TD/TT: Field Contractor: Authorizing ProviderResult TypeResult StatusGeneric External Data Provider [...] AM EDT) Narrative Authorizing ProviderResult TypeResult StatusAmy Dimock PALAB BLOOD ORDERABLES Final ResultPerforming OrganizationAddressCity/State/ZIP CodePhone Number EXTERNAL LAB from Last 3 Months or Most Recently Relevant to Health Maintenance Insurance Care Teams Team MemberRelationshipSpecialtyStart DateEnd Date Yamel Guerrero MD [address] [place] [address] [facility] - [facility] Yamel Guerrero MD [address] [place], [place] [address] PCP - CHARLIE Joseph [facility]02/26/24
--- OUTSIDE RECORDS SUMMARY | 2025-10-20 11:29 | XMS_ITS | Encounter Summary ---
Author Organization [facility] Address [address] [place] [address] Care Team Providers Care Log Haul Chain Feeder Name Role Phone Yamel Guerrero MD Primary Care Provider [phone] Yamel Guerrero MD Unavailable Encounter Details DateTypeDepartmentCare Team (Latest Contact Info)Hotsydrsmdx20/24/2025bstract [facility] Kaylen MELGARGYBud [address] [place] [phone] Fabi Martinez PA [address] [place], [facility] Social History Tobacco UseTypesPacks/DayYears UsedDateSmoking Tobacco: NeverSmokeless [...] relatives?Once a week05/09/2023How often do you attend latter-day or religion services?Never05/09/2023o you belong to any clubs or organizations such as latter-day groups, unions, [employer] or athletic groups, or school groups?No05/09/2023How often do you attend meetings of the clubs or organizations you belong to?Never05/09/2023re you , , , , never , or living with a partner?Living with gvhvmwm6105/09/2023 AUDIT-CAnswerDate RecordedQ1: How often do you have [...] RecordedPatient Health Questionnaire-2 Score1 10/12/2023[facility] [place] [facility] Occupational Health - Occupational Stress QuestionnaireAnswerDate RecordedDo you feel stress - tense, restless, nervous, or anxious, or unable to sleep at night because yourmind is troubled all the time - these days?To some goubdi2605/09/2023Exercise Vital SignAnswerDate Recorded On average, how many [...] in ashelter (including now)?No05/09/2023 Estimated Date of EqcufhatLtqmvchjOmb13/19/2025Based on last menstrual period of 02/07/2025Sex and Gender InformationValueDate RecordedSex Assigned at BirthFemale 04/30/2023 3:31 PM EDTLegal BlpNrcsoo98/15/2023 7:09 PM EDTGender IdentityFemale 04/30/2023 3:31 PM EDTSexual OrientationNot on filedocumented as of this encounter Plan of Treatment DateTypeDepartmentCare Team (Latest Contact Info)Vxzuhwoyazb70/26/2025 3:20 PM ESTRoutine [facility] [address] [place] [phone] Luis E Bray DO [address] [place], [place] [phone] documented as of this encounter Visit Diagnoses Not on filedocumented in this encounter Additional Health Concerns AssessmentNoted TimePHQ-9 Depression Total Score: 9:00 AM EST documented as of this encounter Care Teams Team MemberRelationshipSpecialtyStart DateEnd Date Yamel Guerrero MD [address] [place], [place] [address] PCP - GeneralFamily Medicine05/04/23 Yamel Guerrero MD [address] [place], [place] [phone] PCP - [facility] Jake [facility]02/26/24documented as of this encounter
--- OUTSIDE RECORDS SUMMARY | 2025-10-20 11:29 | XMS_ITS | Encounter Summary ---
Author Organization [facility] Address [address] [place] [address] Care Team Providers Care Middleware Developer Name Role Phone Mino East MD Primary Care Provider [phone] Mino East MD Unavailable Encounter Details DateTypeDepartmentCare Team (Latest Contact Info)Iesapmpuiay50/17/2025Clinisync Result Encounter [facility] External Department Unsolicited Fabi Arita PA [address] [place] [address] [place], [place] [id number] Social History Tobacco UseTypesPacks/DayYears UsedDateSmoking Tobacco: NeverSmokeless [...] week05/09/2023How often do you attend mandaen or latter day services?Never05/09/2023o you belong to any clubs or organizations such as mandaen groups, unions, fraternal or athletic groups, or school groups?No05/09/2023How often do you attend meetings of the clubs or organizations you belong to?Never05/09/2023re you , , , , never , or living with a partner?Living with cflqxzb4405/09/2023 AUDIT-CAnswerDate RecordedQ1: How often do you have [...] RecordedPatient Health Questionnaire-2 Score1 10/12/2023[facility] [employer] of Occupational Health - Occupational Stress QuestionnaireAnswerDate RecordedDo you feel stress - tense, restless, nervous, or anxious, or unable to sleep at night because yourmind is troubled all the time - these days?To some sqmysv5705/09/2023Exercise Vital SignAnswerDate Recorded On average, how many [...] in ashelter (including now)?No05/09/2023 Estimated Date of MuibjjvrMaothgagEmy06/19/2025Based on last menstrual period of 02/07/2025Sex and Gender InformationValueDate RecordedSex Assigned at BirthFemale 04/30/2023 3:31 PM EDTLegal YkdSzjvnt93/15/2023 7:09 PM EDTGender IdentityFemale 04/30/2023 3:31 PM EDTSexual OrientationNot on filedocumented as of this encounter Plan of Treatment DateTypeDepartmentCare Team (Latest Contact Info)Tfisqzaszim59/26/2025 3:20 PM ESTRoutine [facility] [address] [place] [address] Luis E Bray DO [address] [place] [address] documented as of this encounter Procedures Procedure NamePriorityDate/TimeAssociated DiagnosisCommentsUS OB BPP W NON-CEWNUF2010/13/2025 11:50 AM EST documented in this encounter Results * US OB BPP W NON-STRESS (10/13/2025 11:50 AM EST)Anatomical Region LateralityModalityOtherSpecimen (Source)Anatomical Location / Laterality Collection Method / VolumeCollection TimeReceived Time10/13/2025 11:50 AM EST Narrative 10/13/2025 11:53 AM EST [facility] ?[address] ? [place], [facility] ? Ultrasound Report ? Signed ? Patient: MERCEDES THOMPSON ? MR#: [id number] ?? : 1990 ?Acct:[id number] ?? Age/Sex: 35 / F ?ADM Date: 10/13/25 ?? Loc: [facility] ??250-1 ? Attending Dr: Fabi Arita ? Ordering Physician: Fabi Arita ?? Date of Service: 10/13/25 ?? Procedure(s): US OB BPP w non-stress ?? Accession Number(s): [id number] ? cc: Fabi Arita; [place] ? [facility] ? [address] ? [place] [address] ? Patient Name: ?? MERCEDES THOMPSON ? MRN: [facility]:[id number] ? date: 1990 ?Sex: F ?? Assigned Patient Location: US ?? Current Patient Location: US ?? Accession/Order Number: [id number] ?? Exam Date: 10/13/2025 ??11:28 ?Report Date: [...] Dictation Location: RADIO-PC-02 ? Electronically authenticated by: [id number] ??Y ?? Date: 10/13/2025 ??11:50 ? Dictated By: ?Sonia Hernandez M.D. ? Signed By: ?11/17/25 1153 ? DD/ 1150 ? TD/TT: ? Extruder Operator: Procedure Note Radiology, Radiologist, - 10/13/2025 [place] [address] Ultrasound Report Signed Patient: MERCEDES THOMPSON RMR#: [id number] : 1990Acct:[id number] Age/Sex: 35 / FADM Date: 10/13/25 Loc: [place] [address]: Fabi Arita Ordering Physician: Fabi Arita Date of Service: 10/13/25 Procedure(s): US OB BPP w non-stress Accession Number(s): [id number] cc: Fabi Arita; [place] [id number] Patient Name: MERCEDES THOMPSON MRN: [id number] date: 1990 Sex: F Assigned Patient Location: Current Patient Location: US Accession/Order Number: [id number] Exam Date: 10/13/2025 11:28 Report Date: 10/13/2025 [...] Hernandez M.D. 10/13/2025 11:50 AM Dictation Location: [place] [address] Electronically authenticated by: [id number] Y Date: 1:50 Dictated By: Sonia Hernandez M.D. Signed By:10/13/25 1153 DD/ 1150 TD/TT: Extruder Operator: Authorizing ProviderResult TypeResult StatusAmy Juan J PACLINISYNC IMAGINGFinal Result documented in this encounter Visit Diagnoses Not on filedocumented in this encounter Additional Health Concerns AssessmentNoted TimePHQ-9 Depression Total Score: 9:00 AM EST documented as of this encounter Care Teams Team MemberRelationshipSpecialtyStart DateEnd Date Mino East MD [address] [place], [place] [id number] [facility] - [facility] Mino East MD [address] [place] [address] PCP - CHARLIE Joseph [facility]02/26/24documented as of this encounter
--- OUTSIDE RECORDS SUMMARY | 2025-10-20 11:29 | XMS_ITS | Encounter Summary ---
Author Organization [facility] Address [address] [place] [address] Care Team Providers Care Community Cultural Development Officer Name Role Phone Mino East MD Primary Care Provider [phone] Mino East MD Unavailable Encounter Details DateTypeDepartmentCare Team (Latest Contact Info)Qrcpnzhleia27/10/2025Clinisync Result Encounter [facility] External Department Unsolicited Fabi Arita PA [address] [place] [address] [address] [place], [place] [phone] Social History Tobacco UseTypesPacks/DayYears UsedDateSmoking Tobacco: NeverSmokeless [...] relatives?Once a week05/09/2023How often do you attend evangelical or advent services?Never05/09/2023o you belong to any clubs or organizations such as evangelical groups, unions, fraternal or athletic groups, or school groups?No05/09/2023How often do you attend meetings of the clubs or organizations you belong to?Never05/09/2023re you , , , , never , or living with a partner?Living with rtdrsuj1105/09/2023 AUDIT-CAnswerDate RecordedQ1: How often do you have [...] RecordedPatient Health Questionnaire-2 Score1 10/12/2023[facility] [place] of Occupational Health - Occupational Stress QuestionnaireAnswerDate RecordedDo you feel stress - tense, restless, nervous, or anxious, or unable to sleep at night because yourmind is troubled all the time - these days?To some wwsrpf8905/09/2023Exercise Vital SignAnswerDate Recorded On average, how many [...] in ashelter (including now)?No05/09/2023 Estimated Date of UgyontphMwewwtkkGht04/19/2025Based on last menstrual period of 02/07/2025Sex and Gender InformationValueDate RecordedSex Assigned at BirthFemale 04/30/2023 3:31 PM EDTLegal JcnXpsftf84/15/2023 7:09 PM EDTGender IdentityFemale 04/30/2023 3:31 PM EDTSexual OrientationNot on filedocumented as of this encounter Plan of Treatment DateTypeDepartmentCare Team (Latest Contact Info)Hmtfvxwtoyi14/26/2025 3:20 PM ESTRoutine [facility] [address] [place] [place] [address] Luis E Bray DO [address] [facility] [place] [address] documented as of this encounter Procedures Procedure NamePriorityDate/TimeAssociated DiagnosisCommentsUS OB BPP W NON-EXTCCM6210/06/2025 12:00 PM EST documented in this encounter Results * US OB BPP W NON-STRESS (10/06/2025 12:00 PM EST)Anatomical Region LateralityModalityOtherSpecimen (Source)Anatomical Location / Laterality Collection Method / VolumeCollection TimeReceived Time10/06/2025 12:00 PM EST Narrative 10/06/2025 12:02 PM EST [facility] ?[address] ? [place] [address] ? Ultrasound Report ? Signed ? Patient: MERCEDES THOMPSON R ? MR#: [id number] ?? : 1990 ?Acct:[id number] ?? Age/Sex: 35 / F ?ADM Date: 11/10/25 ?? Loc: [facility] ??250-1 ? Attending Dr: Fabi Arita ? Ordering Physician: Fabi Arita ?? Date of Service: 10/06/25 ?? Procedure(s): US OB BPP w non-stress ?? Accession Number(s): [id number] ? cc: Fabi Arita; [place] ? [facility] ? [address] ? [place] [address] ? Patient Name: ?? MERCEDES THOMPSON ? MRN: [facility]:[id number] ? date: 1990 ?Sex: F ?? Assigned Patient Location: [facility] ?? Current Patient Location: [facility] ?? Accession/Order Number: [id number] ?? Exam Date: 10/06/2025 ??11:34 ?Report Date: [...] Dictation Location: RADIO-PC-02 ? Electronically authenticated by: [id number] ??Y ?? Date: 10/06/2025 ??12:00 ? Dictated By: ?Sonia Hernandez M.D. ? Signed By: ?11/10/25 1202 ? DD/DT: //25 1200 ? TD/TT: ? Die Grinder: Procedure Note Radiology, Radiologist, - 10/06/2025 [place] [address] Ultrasound Report Signed Patient: MERCEDES THOMPSON RMR#: [id number] : 1990Acct:[id number] Age/Sex: 35 / FADM Date: 10/06/25 Loc: [facility] 250-[address]: Fabi Arita Ordering Physician: Fabi Arita Date of Service: 10/06/25 Procedure(s): US OB BPP w non-stress Accession Number(s): [id number] cc: Fabi Arita; [place] [address] Patient Name: MERCEDES THOMPSON MRN: [id number] date: 1990 Sex: F Assigned Patient Location: [facility] Current Patient Location: [facility] Accession/Order Number: [id number] Exam Date: 10/06/2025 11:34 Report Date: 10/06/2025 [...] Hernandez M.D. 10/06/2025 12:00 PM Dictation Location: [place] [address] Electronically authenticated by: [id number] Y Date: 2:00 Dictated By: Sonia Hernandez M.D. Signed By:10/06/25 1202 DD/ 1200 TD/TT: Die Grinder: Authorizing ProviderResult TypeResult StatusAmy [place] PACLINISYNC IMAGINGFinal Result documented in this encounter Visit Diagnoses Not on filedocumented in this encounter Additional Health Concerns AssessmentNoted TimePHQ-9 Depression Total Score: 9:00 AM EST documented as of this encounter Care Teams Team MemberRelationshipSpecialtyStart DateEnd Date Mino East MD [address] [place] [address] PCP - GeneralFamily Medicine05/04/23 Mino East MD [address] [place], [place] [address] PCP - [facility] Jake PLA[facility]02/26/24documented as of this encounter
[2025-10-20 12:07] VITALS: BP 128/67; PULSE 86
== END 2025-10-20 12:14 | disposition home or self-care (01) ==
LOC: US 11:26 → FBC 11:29
PROVIDERS: PCP Family Medicine; Visit Provider Physician Assistant
DX: O26.893 Other specified pregnancy related conditions, third trimester (principal); O09.523 Supervision of elderly multigravida, third trimester; Z3A.36 36 weeks gestation of pregnancy
CPT/HCPCS: 76818

== ENCOUNTER 2025-10-22 18:09 | Outpatient (REF) | payer MEDICAID, SELFPAY ==
--- OUTSIDE RECORDS SUMMARY | 2025-10-08 11:00 | XMS_ITS | Encounter Summary ---
Author Organization [facility] Address [address] [place] [address] Care Team Providers Care Temp Recruiter Name Role Phone Yamel Guerrero MD Primary Care Provider [phone] Yamel Guerrero MD Unavailable Encounter Details DateTypeDepartmentCare Team (Latest Contact Info)Qwisksgtxpy26/12/2025 11:00 AM ESTAncillary Procedure [facility] [address] [place] [address] [place] [address] Gestational diabetes mellitus (GDM), antepartum, gestational diabetes method of control unspecified([facility]) Social History Tobacco UseTypesPacks/DayYears UsedDateSmoking Tobacco: NeverSmokeless [...] week05/09/2023How often do you attend anabaptist or rastafari services?Never05/09/2023o you belong to any clubs or organizations such as anabaptist groups, unions, fraternal or athletic groups, or school groups?No05/09/2023How often do you attend meetings of the clubs or organizations you belong to?Never05/09/2023re you , , , , never , or living with a partner?Living with ywobqnk0705/09/2023 AUDIT-CAnswerDate RecordedQ1: How often do you have [...] Health Questionnaire-2 Score1 10/12/2023[facility] [place] [facility] - Occupational Stress QuestionnaireAnswerDate RecordedDo you feel stress - tense, restless, nervous, or anxious, or unable to sleep at night because yourmind is troubled all the time - these days?To some xanaxm9805/09/2023Exercise Vital SignAnswerDate Recorded On average, how many [...] in ashelter (including now)?No05/09/2023 Estimated Date of DaeqaparGjcpzuveGcs15/19/2025Based on last menstrual period of 02/07/2025Sex and Gender InformationValueDate RecordedSex Assigned at BirthFemale 04/30/2023 3:31 PM EDTLegal LttBapwpe00/15/2023 7:09 PM EDTGender IdentityFemale 04/30/2023 3:31 PM EDTSexual OrientationNot on filedocumented as of this encounter Plan of Treatment DateTypeDepartmentCare Team (Latest Contact Info)Tpzhtiewbga77/03/2025 1:10 PM ESTRoutine [facility] [address] [facility] [place] [address] Luis E Bray DO [address] [place], [place] [id number] documented as of this encounter Procedures Procedure NamePriorityDate/TimeAssociated DiagnosisCommentsUS OB FOLLOW UP TRANSABDOMINAL RSUDIAODVzjihkb38/12/2025 11:36 AM EST Gestational diabetes mellitus (GDM), antepartum, gestational diabetes method of control unspecified([facility]) documented in this encounter Results * US OB follow up transabdominal approach (10/08/2025 11:36 AM EST)Anatomical RegionLateralityModalityBodyUltrasoundSpecimen (Source)Anatomical Location / LateralityCollection Method / VolumeCollection TimeReceived Time10/08/2025 8:24 PM EST Impressions 10/09/2025 7:13 AM EST Single, live intrauterine , current sonographic age of 35 weeks and 5 days, with an estimated date of delivery of November 07, 2025. Comparison made with prior examination of August 04, 2025 percentile of growth was 89.2% and delivery of November 07, 2025. TRANSCRIBED BY: ? ELECTRONICALLY SIGNED BY: Michael Dennis MD Narrative 10/09/2025 7:13 AM EST FINDINGS: A single, live intrauterine is present with normal cardiac rate of ??126 beats per minute. Normal activity and amniotic fluid volume. Amniotic fluid index is 13 ??cm. ??Morphology is grossly normal. ?? The current sonographic age is ??35 weeks and 5 days, based on the following measurements: BPD ? 8.4 cm (33 ??weeks, 6 days) Head Circumference ?31.3cm (35 ??weeks,1 ??days) Abdominal Circumference ?33.6cm (37 ??weeks,4 ??days) Femur Length ?7.0 ?? cm (36 ??weeks, 0 ??days) Presentation ? Cephalic ? Weight (g) by Percentile ?? 89.6% * These measurements result in an estimated date of delivery of ?The current estimated weight is 2937 ?? grams (6 ??pound, ??8 ounces). ?? Procedure Note Michael Dennis MD - 10/09/2025 FINDINGS: A single, live intrauterine is present with normal cardiacrate of 126 beats per minute. Normal activity and amniotic fluidvolume. Amniotic fluid index is 13 cm. Morphology is grossly normal.The current sonographic age is 35 weeks and 5 days, based on thefollowing measurements: BPD 8.4 cm (33 weeks, 6 days) Head Circumference 31.3cm (35 weeks,1 days) Abdominal Circumference 33.6cm (37 weeks,4 days) Femur Length 7.0 cm (36 weeks, 0 days) Presentation Cephalic Weight (g) by Percentile 89.6% * These measurements result in an estimated date of delivery of Thecurrent estimated weight is 2937 grams (6 pound, 8 ounces). IMPRESSION: Single, live intrauterine , current sonographic age of 35 weeksand 5 days, with an estimated date of delivery of November 07, 2025. Comparison made with prior examination of August 04, 2025 percentile ofgrowth was 89.2% and delivery of November 07, 2025. TRANSCRIBED BY: ELECTRONICALLY SIGNED BY: Michael Dennis MD Authorizing ProviderResult TypeResult StatusCorey Katarina MENDEZ OB US PROCEDURES Final Result documented in this encounter Visit Diagnoses Diagnosis Gestational diabetes mellitus (GDM), antepartum, gestational diabetes method of control unspecified([facility]) documented in this encounter Additional Health Concerns AssessmentNoted TimePHQ-9 Depression Total Score: 411 9:00 AM EST documented as of this encounter Care Teams Team MemberRelationshipSpecialtyStart DateEnd Date Yamel Guerrero MD [address] [place] [address] PCP - GeneralFamily Medicine05/04/23 Yamel Guerrero MD [address] [place] [address] PCP - CHARLIE PLAZA02/26/24documented as of this encounter
--- OUTSIDE RECORDS SUMMARY | 2025-10-08 11:30 | XMS_ITS | Encounter Summary ---
Author Organization [facility] Address [address] [place] [address] Care Team Providers Care Contract Coordinator Name Role Phone Yamel Guerrero MD Primary Care Provider [phone] Yamel Guerrero MD Unavailable Reason for Visit * ReasonCommentsRoutine Visit Encounter Details DateTypeDepartmentCare Team (Latest Contact Info)Ividcqtjjga85/12/2025 11:30 AM ESTRoutine [facility] [address] [place] [place] [address] Fabi Martinez PA [address] [facility] [address] [place], [facility] Third trimester ([facility]); 34 weeks gestation of ([facility]); Common cold Social History Tobacco UseTypesPacks/DayYears UsedDateSmoking Tobacco: NeverSmokeless [...] relatives?Once a week05/09/2023How often do you attend jewish or shinto services?Never05/09/2023o you belong to any clubs or organizations such as jewish groups, unions, fraternal or athletic groups, or school groups?No05/09/2023How often do you attend meetings of the clubs or organizations you belong to?Never05/09/2023re you , , , , never , or living with a partner?Living with kiyfiuf2305/09/2023 AUDIT-CAnswerDate RecordedQ1: How often do you have [...] very hard 05/09/2023HQ-2AnswerDate RecordedPatient Health Questionnaire-2 Score1 10/12/2023[facility] [place] of Occupational Health - Occupational Stress QuestionnaireAnswerDate RecordedDo you feel stress - tense, restless, nervous, or anxious, or unable to sleep at night because yourmind is troubled all the time - these days?To some okdxmh1205/09/2023Exercise Vital SignAnswerDate Recorded On average, how many [...] steady place to sleep or slept in [facility] (including now)?No05/09/2023 Estimated Date of BvvcieueKktxnolbCpq34/19/2025Based on last menstrual period of 02/07/2025Sex and Gender InformationValueDate RecordedSex Assigned at BirthFemale 04/30/2023 3:31 PM EDTLegal WgaIfvdcx19/15/2023 7:09 PM EDTGender IdentityFemale 04/30/2023 3:31 PM EDTSexual OrientationNot on filedocumented as of this encounter Last Filed Vital Signs Vital SignReadingTime TakenCommentsBlood Kerppovn311/80112/08/2024 11:35 AM EST Pulse--Temperature--Respiratory Rate--Oxygen Saturation--Inhaled Oxygen Concentration--Jjifhp518 kg (246 lb 12.8 oz)10/08/2025 11:35 AM ESTHeight--Body Mass Index42.36112/23/2022 4:27 PM ESTdocumented in this encounter Progress Notes * ALLIE Farmer - 10/08/2025 11:30 AM EST Reason for Appointment: Patient ID: Betty Kennedy is a 35 y.o. female who presents for Routine Visit Patient presents today for 2 Week Post Op Follow Up appointment. MEDICATIONS Current Outpatient Medications Medication Instructions hydroxychloroquine (Plaquenil) 100 MG tablet Hydroxychloroquine Sulfate MV-Min-Fe Fum-FA-DHA ( 1 PO) 1 tablet, Daily Vit-Fe Fumarate-FA ( Vitamin) 27-0.8 MG tablet Vitamin ALLERGIES No Known Allergies PROBLEMS Active Ambulatory [...] Age of Onset Arthritis Mother Urszula dwight Rheum arthritis Mother Urszula dwight Throat cancer Father Panda dwight(throat cancer) Stroke Father Panda dwight(throat cancer) Cancer Father Panda dwight(throat cancer) Rheum arthritis Father Panda dwight(throat cancer) Colon cancer Maternal Grandmother Aneurysm Maternal Grandfather Stroke Paternal Grandfather Arthritis Mother's Sister Aunt Diabetes Mother's Sister Aunt Cancer Brother Ayo dwight (thyroid cancer) SURGICAL HISTORY History reviewed. No [...] reviewed. Vitals: Estimated body mass index is 42.36 kg/m?? as calculated from the following: Height as of 10/23/23: 5' 4 . Weight as of 09/23/25: 246 lb 12.8 oz. BP: Patient's last menstrual period was 02/07/2025. ASSESSMENT & PLAN ICD-10-CM 1. Third trimester ([facility]) Z34.93 2. 34 weeks gestation of ([facility]) Z3A.34 Assessment/Plan Return OB: Patient presents today for a routine obstetrics appointment. Patient is currently 34w5d . Patient states she is doing well but has complaints of being tired due to current . Patient has verbalizes frequent movement. labor precautions was discussed/given and patient was instructed to perform kick counts three times a day. No orders of the defined types were placed in this encounter. Follow Up: Patient is to return to office in 2 week for routine OB appointment. Documented by Karla Whitley CST on behalf of: ALLIE Farmer documented in this encounter Miscellaneous Notes * Addendum Note - Rahgu Guzman MA - 10/08/2025 11:30 AM ESTAddended by: RAGHU GUZMAN on: 10/09/2025 09:56 AM Modules accepted: Orders documented in this encounter Plan of Treatment DateTypeDepartmentCare Team (Latest Contact Info)Ejzdgcinqmg78/03/2025 1:10 PM ESTRoutine [facility] [address] [place] [place] [address] Luis E Bray DO [address] [facility] [place] [address] documented as of this encounter Procedures Procedure NamePriorityDate/TimeAssociated DiagnosisCommentsPOCT URINALYSIS EYXEJAHHZnmartp81/12/2025 11:48 AM EST 34 weeks gestation of ([facility]) documented in this encounter Results * (ABNORMAL) POCT urinalysis dipstick manually resulted (10/08/2025 11:48 AM EST)ComponentValueRef RangeTest MethodAnalysis TimePerformed AtPathologist SignatureColor, UAYellowClarity, UAClearGlucose, UANegativeNegative - 2000(110) ++++ mg/dLBilirubin, UANegativeNegative - 4(70) +++ mg/dLKetones, UA PositiveNegative - 160(16) ++++ mg/dLSpec Grav, UA1.0101 - 1.03Blood, UA NegativeNegative - 50 Nico/mcLpH, UA6.05 - 9Protein, UANegativeNegative - 2000(20) ++++ mg/dLUrobilinogen, UA1.00.2 - 12 mg/dLLeukocytes, UATrace Negative - 500+++ Karson/mcLNitrite, UANegativeNegative - PositiveSpecimen (Source)Anatomical Location / LateralityCollection Method / VolumeCollection TimeReceived KerhTmond85/12/2025 11:48 AM EST Narrative Authorizing ProviderResult TypeResult StatusW[facility] OF CARE TEST ENTER/EDIT ORDERABLESFinal Result documented in this encounter Visit Diagnoses Diagnosis Third trimester ([facility]) state, incidental 34 weeks gestation of ([facility]) Common cold Acute nasopharyngitis (common cold) documented in this encounter Additional Health Concerns AssessmentNoted TimePHQ-9 Depression Total Score: 9:00 AM EST documented as of this encounter Care Teams Team MemberRelationshipSpecialtyStart DateEnd Date Yamel Guerrero MD [address] [facility] [address] [place], [place] [id number] PCP - GeneralFamily Medicine05/04/23 Yamel Guerrero MD [address] [facility] [address] [place], [place] [address] PCP - CHARLIE PLAZA02/26/24documented as of this encounter
--- OUTSIDE RECORDS SUMMARY | 2025-10-22 15:20 | XMS_ITS | Encounter Summary ---
Author Organization [facility] Address [address] [place] [address] Care Team Providers Care Want Ad Receiver Name Role Phone Yamel Guerrreo MD Primary Care Provider [phone] Yamel Guerrero MD Unavailable Encounter Details DateTypeDepartmentCare Team (Latest Contact Info)Djyubokiwkx64/26/2025 3:20 PM ESTRoutine [facility] [address] [place] [phone] Luis E Bray DO [address] [place], [facility] 36 weeks gestation of ([facility]); Third trimester ([facility]) Social History Tobacco UseTypesPacks/DayYears UsedDateSmoking Tobacco: NeverSmokeless [...] relatives?Once a week05/09/2023How often do you attend orthodox or worship services?Never05/09/2023o you belong to any clubs or organizations such as orthodox groups, unions, [employer] or athletic groups, or school groups?No05/09/2023How often do you attend meetings of the clubs or organizations you belong to?Never05/09/2023re you , , , , never , or living with a partner?Living with plxgcoq4105/09/2023 AUDIT-CAnswerDate RecordedQ1: How often do you have [...] very hard 05/09/2023HQ-2AnswerDate RecordedPatient Health Questionnaire-2 Score1 10/12/2023[facility] [place] of Occupational Health - Occupational Stress QuestionnaireAnswerDate RecordedDo you feel stress - tense, restless, nervous, or anxious, or unable to sleep at night because yourmind is troubled all the time - these days?To some jokmhf3905/09/2023Exercise Vital SignAnswerDate Recorded On average, how many [...] steady place to sleep or slept in [facility] (including now)?No05/09/2023 Estimated Date of EgxlgetyYiqfirpkEme31/19/2025Based on last menstrual period of 02/07/2025Sex and Gender InformationValueDate RecordedSex Assigned at BirthFemale 04/30/2023 3:31 PM EDTLegal LatJebcql72/15/2023 7:09 PM EDTGender IdentityFemale 04/30/2023 3:31 PM EDTSexual OrientationNot on filedocumented as of this encounter Last Filed Vital Signs Vital SignReadingTime TakenCommentsBlood Vqphnjoo364/7810/22/2025 3:21 PM EST Pulse--Temperature--Respiratory Rate--Oxygen Saturation--Inhaled Oxygen Concentration--Rzsywm358 kg (243 lb 12.8 oz)10/22/2025 3:21 PM ESTHeight--Body Mass Index41.8510/23/2023 4:27 PM ESTdocumented in this encounter Progress Notes * Sonia Coker LPN - 10/22/2025 3:20 PM EST Reason for Appointment: Patient ID: Betty Kennedy is a 35 y.o. female who presents for No chief complaint on file. Patient presents today for Return OB appointment. MEDICATIONS Current Outpatient Medications Medication Instructions azithromycin (Zithromax Z-Edwin) 250 MG tablet As directed hydroxychloroquine (Plaquenil) 100 MG tablet Hydroxychloroquine Sulfate [...] Brother Ayo dwight (thyroid cancer) SURGICAL HISTORY No past surgical history on file. REVIEW OF SYSTEMS Review of Systems: Review of Systems Constitutional: Negative. HENT: Negative. Eyes: Negative. Respiratory: Negative. Cardiovascular: Negative. Gastrointestinal: Negative. Genitourinary: Negative. Musculoskeletal: Negative. Skin: Negative. Neurological: Negative. All other systems reviewed and are negative. Hematological: Negative. Endocrine: Negative. Allergic/Immunologic: Negative. OBJECTIVE Objective: OBGyn Exam Vitals: Estimated body mass index is 41.85 kg/m?? as calculated from the following: Height as of 10/23/23: 5' 4 . Weight as of this encounter: 243 lb 12.8 oz. BP: 108/78 Patient's last menstrual period was 02/07/2025. Assessment/Plan ICD-10-CM 1. 36 weeks gestation of ([facility]) Z3A.36 CULTURE, GROUP B STREP WITH SUSCEPTIBLITY CULTURE, GROUP B STREP WITH SUSCEPTIBLITY POCT urinalysis dipstick manually resulted 2. Third trimester ([facility]) Z34.93 CULTURE, GROUP B STREP WITH SUSCEPTIBLITY CULTURE, GROUP B STREP WITH SUSCEPTIBLITY POCT urinalysis dipstick manually resulted Assessment/Plan Patient is doing well but has complaints of being tired and having maternal discomfort due to . Patient verbalized frequent movement and was instructed to perform fetalkick counts three times per day. labor precautions were given, LARC consent was signed/declined, and GBS was obtained. Cervical check was performed and patient is 2cm dilated. Orders Placed This Encounter Procedures CULTURE, GROUP B STREP WITH SUSCEPTIBLITY POCT urinalysis dipstick manually resulted Follow Up: Patient is to return to office in 1 week for routine OB appointment Documented by Sonia Coker LPN on behalf of: Luis E Bray DO documented in this encounter Plan of Treatment DateTypeDepartmentCare Team (Latest Contact Info)Ezrznskjbld50/03/2025 1:10 PM ESTRoutine [facility] [address] [place] [phone] Luis E Bray DO [address] [place], [place] [address] NameTypePriorityAssociated DiagnosesOrder ScheduleCULTURE, GROUP B STREP WITH SUSCEPTIBLITYLabRoutine 36 weeks gestation of ([facility]) Third trimester ([facility]) Expected: 10/22/2025, Expires: 10/22/2026documented as of this encounter Procedures Procedure NamePriorityDate/TimeAssociated DiagnosisCommentsPOCT URINALYSIS BXPYJKSIKulixac99/26/2025 3:35 PM EST 36 weeks gestation of ([facility]) Third trimester ([facility]) documented in this encounter Results * (ABNORMAL) POCT urinalysis dipstick manually resulted (10/22/2025 3:35 PM EST) ComponentValueRef RangeTest MethodAnalysis TimePerformed AtPathologist SignatureColor, UAYellowClarity, UAClearGlucose, UANegativeNegative - 2000(110) ++++ mg/dLBilirubin, UANegativeNegative - 4(70) +++ mg/dLKetones, UA PositiveNegative - 160(16) ++++ mg/dLSpec Grav, UA1.0151 - 1.03Blood, UA NegativeNegative - 50 Nico/mcLpH, UA6.05 - 9Protein, UA1+Negative - 2000(20) ++++ mg/dLUrobilinogen, UA0.20.2 - 12 mg/dLLeukocytes, UANegativeNegative - 500+++ Karson/mcLNitrite, UANegativeNegative - PositiveSpecimen (Source) Anatomical Location / LateralityCollection Method / VolumeCollection Time Received SuxuWvyud09/26/2025 3:35 PM EST Narrative Authorizing ProviderResult TypeResult StatusCorey Katarina DOPOINT OF CARE TEST ENTER/EDIT ORDERABLESFinal Result documented in this encounter Visit Diagnoses Diagnosis 36 weeks gestation of ([facility]) Third trimester ([facility]) state, incidental documented in this encounter Additional Health Concerns AssessmentNoted TimePHQ-9 Depression Total Score: 411 9:00 AM EST documented as of this encounter Care Teams Team MemberRelationshipSpecialtyStart DateEnd Date Yamel Guerrero MD [address] [place], [place] [phone] PCP - GeneralFamily Medicine05/04/23 Yamel Guerrero MD [address] [place] [address] PCP - [facility]02/26/24documented as of this encounter
--- OUTSIDE RECORDS SUMMARY | 2025-10-22 18:14 | XMS_ITS | Clinical Summary ---
Author Organization [facility] Address [address] [place] [address] Care Team Providers Care Care Provider Name Role Phone Unavailable Primary Care Provider Unavailabl e Social History Tobacco UseTypesPacks/DayYears UsedDateSmoking Tobacco: Never Assessed CommentsUnknownSex and Gender InformationValueDate RecordedSex Assigned at Not on fileLegal UosWawjoy21/29/2022 11:30 PM EDTGender IdentityNot on file Sexual OrientationNot on file Last Filed Vital Signs Vital SignReadingTime TakenCommentsBlood Cxdiueyc754/7611/14/2019 2:45 PM EST Srfaa465611/14/2019 2:45 PM ESTTemperature--Respiratory Rate--Oxygen Ixfkywtjqg31% 09/23/2019 2:45 PM EDTInhaled Oxygen Concentration--Tggszl10.6 kg (160 lb) 11/14/2019 2:43 PM HPFXofrle428.6 cm (5' 4 )11/14/2019 2:43 PM ESTBody Mass Index27.4611/14/2019 2:43 PM EST Plan of Treatment Not on file
--- OUTSIDE RECORDS SUMMARY | 2025-10-22 18:14 | XMS_ITS | Patient Health Record ---
Author Organization [facility] Address [address] [place], [place] [address] Care Team Providers Care Designer Architect Name Role Phone Renee Mack Unavailable [phone] Angela Chua Unavailable [phone] Allergies No Known Allergies Reason For Referral No Information Medications Medication SIG (Take, Route, Frequency, Duration) Notes Start Date End Date Status Peridex 0.12 % Solution swish 30 seconds 2x/day. Spit, do not rinse. Do not eat or drink for 30 minutes after. Mouth/Throat 2x/day; Duration: 14 days 03/24/2022Not-Taking/PRN Social History Tobacco Use: Social History Observation Description Date Details (start date - stop date) Never Smoker NA - NA Sex Assigned At : Social History Observation Description Sex Assigned At Female Social History Tobacco Use:Social InfoQuestionAnswerNotesTobacco Use/SmokingTobacco use: nonsmoker Problems Problem Type SNOMED Code ICD Code Onset Dates Problem Status W/U Status Risk Notes Problem Obese class II (524383854706954) BMI 36.0 -36.9,adult (Z68.36) ActiveconfirmedProblemObese class II (456130447482928)BMI 37.0-37.9, adult (Z68.37)Activeconfirmed Vital Signs Heart Rate 86 /min 11/14/2024 Blood pressure wecsbvcds67 mm Hg11/14/2024Weight-kg99.79 kg11/14/20244547Dfyjhe91 in 11/14/2024lood pressure kxxegwou734 mm Hg11/14/20248980Qyyycu015 lbs101/15/2024MI 37.76 kg/m211/14/2024 Encounters Encounter Location Date Provider Diagnosis [facility] [address], [place] [phone] 11/14/2024 Angela Chua BMI 37.0-37.9, tiffany lt [...] Insured Coverage Start Date Coverage End Date adamzAce [employer] [facility] [address] [place] [address] [id number] Mauricio Kennedy - patient is the [id number] 2023Medicaid C [facility] [address] [place], [place] [id number], MeganSelf - patient is the [id number] 2023
--- OUTSIDE RECORDS SUMMARY | 2025-10-22 18:14 | XMS_ITS | Patient Health Record ---
Author Organization [facility] [place] Address [address] [place] [address] Care Team Providers Care Concrete Form Setter Name Role Phone Yamel Guerrero MD [...] [employer] [address] [place] [address] [id number] AYDE THOMPSON Self - patient is the insured
--- OUTSIDE RECORDS SUMMARY | 2025-10-22 18:14 | XMS_ITS | Clinical Summary ---
Author Organization [facility] Address [address] [place] [address] Care Team Providers Care Wellfield Technician Name Role Phone Yamel East MD Primary Care Provider [phone] Yamel East MD Unavailable Allergies No known [...] 4 MG tablet Indications:Nausea and vomiting in ([facility])Take 1 tablet (4 mg) by mouth every 6 (six) hours if needed for nausea or vomiting for up to 30 doses Take 1 tablet by mouth every 6 hours as needed for nausea. 30 tablet Discontinued promethazine (Phenergan) 12.5 MG tablet Indications:Nausea and vomiting in ([facility])Take 1 tablet (12.5 mg) by mouth every 6 (six) hours if needed for nausea or vomiting for up to 30 doses Take 1 tablet by mouth every 6 hours as needed for nausea. 30 tablet Discontinued metoclopramide (Reglan) 10 MG tablet Indications:Nausea and vomiting in ([facility])Take 1 tablet (10 mg) by mouth in the morning and 1 tablet (10 mg) at noon and 1 tablet (10 mg) in the evening. Take before meals. Take 1 tablet by mouth 30 minutes prior to meals 3 times daily as needed for nausea. 90 tablet Discontinued Pharmacist Choice Lancets [facility] Indications:Gestational diabetes mellitus (GDM), antepartum, gestational diabetes method of control unspecified([facility]),Elevated glucose tolerance test USE 1 LANCET TO CHECK FSBS 4 TIMES DAILY 150 each Discontinued Alcohol Swabs (Alcohol Prep Pad) 70 % pads Indications:Gestational diabetes mellitus (GDM), antepartum, gestational diabetes method of control unspecified([facility]),Elevated glucose tolerance test Apply 1 Pad topically Daily Use four times daily to check FSBS. 150 each Discontinued Blood Glucose Monitoring Suppl (D-Care Glucometer) w/Device kit Indications:Gestational diabetes mellitus (GDM), antepartum, gestational diabetes method of control unspecified([facility]),Elevated glucose tolerance test1 kit Daily Use four times daily to check FSBS. In the morning prior to breakfast & 1 hour after each meal for a total of 4times daily. 1 kit Discontinued Active Problems ProblemNoted DateDiagnosed XxsuPsfvdih37/03/2023Obesity due to excess calories without serious ijlkzfysbru76/03/2023Systemic lupus oahxqoclsqvzh95/05/2023 Elevated antinuclear antibody (ROSEMARY) level05/10/2023astroesophageal reflux disease without pynenvhlxoa54/14/2023Severe single current episode of major depressive disorder, without psychotic lhnvzbyz10/14/6191Brgermtzonq61/14/2023 Tonsillar vgaqgybvnzk17/12/2019Raynaud's qtynsxfqgp25/06/2019Undifferentiated connective tissue pwebiaq2912/18/2017Estimated Date of DeliveryCommentsYes 11/14/2025ased on last menstrual period of 02/07/2025 Resolved Problems ProblemNoted DateDiagnosed DateResolved DateCarpal tunnel gkifoqnk85/14/2023 05/31/2023 Encounters DateTypeDepartmentCare YqesLuhtfnqwevt94/26/2025 3:20 [place] [address] Jossy Bray, 36 weeks gestation of ([facility]); Third trimester ([facility])10/22/2025amboo flowsheet [facility] [address] [facility] [place] [address] Jossy Bray DO 10/20/2025linisync Result Encounter [facility]OMS External Department Unsolicited Fabi Arita PA 10/20/2025bstract [facility] [place] Paul [facility] [place] [address] Fabi Arita PA 10/13/2025linisync Result Encounter NOMS External Department Unsolicited Fabi Arita PA 10/08/2025 11:30 [place] [address] Fabi Arita PA Third trimester ([facility]); 34 weeks gestation of ([facility]); Common cold10/08/2025 11:00 AM ESTAncillary [place] [phone] Gestational diabetes mellitus (GDM), antepartum, gestational diabetes method of control unspecified([facility])10/06/2025linisync Result Encounter NOMS External Department Unsolicited Fabi Arita PA 09/29/2025linisync Result Encounter NOMS External Department Unsolicited Fabi Arita PA 09/24/2025bstract [facility] [place] Paul [facility] [place] [phone] Jossy Bray DO 09/23/2025 10:00 [place] [phone] Jossy Bray, 32 weeks gestation of ([facility]); Third trimester ([facility]); Gestational diabetes mellitus (GDM), antepartum, gestational diabetes method of control unspecified([facility])09/23/2025[place] [address] Jossy Bray, 09/22/2025linisync Result Encounter NOMS External Department Unsolicited Fabi Arita PA 09/22/20252079Klqgie04/14/2025 10:50 [place] [phone] Fabi Arita PA Third trimester ([facility]); 30 weeks gestation of ([facility])09/09/2025 10:00 AM EDTAncillary Procedure [facility] [place] [address] [place] [phone] Gestational diabetes mellitus (GDM), antepartum, gestational diabetes method of control unspecified([facility])09/08/20255499Qvkpyx02/08/2025Clinisync Result Encounter NOMS External Department Unsolicited Provider, Generic External Data 08/27/2025 10:20 AM EDTRoutine [facility] [facility] [address] [place] [phone] Catarina Barnes, [place] 28 weeks gestation of ([facility]); Third trimester ([facility]); Gestational diabetes mellitus (GDM), antepartum, gestational diabetes method of control unspecified([facility]); Diabetes mellitus sdetahfga96/01/2025[place] [address] Jossy Bray, DO 08/27/2025linisync Result Encounter NOMS External Department Unsolicited Provider, Generic External Data 08/27/2025[place] [address] Catarina Barnes NP 08/13/2025 11:10 [place] [phone] Jossy Bray, 26 weeks gestation of ([facility]); Second trimester ([facility]); Gestational diabetes mellitus (GDM), antepartum, gestational diabetes method of control unspecified([facility])08/13/2025[place] [address] Jossy Bray, DO 08/12/20259737Yhcwod09/15/2025[place] [address] Jossy Bray, DO 08/04/2025 10:00 AM EDTAncillary [place] [address] Encounter for follow-up ultrasound of anatomy ([facility])07/29/2025Travel from Last 3 Months Family History [...] week05/09/2023How often do you attend mandaen or congregation services?Never3Do you belong to any clubs or organizations such as mandaen groups, unions, fraternal or athletic groups, or school groups?No05/09/2023How often do you attend meetings of the clubs or organizations you belong to?Never05/09/2023re you , , , , never , or living with a partner?Living with cizqjsv5705/09/2023 AUDIT-CAnswerDate RecordedQ1: How often do you have [...] RecordedPatient Health Questionnaire-2 Score1 10/12/2023[facility] [place] [facility] Occup[facility] Health - Occupational Stress QuestionnaireAnswerDate RecordedDo you feel stress - tense, restless, nervous, or anxious, or unable to sleep at night because yourmind is troubled all the time - these days?To some cmgtsp7905/09/2023Exercise Vital SignAnswerDate Recorded On average, how many [...] in ashelter (including now)?No05/09/2023 Estimated Date of XemqbjhzLtbkpqinSlv98/19/2025Based on last menstrual period of 02/07/2025Sex and Gender InformationValueDate RecordedSex Assigned at BirthFemale 04/30/2023 3:31 PM EDTLegal CtbVqshox34/15/2023 7:09 PM EDTGender IdentityFemale 04/30/2023 3:31 PM EDTSexual OrientationNot on file Last Filed Vital Signs Vital SignReadingTime TakenCommentsBlood Gmuvfgtz075/7810/22/2025 3:21 PM EST Kkiyw924410/23/2023 4:27 PM TZFZrobiipiemr60 ??C (98.6 ??F)10/23/2023 4:27 PM EST Respiratory Wmmz435612/23/2022 4:27 PM ESTOxygen Uatywcqgup68%10/23/2023 4:27 PM ESTInhaled Oxygen Concentration--Bkylds329 kg (243 lb 12.8 oz)10/22/2025 3:21 PM TIPMyksif089.6 cm (5' 4 )10/23/2023 4:27 PM ESTBody Mass Index41.8510/23/2023 4:27 PM EST Plan of Treatment DateTypeDepartmentCare Team (Latest Contact Info)Lnzhviaybqw91/03/2025 1:10 PM ESTRoutine [facility] [address] [place] [address] Jossy Bray, [address] [place] [address] Health MaintenanceDue DateLast DoneCommentsCOVID-19 Vaccine ( season) 2025Influenza Vaccine (#1)512/, 10/17/2019Cervical Cancer Bcivlsabg10/07/2030HPV/Vwzuma20/07//3Pap Smear/05/2025, 2Pneumococcal Vaccine: Pediatrics (0 to 5 Years) and At-Risk Patients (6 to 64 Years)Aged OutNo longer eligible based on patient's age to complete this topic Procedures Procedure NamePriorityDate/TimeAssociated DiagnosisCommentsPOCT URINALYSIS OVXGKXVSAthhdrz78/26/2025 3:35 PM EST 36 weeks gestation of ([facility]) Third trimester ([facility]) US OB BPP W NON-MTAJMS7610/20/2025 12:21 PM EST US OB BPP W NON-OPXJQP1810/13/2025 11:50 AM EST POCT URINALYSIS SGAGNMEBCyvvuvc90/12/2025 11:48 AM EST 34 weeks gestation of ([facility]) US OB FOLLOW UP TRANSABDOMINAL DBKHFSVRLxgfoue95/12/2025 11:36 AM EST Gestational diabetes mellitus (GDM), antepartum, gestational diabetes method of control unspecified([facility]) US OB BPP W NON-CTWBMD9310/06/2025 12:00 PM EST US OB BPP W NON-PTKLHI2809/29/2025 3:51 PM EST POCT URINALYSIS RLMQFAFVVfelozx09/28/2025 10:15 AM EDT 32 weeks gestation of ([facility]) Third trimester ([facility]) US OB BPP W NON-VXPMQC4209/22/2025 10:42 PM EDT POCT URINALYSIS XROYZSGOYujuymg14/14/2025 11:15 AM EDT 30 weeks gestation of ([facility]) US OB FOLLOW UP TRANSABDOMINAL EATIUDQEGfnerqp62/14/2025 10:39 AM EDT Gestational diabetes mellitus (GDM), antepartum, gestational diabetes method of control unspecified([facility]) MLR HEMOGLOBIN W5WUmviwiw44/08/2025 10:44 AM EDT ALL CBC WITH AUTO BBCCUqsadry39/08/2025 10:44 AM EDT US OB ZTFGFI2808/27/2025 11:15 AM EDT POCT URINALYSIS OBUNVVTCFfmbpmj95/01/2025 10:37 AM EDT 28 weeks gestation of ([facility]) Third trimester ([facility]) POCT URINALYSIS AXSVGNZGGckbzor52/17/2025 11:24 AM EDT 26 weeks gestation of ([facility]) Second trimester ([facility]) US OB LIMITED 1+ ZMJMPEFMccfbxe21/08/2025 10:29 AM EDT Encounter for follow-up ultrasound of anatomy ([facility]) PAP SREJOFehfvsv20/07/2025 12:00 AM EDTTHINPREP PAP AND HPV MRNA E6/E7 W/RFL HPV 16,18/77Sqdochu33/17/2023 10:11 AM EDT Well woman exam with routine gynecological exam from Last 3 Months or Most Recently Relevant to Health Maintenance Results * (ABNORMAL) POCT urinalysis dipstick manually resulted (10/22/2025 3:35 PM EST) Only the most recent of6 resultswithin the time period is included. ComponentValueRef RangeTest MethodAnalysis TimePerformed AtPathologist Signature Color, UAYellowClarity, UAClearGlucose, UANegativeNegative - 2000(110) ++++ mg/dLBilirubin, UANegativeNegative - 4(70) +++ mg/dLKetones, UAPositiveNegative - 160(16) ++++ mg/dLSpec Grav, UA1.0151 - 1.03Blood, UANegativeNegative - 50 Nico/mcLpH, UA6.05 - 9Protein, UA1+Negative - 2000(20) ++++ mg/dLUrobilinogen, UA 0.20.2 - 12 mg/dLLeukocytes, UANegativeNegative - 500+++ Karson/mcLNitrite, UA NegativeNegative - PositiveSpecimen (Source)Anatomical Location / Laterality Collection Method / VolumeCollection TimeReceived SjtkWzykr80/26/2025 3:35 PM EST Narrative Authorizing ProviderResult TypeResult StatusCorey Katarina DOPOINT OF CARE TEST ENTER/EDIT ORDERABLESFinal Result * US OB BPP W NON-STRESS (10/20/2025 12:21 PM EST) Only the most recent of5 resultswithin the time period is included. Anatomical RegionLateralityModalityOtherSpecimen (Source)Anatomical Location / LateralityCollection Method / VolumeCollection TimeReceived Time10/20/2025 12:21 PM EST Narrative 10/20/2025 12:24 PM EST [facility] ?[address] ? [place] [address] ? Ultrasound Report ? Signed ? Patient: DONNA,BETTY R ? MR#: [id number] ?? : 1990 ?Acct:[id number] ?? Age/Sex: 35 / F ?ADM Date: 10/20/25 ?? Loc: US ? Attending Dr: Fabi Arita ? Ordering Physician: Fabi Arita ?? Date of Service: 10/20/25 ?? Procedure(s): US OB BPP w non-stress ?? Accession Number(s): [id number] ? cc: Fabi Arita; CRUZITOYAMEL ? [facility] ? [address] ? [place] [address] ? Patient Name: ?? BETTY R DONNA ? MRN: [id number] ? date: 1990 ?Sex: F ?? Assigned Patient Location: US ?? Current Patient Location: ? Accession/Order Number: [id number] ?? Exam Date: 10/20/2025 ??11:28 ?Report Date: 10/20/2025 ??12:21 ? At the request of: ?? FABI ??JUAN J ? Procedure: ??US OB BPP w non-stress ? BIOPHYSICAL PROFILE: ? CLINICAL INFORMATION: 30 WEEKS Z3A.30 ? COMPARISON: 10/13/2025 ? There is a single live intrauterine gestation in cephalic presentation. ??The ?? reported gestational age is 36 weeks 4 days. ??The heart rate measures ?? 145 beats per minute. ? FINDINGS: ? TONE: [...] 2 cm ? [Y] ? 2/2 ?PACO: 16.6 cm ? Total score: ? 8/8 ? US/US OB BPP w non-stress ?? IMPRESSION: ? NORMAL BIOPHYSICAL PROFILE ? Impression dictated by: Sonia Hernandez M.D. ??10/20/2025 12:21 PM ? Dictation Location: RADIO-PC-02 ? Electronically authenticated by: [id number] ??Y ?? Date: 10/20/2025 ??12:21 ? Dictated By: ?Sonia Hernandez M.D. ? Signed By: ?/24/25 1224 ? DD/ 1221 ? TD/TT: ? Sloop Captain: Procedure Note Radiology, Radiologist, MD - 10/20/2025 The [place] [id number] Ultrasound Report Signed Patient: BETTY THOMPSON RMR#: [id number] : 1990Acct:[id number] Age/Sex: 35 / FADM Date: 10/20/25 Loc: US Attending Dr: Fabi Arita Ordering Physician: Fabi Arita Date of Service: 10/20/25 Procedure(s): US OB BPP w non-stress Accession Number(s): [id number] cc: Fabi Arita; [facility] The [address] [address] Patient Name: BETTY THOMPSON MRN: [id number] date: 1990 Sex: F Assigned Patient Location: US Current Patient Location: Accession/Order Number: [id number] Exam Date: 10/20/2025 11:28 Report Date: 10/20/2025 12:21 At the request of: FABI ARITA Procedure: US OB BPP w non-stress BIOPHYSICAL PROFILE: CLINICAL INFORMATION: 30 WEEKS Z3A.30 COMPARISON: 10/13/2025 There is a single live intrauterine gestation in cephalic presentation.The reported gestational age is 36 weeks 4 days. The heart ratemeasures 145 beats per minute. FINDINGS: TONE: 1 or [...] greater than 2 cm [Y] 2/2 PACO: 16.6 cm Total score: 8/8 US/US OB BPP w non-stress IMPRESSION: NORMAL BIOPHYSICAL PROFILE Impression dictated by: Sonia Hernandez M.D. 10/20/2025 12:21 PM Dictation Location: [place] [address] Electronically authenticated by: [id number] Y Date: 2:21 Dictated By: Sonia Hernandez M.D. Signed By:10/20/25 1224 DD/ 1221 TD/TT: Sloop Captain: Authorizing ProviderResult TypeResult StatusFabi Arita [facility] IMAGINGFinal Result * US OB [...] Michael Dennis MD Authorizing ProviderResult TypeResult StatusJossy Bray DOIMG OB US PROCEDURES Final Result * MLR HEMOGLOBIN A1C (09/03/2025 10:44 AM EDT)ComponentValueRef RangeTest Method Analysis TimePerformed AtPathologist SignatureGLYCOHEMOGLOBIN A1C5.24.5 - 6.2 %TBHComment: ADA RECOMMENDED LIMIT 4.0 - 6.0 ADA THERAPEUTIC TARGET < 7.0 ACTION SUGGESTED > 7.0 ESTIMATED AVERAGE UYTAHID218dh/dLTBHSpecimen (Source)Anatomical Location / LateralityCollection Method / VolumeCollection TimeReceived Time09/03/2025 10:44 AM EDT1 10:45 AM EDT Narrative [facility]INISYNC - 09/03/2025 12:20 PM EDT Authorizing ProviderResult TypeResult StatusCatarina Barnes NPCLINISYNCFinal ResultPerforming OrganizationAddressCity/State/ZIP CodePhone Number [facility] * (ABNORMAL) ALL CBC WITH AUTO DIFF (09/03/2025 10:44 AM EDT)ComponentValueRef RangeTest MethodAnalysis TimePerformed AtPathologist SignatureTBH WBC10.64.0 - 11.0 10 3/uLTBHTBH RBC3.60(L)4.20 - 5.40 10 6/uLTBHTBH HGB12.112.0 - 16.0 g/dLTBHTBH HCT35.6(L)36.0 - 48.0 %TBHTBH MCV98.981.0 - 99.0 fLTBHTBH MCH33.6 26.7 - 34.0 pgTBHTBH MCHC34.029.9 - 35.2 g/dLTBHTBH RDW14.311.0 - 15.0 %TBHTBH CNG062319 - 450 10 3/uLTBHTBH MPV11.29.5 - 13.5 [...] 09/03/2025 10:56 AM EDT Authorizing ProviderResult TypeResult StatusKrjorje Barnes NPCLINISYNCFinal ResultPerforming OrganizationAddressCity/State/ZIP CodePhone Number CLINISYNC [facility] * US OB GROWTH (08/27/2025 11:15 AM EDT)Anatomical RegionLateralityModalityOther Specimen (Source)Anatomical Location / LateralityCollection Method / Volume Collection TimeReceived Time08/27/2025 11:15 AM EDT Narrative 08/27/2025 11:17 AM EDT [facility] ?[address] ? [place] [address] ? Ultrasound Report ? Signed ? Patient: BETTY THOMPSON ? MR#: [id number] ?? : 1990 ?Acct:[id number] ?? Age/Sex: 35 / F ?ADM Date: 08/27/25 ?? Loc: US ? Attending Dr: Jossy Bray D.O. ? Ordering Physician: Jossy Bray D.O. ?? Date of Service: 08/27/25 ?? Procedure(s): US OB growth ?? Accession Number(s): [id number] ? cc: [facility] ; Jossy Bray.Oscar. ? [facility] ? [address] ? [place] [address] ? Patient Name: ?? BETTY THOMPSON ? MRN: [facility]:[id number] ? date: 1990 ?Sex: F ?? Assigned Patient Location: US ?? Current Patient Location: US ?? Accession/Order Number: [id number] ?? Exam Date: 08/27/2025 ??09:52 ?Report Date: [...] M.D. ??08/27/2025 11:15 AM ? Dictation Location: [place] [address] ? Electronically authenticated by: [id number] ??Y ?? Date: 08/27/2025 ??11:15 ? Dictated By: ?Sonia Hernandez M.D. ? Signed By: ?08/27/257 ? DD/ ? TD/TT: ? Sloop Captain: Procedure Note Radiology, Radiologist, - 08/27/2025 [place] [address] Ultrasound Report Signed Patient: BETTY THOMPSON RMR#: [id number] : 1990Acct:[id number] Age/Sex: 35 / FADM Date: 08/27/25 Loc: US Attending Dr: Jossy Bray D.O. Ordering Physician: Jossy Bray D.O. Date of Service: 08/27/25 Procedure(s): US OB growth Accession Number(s): [id number] cc: [facility] ; Jossy Bray D.O. The [place] [address] Patient Name: BETTY THOMPSON MRN: [id number] date: 1990 Sex: F Assigned Patient Location: Current Patient Location: US Accession/Order Number: [id number] Exam Date: 08/27/2025 09:52 Report Date: 08/27/2025 [...] Hernandez M.D. 08/27/2025 11:15 AM Dictation Location: [place] [address] Electronically authenticated by: [id number] Y Date: 1:15 Dictated By: Sonia Hernandez M.D. Signed By:08/27/25 1117 DD/ 1115 TD/TT: Sloop Captain: Authorizing ProviderResult TypeResult StatusGeneric External Data Provider [...] Dennis MD Authorizing ProviderResult TypeResult StatusCorey Katarina [facility] OB US PROCEDURES Final Result * Pap Smear (06/02/2025 12:00 AM EDT)Specimen (Source)Anatomical Location / LateralityCollection Method / VolumeCollection TimeReceived TimeSwabCervical swab / Unknown Narrative Authorizing ProviderResult TypeResult StatusCorey Katarina DOLAB CYTOLOGY ORDERABLESFinal ResultPerforming OrganizationAddressCity/State/ZIP CodePhone Number EXTERNAL LAB * THINPREP PAP AND HPV MRNA E6/E7 W/RFL HPV 16,18/45 (07/13/2023 10:11 AM EDT) Narrative Authorizing ProviderResult TypeResult StatusAmy Sawyer PALAB BLOOD ORDERABLES Final ResultPerforming OrganizationAddressCity/State/ZIP CodePhone Number EXTERNAL LAB from Last 3 Months or Most Recently Relevant to Health Maintenance Insurance Care Teams Team MemberRelationshipSpecialtyStart DateEnd Yamel East MD [address] [place], [place] [phone] PCP - GeneralFamily Medicine05/04/23 Yamel East MD [address] [place], [place] [phone] PCP - [facility]02/26/24
--- OUTSIDE RECORDS SUMMARY | 2025-10-22 18:14 | XMS_ITS | Encounter Summary ---
Author Organization [facility] Address [address] [place] [address] Care Team Providers Care Check Grader Name Role Phone Mino East MD Primary Care Provider Mino East MD Unavailable Encounter Details DateTypeDepartmentCare Team (Latest Contact Info)Zykvxbsyswn12/17/2025Clinisync Result Encounter [facility] External Department Unsolicited Fabi Arita PA [address] [place] [address] [address] [place], [place] [address] Social History Tobacco UseTypesPacks/DayYears UsedDateSmoking Tobacco: NeverSmokeless [...] relatives?Once a week05/09/2023How often do you attend muslim or pentecostal services?Never05/09/2023o you belong to any clubs or organizations such as muslim groups, unions, fraternal or athletic groups, or school groups?No05/09/2023How often do you attend meetings of the clubs or organizations you belong to?Never05/09/2023re you , , , , never , or living with a partner?Living with binzkmh8105/09/2023 AUDIT-CAnswerDate RecordedQ1: How often do you have [...] RecordedPatient Health Questionnaire-2 Score1 10/12/2023[facility] [place] of Occupational Health - Occupational Stress QuestionnaireAnswerDate RecordedDo you feel stress - tense, restless, nervous, or anxious, or unable to sleep at night because yourmind is troubled all the time - these days?To some mjnmzm0905/09/2023Exercise Vital SignAnswerDate Recorded On average, how many [...] in ashelter (including now)?No05/09/2023 Estimated Date of SlmairqyPxsxunkcRme04/19/2025Based on last menstrual period of 02/07/2025Sex and Gender InformationValueDate RecordedSex Assigned at BirthFemale 04/30/2023 3:31 PM EDTLegal HwuXcrwqf76/15/2023 7:09 PM EDTGender IdentityFemale 04/30/2023 3:31 PM EDTSexual OrientationNot on filedocumented as of this encounter Plan of Treatment DateTypeDepartmentCare Team (Latest Contact Info)Zsesacvukrt14/03/2025 1:10 PM ESTRoutine [facility] [address] [facility] [address] Luis E Bray DO [address] [facility] [place] [address] documented as of this encounter Procedures Procedure NamePriorityDate/TimeAssociated DiagnosisCommentsUS OB BPP W NON-KUKWAD3410/13/2025 11:50 AM EST documented in this encounter Results * US OB BPP W NON-STRESS (10/13/2025 11:50 AM EST)Anatomical Region LateralityModalityOtherSpecimen (Source)Anatomical Location / Laterality Collection Method / VolumeCollection TimeReceived Time10/13/2025 11:50 AM EST Narrative 10/13/2025 11:53 AM EST The [facility] ?[address] ? [place], [facility] ? Ultrasound Report ? Signed ? Patient: MERCEDES THOMPSON ? MR#: [id number] ?? : 1990 ?Acct:[id number] ?? Age/Sex: 35 / F ?ADM Date: 10/13/25 ?? Loc: [facility] ??250-1 ? Attending Dr: Fabi Arita ? Ordering Physician: Fabi Arita ?? Date of Service: 10/13/25 ?? Procedure(s): US OB BPP w non-stress ?? Accession Number(s): [id number] ? cc: Fabi Arita; [place] ? [facility] ? [address] ? [place] [address] ? Patient Name: ?? MERCEDES THOMPSON ? MRN: [facility]:[id number] ? date: 1990 ?Sex: F ?? Assigned Patient Location: US ?? Current Patient Location: US ?? Accession/Order Number: [id number] ?? Exam Date: 10/13/2025 ??11:28 ?Report Date: [...] Dictation Location: RADIO-PC-02 ? Electronically authenticated by: [id number] ??Y ?? Date: 10/13/2025 ??11:50 ? Dictated By: ?Sonia Hernandez M.D. ? Signed By: ?11/17/25 1153 ? DD/ 1150 ? TD/TT: ? Alodize Machine Helper: Procedure Note Radiology, Radiologist, - 10/13/2025 [place] [address] Ultrasound Report Signed Patient: MERCEDES THOMPSON RMR#: [id number] : 1990Acct:[id number] Age/Sex: 35 / FADM Date: 10/13/25 Loc: [place] [address]: Fabi Arita Ordering Physician: Fabi Arita Date of Service: 10/13/25 Procedure(s): US OB BPP w non-stress Accession Number(s): [id number] cc: Fabi Arita; [place] [id number] Patient Name: MERCEDES THOMPSON MRN: [id number] date: 1990 Sex: F Assigned Patient Location: Current Patient Location: US Accession/Order Number: [id number] Exam Date: 10/13/2025 11:28 Report Date: 10/13/2025 [...] Hernandez M.D. 10/13/2025 11:50 AM Dictation Location: [place] [address] Electronically authenticated by: [id number] Y Date: 1:50 Dictated By: Sonia Hernandez M.D. Signed By:10/13/25 1153 DD/ 1150 TD/TT: Alodize Machine Helper: Authorizing ProviderResult TypeResult StatusAmy Juan J PACLINISYNC IMAGINGFinal Result documented in this encounter Visit Diagnoses Not on filedocumented in this encounter Additional Health Concerns AssessmentNoted TimePHQ-9 Depression Total Score: 9:00 AM EST documented as of this encounter Care Teams Team MemberRelationshipSpecialtyStart DateEnd Date Mino East MD [address] [place], [place] [address] [facility] - [facility]/04/23 Mino East MD [address] [place] [address] PCP - CHARLIE Joseph [facility]02/26/24documented as of this encounter
--- OUTSIDE RECORDS SUMMARY | 2025-10-22 18:15 | XMS_ITS | Encounter Summary ---
Author Organization [facility] Address [address] [place] [address] Care Team Providers Care Cookie Mixer Helper Name Role Phone Yamel Guerrero MD Primary Care Provider [phone] Yamel Guerrero MD Unavailable Encounter Details DateTypeDepartmentCare Team (Latest Contact Info)Nbirbjnccrr05/24/2025bstract [facility] MELGARGYBud [address] [facility] [place] [phone] Fabi Martinez PA [address] [facility] [address] [place], [facility] Social History Tobacco UseTypesPacks/DayYears UsedDateSmoking Tobacco: [...] relatives?Once a week05/09/2023How often do you attend holiness or episcopal services?Never05/09/2023o you belong to any clubs or organizations such as holiness groups, unions, fraBetterLesson or athletic groups, or school groups?No05/09/2023How often do you attend meetings of the clubs or organizations you belong to?Never05/09/2023re you , , , , never , or living with a partner?Living with hguysdj7405/09/2023 AUDIT-CAnswerDate RecordedQ1: How often do you have [...] 10/12/2023Fin[facility] [place] of Occupational Health - Occupational Stress QuestionnaireAnswerDate RecordedDo you feel stress - tense, restless, nervous, or anxious, or unable to sleep at night because yourmind is troubled all the time - these days?To some ppkjgd0105/09/2023Exercise Vital SignAnswerDate Recorded On average, how many [...] in ashelter (including now)?No05/09/2023 Estimated Date of ZpdoisitNihirfcjPmr82/19/2025Based on last menstrual period of 02/07/2025Sex and Gender InformationValueDate RecordedSex Assigned at BirthFemale 04/30/2023 3:31 PM EDTLegal IqzPrqbxz30/15/2023 7:09 PM EDTGender IdentityFemale 04/30/2023 3:31 PM EDTSexual OrientationNot on filedocumented as of this encounter Plan of Treatment DateTypeDepartmentCare Team (Latest Contact Info)Lvidbzmjkea76/03/2025 1:10 PM ESTRoutine [facility] [address] [facility] [place] [address] Luis E Bray DO [address] [facility] [place] [address] documented as of this encounter Visit Diagnoses Not on filedocumented in this encounter Additional Health Concerns AssessmentNoted TimePHQ-9 Depression Total Score: 9:00 AM EST documented as of this encounter Care Teams Team MemberRelationshipSpecialtyStart DateEnd Date Yamel Guerrero MD [address] [place], [place] [id number] PCP - GeneralFamily Medicine05/04/23 Yamel Guerrero MD [address] [place], [place] [address] PCP - [facility]02/26/24documented as of this encounter
--- OUTSIDE RECORDS SUMMARY | 2025-10-22 18:15 | XMS_ITS | Encounter Summary ---
Author Organization [facility] Address [address] [place] [address] Care Team Providers Care Metal Drawer Name Role Phone Mino East MD Primary Care Provider [phone] Mino East MD Unavailable Encounter Details DateTypeDepartmentCare Team (Latest Contact Info)Sgpuetnudem61/24/2025Clinisync Result Encounter [facility] External Department Unsolicited Fabi Arita PA [address] [place] [address] [place], [place] [id number] Social History Tobacco UseTypesPacks/DayYears UsedDateSmoking Tobacco: NeverSmokeless [...] week05/09/2023How often do you attend sikh or quaker services?Never05/09/2023o you belong to any clubs or organizations such as sikh groups, unions, fraternal or athletic groups, or school groups?No05/09/2023How often do you attend meetings of the clubs or organizations you belong to?Never05/09/2023re you , , , , never , or living with a partner?Living with ozzxzso0905/09/2023 AUDIT-CAnswerDate RecordedQ1: How often do you have [...] 10/12/2023Fin[facility] [place] of Occupational Health - Occupational Stress QuestionnaireAnswerDate RecordedDo you feel stress - tense, restless, nervous, or anxious, or unable to sleep at night because yourmind is troubled all the time - these days?To some zvqvug3605/09/2023Exercise Vital SignAnswerDate Recorded On average, how many [...] in ashelter (including now)?No05/09/2023 Estimated Date of KojuifxdTkjoezmuXhc61/19/2025Based on last menstrual period of 02/07/2025Sex and Gender InformationValueDate RecordedSex Assigned at BirthFemale 04/30/2023 3:31 PM EDTLegal NmlXwvbst92/15/2023 7:09 PM EDTGender IdentityFemale 04/30/2023 3:31 PM EDTSexual OrientationNot on filedocumented as of this encounter Plan of Treatment DateTypeDepartmentCare Team (Latest Contact Info)Mboeahusmww63/03/2025 1:10 PM ESTRoutine [facility] [address] [facility] [place] [address] Luis E Bray DO [address] [facility] [place] [address] documented as of this encounter Procedures Procedure NamePriorityDate/TimeAssociated DiagnosisCommentsUS OB BPP W NON-XIJDBT2110/20/2025 12:21 PM EST documented in this encounter Results * US OB BPP W NON-STRESS (10/20/2025 12:21 PM EST)Anatomical Region LateralityModalityOtherSpecimen (Source)Anatomical Location / Laterality Collection Method / VolumeCollection TimeReceived Time10/20/2025 12:21 PM EST Narrative 10/20/2025 12:24 PM EST The [facility] ?[address] ? [place] [address] ? Ultrasound Report ? Signed ? Patient: MERCEDES THOMPSON ? MR#: [id number] ?? : 1990 ?Acct:[id number] ?? Age/Sex: 35 / F ?ADM Date: 11/24/25 ?? Loc: US ? Attending Dr: Fabi Arita ? Ordering Physician: Fabi Arita ?? Date of Service: 10/20/25 ?? Procedure(s): US OB BPP w non-stress ?? Accession Number(s): [id number] ? cc: Fabi Arita; CRUZITOMINO HANEY ? [facility] ? [address] ? [place] [address] ? Patient Name: ?? MERCEDES THOMPSON ? MRN: [facility]:[id number] ? date: 1990 ?Sex: F ?? Assigned Patient Location: US ?? Current Patient Location: ? Accession/Order Number: [id number] ?? Exam Date: 10/20/2025 ??11:28 ?Report Date: [...] Dictation Location: RADIO-PC-02 ? Electronically authenticated by: [id number] ??Y ?? Date: 10/20/2025 ??12:21 ? Dictated By: ?Sonia Hernandez M.D. ? Signed By: ?/24/25 1224 ? DD/ 1221 ? TD/TT: ? Automotive Quality Manager: Procedure Note Radiology, Radiologist, - 10/20/[address] [address] Ultrasound Report Signed Patient: MERCEDES THOMPSON RMR#: [id number] : 1990Acct:[id number] Age/Sex: 35 / FADM Date: 10/20/25 Loc: US Attending Dr: Fabi Arita Ordering Physician: Fabi Arita Date of Service: 10/20/25 Procedure(s): US OB BPP w non-stress Accession Number(s): [id number] cc: Fabi Arita; [place] [address] [address] Patient Name: MERCEDES THOMPSON MRN: [id number] date: 1990 Sex: F Assigned Patient Location: US Current Patient Location: Accession/Order Number: [id number] Exam Date: 10/20/2025 11:28 Report Date: 10/20/2025 [...] Hernandez M.D. 10/20/2025 12:21 PM Dictation Location: [place] [address] Electronically authenticated by: [id number] Y Date: 2:21 Dictated By: Sonia Hernandez M.D. Signed By:10/20/25 1224 DD/ 1221 TD/TT: Automotive Quality Manager: Authorizing ProviderResult TypeResult StatusAmy Juan J PACLINISYNC IMAGINGFinal Result documented in this encounter Visit Diagnoses Not on filedocumented in this encounter Additional Health Concerns AssessmentNoted TimePHQ-9 Depression Total Score: 9:00 AM EST documented as of this encounter Care Teams Team MemberRelationshipSpecialtyStart DateEnd Date Mino East MD [address] [place], [place] [address] [facility] - [facility]05/04/23 Mino East MD [address] [place] [phone] PCP - CHARLIE Joseph [facility]02/26/24documented as of this encounter
--- OUTSIDE RECORDS SUMMARY | 2025-10-22 18:15 | XMS_ITS | Encounter Summary ---
Author Organization [facility] Address [address] [place] [address] Care Team Providers Care Military Technology Manager Name Role Phone Yamel Guerrero MD Primary Care Provider [phone] Yamel Guerrero MD Unavailable Encounter Details DateTypeDepartmentCare Team (Latest Contact Info)Iiifdmrkita69/26/2025Bamboo flowsheet [facility] OBGYBud [address] [facility] [place] [address] Luis E Bray DO [address] [place] [address] Social History Tobacco UseTypesPacks/DayYears UsedDateSmoking Tobacco: [...] relatives?Once a week05/09/2023How often do you attend judaism or confucianist services?Never05/09/2023o you belong to any clubs or organizations such as judaism groups, unions, fraEyelation or athletic groups, or school groups?No05/09/2023How often do you attend meetings of the clubs or organizations you belong to?Never05/09/2023re you , , , , never , or living with a partner?Living with tyoynwr5805/09/2023 AUDIT-CAnswerDate RecordedQ1: How often do you have [...] RecordedPatient Health Questionnaire-2 Score1 10/12/2023[facility] [place] of Occupational Health - Occupational Stress QuestionnaireAnswerDate RecordedDo you feel stress - tense, restless, nervous, or anxious, or unable to sleep at night because yourmind is troubled all the time - these days?To some ddqofg3105/09/2023Exercise Vital SignAnswerDate Recorded On average, how many [...] in ashelter (including now)?No05/09/2023 Estimated Date of OkrmocjbRapclbsePmm83/19/2025Based on last menstrual period of 02/07/2025Sex and Gender InformationValueDate RecordedSex Assigned at BirthFemale 04/30/2023 3:31 PM EDTLegal PdsVeirdl03/15/2023 7:09 PM EDTGender IdentityFemale 04/30/2023 3:31 PM EDTSexual OrientationNot on filedocumented as of this encounter Plan of Treatment DateTypeDepartmentCare Team (Latest Contact Info)Hxkgrncuwic39/03/2025 1:10 PM ESTRoutine [facility] [address] [place] [address] Luis E Bray DO [address] [facility] [place] [address] documented as of this encounter Visit Diagnoses Not on filedocumented in this encounter Additional Health Concerns AssessmentNoted TimePHQ-9 Depression Total Score: 9:00 AM EST documented as of this encounter Care Teams Team MemberRelationshipSpecialtyStart DateEnd Date Yamel Guerrero MD [address] [place], [place] [address] PCP - GeneralFamily Medicine05/04/23 Yamel Guerrero MD [address] [place], [place] [address] PCP - [facility] Jake [facility]/12/20documented as of this encounter
--- OUTSIDE RECORDS SUMMARY | 2025-10-22 18:15 | XMS_ITS | Clinical Summary ---
Author Organization [employer] Address [id number] [address] [place] [address] Care Team Providers Care Lunchroom Mother Name Role Phone Yamel Guerrero MD Primary Care Provider [phone] Allergies No known active allergies Medications MedicationSigDispense [...] 15 g 10/08/2019Active Active Problems ProblemNoted DateDiagnosed PjnkCyjodaibv09/12/2019Nasal congestion related to wvixnsikc69/12/2019Tonsillar tlxipflrwdd79/12/2019Raynaud's /06/2019 History of delivery, currently nilwwonr39/06/2019Undifferentiated connective tissue kdiibek8512/18/2017 Resolved Problems ProblemNoted DateDiagnosed DateResolved DateSubacute ruqzgompo37/09/2018 08/02/2019Nasal ndnzuneazq78 Family History Medical HistoryRelationNameCommentsCancerFatherStrokeFatherRelationNameStatus CommentsFather Social History Tobacco UseTypesPacks/DayYears UsedDateSmoking Tobacco: NeverSmokeless Tobacco: NeverAlcohol UseStandard Drinks/WeekCommentsNever0 (1 standard drink = 0.6 oz pure alcohol)AUDIT-CAnswerDate RecordedFrequency of Alcohol ConsumptionNever 07/26/2019Average Number of DrinksNot on file07/26/2019Frequency of Binge DrinkingNot on file07/26/2019PHQ-2AnswerDate RecordedTotal Txzsz91112/08/2018 ChildcareAnswerDate XuyphngmYhetvnhhzLwhmmav64/12/2019EmploymentAnswerDate GaatluzrKnymwyymqySiestye93/12/2019Purpose - LifeAnswerDate RecordedPurpose and direction in bamwRjtqqux45/11/2021CommentsNoSex and Gender Information ValueDate RecordedSex Assigned at BirthNot on fileLegal QjpLjtgux67/06/2015 11:38 AM EDTGender IdentityNot on fileSexual OrientationNot on file Last Filed Vital Signs Vital SignReadingTime TakenCommentsBlood Irxzwufj976/6210/08/2019 10:47 AM EST Ctghh6128/06/2019 9:07 AM EDTTemperature--Respiratory Rate--Oxygen Saturation-- Inhaled Oxygen Concentration--Mvdhyz68.2 kg (179 lb)10/08/2019 10:47 AM EST Wtkcam629.6 cm (5' 4 )10/08/2019 10:47 AM ESTBody Mass Index30.7310/08/2019 10:47 AM EST Plan of Treatment Health MaintenanceDue DateLast DoneCommentsDepression Thauxrora74/28/2000Tobacco Djscwqhth54/28/2000Adult BMI Fqrthidwi39/28/2006Pap Smear2009Influenza Wvbaawf74/01/287967/, 10/17/2019DTaP,Tdap and Td Vaccines (7 - Tdap) 2101/12/2022, 08/03/1994, 07/01/1991, Additional history exists Medical Devices Not on file Insurance Care Teams Team MemberRelationshipSpecialtyStart DateEnd Yamel Guerrero MD PCP - GeneralFamily Medicine06/03/17
== END 2025-10-22 18:10 | disposition home or self-care (01) ==
LOC: LAB 18:09
PROVIDERS: PCP Family Medicine; Visit Provider Obstetrics & Gynecology
DX: Z34.93 Encounter for supervision of normal pregnancy, unspecified, third trimester (principal); Z3A.36 36 weeks gestation of pregnancy
CPT/HCPCS: 87081

== ENCOUNTER 2025-10-27 11:32 | Outpatient (OUT) | payer MEDICAID, SELFPAY ==
--- OUTSIDE RECORDS SUMMARY | 2025-10-22 15:20 | XMS_ITS | Encounter Summary ---
Author Organization [facility] Address [address] [place] [address] Care Team Providers Care Sales Consultant Residential Manager Name Role Phone Yamel Guerrero MD Primary Care Provider [phone] Yamel Guerrero MD Unavailable Encounter Details DateTypeDepartmentCare Team (Latest Contact Info)Mpmsdhotper99/26/2025 3:20 PM ESTRoutine [facility] [address] [place] [phone] Luis E Bray DO [address] Breanne Abdullah[place], [facility]11 36 weeks gestation of ([facility]); Third trimester ([facility]) Social History Tobacco UseTypesPacks/DayYears UsedDateSmoking Tobacco: [...] often do you attend roman catholic or yarsanism services?Never05/09/2023o you belong to any clubs or organizations such as roman catholic groups, unions, fraMagiq or athletic groups, or school groups?No05/09/2023How often do you attend meetings of the clubs or organizations you belong to?Never05/09/2023re you , , , , never , or living with a partner?Living with azicilw3405/09/2023 AUDIT-CAnswerDate RecordedQ1: How often do you have [...] very hard 05/09/2023HQ-2AnswerDate RecordedPatient Health Questionnaire-2 Score1 10/12/2023[facility] Occup[facility] - Occupational Stress QuestionnaireAnswerDate RecordedDo you feel stress - tense, restless, nervous, or anxious, or unable to sleep at night because yourmind is troubled all the time - these days?To some ivzfdw4205/09/2023Exercise Vital SignAnswerDate Recorded On average, how many [...] steady place to sleep or slept in [facility] (including now)?No05/09/2023 Estimated Date of DhhijbexIglourheQwk89/19/2025Based on last menstrual period of 02/07/2025Sex and Gender InformationValueDate RecordedSex Assigned at BirthFemale 04/30/2023 3:31 PM EDTLegal KmlZssouo18/15/2023 7:09 PM EDTGender IdentityFemale 04/30/2023 3:31 PM EDTSexual OrientationNot on filedocumented as of this encounter Last Filed Vital Signs Vital SignReadingTime TakenCommentsBlood Olmntweg513/7810/22/2025 3:21 PM EST Pulse--Temperature--Respiratory Rate--Oxygen Saturation--Inhaled Oxygen Concentration--Qboflf657 kg (243 lb 12.8 oz)10/22/2025 3:21 PM [...] Assessment/Plan ICD-10-CM 1. 36 weeks gestation of ([facility]) Z3A.36 CULTURE, GROUP B STREP WITH SUSCEPTIBLITY CULTURE, GROUP B STREP WITH SUSCEPTIBLITY POCT urinalysis dipstick manually resulted 2. Third trimester ([facility]) Z34.93 CULTURE, GROUP B STREP WITH SUSCEPTIBLITY [...] Plan of Treatment DateTypeDepartmentCare Team (Latest Contact Info)Alstlldmgyc27/03/2025 1:10 PM ESTRoutine [facility] [address] [place] [phone] Luis E Bray DO [address] [place], [place] [id number] NameTypePriorityAssociated DiagnosesOrder ScheduleCULTURE, GROUP B STREP WITH SUSCEPTIBLITYLabRoutine 36 weeks gestation of ([facility]) Third trimester ([facility]) Expected: 10/22/2025, Expires: 10/22/2026documented as of this encounter Procedures Procedure NamePriorityDate/TimeAssociated DiagnosisCommentsPOCT URINALYSIS OBPIYIHBHaubtdz45/26/2025 3:35 PM EST 36 weeks gestation of ([facility]) Third trimester ([facility]) documented in this encounter Results * (ABNORMAL) [...] / LateralityCollection Method / VolumeCollection Time Received JczmJigvn03/26/2025 3:35 PM EST Narrative Authorizing ProviderResult TypeResult StatusCorey Katarina DOPOINT OF CARE TEST ENTER/EDIT ORDERABLESFinal Result documented in this encounter Visit Diagnoses Diagnosis 36 weeks gestation of ([facility]) Third trimester ([facility]) state, incidental documented in this encounter Additional Health Concerns AssessmentNoted TimePHQ-9 Depression Total Score: 411 9:00 AM EST documented as of this encounter Care Teams Team MemberRelationshipSpecialtyStart DateEnd Date Yamel Guerrero MD [address], [place] [id number] PCP - GeneralFamily Medicine05/04/23 Yamel Guerrero MD [address] [place] [address] PCP - [facility]02/26/24documented as of this encounter
--- NOTE | 2025-10-27 | US_ITS ---
[place] [id number] Patient Name: AYDE THOMPSON MRN: [id number] date: 1990 Sex: F Assigned Patient Location: [facility] Current Patient Location: Accession/Order Number: [id number] Exam Date: 10/27/2025 11:40 Report Date: 10/27/2025 16:11 At the request of: ROMERO ARITA Procedure: US OB BPP w non-stress US OB BPP w non-stress 10/27/2025 12:00 PM SIGNS AND SYMPTOMS: ^30 WEEKS GESTATIONAL AGE PROTOCOL: Transabdominal sonographic images of the gravid uterus COMPARISON: None FINDINGS: Estimated age: 37 weeks 4 days Amniotic fluid index: 10.46 cm. The deepest vertical pocket measures 4.2 cm. heart rate: 132 bpm. Biophysical profile: breathing movements: 2/2 Gross body movement: 2/2 tone: 2/2 Amniotic fluid volume: 2/2 US/US OB BPP w non-stress IMPRESSION: Biophysical profile: 07/04 Impression dictated by: Mainor Cisneros M.D. 10/27/2025 4:11 PM Dictation Location: [place] [address] Electronically authenticated by: [id number] Y Date: 10/27/2025 16:11
--- OUTSIDE RECORDS SUMMARY | 2025-10-27 11:34 | XMS_ITS | Encounter Summary ---
Author Organization [facility] Address [address] [place] [address] Care Team Providers Care Roofer Applicator Name Role Phone Mino East MD Primary Care Provider [phone] Mino East MD Unavailable Encounter Details DateTypeDepartmentCare Team (Latest Contact Info)Lqqkfgbjlvw87/24/2025Clinisync Result Encounter [facility] External Department Unsolicited Fabi Arita PA [address] [place] [address] [place], [place] [address] Social History Tobacco UseTypesPacks/DayYears UsedDateSmoking Tobacco: NeverSmokeless [...] week05/09/2023How often do you attend catholic or methodist services?Never05/09/2023o you belong to any clubs or organizations such as catholic groups, unions, fraternal or athletic groups, or school groups?No05/09/2023How often do you attend meetings of the clubs or organizations you belong to?Never05/09/2023re you , , , , never , or living with a partner?Living with tgneqwm0705/09/2023 AUDIT-CAnswerDate RecordedQ1: How often do you have [...] very hard 05/09/2023HQ-2AnswerDate RecordedPatient Health Questionnaire-2 Score1 10/12/2023Fin[facility] [place] of Occupational Health - Occupational Stress QuestionnaireAnswerDate RecordedDo you feel stress - tense, restless, nervous, or anxious, or unable to sleep at night because yourmind is troubled all the time - these days?To some zshekr2305/09/2023Exercise Vital SignAnswerDate Recorded On average, how many [...] in ashelter (including now)?No05/09/2023 Estimated Date of CraeuwvzVokycksmQyj64/19/2025Based on last menstrual period of 02/07/2025Sex and Gender InformationValueDate RecordedSex Assigned at BirthFemale 04/30/2023 3:31 PM EDTLegal PggQphfdq87/15/2023 7:09 PM EDTGender IdentityFemale 04/30/2023 3:31 PM EDTSexual OrientationNot on filedocumented as of this encounter Plan of Treatment DateTypeDepartmentCare Team (Latest Contact Info)Lwythfpwoqh27/03/2025 1:10 PM ESTRoutine [facility] [address] [facility] [place] [address] Luis E Bray DO [address] [facility] [place] [address] documented as of this encounter Procedures Procedure NamePriorityDate/TimeAssociated DiagnosisCommentsUS OB BPP W NON-HOKTGM5510/20/2025 12:21 PM EST documented in this encounter Results * US OB BPP W NON-STRESS (10/20/2025 12:21 PM EST)Anatomical Region LateralityModalityOtherSpecimen (Source)Anatomical Location / Laterality Collection Method / VolumeCollection TimeReceived Time10/20/2025 12:21 PM EST Narrative 10/20/2025 12:24 PM EST [facility] ?[address] ? [place] [address] ? Ultrasound Report ? Signed ? Patient: MERCEDES THOMPSON ? MR#: [id number] ?? : 1990 ?Acct:[id number] ?? Age/Sex: 35 / F ?ADM Date: 11/24/25 ?? Loc: US ? Attending Dr: Fabi Arita ? Ordering Physician: Fabi Arita ?? Date of Service: 10/20/25 ?? Procedure(s): US OB BPP w non-stress ?? Accession Number(s): [id number] ? cc: Fabi Arita; CRUZITOMINO HANEY ? [facility] ? [address] ? [place] [address] ? Patient Name: ?? MERCEDES THOMPSON ? MRN: [facility]:[id number] ? date: 1990 ?Sex: F ?? Assigned Patient Location: US ?? Current Patient Location: ? Accession/Order Number: [id number] ?? Exam Date: 10/20/2025 ??11:28 ?Report Date: [...] Dictation Location: RADIO-PC-02 ? Electronically authenticated by: [id number] ??Y ?? Date: 10/20/2025 ??12:21 ? Dictated By: ?Sonia Hernandez M.D. ? Signed By: ?/24/25 1224 ? DD/ 1221 ? TD/TT: ? Venereal Disease Control Head: Procedure Note Radiology, Radiologist, - 10/20/[address] [address] Ultrasound Report Signed Patient: MERCEDES THOMPSON RMR#: [id number] : 1990Acct:[id number] Age/Sex: 35 / FADM Date: 10/20/25 Loc: US Attending Dr: Fabi Arita Ordering Physician: Fabi Arita Date of Service: 10/20/25 Procedure(s): US OB BPP w non-stress Accession Number(s): [id number] cc: Fabi Arita; [place] [address] [address] Patient Name: MERCEDES THOMPSON MRN: [id number] date: 1990 Sex: F Assigned Patient Location: US Current Patient Location: Accession/Order Number: [id number] Exam Date: 10/20/2025 11:28 Report Date: 10/20/2025 [...] Hernandez M.D. 10/20/2025 12:21 PM Dictation Location: [place] [address] Electronically authenticated by: [id number] Y Date: 2:21 Dictated By: Sonia Hernandez M.D. Signed By:10/20/25 1224 DD/ 1221 TD/TT: Venereal Disease Control Head: Authorizing ProviderResult TypeResult StatusAmy Juan J PACLINISYNC IMAGINGFinal Result documented in this encounter Visit Diagnoses Not on filedocumented in this encounter Additional Health Concerns AssessmentNoted TimePHQ-9 Depression Total Score: 9:00 AM EST documented as of this encounter Care Teams Team MemberRelationshipSpecialtyStart DateEnd Date Mino East MD [address] [place], [place] [phone] [facility] - [facility]/04/23 Mino East MD [address] [place] [phone] PCP - CHARLIE Joseph [facility]02/26/24documented as of this encounter
--- OUTSIDE RECORDS SUMMARY | 2025-10-27 11:34 | XMS_ITS | Encounter Summary ---
Author Organization [facility] Address [address] [place] [address] Care Team Providers Care Yardage Control Operator Name Role Phone Yamel Guerrero MD Primary Care Provider [phone] Yamel Guerrero MD Unavailable Encounter Details DateTypeDepartmentCare Team (Latest Contact Info)Hozhwkcqrsg48/26/2025Bamboo flowsheet [facility] [address] [place] [phone] Luis E Bray DO [address] [place] [address] Social History Tobacco UseTypesPacks/DayYears UsedDateSmoking [...] relatives?Once a week05/09/2023How often do you attend jainism or shinto services?Never05/09/2023o you belong to any clubs or organizations such as jainism groups, unions, fraWengo or athletic groups, or school groups?No05/09/2023How often do you attend meetings of the clubs or organizations you belong to?Never05/09/2023re you , , , , never , or living with a partner?Living with nyuzgvd7805/09/2023 AUDIT-CAnswerDate RecordedQ1: How often do you have [...] very hard 05/09/2023HQ-2AnswerDate RecordedPatient Health Questionnaire-2 Score1 10/12/2023[facility] [place] [facility] - Occupational Stress QuestionnaireAnswerDate RecordedDo you feel stress - tense, restless, nervous, or anxious, or unable to sleep at night because yourmind is troubled all the time - these days?To some xqxvvr1405/09/2023Exercise Vital SignAnswerDate Recorded On average, how many [...] in ashelter (including now)?No05/09/2023 Estimated Date of UdjtdoomVaogdrmaCra25/19/2025Based on last menstrual period of 02/07/2025Sex and Gender InformationValueDate RecordedSex Assigned at BirthFemale 04/30/2023 3:31 PM EDTLegal RtxWgyrdb67/15/2023 7:09 PM EDTGender IdentityFemale 04/30/2023 3:31 PM EDTSexual OrientationNot on filedocumented as of this encounter Plan of Treatment DateTypeDepartmentCare Team (Latest Contact Info)Apoawqwcspp70/03/2025 1:10 PM ESTRoutine [facility] [address] [place] [phone] Luis E Bray DO [address] [place] [address] documented as of this encounter Visit Diagnoses Not on filedocumented in this encounter Additional Health Concerns AssessmentNoted TimePHQ-9 Depression Total Score: 9:00 AM EST documented as of this encounter Care Teams Team MemberRelationshipSpecialtyStart DateEnd Date Yamel Guerrero MD [address] [place], [place] [phone] PCP - GeneralFamily Medicine05/04/23 Yamel Guerrero MD [address] [place], [place] [phone] PCP - [facility]/12/20documented as of this encounter
--- OUTSIDE RECORDS SUMMARY | 2025-10-27 11:34 | XMS_ITS | Clinical Summary ---
Author Organization [facility] Address [address] [place] [address] Care Team Providers Care Manager Chemistry Name Role Phone Unavailable Primary Care Provider Unavailabl e Social History Tobacco UseTypesPacks/DayYears UsedDateSmoking Tobacco: Never Assessed CommentsUnknownSex and Gender InformationValueDate RecordedSex Assigned at Not on fileLegal SlrEfjdkk26/29/2022 11:30 PM EDTGender IdentityNot on file Sexual OrientationNot on file Last Filed Vital Signs Vital SignReadingTime TakenCommentsBlood Lsgbffzw333/7611/14/2019 2:45 PM EST Mbvpg511611/14/2019 2:45 PM ESTTemperature--Respiratory Rate--Oxygen Echwcvyvqd82% 09/23/2019 2:45 PM EDTInhaled Oxygen Concentration--Cwydag40.6 kg (160 lb) 11/14/2019 2:43 PM CMNHmqczh929.6 cm (5' 4 )11/14/2019 2:43 PM ESTBody Mass Index27.4611/14/2019 2:43 PM EST Plan of Treatment Not on file
--- OUTSIDE RECORDS SUMMARY | 2025-10-27 11:34 | XMS_ITS | Encounter Summary ---
Author Organization [facility] Address [address] [place] [address] Care Team Providers Care Producer Director Name Role Phone Mino East MD Primary Care Provider [phone] Mino East MD Unavailable Encounter Details DateTypeDepartmentCare Team (Latest Contact Info)Cuoknbzqzkg25/17/2025Clinisync Result Encounter [facility] Department Unsolicited Fabi Arita PA [address] [place] [address] [place], [place] [phone] Social History Tobacco UseTypesPacks/DayYears UsedDateSmoking Tobacco: NeverSmokeless [...] relatives?Once a week05/09/2023How often do you attend rastafarian or catholic services?Never05/09/2023o you belong to any clubs or organizations such as rastafarian groups, unions, fraternal or athletic groups, or school groups?No05/09/2023How often do you attend meetings of the clubs or organizations you belong to?Never05/09/2023re you , , , , never , or living with a partner?Living with raeezrl9405/09/2023 AUDIT-CAnswerDate RecordedQ1: How often do you have [...] 05/09/2023HQ-2AnswerDate RecordedPatient Health Questionnaire-2 Score1 10/12/2023[facility] [place] of Occupational Health - Occupational Stress QuestionnaireAnswerDate RecordedDo you feel stress - tense, restless, nervous, or anxious, or unable to sleep at night because yourmind is troubled all the time - these days?To some hxobup4505/09/2023Exercise Vital SignAnswerDate Recorded On average, how many [...] in ashelter (including now)?No05/09/2023 Estimated Date of QihgelvpQyzlxbsfIia66/19/2025Based on last menstrual period of 02/07/2025Sex and Gender InformationValueDate RecordedSex Assigned at BirthFemale 04/30/2023 3:31 PM EDTLegal JlnFpasui09/15/2023 7:09 PM EDTGender IdentityFemale 04/30/2023 3:31 PM EDTSexual OrientationNot on filedocumented as of this encounter Plan of Treatment DateTypeDepartmentCare Team (Latest Contact Info)Ykoobvnbmhb52/03/2025 1:10 PM ESTRoutine [facility] [address] [place] [address] Luis E Bray DO [address] [facility] [place] [address] documented as of this encounter Procedures Procedure NamePriorityDate/TimeAssociated DiagnosisCommentsUS OB BPP W NON-WLIXBU9910/13/2025 11:50 AM EST documented in this encounter Results * US OB BPP W NON-STRESS (10/13/2025 11:50 AM EST)Anatomical Region LateralityModalityOtherSpecimen (Source)Anatomical Location / Laterality Collection Method / VolumeCollection TimeReceived Time10/13/2025 11:50 AM EST Narrative 10/13/2025 11:53 AM EST [facility] ?[address] ? [place], [facility] ? Ultrasound Report ? Signed ? Patient: MERCEDES THOMPSON ? MR#: [id number] ?? : 1990 ?Acct:[id number] ?? Age/Sex: 35 / F ?ADM Date: 10/13/25 ?? Loc: [facility] ??250-1 ? Attending Dr: Fabi Arita ? Ordering Physician: Fbai Arita ?? Date of Service: 10/13/25 ?? Procedure(s): US OB BPP w non-stress ?? Accession Number(s): [id number] ? cc: Fabi Arita; [place] ? [facility] ? [address] ? [place] [address] ? Patient Name: ?? MERCEDES THOMPSON ? MRN: [facility]:[id number] ? date: 1990 ?Sex: F ?? Assigned Patient Location: US ?? Current Patient Location: US ?? Accession/Order Number: [id number] ?? Exam Date: 10/13/2025 ??11:28 ?Report Date: [...] Dictation Location: RADIO-PC-02 ? Electronically authenticated by: [id number] ??Y ?? Date: 10/13/2025 ??11:50 ? Dictated By: ?Sonia Hernandez M.D. ? Signed By: ?11/17/25 1153 ? DD/ 1150 ? TD/TT: ? Limnologist: Procedure Note Radiology, Radiologist, - 10/13/2025 [place] [address] Ultrasound Report Signed Patient: MERCEDES THOMPSON RMR#: [id number] : 1990Acct:[id number] Age/Sex: 35 / FADM Date: 10/13/25 Loc: [place] [address]: Fabi Artia Ordering Physician: Fabi Arita Date of Service: 10/13/25 Procedure(s): US OB BPP w non-stress Accession Number(s): [id number] cc: Fabi Arita; [place] [id number] Patient Name: MERCEDES THOMPSON MRN: [id number] date: 1990 Sex: F Assigned Patient Location: Current Patient Location: [place] Accession/Order Number: [id number] Exam Date: 10/13/2025 11:28 Report Date: 10/13/2025 [...] Hernandez M.D. 10/13/2025 11:50 AM Dictation Location: [place] [address] Electronically authenticated by: [id number] Y Date: 1:50 Dictated By: Sonia Hernandez M.D. Signed By:10/13/25 1153 DD/ 1150 TD/TT: Limnologist: Authorizing ProviderResult TypeResult StatusAmy Juan J PACLINISYNC IMAGINGFinal Result documented in this encounter Visit Diagnoses Not on filedocumented in this encounter Additional Health Concerns AssessmentNoted TimePHQ-9 Depression Total Score: 9:00 AM EST documented as of this encounter Care Teams Team MemberRelationshipSpecialtyStart DateEnd Date Mino East MD [address] [place], [place] [phone] [facility] - [facility]23 Mino East MD [address] [place] [address] PCP - CHARLIE Joseph [facility]02/26/24documented as of this encounter
--- OUTSIDE RECORDS SUMMARY | 2025-10-27 11:34 | XMS_ITS | Clinical Summary ---
Author Organization [facility] Address [id number] [address] [place] [address] Care Team Providers Care Senior Associate Name Role Phone Yamel Guerrero MD Primary Care Provider [phone] Allergies No known active allergies Medications MedicationSigDispense [...] 15 g 10/08/2019Active Active Problems ProblemNoted DateDiagnosed HcrmEbquaklxe87/12/2019Nasal congestion related to cymwetify36/12/2019Tonsillar xmugsgqcwea69/12/2019Raynaud's sytosebxqx80/06/2019 History of delivery, currently qbvpuupg26/06/2019Undifferentiated connective tissue mydkqhk1212/18/2017 Resolved Problems ProblemNoted DateDiagnosed DateResolved DateSubacute eroeupowm05/09/2018 08/02/2019Nasal ntdevyspdz17 Family History Medical HistoryRelationNameCommentsCancerFatherStrokeFatherRelationNameStatus CommentsFather Social History Tobacco UseTypesPacks/DayYears UsedDateSmoking Tobacco: NeverSmokeless Tobacco: NeverAlcohol UseStandard Drinks/WeekCommentsNever0 (1 standard drink = 0.6 oz pure alcohol)AUDIT-CAnswerDate RecordedFrequency of Alcohol ConsumptionNever 07/26/2019Average Number of DrinksNot on file07/26/2019Frequency of Binge DrinkingNot on file07/26/2019PHQ-2AnswerDate RecordedTotal Zdqwp67112/08/2018 ChildcareAnswerDate TqqvcqftCpemkgmusNojyzky07/12/2019EmploymentAnswerDate QljbdkbrRenharuxtiUttquhl19/12/2019Purpose - LifeAnswerDate RecordedPurpose and direction in qbmoWpgokub10/11/2021CommentsNoSex and Gender Information ValueDate RecordedSex Assigned at BirthNot on fileLegal XmyIrkudp82/06/2015 11:38 AM EDTGender IdentityNot on fileSexual OrientationNot on file Last Filed Vital Signs Vital SignReadingTime TakenCommentsBlood Ayjbhvxf633/6210/08/2019 10:47 AM EST Bnvwb9377/06/2019 9:07 AM EDTTemperature--Respiratory Rate--Oxygen Saturation-- Inhaled Oxygen Concentration--Lbzjfk21.2 kg (179 lb)10/08/2019 10:47 AM EST Bcbjkd138.6 cm (5' 4 )10/08/2019 10:47 AM ESTBody Mass Index30.7310/08/2019 10:47 AM EST Plan of Treatment Health MaintenanceDue DateLast DoneCommentsDepression Uoewblssp70/28/2000Tobacco Gicpfsrkd28/28/2000Adult BMI Vokselxmk26/28/2006Pap Smear2009Influenza Xuxaibx03/01/164460/, 10/17/2019DTaP,Tdap and Td Vaccines (7 - Tdap) 2101/12/2022, 08/03/1994, 07/01/1991, Additional history exists Medical Devices Not on file Insurance Care Teams Team MemberRelationshipSpecialtyStart DateEnd Yamel Guerrero MD PCP - GeneralFamily Medicine06/03/17
--- OUTSIDE RECORDS SUMMARY | 2025-10-27 11:34 | XMS_ITS | Encounter Summary ---
Author Organization [facility] Address [address] [place] [address] Care Team Providers Care Icing Maker Name Role Phone Yamel Guerrero MD Primary Care Provider [phone] Yamel Guerrero MD Unavailable Encounter Details DateTypeDepartmentCare Team (Latest Contact Info)Wiexqtgeekw53/24/2025bstract [facility] MELGARGYBud [address] [place] [phone] Fabi Martinez PA [address] [facility] [address] [place], [facility] Social History Tobacco UseTypesPacks/DayYears UsedDateSmoking Tobacco: NeverSmokeless [...] relatives?Once a week05/09/2023How often do you attend yarsani or denominational services?Never05/09/2023o you belong to any clubs or organizations such as yarsani groups, unions, fraRecovr or athletic groups, or school groups?No05/09/2023How often do you attend meetings of the clubs or organizations you belong to?Never05/09/2023re you , , , , never , or living with a partner?Living with dyzncpk1505/09/2023 AUDIT-CAnswerDate RecordedQ1: How often do you have [...] very hard 05/09/2023HQ-2AnswerDate RecordedPatient Health Questionnaire-2 Score1 10/12/2023[facility] [place] of Occupational Health - Occupational Stress QuestionnaireAnswerDate RecordedDo you feel stress - tense, restless, nervous, or anxious, or unable to sleep at night because yourmind is troubled all the time - these days?To some cnqygt1405/09/2023Exercise Vital SignAnswerDate Recorded On average, how many [...] in ashelter (including now)?No05/09/2023 Estimated Date of HogxmciwWvtanarpVpr21/19/2025Based on last menstrual period of 02/07/2025Sex and Gender InformationValueDate RecordedSex Assigned at BirthFemale 04/30/2023 3:31 PM EDTLegal UuuLcqktx77/15/2023 7:09 PM EDTGender IdentityFemale 04/30/2023 3:31 PM EDTSexual OrientationNot on filedocumented as of this encounter Plan of Treatment DateTypeDepartmentCare Team (Latest Contact Info)Czusyprsmrw50/03/2025 1:10 PM ESTRoutine [facility] [address] [place] [address] Luis E Bray DO [address] [facility] [address] [place] [address] documented as of this encounter Visit Diagnoses Not on filedocumented in this encounter Additional Health Concerns AssessmentNoted TimePHQ-9 Depression Total Score: 9:00 AM EST documented as of this encounter Care Teams Team MemberRelationshipSpecialtyStart DateEnd Date Yamel Guerrero MD [address] [place], [place] [phone] PCP - GeneralFamily Medicine05/04/23 Yamel Guerrero MD [address] [place], [place] [phone] PCP - [facility]02/26/24documented as of this encounter
--- OUTSIDE RECORDS SUMMARY | 2025-10-27 11:34 | XMS_ITS | Clinical Summary ---
Author Organization [facility] Address [address] [place] [address] Care Team Providers Care Neuroscience Specialist Name Role Phone Yamel Guerrero MD Primary Care Provider [phone] Yamel Guerrero MD Unavailable Allergies No known active allergies Medications MedicationSigDispense QuantityRefillsLast FilledStart DateEnd DateStatus MV-Min-Fe Fum-FA-DHA ( 1 PO) Take 1 tablet by mouth DailyActive hydroxychloroquine (Plaquenil) 100 MG tablet Hydroxychloroquine SulfateActive Vit-Fe Fumarate-FA ( Vitamin) 27-0.8 MG tablet VitaminActive azithromycin (Zithromax Z-Edwin) 250 MG tablet Indications:Common coldAs directed 6 tablet 5Active Active Problems ProblemNoted DateDiagnosed NfdlBgwgmvs06/03/2023Obesity due to excess calories without serious gnhljfuzmha72/03/2023Systemic lupus nlzrvqcdlqqce27/05/2023 Elevated antinuclear antibody (ROSEMARY) level05/10/2023astroesophageal reflux disease without tzlakzxsyar67/14/2023Severe single current episode of major depressive disorder, without psychotic gznpihfy73/14/3906Upjibwhugdq67/14/2023 Tonsillar nkibpeioenl05/12/2019Raynaud's /06/2019Undifferentiated connective tissue ahhuqhh3712/18/2017Estimated Date of DeliveryCommentsYes 5Based on last menstrual period of 02/07/2025 Resolved Problems ProblemNoted DateDiagnosed DateResolved DateCarpal tunnel mpumonfg43/14/2023 05/31/2023 Encounters DateTypeDepartmentCare VmhnPykcicobgyx60/26/2025 3:20 PM ESTRoutine [facility] [address]O [address] [place] [address] Jossy Bray, DO 36 weeks gestation of ([facility]); Third trimester ([facility])10/22/2025amboo flowsheet [facility] [address] [facility] [place] [address] Jossy Bray, 10/20/2025linisync Result Encounter [facility]OM[facility] External Department Unsolicited Fabi Arita PA 10/20/2025bstract [facility] [address] [address] [place] [address] aFbi Arita PA 10/13/2025linisync Result Encounter NOMS External Department Unsolicited Fabi Arita PA 10/08/2025 11:30 AM ESTRoutine [facility] aKylen MELGARGYN [address] [facility] [place] [address] Fabi Arita PA Third trimester ([facility]); 34 weeks gestation of ([facility]); Common cold10/08/2025 11:00 AM ESTAncillary Procedure [facility] [place] [address] Gestational diabetes mellitus (GDM), antepartum, gestational diabetes method of control unspecified([facility])10/06/2025linisync Result Encounter NOMS External Department Unsolicited Fabi Arita PA 09/29/2025linisync Result Encounter NOMS External Department Unsolicited Fabi Arita PA 09/24/2025bstract [facility] MELGARGYBud [address] [facility] [place] [phone] Jossy Bray, DO 09/23/2025 10:00 AM [place]TR[place] [address] Jossy Bray, 32 weeks gestation of ([facility]); Third trimester ([facility]); Gestational diabetes mellitus (GDM), antepartum, gestational diabetes method of control unspecified([facility])09/23/2025amboo flowsheet [facility] Paul [facility] [place] [address] [phone] Jossy Bray, 09/22/2025linisync Result Encounter NOMS External Department Unsolicited Fabi Arita PA 09/22/20252391Cjhuwv74/14/2025 10:50 [place] [address] Fabi Arita PA Third trimester ([facility]); 30 weeks gestation of ([facility])09/09/2025 10:00 AM EDTAncillary Procedure [facility] Paul [facility] [place] [phone] Gestational diabetes mellitus (GDM), antepartum, gestational diabetes method of control unspecified([facility])09/08/20252751Hexioa02/08/2025linisync Result Encounter NOMS External Department Unsolicited Provider, Generic External Data 08/27/2025 10:20 [place] [address] [phone] Catarina Barnes NP 28 weeks gestation of ([facility]); Third trimester ([facility]); Gestational diabetes mellitus (GDM), antepartum, gestational diabetes method of control unspecified([facility]); Diabetes mellitus ebxemkwwp35/01/20[place] [address] Jossy Bray, 08/27/2025linisync Result Encounter NOMS External Department Unsolicited Provider, Generic External Data 08/27/2025amboo flowsheet [facility] [address] [place] [address] Catarina Barnes NP 08/13/2025 11:10 AM EDTRoutine [facility] [address] [place] [address] Jossy Bray, DO 26 weeks gestation of ([facility]); Second trimester ([facility]); Gestational diabetes mellitus (GDM), antepartum, gestational diabetes method of control unspecified([facility])08/13/2025amboo flowsheet [facility] [address] [place] [address] Jossy Bray, 08/12/20257302Jleyuk78/15/2025bstract [facility] [address] [place] [address] Jossy Bray, 08/04/2025 10:00 AM EDTAncillary Procedure [facility] [address] [place] [address] Encounter for follow-up ultrasound of anatomy ([facility])07/29/2025Travel from Last 3 Months Family History Medical [...] week05/09/2023How often do you attend mu-ism or mu-ism services?Never05/09/2023o you belong to any clubs or organizations such as mu-ism groups, unions, fraternal or athletic groups, or school groups?No05/09/2023How often do you attend meetings of the clubs or organizations you belong to?Never05/09/2023re you , , , , never , or living with a partner?Living with qhkabet4005/09/2023 AUDIT-CAnswerDate RecordedQ1: How often do you have [...] Health Questionnaire-2 Score1 10/12/2023Finst. [facility] of Occupational Health - Occupational Stress QuestionnaireAnswerDate RecordedDo you feel stress - tense, restless, nervous, or anxious, or unable to sleep at night because yourmind is troubled all the time - these days?To some zwegjo3205/09/2023Exercise Vital SignAnswerDate Recorded On average, how many [...] steady place to sleep or slept in [place] (including now)?No05/09/2023 Estimated Date of CwiwzmkqUhlaaeyfVcb41/19/2025Based on last menstrual period of 02/07/2025Sex and Gender InformationValueDate RecordedSex Assigned at BirthFemale 04/30/2023 3:31 PM EDTLegal SnkZdcuce11/15/2023 7:09 PM EDTGender IdentityFemale 04/30/2023 3:31 PM EDTSexual OrientationNot on file Last Filed Vital Signs Vital SignReadingTime TakenCommentsBlood Djkcumdg013/7810/22/2025 3:21 PM EST Butwv507710/23/2023 4:27 PM WJCTvlcrhxnogj19 ??C (98.6 ??F)10/23/2023 4:27 PM EST Respiratory Uwrz277212/23/2022 4:27 PM ESTOxygen Afabqsdzif44%10/23/2023 4:27 PM ESTInhaled Oxygen Concentration--Xwpowd568 kg (243 lb 12.8 oz)10/22/2025 3:21 PM IMJTdfxaz895.6 cm (5' 4 )10/23/2023 4:27 PM ESTBody Mass Index41.8510/23/2023 4:27 PM EST Plan of Treatment DateTypeDepartmentCare Team (Latest Contact Info)Zsyvdnxamug43/03/2025 1:10 PM ESTRoutine [facility] [address] [place] [address] KatarinaJossy lebron, [address] [place] [place], [place] [phone] Health MaintenanceDue DateLast DoneCommentsCOVID-19 Vaccine ( season) 2025Influenza Vaccine (#1)512/, 10/17/2019Cervical Cancer Huwwbgovb16/07/2030HPV/Tcvqyb51/3Pap Smear06/02//05/2025, 2Pneumococcal Vaccine: Pediatrics (0 to 5 Years) and At-Risk Patients (6 to 64 Years)Aged OutNo longer eligible based on patient's age to complete this topic Procedures Procedure NamePriorityDate/TimeAssociated DiagnosisCommentsPOCT URINALYSIS AJUAZYWBFakrscu84/26/2025 3:35 PM EST 36 weeks gestation of ([facility]) Third trimester ([facility]) US OB BPP W NON-MAZRZM0710/20/2025 12:21 PM EST US OB BPP W NON-YDPTRM7110/13/2025 11:50 AM EST POCT URINALYSIS VXHYOTACRzfuctm55/12/2025 11:48 AM EST 34 weeks gestation of ([facility]) US OB FOLLOW UP TRANSABDOMINAL MVGPGPPDPuetgqm86/12/2025 11:36 AM EST Gestational diabetes mellitus (GDM), antepartum, gestational diabetes method of control unspecified([facility]) US OB BPP W NON-DRAHFP1810/06/2025 12:00 PM EST US OB BPP W NON-JKOJZJ9409/29/2025 3:51 PM EST POCT URINALYSIS PGZRBYZBUvebqhr20/28/2025 10:15 AM EDT 32 weeks gestation of ([facility]) Third trimester ([facility]) US OB BPP W NON-ADMOET2009/22/2025 10:42 PM EDT POCT URINALYSIS SUJPEQCAWareoyc69/14/2025 11:15 AM EDT 30 weeks gestation of ([facility]) US OB FOLLOW UP TRANSABDOMINAL LBNAMQBDOmcqxki98/14/2025 10:39 AM EDT Gestational diabetes mellitus (GDM), antepartum, gestational diabetes method of control unspecified([facility]) MLR HEMOGLOBIN T4GDzpwvth68/08/2025 10:44 AM EDT ALL CBC WITH AUTO ETAEEysrghl95/08/2025 10:44 AM EDT US OB NZLRMV9708/27/2025 11:15 AM EDT POCT URINALYSIS DDECTCAMKaiqigp04/01/2025 10:37 AM EDT 28 weeks gestation of ([facility]) Third trimester ([facility] POCT URINALYSIS EEIJCNGUUcbvtit75/17/2025 11:24 AM EDT 26 weeks gestation of ([facility]) Second trimester ([facility]) US OB LIMITED 1+ SNVHWHLEmmohqx40/08/2025 10:29 AM EDT Encounter for follow-up ultrasound of anatomy ([facility]) PAP EWBKASdyzlst26/07/2025 12:00 AM EDTTHINPREP PAP AND HPV MRNA E6/E7 W/RFL HPV 16,18/36Nlvnell99/17/2023 10:11 AM EDT Well woman exam with [...] / Laterality Collection Method / VolumeCollection TimeReceived YbpyZukcy63/26/2025 3:35 PM EST Narrative Authorizing ProviderResult TypeResult StatusCorey Katarina DOPOINT OF CARE TEST ENTER/EDIT ORDERABLESFinal Result * US OB BPP W NON-STRESS (10/20/2025 12:21 PM EST) Only the most recent of5 resultswithin the time period is included. Anatomical RegionLateralityModalityOtherSpecimen (Source)Anatomical Location / LateralityCollection Method / VolumeCollection TimeReceived Time10/20/2025 12:21 PM EST Narrative 10/20/2025 12:24 PM EST [facility] ?[address] ? [place] [address] ? Ultrasound Report ? Signed ? Patient: BETTY THOMPSON R ? MR#: [id number] ?? : 1990 ?Acct:[id number] ?? Age/Sex: 35 / F ?ADM Date: 10/20/25 ?? Loc: US ? Attending Dr: Fabi Arita ? Ordering Physician: Fabi Arita ?? Date of Service: 10/20/25 ?? Procedure(s): US OB BPP w non-stress ?? Accession Number(s): [id number] ? cc: Fabi Arita; YAMEL GUERRERO ? [facility] ? [address] ? [place] [address] ? Patient Name: ?? BETTY Jermaine CHANDDONNA ? MRN: [facility]:[id number] ? date: 1990 ?Sex: F ?? Assigned Patient Location: ?? Current Patient Location: ? Accession/Order Number: [id number] ?? Exam Date: 10/20/2025 ??11:28 ?Report Date: [...] Dictation Location: RADIO-PC-02 ? Electronically authenticated by: [id number] ??Y ?? Date: 10/20/2025 ??12:21 ? Dictated By: ?Sonia Hernandez M.D. ? Signed By: ?// 1224 ? DD/ 1221 ? TD/TT: ? Line Erector Apprentice: Procedure Note Radiology, Radiologist, - 10/20/2025 [place] [address] Ultrasound Report Signed Patient: BETTY THOMPSON RMR#: [id number] : 1990Acct:[id number] Age/Sex: 35 / FADM Date: 10/20/25 Loc: US Attending Dr: Fabi Arita Ordering Physician: Fabi Arita Date of Service: 10/20/25 Procedure(s): US OB BPP w non-stress Accession Number(s): [id number] cc: Fabi Arita; YAMEL GUERRERO [place] [id number] Patient Name: BETTY THOMPSON MRN: [id number] date: 1990 Sex: F Assigned Patient Location: US Current Patient Location: Accession/Order Number: [id number] Exam Date: 10/20/2025 11:28 Report Date: 10/20/2025 [...] [Y] 2/2 PACO: 16.6 cm Total score: 88 US/US OB BPP w non-stress IMPRESSION: NORMAL BIOPHYSICAL PROFILE Impression dictated by: Sonia Hernandez M.D. 10/20/2025 12:21 PM Dictation Location: [place] [address] Electronically authenticated by: [id number] Y Date: 2:21 Dictated By: Sonia Hernandez M.D. Signed By:10/20/25 1224 DD/ 1221 TD/TT: Line Erector Apprentice: Authorizing ProviderResult TypeResult StatusAmy [facility] IMAGINGFinal Result * OB follow up transabdominal approach (10/08/2025 11:36 [...] Dennis MD Authorizing ProviderResult TypeResult StatusCorey Katarina DOIEXC[facility] US PROCEDURES Final Result * MLR HEMOGLOBIN A1C (09/03/2025 10:44 AM EDT)ComponentValueRef RangeTest Method Analysis TimePerformed AtPathologist SignatureGLYCOHEMOGLOBIN A1C5.24.5 - 6.2 %TBHComment: ADA RECOMMENDED LIMIT 4.0 - 6.0 ADA THERAPEUTIC TARGET < 7.0 ACTION SUGGESTED > 7.0 ESTIMATED AVERAGE TICXOMX566ig/dLTBHSpecimen (Source)Anatomical Location / LateralityCollection Method / VolumeCollection TimeReceived Time09/03/2025 10:44 AM EDT1 10:45 AM EDT Narrative CLINISYNC - 09/03/2025 12:20 PM EDT Authorizing ProviderResult TypeResult StatusKrangelica Molly NPCLINISYNCFinal ResultPerforming OrganizationAddressCity/State/ZIP CodePhone Number CLINISYFORMERLY [facility] * (ABNORMAL) ALL CBC WITH AUTO DIFF (09/03/2025 10:44 AM EDT)ComponentValueRef RangeTest MethodAnalysis TimePerformed AtPathologist SignatureTBH WBC10.64.0 - 11.0 10 3/uLTBHTBH RBC3.60(L)4.20 - 5.40 10 6/uLTBHTBH HGB12.112.0 - 16.0 g/dLTBHTBH HCT35.6(L)36.0 - 48.0 %TBHTBH MCV98.981.0 - 99.0 fLTBHTBH MCH33.6 26.7 - 34.0 pgTBHTBH MCHC34.029.9 - 35.2 g/dLTBHTBH RDW14.311.0 - 15.0 %TBHTBH XMM342587 - 450 10 3/uLTBHTBH MPV11.29.5 - 13.5 [...] EDT Narrative 08/27/2025 11:17 AM EDT [facility] ?[address] ? [place] [address] ? Ultrasound Report ? Signed ? Patient: BETTY THOMPSON ? MR#: [id number] ?? : 1990 ?Acct:[id number] ?? Age/Sex: 35 / F ?ADM Date: 08/27/25 ?? Loc: US ? Attending Dr: Jossy Bray D.O. ? Ordering Physician: Jossy Bray D.O. ?? Date of Service: 08/27/25 ?? Procedure(s): US OB growth ?? Accession Number(s): [id number] ? cc: YAMEL GUERRERO ; Jossy Bray D.O. ? [facility] ? [address] ? [place] [address] ? Patient Name: ?? BETTY THOMPSON ? MRN: [id number]:[id number] ? date: 1990 ?Sex: F ?? Assigned Patient Location: US ?? Current Patient Location: US ?? Accession/Order Number: [id number] ?? Exam Date: 08/27/2025 ??09:52 ?Report Date: [...] M.D. ??08/27/2025 11:15 AM ? Dictation Location: [place] [address] ? Electronically authenticated by: [id number] ??Y ?? Date: 08/27/2025 ??11:15 ? Dictated By: ?Sonia Hernandez M.D. ? Signed By: ?08/27/25 1117 ? DD/ 1115 ? TD/TT: ? Line Erector Apprentice: Procedure Note Radiology, Radiologist, MD - 08/27/[address] [address] Ultrasound Report Signed Patient: BETTY THOMPSON RMR#: [id number] : 1990Acct:[id number] Age/Sex: 35 / FADM Date: 08/27/25 Loc: US Attending Dr: Jossy Bray D.O. Ordering Physician: Jossy Bray D.O. Date of Service: 08/27/25 Procedure(s): US OB growth Accession Number(s): [id number] cc: YAMEL GUERRERO ; Jossy Bray D.O. [place] [address] Patient Name: BETTY THOMPSON MRN: [facility]:[id number] date: 1990 Sex: F Assigned Patient Location: US Current Patient Location: US Accession/Order Number: [id number] Exam Date: 08/27/2025 09:52 Report Date: 08/27/2025 [...] Hernandez M.D. 08/27/2025 11:15 AM Dictation Location: [place] [address] Electronically authenticated by: [id number] Y Date: 1:15 Dictated By: Sonia Hernandez M.D. Signed By:08/27/25 1117 DD/ 1115 TD/TT: Line Erector Apprentice: Authorizing ProviderResult TypeResult StatusGeneric External Data Provider [...] Unknown Narrative Authorizing ProviderResult TypeResult StatusCorey Katarina DOL CYTOLOGY ORDERABLESFinal ResultPerforming OrganizationAddressCity/State/ZIP CodePhone Number EXTERNAL LAB * THINPREP PAP AND HPV MRNA E6/E7 W/RFL HPV 16,18/45 (07/13/2023 10:11 AM EDT) Narrative Authorizing ProviderResult TypeResult StatusAmy Juan J PALAB BLOOD ORDERABLES Final ResultPerforming OrganizationAddressCity/State/ZIP CodePhone Number EXTERNAL LAB from Last 3 Months or Most Recently Relevant to Health Maintenance Insurance Care Teams Team MemberRelationshipSpecialtyStart DateEnd Date Yamel Guerrero MD [address], [place] [phone] PCP - GeneralFamily Medicine05/04/23 Yamel Guerrero MD [address], [place] [phone] PCP - CHARLIE Joseph [facility]02/26/24
[2025-10-27 11:59] VITALS: BP 139/71; PULSE 90
== END 2025-10-27 12:31 | disposition home or self-care (01) ==
LOC: US 11:32 → FBC 11:34
PROVIDERS: PCP Family Medicine; Visit Provider Physician Assistant
DX: O24.419 Gestational diabetes mellitus in pregnancy, unspecified control (principal); Z3A.37 37 weeks gestation of pregnancy
CPT/HCPCS: 76818

== ENCOUNTER 2025-10-30 04:49 | Inpatient (IN) | payer MEDICAID, SELFPAY ==
--- OUTSIDE RECORDS SUMMARY | 2025-10-22 15:20 | XMS_ITS | Encounter Summary ---
Author Organization [facility] Address [address] [place] [address] Care Team Providers Care Produce Production Team Member Name Role Phone Yamel Guerrero MD Primary Care Provider [phone] Yamel Guerrero MD Unavailable Encounter Details DateTypeDepartmentCare Team (Latest Contact Info)Ugayiubmtry93/26/2025 3:20 PM ESTRoutine [facility] [address] [place] [address] Luis E Bray DO [address] [place] [address] [place], [facility] 36 weeks gestation of ([facility]); Third trimester ([facility]) Social History Tobacco UseTypesPacks/DayYears UsedDateSmoking Tobacco: NeverSmokeless [...] week05/09/2023How often do you attend evangelical or samaritan services?Never05/09/2023o you belong to any clubs or organizations such as evangelical groups, unions, fraCrocs or athletic groups, or school groups?No05/09/2023How often do you attend meetings of the clubs or organizations you belong to?Never05/09/2023re you , , , , never , or living with a partner?Living with mzwydfv4205/09/2023 AUDIT-CAnswerDate RecordedQ1: How often do you have [...] very hard 05/09/2023HQ-2AnswerDate RecordedPatient Health Questionnaire-2 Score1 10/12/2023[facility] [place] of Occupational Health - Occupational Stress QuestionnaireAnswerDate RecordedDo you feel stress - tense, restless, nervous, or anxious, or unable to sleep at night because yourmind is troubled all the time - these days?To some zxwdvc8505/09/2023Exercise Vital SignAnswerDate Recorded On average, how many [...] place to sleep or slept in [facility] (including now)?No05/09/2023 Estimated Date of MzrdslcoSsqqwnpjAmk05/19/2025Based on last menstrual period of 02/07/2025Sex and Gender InformationValueDate RecordedSex Assigned at BirthFemale 04/30/2023 3:31 PM EDTLegal ZdgYwtrlm19/15/2023 7:09 PM EDTGender IdentityFemale 04/30/2023 3:31 PM EDTSexual OrientationNot on filedocumented as of this encounter Last Filed Vital Signs Vital SignReadingTime TakenCommentsBlood Gkocdgqq443/7810/22/2025 3:21 PM EST Pulse--Temperature--Respiratory Rate--Oxygen Saturation--Inhaled Oxygen Concentration--Fdosay415 kg (243 lb 12.8 oz)10/22/2025 3:21 PM [...] Aunt Diabetes Mother's Sister Aunt Cancer Brother Yao dwight (thyroid cancer) SURGICAL HISTORY No past [...] Assessment/Plan ICD-10-CM 1. 36 weeks gestation of ([facility]) Z3A.36 CULTURE, GROUP B STREP WITH SUSCEPTIBLITY CULTURE, GROUP B STREP WITH SUSCEPTIBLITY POCT urinalysis dipstick manually resulted 2. Third trimester ([facility]) Z34.93 CULTURE, GROUP B STREP WITH SUSCEPTIBLITY [...] documented in this encounter Plan of Treatment NameTypePriorityAssociated DiagnosesOrder ScheduleCULTURE, GROUP B STREP WITH SUSCEPTIBLITYLabRoutine 36 weeks gestation of ([facility]) Third trimester ([facility]) Expected: 10/22/2025, Expires: 10/22/2026documented as of this encounter Procedures Procedure NamePriorityDate/TimeAssociated DiagnosisCommentsPOCT URINALYSIS ETTMWAYCHecbibp50/26/2025 3:35 PM EST 36 weeks gestation [facility] Third trimester ([facility]) documented in this encounter Results * (ABNORMAL) POCT urinalysis dipstick manually resulted (10/22/2025 3:35 PM EST)ComponentValueRef RangeTest MethodAnalysis TimePerformed AtPathologist SignatureColor, UAYellowClarity, UAClearGlucose, UANegativeNegative - 2000(110) ++++ mg/dLBilirubin, UANegativeNegative - 4(70) +++ mg/dLKetones, UA PositiveNegative - 160(16) ++++ mg/dLSpec Grav, UA1.0151 - 1.03Blood, UA NegativeNegative - 50 Nico/mcLpH, UA6.05 - 9Protein, UA1+Negative - 2000(20) ++++ mg/dLUrobilinogen, UA0.20.2 - 12 mg/dLLeukocytes, UANegativeNegative - 500+++ Karson/mcLNitrite, UANegativeNegative - PositiveSpecimen (Source) Anatomical Location / LateralityCollection Method / VolumeCollection Time Received OxulIddiv83/26/2025 3:35 PM EST Narrative Authorizing ProviderResult TypeResult StatusCorey Katarina DOPOINT OF CARE TEST ENTER/EDIT ORDERABLESFinal Result documented in this encounter Visit Diagnoses Diagnosis 36 weeks gestation of ([facility]) Third trimester ([facility]) state, incidental documented in this encounter Additional Health Concerns AssessmentNoted TimePHQ-9 Depression Total Score: 9:00 AM EST documented as of this encounter Care Teams Team MemberRelationshipSpecialtyStart DateEnd Date Yamel Guerrero MD [address] [place] [address] PCP - GeneralFamily Medicine05/04/23 Yamel Guerrero MD [address] [place] [address] PCP - JORDANS Jake [facility]02/26/24documented as of this encounter
--- OUTSIDE RECORDS SUMMARY | 2025-10-29 13:10 | XMS_ITS | Encounter Summary ---
Author Organization [facility] Address [address] [place] [address] Care Team Providers Care Day Care Home Mother Name Role Phone Yamel Guerrero MD Primary Care Provider [phone] Yamel Guerrero MD Unavailable Reason for Visit * ReasonCommentsRoutine Visit Encounter Details DateTypeDepartmentCare Team (Latest Contact Info)Sjudduncave20/03/2025 1:10 PM ESTRoutine [facility] [address] [place] [phone] Luis E Bray DO [address] [place], [place] [phone] Third trimester ([facility]); 37 weeks gestation of ([facility]) Social History Tobacco UseTypesPacks/DayYears UsedDateSmoking Tobacco: [...] relatives?Once a week05/09/2023How often do you attend adventist or religion services?Never05/09/2023o you belong to any clubs or organizations such as adventist groups, unions, fraternal or athletic groups, or school groups?No05/09/2023How often do you attend meetings of the clubs or organizations you belong to?Never05/09/2023re you , , , , never , or living with a partner?Living with ejvksor0005/09/2023 AUDIT-CAnswerDate RecordedQ1: How often do you have [...] hard 05/09/2023HQ-2AnswerDate RecordedPatient Health Questionnaire-2 Score1 10/12/2023Finst. [facility] [place] of Occupational Health - Occupational Stress QuestionnaireAnswerDate RecordedDo you feel stress - tense, restless, nervous, or anxious, or unable to sleep at night because yourmind is troubled all the time - these days?To some ljptkj7605/09/2023Exercise Vital SignAnswerDate Recorded On average, how many [...] steady place to sleep or slept in [facility] (including now)?No05/09/2023 Estimated Date of BspfqjnoKczwcabzUbz67/19/2025Based on last menstrual period of 02/07/2025Sex and Gender InformationValueDate RecordedSex Assigned at BirthFemale 04/30/2023 3:31 PM EDTLegal EprPlzysn14/15/2023 7:09 PM EDTGender IdentityFemale 04/30/2023 3:31 PM EDTSexual OrientationNot on filedocumented as of this encounter Last Filed Vital Signs Vital SignReadingTime TakenCommentsBlood Xnopkodt415/7412 1:24 PM EST Pulse--Temperature--Respiratory Rate--Oxygen Saturation--Inhaled Oxygen Concentration--Nubrfh633 kg (247 lb)10/29/2025 1:24 PM ESTHeight--Body Mass Index42.411 4:27 PM ESTdocumented in this encounter Progress Notes * Catarina Barnes NP - 10/29/2025 1:10 PM EST Reason for Appointment: Patient ID: [...] nursing note reviewed. Exam conducted with a yarn inspector present. Vitals: Estimated body mass index is 42.4 kg/m?? as calculated from the following: Height as of 10/23/23: 5' 4 . Weight as of this encounter: 247 lb. BP: 124/74 Patient's last menstrual period was 02/07/2025. Assessment/Plan ICD-10-CM 1. Third trimester ([facility]) Z34.93 2. 37 weeks gestation of ([facility]) Z3A.37 POCT urinalysis dipstick manually resulted Assessment/Plan Return OB: Patient presents today for a routine obstetrics appointment. Patient is currently 37w5d . Patient states she is doing well but has complaints of being tired due to current . Patient has verbalizes frequent movement. labor precautions was discussed/given and patient was instructed to perform kick counts three times a day. Orders Placed This Encounter Procedures POCT urinalysis dipstick manually resulted Follow Up: Patient is to return to office in 1 week for routine OB appointment. Documented by Catarina Barnes NP on behalf of: Luis E Bray DO documented in this encounter Plan of Treatment Not on file documented as of this encounter Procedures Procedure NamePriorityDate/TimeAssociated DiagnosisCommentsPOCT URINALYSIS PEYFTPDBZumynnl60/03/2025 1:24 PM EST 37 weeks gestation of ([facility]) documented in this encounter Results * (ABNORMAL) POCT urinalysis dipstick manually resulted (10/29/2025 1:24 PM EST) ComponentValueRef RangeTest MethodAnalysis TimePerformed AtPathologist SignatureColor, UAYellowClarity, UAClearGlucose, UANegativeNegative - 1999(110) ++++ mg/dLBilirubin, UANegativeNegative - 4(70) +++ mg/dLKetones, UA PositiveNegative - 160(16) ++++ mg/dLSpec Grav, UA1.0101 - 1.03Blood, UA NegativeNegative - 50 Nico/mcLpH, UA6.55 - 9Protein, UATraceNegative - 2000(20) ++++ mg/dLUrobilinogen, UA1.00.2 - 12 mg/dLLeukocytes, UANegativeNegative - 500+++ Karson/mcLNitrite, UANegativeNegative - PositiveSpecimen (Source) Anatomical Location / LateralityCollection Method / VolumeCollection Time Received HkcfIntkc85/03/2025 1:24 PM EST Narrative Authorizing ProviderResult TypeResult StatusCorey Katarina DOPOINT OF CARE TEST ENTER/EDIT ORDERABLESFinal Result documented in this encounter Visit Diagnoses Diagnosis Third trimester ([facility]) state, incidental 37 weeks gestation of ([facility]) documented in this encounter Additional Health Concerns AssessmentNoted TimePHQ-9 Depression Total Score: 9:00 AM EST documented as of this encounter Care Teams Team MemberRelationshipSpecialtyStart DateEnd Date Yamel Guerrero MD [address] [place] [address] PCP - GeneralFamily Medicine05/04/23 Yamel Guerrero MD [address] [place] [address] PCP - [facility]02/26/24documented as of this encounter
[2025-10-30] VITALS (38 sets, daily range): BP systolic 95–145; BP diastolic 51–89; PULSE 72–102; TEMP 36.4–36.9
--- OUTSIDE RECORDS SUMMARY | 2025-10-30 04:56 | XMS_ITS | Patient Health Record ---
Author Organization [facility] [place] Address [address] [place] [address] Care Team Providers Care Clinical Immunologist Name Role Phone Yamel Guerrero MD Primary [...] [employer] [address] [place] [address] [id number] AYDE THOMPSON Self - patient is the insured
--- OUTSIDE RECORDS SUMMARY | 2025-10-30 04:56 | XMS_ITS | Encounter Summary ---
Author Organization [facility] Address [address] [place] [address] Care Team Providers Care Hack Driver Name Role Phone Mino East MD Primary Care Provider [phone] Mino East MD Unavailable Encounter Details DateTypeDepartmentCare Team (Latest Contact Info)Opdmhqgaivm15/01/2025Clinisync Result Encounter [facility] Department Unsolicited Fabi Arita PA [address] [place] [address] [place], [place] [id number] Social History Tobacco UseTypesPacks/DayYears UsedDateSmoking Tobacco: NeverSmokeless [...] week05/09/2023How often do you attend worship or muslim services?Never05/09/2023o you belong to any clubs or organizations such as worship groups, unions, fraternal or athletic groups, or school groups?No05/09/2023How often do you attend meetings of the clubs or organizations you belong to?Never05/09/2023re you , , , , never , or living with a partner?Living with [place]7805/09/2023 AUDIT-CAnswerDate RecordedQ1: How often do you have [...] 05/09/2023HQ-2AnswerDate RecordedPatient Health Questionnaire-2 Score1 10/12/2023[facility] - Occupational Stress QuestionnaireAnswerDate RecordedDo you feel stress - tense, restless, nervous, or anxious, or unable to sleep at night because yourmind is troubled all the time - these days?To some axidad3805/09/2023Exercise Vital SignAnswerDate Recorded On average, how many [...] steady place to sleep or slept in gasquetelter (including now)?No05/09/2023 Estimated Date of EgpwwrocEkugqecrQri02/19/2025Based on last menstrual period of 02/07/2025Sex and Gender InformationValueDate RecordedSex Assigned at BirthFemale 04/30/2023 3:31 PM EDTLegal UokHckztd43/15/2023 7:09 PM EDTGender IdentityFemale 04/30/2023 3:31 PM EDTSexual OrientationNot on filedocumented as of this encounter Plan of Treatment Not on file documented as of this encounter Procedures Procedure NamePriorityDate/TimeAssociated DiagnosisCommentsUS OB BPP W NON-BZHSGD6210/27/2025 4:11 PM EST documented in this encounter Results * US OB BPP W NON-STRESS (10/27/2025 4:11 PM EST)Anatomical Region LateralityModalityOtherSpecimen (Source)Anatomical Location / Laterality Collection Method / VolumeCollection TimeReceived Time10/27/2025 4:11 PM EST Narrative 10/27/2025 4:14 PM EST [facility] ?[address] ? [place] [address] ? Ultrasound Report ? Signed ? Patient: DONNA,MERCEDES Dean ? MR#: [id number] ?? : 1990 ?Acct:[id number] ?? Age/Sex: 35 / F ?ADM Date: 12/01/25 ?? Loc: US ? Attending Dr: Fabi Arita ? Ordering Physician: Fabi Arita ?? Date of Service: 12/01/25 ?? Procedure(s): US OB BPP w non-stress ?? Accession Number(s): [id number] ? cc: Fabi Arita; [facility] ? [facility] ? [address] ? [place] [address] ? Patient Name: ?? MERCEDES THOMPSON ? MRN: [facility]:[id number] ? date: 1990 ?Sex: F ?? Assigned Patient Location: [facility] ?? Current Patient Location: [place] ?? Accession/Order Number: [id number] ?? Exam Date: 10/27/2025 ??11:40 ?Report Date: 10/27/2025 ??16:11 ? At the request of: ?? FABI ??JUAN J ? Procedure: ??US OB BPP w non-stress ? US OB BPP w non-stress ??10/27/2025 12:00 PM ? SIGNS AND SYMPTOMS: ?? 30 WEEKS GESTATIONAL AGE ? PROTOCOL: Transabdominal sonographic images of the gravid uterus ? COMPARISON: None ? FINDINGS: ? Estimated age: 37 weeks 4 days ? Amniotic fluid index: 10.46 cm. ??The deepest vertical pocket measures 4.2 cm. ? heart rate: 132 bpm. ? Biophysical profile: ? breathing movements: 2/2 ? Gross body movement: 2/2 ? tone: 2/2 ? Amniotic fluid volume: 2/2 ? US/US OB BPP w non-stress ?? IMPRESSION: ? Biophysical profile: 8/8 ? Impression dictated by: Mainor Cisneros M.D. ??10/27/2025 4:11 PM ? Dictation Location: RADIO-PC-23 ? Electronically authenticated by: [id number] ??Y ?? Date: 10/27/2025 ??16:11 ? Dictated By: ?Mainor Cisneros M.D. ? Signed By: ?10/27/25 1614 ? DD/ 10 ? TD/TT: ? Pocket Secretary Assembler: Procedure Note Radiology, Radiologist, MD - 10/27/[address] [address] Ultrasound Report Signed Patient: MERCEDES THOMPSON RMR#: [id number] : 1990Acct:[id number] Age/Sex: 35 / FADM Date: 10/27/25 Loc: [place] Attending Dr: Fabi Arita Ordering Physician: Fabi Arita Date of Service: 10/27/25 Procedure(s): US OB BPP w non-stress Accession Number(s): [id number] cc: Fabi Arita; [facility] [place] [id number] Patient Name: MERCEDES THOMPSON MRN: [id number] date: 1990 Sex: F Assigned Patient Location: [facility] Current Patient Location: [place] Accession/Order Number: [id number] Exam Date: 10/27/2025 11:40 Report Date: 10/27/2025 16:11 At the request of: FAIB ARITA Procedure: US OB BPP w non-stress US OB BPP w non-stress 10/27/2025 12:00 PM SIGNS AND SYMPTOMS: 30 WEEKS GESTATIONAL AGE PROTOCOL: Transabdominal sonographic images of the gravid uterus COMPARISON: None FINDINGS: Estimated age: 37 weeks 4 days Amniotic fluid index: 10.46 cm. The deepest vertical pocket measures 4.2cm. heart rate: 132 bpm. Biophysical profile: breathing movements: 2/2 Gross body movement: 2/2 tone: 2/2 Amniotic fluid volume: 2/2 US/US OB BPP w non-stress IMPRESSION: Biophysical profile: 07/04 Impression dictated by: Mainor Cisneros M.D. 10/27/2025 4:11 PM Dictation Location: [place] [address] Electronically authenticated by: [id number] Y Date: 6:11 Dictated By: Mainor Cisneros M.D. Signed By:10/27/25 1614 DD/ 10 TD/TT: Pocket Secretary Assembler: Authorizing ProviderResult TypeResult StatusAmy Juan J PACLINISYNC IMAGINGFinal Result documented in this encounter Visit Diagnoses Not on filedocumented in this encounter Additional Health Concerns AssessmentNoted TimePHQ-9 Depression Total Score: 9:00 AM EST documented as of this encounter Care Teams Team MemberRelationshipSpecialtyStart DateEnd Date Mino East MD [address] [place] [address] PCP - GeneralFamily Medicine05/04/23 Mino East MD [address] [facility] [place], [place] [id number] PCP - [facility]02/26/24documented as of this encounter
--- OUTSIDE RECORDS SUMMARY | 2025-10-30 04:56 | XMS_ITS | Clinical Summary ---
Author Organization [facility] Address [address] [place] [address] Care Team Providers Care Cleaner Signs Name Role Phone Yamel Guerrero MD Primary Care Provider [phone] Yamel Guerrero MD Unavailable Allergies No known active allergies Medications MedicationSigDispense QuantityRefillsLast FilledStart DateEnd DateStatus MV-Min-Fe Fum-FA-DHA ( 1 PO) Take 1 tablet by mouth DailyActive hydroxychloroquine (Plaquenil) 100 MG tablet Hydroxychloroquine SulfateActive Vit-Fe Fumarate-FA ( Vitamin) 27-0.8 MG tablet VitaminActive azithromycin (Zithromax Z-Edwin) 250 MG tablet Indications:Common coldAs directed 6 tablet 5Active Active Problems ProblemNoted DateDiagnosed SftsAusoqvy40/03/2023Obesity due to excess calories without serious lyezsrgsioc32/03/2023Systemic lupus zpkjqvwouhmuf86/05/2023 Elevated antinuclear antibody (ROSEMARY) level05/10/2023astroesophageal reflux disease without aidmtayutki29/14/2023Severe single current episode of major depressive disorder, without psychotic akbfffmk33/14/5074Pwxwhttaymj51/14/2023 Tonsillar /12/2019Raynaud's uwbwxjrima79/06/2019Undifferentiated connective tissue nezfspv9112/18/2017Estimated Date of DeliveryCommentsYes 5Based on last menstrual period of 02/07/2025 Resolved Problems ProblemNoted DateDiagnosed DateResolved DateCarpal tunnel scsmahza72/14/2023 05/31/2023 Encounters DateTypeDepartmentCare NynhNlhpfinzbbn04/03/2025 1:10 PM ESTRoutine [facility] [address] Jossy Bray, DO Third trimester ([facility]); 37 weeks gestation of ([facility])5Bamboo flowsheet [facility] Kay[facility] Paul [facility] [place] [address] Jossy Bray, DO 5Clinisync Result Encounter NOMS External Department Unsolicited Fabi Martinez PA 10/22/2025 3:20 PM ESTRoutine [facility] Paul [facility] [place] [address] Jossy Bray, DO 36 weeks gestation of ([facility]); Third trimester ([facility])5Clinisync Result Encounter NOMS External Department Unsolicited Jossy Bray, DO 5Bambkaren flowsheet [facility] [address] Jossy Bray, 5Clinisync Result Encounter NOMS External Department Unsolicited Fabi Martinez PA 5Abstract [facility] Paul [facility] [place] [address] Fabi Martinez PA 5Clinisync Result Encounter NOMS External Department Unsolicited Fabi Martinez PA 10/08/2025 11:30 AM ESTRoutine [facility] Paul [facility] [place] [address] Fabi Martinez PA Third trimester ([facility]); 34 weeks gestation of ([facility]); Common cold10/08/2025 11:00 AM ESTAncillary Procedure [place] [address] Gestational diabetes mellitus (GDM), antepartum, gestational diabetes method of control unspecified([facility])10/06/2025linisync Result Encounter NOMS External Department Unsolicited Fabi Martinez PA 09/29/2025linisync Result Encounter NOMS External Department Unsolicited Fabi Martinez PA 09/24/2025[place] [address] Jossy Bray DO 09/23/2025 10:00 [place] [address] Jossy Bray, 32 weeks gestation of ([facility]); Third trimester ([facility]); Gestational diabetes mellitus (GDM), antepartum, gestational diabetes method of control unspecified([facility])09/23/2025amboo [place] [address] Jossy Bray, 09/22/2025linisync Result Encounter NOMS External Department Unsolicited Fabi Martinez PA 09/22/20250627Mcwggv23/14/2025 10:50 [place] [address] Fabi Martinez PA Third trimester ([facility]); 30 weeks gestation of ([facility])09/09/2025 10:00 AM EDTAncillary [place] [phone] Gestational diabetes mellitus (GDM), antepartum, gestational diabetes method of control unspecified([facility])09/08/20251228Qwoxwb96/08/2025Clinisync Result Encounter NOMS External Department Unsolicited Provider, Generic External Data 08/27/2025 10:20 AM EDTRoutine [facility] [address] [facility] [place] [place] [phone] Catarina Barnes, [place] 28 weeks gestation of ([facility]); Third trimester ([facility]); Gestational diabetes mellitus (GDM), antepartum, gestational diabetes method of control unspecified([facility]); Diabetes mellitus /01/2025[place] [phone] Jossy Bray, 5Clinisync Result Encounter NOMS External Department Unsolicited Provider, Generic External Data 08/27/2025amboo flowsheet [facility] [place] [phone] Catarina Barnes NP 08/13/2025 11:10 [place] [phone] Jossy Bray, 26 weeks gestation of ([facility]); Second trimester ([facility]); Gestational diabetes mellitus (GDM), antepartum, gestational diabetes method of control unspecified([facility])08/13/2025amboo flowsheet [facility] [address] [place] [phone] Jossy Bray, 08/12/20255920Hvmvvj02/15/2025Abstract [facility] [address] [place] [phone] Jossy Bray, 08/04/2025 10:00 AM EDTAncillary [place] [phone] Encounter for follow-up ultrasound of anatomy ([facility])from Last 3 Months Family History Medical HistoryRelationNameCommentsCancerBrotherMatt [...] relatives?Once a week05/09/2023How often do you attend mormon or evangelical services?Never05/09/2023o you belong to any clubs or organizations such as mormon groups, unions, fraGravitant or athletic groups, or school groups?No05/09/2023How often do you attend meetings of the clubs or organizations you belong to?Never05/09/2023re you , , , , never , or living with a partner?Living with qwqequg0905/09/2023 AUDIT-CAnswerDate RecordedQ1: How often do you have [...] very hard 05/09/2023HQ-2AnswerDate RecordedPatient Health Questionnaire-2 Score1 10/12/2023Fin[facility] - Occupational Stress QuestionnaireAnswerDate RecordedDo you feel stress - tense, restless, nervous, or anxious, or unable to sleep at night because yourmind is troubled all the time - these days?To some lciudb4905/09/2023Exercise Vital SignAnswerDate Recorded On average, how many [...] or from getting things needed for daily living?No06/13/2023Housing Stability Vital SignAnswerDate RecordedIn the last 12 months, was there a time when you were not able to pay the mortgage or rent on time?No05/09/2023In the last 12 months, how many places have you lived?1 05/09/2023In the last 12 months, was there a time when you did not have a steady place to sleep or slept in lowellelter (including now)?No3 Estimated Date of PwkytglzRtmlljzdLrb83/19/2025Based on last menstrual period of 02/07/2025Sex and Gender InformationValueDate RecordedSex Assigned at BirthFemale 04/30/2023 3:31 PM EDTLegal ZjbKajclp17/15/2023 7:09 PM EDTGender IdentityFemale 04/30/2023 3:31 PM EDTSexual OrientationNot on file Last Filed Vital Signs Vital SignReadingTime TakenCommentsBlood Nmacidya575/7412 1:24 PM EST Rcflv725210/23/2023 4:27 PM WOQDmkpiyholpx52 ??C (98.6 ??F)10/23/2023 4:27 PM EST Respiratory Bgxo6267 4:27 PM ESTOxygen Rrzrazjcwr79%10/23/2023 4:27 PM ESTInhaled Oxygen Concentration--Spjzbd155 kg (247 lb)10/29/2025 1:24 PM EST Ixkozb505.6 cm (5' 4 )10/23/2023 4:27 PM ESTBody Mass Index42.411 4:27 PM EST Plan of Treatment Health MaintenanceDue DateLast DoneCommentsCOVID-19 Vaccine ( season) 2025Influenza Vaccine (#1)/, 10/17/2019Cervical Cancer Skrpkvhjc99/07/2030HPV/Nvhcgp64/ap Smear/05/2025, 04/06/2022neumococcal Vaccine: Pediatrics (0 to 5 Years) and At-Risk Patients (6 to 64 Years)Aged OutNo longer eligible based on patient's age to complete this topic Procedures Procedure NamePriorityDate/TimeAssociated DiagnosisCommentsPOCT URINALYSIS VPDEWZUJGpkijaj69/03/2025 1:24 PM EST 37 weeks gestation of ([facility]) US OB BPP W NON-NTGXUG7310/27/2025 4:11 PM EST STREP GP B CULTURE+LGHHGevqlhj66/26/2025 4:08 PM EST POCT URINALYSIS WLGDYRDQHwkgrbe29/26/2025 3:35 PM EST 36 weeks gestation of ([facility]) Third trimester ([facility]) US OB BPP W NON-SIQVLM7610/20/2025 12:21 PM EST US OB BPP W NON-KHWXFO6410/13/2025 11:50 AM EST POCT URINALYSIS AYUALZVHWiwssbr77/12/2025 11:48 AM EST 34 weeks gestation of ([facility]) US OB FOLLOW UP TRANSABDOMINAL DGQLPSGRLvfitbm46/12/2025 11:36 AM EST Gestational diabetes mellitus (GDM), antepartum, gestational diabetes method of control unspecified([facility]) US OB BPP W NON-MLTSJI7910/06/2025 12:00 PM EST US OB BPP W NON-CGVPGL4809/29/2025 3:51 PM EST POCT URINALYSIS IEBPJMYYKldceux73/28/2025 10:15 AM EDT 32 weeks gestation of ([facility]) Third trimester ([facility]) US OB BPP W NON-CZRYUM1309/22/2025 10:42 PM EDT POCT URINALYSIS UDEGYCZALfzvhjf46/14/2025 11:15 AM EDT 30 weeks gestation of ([facility]) US OB FOLLOW UP TRANSABDOMINAL WXNWGMRMUvcywgw58/14/2025 10:39 AM EDT Gestational diabetes mellitus (GDM), antepartum, gestational diabetes method of control unspecified([facility]) MLR HEMOGLOBIN U2TFnexeyk84/08/2025 10:44 AM EDT ALL CBC WITH AUTO YIGQLvpxvnf17/08/2025 10:44 AM EDT US OB MPGMEJ6508/27/2025 11:15 AM EDT POCT URINALYSIS COAZWDXJLytummg68/01/2025 10:37 AM EDT 28 weeks gestation of ([facility]) Third trimester ([facility]) POCT URINALYSIS LKUDDAZNRibwqqs16/17/2025 11:24 AM EDT 26 weeks gestation of ([facility]) Second trimester ([facility]) US OB LIMITED 1+ LFLAKHFFrcbwra37/08/2025 10:29 AM EDT Encounter for follow-up ultrasound of anatomy ([facility]) PAP TTLHXYgkaple73/07/2025 12:00 AM EDTTHINPREP PAP AND HPV MRNA E6/E7 W/RFL HPV 16,18/80Umamqfe21/17/2023 10:11 AM EDT Well woman exam with routine gynecological exam from Last 3 Months or Most Recently Relevant to Health Maintenance Results * (ABNORMAL) POCT urinalysis dipstick manually resulted (10/29/2025 1:24 PM EST) Only the most recent of7 resultswithin the time period is included. ComponentValueRef RangeTest MethodAnalysis TimePerformed AtPathologist Signature Color, UAYellowClarity, UAClearGlucose, UANegativeNegative - 2000(110) ++++ mg/dLBilirubin, UANegativeNegative - 4(70) +++ mg/dLKetones, UAPositiveNegative - 160(16) ++++ mg/dLSpec Grav, UA1.0101 - 1.03Blood, UANegativeNegative - 50 Nico/mcLpH, UA6.55 - 9Protein, UATraceNegative - 2000(20) ++++ mg/dLUrobilinogen, UA1.00.2 - 12 mg/dLLeukocytes, UANegativeNegative - 500+++ Karson/mcLNitrite, UA NegativeNegative - PositiveSpecimen (Source)Anatomical Location / Laterality Collection Method / VolumeCollection TimeReceived AmssCombk23/03/2025 1:24 PM EST Narrative Authorizing ProviderResult TypeResult StatusCorey Katarina DOPOINT OF CARE TEST ENTER/EDIT ORDERABLESFinal Result * US OB BPP W NON-STRESS (10/27/2025 4:11 PM EST) Only the most recent of6 resultswithin the time period is included. Anatomical RegionLateralityModalityOtherSpecimen (Source)Anatomical Location / LateralityCollection Method / VolumeCollection TimeReceived Time10/27/2025 4:11 PM EST Narrative 10/27/2025 4:14 PM EST [facility] ?[address] ? [place] [address] ? Ultrasound Report ? Signed ? Patient: DONNA,BETTY R ? MR#: [id number] ?? : 1990 ?Acct:[id number] ?? Age/Sex: 35 / F ?ADM Date: 10/27/25 ?? Loc: US ? Attending Dr: Fabi Martinez ? Ordering Physician: Fabi Martinez ?? Date of Service: 10/27/25 ?? Procedure(s): US OB BPP w non-stress ?? Accession Number(s): [id number] ? cc: Fabi Martinez; CRUZITOYAMEL ? [facility] ? [address] ? [place] [address] ? Patient Name: ?? BETTY R DONNA ? MRN: [id number]:[id number] ? date: 1990 ?Sex: F ?? Assigned Patient Location: [facility] ?? Current Patient Location: US ?? Accession/Order Number: [id number] ?? Exam Date: 10/27/2025 ??11:40 ?Report Date: [...] w non-stress ?? IMPRESSION: ? Biophysical profile: 8 ? Impression dictated by: Mainor Cisneros M.D. ??10/27/2025 4:11 PM ? Dictation Location: [facility]- ? Electronically authenticated by: [id number] ??Y ?? Date: 10/27/2025 ??16:11 ? Dictated By: ?Mainor Cisneros M.D. ? Signed By: ?10/27/25 1614 ? DD/ 1611 ? TD/TT: ? Range Master: Procedure Note Radiology, Radiologist, - 10/27/2025 [place] [address] Ultrasound Report Signed Patient: BETTY THOMPSON R#: [id number] : 1990Acct:[id number] Age/Sex: 35 / FADM Date: 10/27/25 Loc: US Attending Dr: Fabi Martinez Ordering Physician: Fabi Martinez Date of Service: 10/27/25 Procedure(s): US OB BPP w non-stress Accession Number(s): [id number] cc: Fabi Martinez; YAMEL GUERRERO The [address] [address] Patient Name: BETTY THOMPSON MRN: [id number] date: 1990 Sex: F Assigned Patient Location: [facility] Current Patient Location: Accession/Order Number: [id number] Exam Date: 10/27/2025 11:40 Report Date: 10/27/2025 16:11 At the request of: FABI JUAN J Procedure: US OB BPP w non-stress US [...] Cisneros M.D. 10/27/2025 4:11 PM Dictation Location: [place] [address] Electronically authenticated by: [id number] Y Date: 6:11 Dictated By: Mainor Cisneros M.D. Signed By:10/27/25 1614 DD/ 161 TD/TT: Range Master: Authorizing ProviderResult TypeResult StatusFabi Juan J PACLINISYNC IMAGINGFinal Result * STREP GP B CULTURE+RFLX (10/22/2025 4:08 PM EST)ComponentValueRef RangeTest MethodAnalysis TimePerformed AtPathologist SignatureSTREP GP B CULTURE+RFLX ??Strep Gp B Culture+Rflx TBHSTREP GP B CULTURE+RFLXNegativeTBHSTREP GP B CULTURE+RFLXCenters for Disease Control and Prevention (CDC) andTBHSTREP GP B CULTURE+RFLXAmerican Congress of Obstetricians and GynecologistsTBHSTREP GP B CULTURE+RFLX(ACOG) guidelines for prevention of group BTBHSTREP GP B CULTURE+RFLXstreptococcal (GBS) disease specify co-collection ofTBHSTREP GP B CULTURE+RFLXa vaginal and rectal swab specimen to maximizeTBHSTREP GP B CULTURE+RFLXsensitivity of GBS detection. Per the CDC and ACOG,TBHSTREP GP B CULTURE+RFLXswabbing both the lower vagina and rectumTBHSTREP GP B CULTURE+RFLXsubstantially increases the yield of detectionTBHSTREP GP B CULTURE+RFLXcompared with sampling the vagina alone.TBH STREP GP B CULTURE+RFLXPenicillin G, ampicillin, or cefazolin are indicatedTBH STREP GP B CULTURE+RFLXfor intrapartum prophylaxis of GBSTBHSTREP GP B CULTURE+RFLXcolonization. Reflex susceptibility testing should beTBHSTREP GP B CULTURE+RFLXperformed prior to use of clindamycin only on GBSTBHSTREP GP B CULTURE+RFLXisolates from penicillin-allergic women who areTBHSTREP GP B CULTURE+RFLXconsidered a high risk for anaphylaxis. Treatment withTBHSTREP GP B CULTURE+RFLXvancomycin without additional testing is warranted ifTBHSTREP GP B CULTURE+RFLXresistance to clindamycin is noted.TBHSTREP GP B CULTURE+RFLX Performed at: - [facility] RehabilitationTBHSTREP GP B CULTURE+[id number] [place], [place] [id number] GP B CULTURE+RFLXLab Director: Floyd Baez PhD, Phone: [phone] (Source)Anatomical Location / Laterality Collection Method / VolumeCollection TimeReceived Time10/22/2025 4:08 PM EST 10/22/2025 6:18 PM EST Narrative CLINISYNC - 10/27/2025 2:08 PM EST Authorizing ProviderResult TypeResult StatusCorey Katarina DOLAB BLOOD ORDERABLES Final ResultPerforming OrganizationAddressCity/State/ZIP CodePhone Number [facility] * OB follow up transabdominal approach (10/08/2025 [...] Michael Dennis MD Authorizing ProviderResult TypeResult StatusJossy CORDON OB US PROCEDURES Final Result * MLR HEMOGLOBIN A1C (09/03/2025 10:44 AM EDT)ComponentValueRef RangeTest Method Analysis TimePerformed AtPathologist SignatureGLYCOHEMOGLOBIN A1C5.24.5 - 6.2 %TBHComment: ADA RECOMMENDED LIMIT 4.0 - 6.0 ADA THERAPEUTIC TARGET < 7.0 ACTION SUGGESTED > 7.0 ESTIMATED AVERAGE ABTRBWM729al/dLTBHSpecimen (Source)Anatomical Location / LateralityCollection Method / VolumeCollection TimeReceived Time09/03/2025 10:44 AM EDT1 10:45 AM EDT Narrative CLINISYNC - 09/03/2025 12:20 PM EDT Authorizing ProviderResult TypeResult StatusCatarina Barnes NPCLINISYNCFinal ResultPerforming OrganizationAddressCity/State/ZIP CodePhone Number [facility] * (ABNORMAL) ALL CBC WITH AUTO DIFF (09/03/2025 10:44 AM EDT)ComponentValueRef RangeTest MethodAnalysis TimePerformed AtPathologist SignatureTBH WBC10.64.0 - 11.0 10 3/uLTBHTBH RBC3.60(L)4.20 - 5.40 10 6/uLTBHTBH HGB12.112.0 - 16.0 g/dL TBHTBH HCT35.6(L)36.0 - 48.0 %TBHTBH MCV98.981.0 - 99.0 fLTBHTBH MCH33.626.7 - 34.0 pgTBHTBH MCHC34.029.9 - 35.2 g/dLTBHTBH RDW14.311.0 - 15.0 %TBHTBH LDJ947 150 - 450 10 3/uLTBHTBH MPV11.29.5 - [...] EDT Narrative 08/27/2025 11:17 AM EDT [facility] ?[address] ? [place] [address] ? Ultrasound Report ? Signed ? Patient: DONNA,BETTY R ? MR#: [id number] ?? : 1990 ?Acct:[id number] ?? Age/Sex: 35 / F ?ADM Date: 10/01/25 ?? Loc: US ? Attending Dr: Jossy Bray D.O. ? Ordering Physician: Jossy Bray D.O. ?? Date of Service: 08/27/25 ?? Procedure(s): US OB growth ?? Accession Number(s): [id number] ? cc: YAMEL GUERRERO ; Jossy Bray D.O. ? [facility] ? [address] ? [place] [address] ? Patient Name: ?? BETTY THOMPSON ? MRN: [facility]:[id number] ? date: 1990 ?Sex: F ?? Assigned Patient Location: US ?? Current Patient Location: US ?? Accession/Order Number: [id number] ?? Exam Date: 08/27/2025 ??09:52 ?Report Date: [...] M.D. ??08/27/2025 11:15 AM ? Dictation Location: [place] [address] ? Electronically authenticated by: [id number] ??Y ?? Date: 08/27/2025 ??11:15 ? Dictated By: ?Sonia Hernandez M.D. ? Signed By: ?08/27/251116 ? DD/ 1115 ? TD/TT: ? Range Master: Procedure Note Radiology, Radiologist, - 08/27/2025 [place] [address] Ultrasound Report Signed Patient: BETTY THOMPSON RMR#: [id number] : 1990Acct:[id number] Age/Sex: 35 / FADM Date: 08/27/25 Loc: US Attending Dr: Jossy Bray D.O. Ordering Physician: Jossy Bray D.O. Date of Service: 08/27/25 Procedure(s): US OB growth Accession Number(s): [id number] cc: YAMEL GUERRERO ; Jossy Bray D.O. The [place] [address] Patient Name: BETTY THOMPSON MRN: [id number] date: 1990 Sex: F Assigned Patient Location: Current Patient Location: US Accession/Order Number: [id number] Exam Date: 08/27/2025 09:52 Report Date: 08/27/2025 [...] Hernandez M.D. 08/27/2025 11:15 AM Dictation Location: [place] [address] Electronically authenticated by: [id number] Y Date: 1:15 Dictated By: Sonia Hernandez M.D. Signed By:08/27/25 1117 DD/ 1115 TD/TT: Range Master: Authorizing ProviderResult TypeResult StatusGeneric External Data Provider CLINISYNC IMAGINGFinal Result * US OB limited 1+ fetuses (08/04/2025 10:29 AM EDT)Anatomical RegionLaterality ModalityBodyUltrasoundSpecimen (Source)Anatomical Location / Laterality Collection Method / VolumeCollection TimeReceived Time08/05/2025 11:00 AM EDT Impressions 08/05/2025 11:40 AM EDT Adequate morphologic evaluation, appropriate for age TRANSCRIBED BY: ? ELECTRONICALLY SIGNED BY: Michael Dennis MD [facility] 08/05/2025 11:40 AM EDT FINDINGS: Single viable [...] Team MemberRelationshipSpecialtyStart DateEnd Yamel Guerrero MD [address] [facility] [place] [address] PCP - GeneralFamily Medicine05/04/23 Yamel Guerrero MD [address] [place] [address] PCP - CHARLIE Joseph [facility]02/26/24
--- OUTSIDE RECORDS SUMMARY | 2025-10-30 04:56 | XMS_ITS | Patient Health Record ---
Author Organization [facility] vices Address [address] [place], [place] [id number] Care Team Providers Care Finishing Inspector Name Role Phone Renee Mack Unavailable [phone] Angela Chua Unavailable [phone] Allergies No Known Allergies Reason For Referral [...] Status Risk Notes Problem Obese class II ([id number]) BMI 36.0 -36.9,adult (Z68.36) ActiveconfirmedProblemObese class II ([id number])BMI 37.0-37.9, adult (Z68.37)Activeconfirmed Vital Signs Heart Rate 86 /min 11/14/2024 Blood pressure qmucztsty06 mm Hg11/14/2024Weight-kg99.79 kg11/14/20240877Udynfl60 in 11/14/2024lood pressure yncvrzxw193 mm Hg11/14/20242731Vqqneo389 lbs101/15/2024MI 37.76 kg/m211/14/2024 Encounters Encounter Location Date Provider Diagnosis [facility] [address] [place], [place] [id number] 11/14/2024 Angela Chua BMI 37.0-37.9, tiffany lt [...] Start Date Coverage End Date adamzAce [employer] [facility] [address] [place] [address] [id number] Mauricio Kennedy - patient is the [id number] 2023Medicaid C [facility] [address] [place], [place] [id number], MeganSelf - patient is the [id number] 2023
--- OUTSIDE RECORDS SUMMARY | 2025-10-30 04:56 | XMS_ITS | Clinical Summary ---
Author Organization [employer] Address [facility] [id number] [address] [place] [address] Care Team Providers Care Land Degradation Analyst Name Role Phone Yamel Guerrero MD Primary Care Provider [phone] Allergies No known active allergies Medications MedicationSigDispense [...] 15 g 10/08/2019Active Active Problems ProblemNoted DateDiagnosed PspqHmrrztezn96/12/2019Nasal congestion related to cumzncjzo46/12/2019Tonsillar aonropnzdod94/12/2019Raynaud's jxfsxmjfew32/06/2019 History of delivery, currently tdkvewrw00/06/2019Undifferentiated connective tissue adszafb3012/18/2017 Resolved Problems ProblemNoted DateDiagnosed DateResolved DateSubacute vhehgehtl06/09/2018 08/02/2019Nasal iiupzsqtwo03 Family History Medical HistoryRelationNameCommentsCancerFatherStrokeFatherRelationNameStatus CommentsFather Social History Tobacco UseTypesPacks/DayYears UsedDateSmoking Tobacco: NeverSmokeless Tobacco: NeverAlcohol UseStandard Drinks/WeekCommentsNever0 (1 standard drink = 0.6 oz pure alcohol)AUDIT-CAnswerDate RecordedFrequency of Alcohol ConsumptionNever 07/26/2019Average Number of DrinksNot on file07/26/2019Frequency of Binge DrinkingNot on file07/26/2019PHQ-2AnswerDate RecordedTotal Kpfyo71712/08/2018 ChildcareAnswerDate KzbsninyDpsbdvmigNogeypy76/12/2019EmploymentAnswerDate NtzxwlvsFwwchzcefmZectapq13/12/2019Purpose - LifeAnswerDate RecordedPurpose and direction in mhdjHdqbwzi35/11/2021CommentsNoSex and Gender Information ValueDate RecordedSex Assigned at BirthNot on fileLegal ZevPqqlfj13/06/2015 11:38 AM EDTGender IdentityNot on fileSexual OrientationNot on file Last Filed Vital Signs Vital SignReadingTime TakenCommentsBlood Xcqngbws591/6210/08/2019 10:47 AM EST Sewue4859/06/2019 9:07 AM EDTTemperature--Respiratory Rate--Oxygen Saturation-- Inhaled Oxygen Concentration--Mnndri35.2 kg (179 lb)10/08/2019 10:47 AM EST Xvmpfz712.6 cm (5' 4 )10/08/2019 10:47 AM ESTBody Mass Index30.7310/08/2019 10:47 AM EST Plan of Treatment Health MaintenanceDue DateLast DoneCommentsDepression Mlludgxxt68/28/2000Tobacco Sjqtpcbud57/28/2000Adult BMI Fkdqgpmhw83/28/2006Pap Smear2009Influenza Tcvpika20/01/481077/, 10/17/2019DTaP,Tdap and Td Vaccines (7 - Tdap) 2101/12/2022, 08/03/1994, 07/01/1991, Additional history exists Medical Devices Not on file Insurance Care Teams Team MemberRelationshipSpecialtyStart DateEnd Yamel Guerrero MD PCP - GeneralFamily Medicine06/03/17
--- OUTSIDE RECORDS SUMMARY | 2025-10-30 04:56 | XMS_ITS | Encounter Summary ---
Author Organization [facility] Address [address] [place] [address] Care Team Providers Care Family Counselor Name Role Phone Yamel Guerrero MD Primary Care Provider [phone] Yamel Guerrero MD Unavailable Encounter Details DateTypeDepartmentCare Team (Latest Contact Info)Vnfasufaqil42/03/2025Bamboo flowsheet [facility] [place] [facility] [address] [place] [address] Luis E Bray DO [address] [place], [place] [id number] Social History Tobacco UseTypesPacks/DayYears UsedDateSmoking Tobacco: NeverSmokeless [...] relatives?Once a week05/09/2023How often do you attend islam or hoahaoism services?Never05/09/2023o you belong to any clubs or organizations such as islam groups, unions, fraHövding or athletic groups, or school groups?No05/09/2023How often do you attend meetings of the clubs or organizations you belong to?Never05/09/2023re you , , , , never , or living with a partner?Living with lirgtai0505/09/2023 AUDIT-CAnswerDate RecordedQ1: How often do you have [...] very hard 05/09/2023HQ-2AnswerDate RecordedPatient Health Questionnaire-2 Score1 10/12/2023[facility] [place] of Occupational Health - Occupational Stress QuestionnaireAnswerDate RecordedDo you feel stress - tense, restless, nervous, or anxious, or unable to sleep at night because yourmind is troubled all the time - these days?To some qmgunr0605/09/2023Exercise Vital SignAnswerDate Recorded On average, how many [...] in ashelter (including now)?No05/09/2023 Estimated Date of PjsiczxvWrynycfnFne71/19/2025Based on last menstrual period of 02/07/2025Sex and Gender InformationValueDate RecordedSex Assigned at BirthFemale 04/30/2023 3:31 PM EDTLegal LbfVnylvq57/15/2023 7:09 PM EDTGender IdentityFemale 04/30/2023 3:31 PM EDTSexual OrientationNot on filedocumented as of this encounter Plan of Treatment Not on file documented as of this encounter Visit Diagnoses Not on filedocumented in this encounter Additional Health Concerns AssessmentNoted TimePHQ-9 Depression Total Score: 9:00 AM EST documented as of this encounter Care Teams Team MemberRelationshipSpecialtyStart DateEnd Date Yamel Guerrero MD [address] [facility] [place] [address] PCP - GeneralFamily Medicine05/04/23 Yamel Guerrero MD [address] [place] [address] PCP - CHARLIE Joseph [facility]02/26/24documented as of this encounter
--- OUTSIDE RECORDS SUMMARY | 2025-10-30 04:56 | XMS_ITS | Encounter Summary ---
Author Organization [facility] Address [address] [place] [address] Care Team Providers Care Director Ambulatory Name Role Phone Yamel Guerrero MD Primary Care Provider [phone] Yamel Guerrero MD Unavailable Encounter Details DateTypeDepartmentCare Team (Latest Contact Info)Wvdhomohmcl30/26/2025Clinisync Result Encounter [facility] External Department Unsolicited Luis E Bray, DO [address] [facility] [address] [place], [place] [id number] Social History Tobacco UseTypesPacks/DayYears UsedDateSmoking Tobacco: NeverSmokeless [...] relatives?Once a week05/09/2023How often do you attend yazidism or caodaism services?Never05/09/2023o you belong to any clubs or organizations such as yazidism groups, unions, fraternal or athletic groups, or school groups?No05/09/2023How often do you attend meetings of the clubs or organizations you belong to?Never05/09/2023re you , , , , never , or living with a partner?Living with owtofwp3205/09/2023 AUDIT-CAnswerDate RecordedQ1: How often do you have [...] Questionnaire-2 Score1 10/12/2023[facility] [place] of Occupational Health - Occupational Stress QuestionnaireAnswerDate RecordedDo you feel stress - tense, restless, nervous, or anxious, or unable to sleep at night because yourmind is troubled all the time - these days?To some khxfsj9505/09/2023Exercise Vital SignAnswerDate Recorded On average, how many [...] in ashelter (including now)?No05/09/2023 Estimated Date of ZgvjdvliNzveuxpfOzn12/19/2025Based on last menstrual period of 02/07/2025Sex and Gender InformationValueDate RecordedSex Assigned at BirthFemale 04/30/2023 3:31 PM EDTLegal VtwBtxynn79/15/2023 7:09 PM EDTGender IdentityFemale 04/30/2023 3:31 PM EDTSexual OrientationNot on filedocumented as of this encounter Plan of Treatment Not on file documented as of this encounter Procedures Procedure NamePriorityDate/TimeAssociated DiagnosisCommentsSTREP GP B CULTURE+PDGDTtbuxrz62/26/2025 4:08 PM EST documented in this encounter Results * STREP GP B CULTURE+RFLX (10/22/2025 4:08 [...] is noted.TBHSTREP GP B CULTURE+RFLX Performed at: [facility] LabAsp[facility]ween[facility] HospitalTBHSTREP GP B CULTURE+[id number] [place], [place] [id number] GP B CULTURE+RFLXLab Director: Floyd Baez PhD, Phone: [phone] (Source)Anatomical Location / Laterality Collection Method / VolumeCollection TimeReceived Time10/22/2025 4:08 PM EST 10/22/2025 6:18 PM EST Narrative [facility] - 10/27/2025 2:08 PM EST Authorizing ProviderResult TypeResult StatusCorey Katarina DOLAB BLOOD ORDERABLES Final ResultPerforming OrganizationAddressCity/State/ZIP CodePhone Number [facility] documented in this encounter Visit Diagnoses Not on filedocumented in this encounter Additional Health Concerns AssessmentNoted TimePHQ-9 Depression Total Score: 9:00 AM EST documented as of this encounter Care Teams Team MemberRelationshipSpecialtyStart DateEnd Date Yamel Guerrero MD [address] [facility], [place] [id number] PCP - GeneralFastate reform school for boys Medicine05/04/23 Yamel Guerrero MD [address] [place], [place] [address] PCP - CHARLIE Joseph [facility]02/26/24documented as of this encounter
--- OUTSIDE RECORDS SUMMARY | 2025-10-30 04:56 | XMS_ITS | Clinical Summary ---
Author Organization [facility] Address [address] [place] [address] Care Team Providers Care Ammunition Assembly I Laborer Name Role Phone Unavailable Primary Care Provider Unavailabl e Social History Tobacco UseTypesPacks/DayYears UsedDateSmoking Tobacco: Never Assessed CommentsUnknownSex and Gender InformationValueDate RecordedSex Assigned at Not on fileLegal MxlLcycuk07/29/2022 11:30 PM EDTGender IdentityNot on file Sexual OrientationNot on file Last Filed Vital Signs Vital SignReadingTime TakenCommentsBlood Sctitwib909/7611/14/2019 2:45 PM EST Ngvsn311711/14/2019 2:45 PM ESTTemperature--Respiratory Rate--Oxygen Awhljtfgkm40% 09/23/2019 2:45 PM EDTInhaled Oxygen Concentration--Awiowl68.6 kg (160 lb) 11/14/2019 2:43 PM VDEMmrgzc399.6 cm (5' 4 )11/14/2019 2:43 PM ESTBody Mass Index27.4611/14/2019 2:43 PM EST Plan of Treatment Not on file
--- OUTSIDE RECORDS SUMMARY | 2025-10-30 04:56 | XMS_ITS | Encounter Summary ---
Author Organization [facility] Address [address] [place] [address] Care Team Providers Care Tool Crib Attendant Name Role Phone Yamel Guerrero MD Primary Care Provider [phone] Yamel Guerrero MD Unavailable Encounter Details DateTypeDepartmentCare Team (Latest Contact Info)Rpjzrnvbdmo02/24/2025bstract [facility] [place] MELGARGYBud [address] [facility] [phone] Fabi Martinez PA [address] [facility] [address] [place], [facility] Social History Tobacco UseTypesPacks/DayYears UsedDateSmoking Tobacco: NeverSmokeless [...] week05/09/2023How often do you attend uatsdin or sabianism services?Never05/09/2023o you belong to any clubs or organizations such as uatsdin groups, unions, fraZikBit or athletic groups, or school groups?No05/09/2023How often do you attend meetings of the clubs or organizations you belong to?Never05/09/2023re you , , , , never , or living with a partner?Living with qqdgmqt6705/09/2023 AUDIT-CAnswerDate RecordedQ1: How often do you have [...] RecordedPatient Health Questionnaire-2 Score1 10/12/2023[facility] [place] of Occupational Health - Occupational Stress QuestionnaireAnswerDate RecordedDo you feel stress - tense, restless, nervous, or anxious, or unable to sleep at night because yourmind is troubled all the time - these days?To some msrpie6405/09/2023Exercise Vital SignAnswerDate Recorded On average, how many [...] in ashelter (including now)?No05/09/2023 Estimated Date of AxjqkqzsIzgxhprkGjb00/19/2025Based on last menstrual period of 02/07/2025Sex and Gender InformationValueDate RecordedSex Assigned at BirthFemale 04/30/2023 3:31 PM EDTLegal PbuQitgka50/15/2023 7:09 PM EDTGender IdentityFemale 04/30/2023 3:31 PM EDTSexual OrientationNot on filedocumented as of this encounter Plan of Treatment Not on file documented as of this encounter Visit Diagnoses Not on filedocumented in this encounter Additional Health Concerns AssessmentNoted TimePHQ-9 Depression Total Score: 411 9:00 AM EST documented as of this encounter Care Teams Team MemberRelationshipSpecialtyStart DateEnd Date Yamel Guerrero MD [address] [place] [address] PCP - GeneralFamily Medicine05/04/23 Yamel Guerrero MD [address] [place] [address] PCP - CHARLIE Joseph [facility]02/26/24documented as of this encounter
--- OUTSIDE RECORDS SUMMARY | 2025-10-30 04:56 | XMS_ITS | Encounter Summary ---
Author Organization [facility] Address [address] [place] [address] Care Team Providers Care Area Field Person Name Role Phone Yamel Guerrero MD Primary Care Provider [phone] Yamel Guerrero MD Unavailable Encounter Details DateTypeDepartmentCare Team (Latest Contact Info)Sxrmxykywey04/26/2025Bamboo flowsheet [facility] [place] [facility] [address] [place] [phone] Luis E Bray DO [address] [place] [address] Social History Tobacco UseTypesPacks/DayYears UsedDateSmoking [...] relatives?Once a week05/09/2023How often do you attend gnosticism or baptism services?Never05/09/2023o you belong to any clubs or organizations such as gnosticism groups, unions, fraShopEat or athletic groups, or school groups?No05/09/2023How often do you attend meetings of the clubs or organizations you belong to?Never05/09/2023re you , , , , never , or living with a partner?Living with gnqfpwo6605/09/2023 AUDIT-CAnswerDate RecordedQ1: How often do you have [...] RecordedPatient Health Questionnaire-2 Score1 10/12/2023[facility] [place] of Occupational Health - Occupational Stress QuestionnaireAnswerDate RecordedDo you feel stress - tense, restless, nervous, or anxious, or unable to sleep at night because yourmind is troubled all the time - these days?To some tbycub7905/09/2023Exercise Vital SignAnswerDate Recorded On average, how many [...] in ashelter (including now)?No05/09/2023 Estimated Date of OhrtywfsQlrwpuhzPwe77/19/2025Based on last menstrual period of 02/07/2025Sex and Gender InformationValueDate RecordedSex Assigned at BirthFemale 04/30/2023 3:31 PM EDTLegal LjyTphryg26/15/2023 7:09 PM EDTGender IdentityFemale 04/30/2023 3:31 PM EDTSexual OrientationNot on filedocumented as of this encounter Plan of Treatment Not on file documented as of this encounter Visit Diagnoses Not on filedocumented in this encounter Additional Health Concerns AssessmentNoted TimePHQ-9 Depression Total Score: 9:00 AM EST documented as of this encounter Care Teams Team MemberRelationshipSpecialtyStart DateEnd Date Y[place] Guerrero MD [address] [facility] [place] [address] PCP - GeneralFamily Medicine05/04/23 Y[place] Guerrero MD [address] [place] [address] PCP - CHARLIE Joseph [facility]02/26/24documented as of this encounter
--- OUTSIDE RECORDS SUMMARY | 2025-10-30 04:57 | XMS_ITS | Encounter Summary ---
Author Organization [facility] Address [address] [place] [address] Care Team Providers Care Customer Manager Name Role Phone Mino East MD Primary Care Provider [phone] Mino East MD Unavailable Encounter Details DateTypeDepartmentCare Team (Latest Contact Info)Nyhxniurgmp01/24/2025Clinisync Result Encounter [facility] External Department Unsolicited Fabi Arita PA [address] [place] [address] [place], [place] [id number] Social History Tobacco UseTypesPacks/DayYears UsedDateSmoking Tobacco: NeverSmokeless [...] week05/09/2023How often do you attend episcopal or protestant services?Never05/09/2023o you belong to any clubs or organizations such as episcopal groups, unions, fraternal or athletic groups, or school groups?No05/09/2023How often do you attend meetings of the clubs or organizations you belong to?Never05/09/2023re you , , , , never , or living with a partner?Living with nrygajr1605/09/2023 AUDIT-CAnswerDate RecordedQ1: How often do you have [...] very hard 05/09/2023HQ-2AnswerDate RecordedPatient Health Questionnaire-2 Score1 10/12/2023[facility] [place] of Occupational Health - Occupational Stress QuestionnaireAnswerDate RecordedDo you feel stress - tense, restless, nervous, or anxious, or unable to sleep at night because yourmind is troubled all the time - these days?To some yqween8105/09/2023Exercise Vital SignAnswerDate Recorded On average, how many [...] steady place to sleep or slept in [place] (including now)?No05/09/2023 Estimated Date of QatlswjsVblzcvwpRwx14/19/2025Based on last menstrual period of 02/07/2025Sex and Gender InformationValueDate RecordedSex Assigned at BirthFemale 04/30/2023 3:31 PM EDTLegal SbkBgwddh62/15/2023 7:09 PM EDTGender IdentityFemale 04/30/2023 3:31 PM EDTSexual OrientationNot on filedocumented as of this encounter Plan of Treatment Not on file documented as of this encounter Procedures Procedure NamePriorityDate/TimeAssociated DiagnosisCommentsUS OB BPP W NON-YDSMOE5310/20/2025 12:21 PM EST documented in this encounter Results * US OB BPP W NON-STRESS (10/20/2025 12:21 PM EST)Anatomical Region LateralityModalityOtherSpecimen (Source)Anatomical Location / Laterality Collection Method / VolumeCollection TimeReceived Time10/20/2025 12:21 PM EST Narrative 10/20/2025 12:24 PM EST [facility] ?[address] ? [place] [address] ? Ultrasound Report ? Signed ? Patient: DONNA,MERCEDES Dean ? MR#: [id number] ?? : 1990 ?Acct:[id number] ?? Age/Sex: 35 / F ?ADM Date: 11/24/25 ?? Loc: US ? Attending Dr: Fabi Arita ? Ordering Physician: Fabi Arita ?? Date of Service: 11/24/25 ?? Procedure(s): US OB BPP w non-stress ?? Accession Number(s): [id number] ? cc: Fabi Arita; [place] ? [facility] ? [address] ? [place] [address] ? Patient Name: ?? MERCEDES THOMPSON ? MRN: [facility]:[id number] ? date: 1990 ?Sex: F ?? Assigned Patient Location: US ?? Current Patient Location: ? Accession/Order Number: [id number] ?? Exam Date: 10/20/2025 ??11:28 ?Report Date: [...] Dictation Location: RADIO-PC-02 ? Electronically authenticated by: [id number] ??Y ?? Date: 10/20/2025 ??12:21 ? Dictated By: ?Sonia Hernandez M.D. ? Signed By: ?10/20/25 1224 ? DD/ 1221 ? TD/TT: ? Tire Repairman: Procedure Note Radiology, Radiologist, - 10/20/[address] [address] Ultrasound Report Signed Patient: MERCEDES THOMPSON R#: [id number] : 1990Acct:[id number] Age/Sex: 35 / FADM Date: 10/20/25 Loc: US Attending Dr: Fabi Arita Ordering Physician: Fabi Arita Date of Service: 10/20/25 Procedure(s): US OB BPP w non-stress Accession Number(s): [id number] cc: Fabi Arita; [place] [id number] Patient Name: MERCEDES THOMPSON MRN: [id number] date: 1990 Sex: F Assigned Patient Location: US Current Patient Location: Accession/Order Number: [id number] Exam Date: 10/20/2025 11:28 Report Date: 10/20/2025 [...] 2/2 PACO: 16.6 cm Total score: 8/8 US/ OB BPP w non-stress IMPRESSION: NORMAL BIOPHYSICAL PROFILE Impression dictated by: Sonia Hernandez M.D. 10/20/2025 12:21 PM Dictation Location: [place] [address] Electronically authenticated by: [id number] Y Date: 2:21 Dictated By: Sonia Hernandez M.D. Signed By:10/20/25 1224 DD/ 1221 TD/TT: Tire Repairman: Authorizing ProviderResult TypeResult StatusFabi Arita PACLINISYNC IMAGINGFinal Result documented in this encounter Visit Diagnoses Not on filedocumented in this encounter Additional Health Concerns AssessmentNoted TimePHQ-9 Depression Total Score: 9:00 AM EST documented as of this encounter Care Teams Team MemberRelationshipSpecialtyStart DateEnd Date Mino East MD [address] [place] [address] PCP - GeneralFamily Medicine05/04/23 Mino East MD [address] [place], [place] [address] PCP - [facility]02/26/24documented as of this encounter
[2025-10-30 06:08] LABS: Cannabinoid Screen Urine NEGATIVE (NEGATIVE); Methamphetamines Screen Urine NEGATIVE (NEGATIVE); Tricyclic Antidepressant Urine NEGATIVE (NEGATIVE)
[2025-10-30] MEDS: OXYTOCIN/0.9 % SODIUM CHLORIDE 10 UNITS/500 ML PLAST..BAG 6 UNIT IV (06:23)
[2025-10-30] MEDS: 0.9 % SODIUM CHLORIDE 1,000 ML 1000 ML IV (06:23)
[2025-10-30 07:19] LABS: Hematocrit 34.6 % (36.0-48.0); Hemoglobin 12.1 g/dL (12.0-16.0); Immature Granulocytes Abs Auto 0.08 10^3/uL (0.00-0.03); Immature Granulocytes Pct Auto 0.8 % (0.0-0.5); Lymphocytes Absolute Auto 1.5 10^3/uL (1.2-3.8); Mean Corpuscular HGB Conc 35.0 g/dL (29.9-35.2); Mean Corpuscular Hemoglobin 34.2 pg (26.7-34.0); Mean Corpuscular Volume 97.7 fL (81.0-99.0); Platelet Count 149 10^3/uL (150-450); Red Blood Count 3.54 10^6/uL (4.20-5.40); White Blood Count 10.0 10^3/uL (4.0-11.0)
[2025-10-30] MEDS: 0.9 % SODIUM CHLORIDE 1,000 ML 999 ML IV (10:00)
[2025-10-30] MEDS: ROPIVACAINE HCL/PF 400 MG/200 ML PREMIX 8 MG EPIDURAL (10:06)
[2025-10-30] MEDS: OXYTOCIN/0.9 % SODIUM CHLORIDE 20 UNITS/1,000 ML PLAST..BAG 125 UNIT IV (11:08)
--- NOTE | 2025-10-30 11:12 | PM.OBPRCVD ---
Procedure Intrapartal events: None Induction method: per pitocin protocol Delivery augmentation: rupture of membranes and pitocin Delivery monitor: external FHT and external uterine Route of delivery: Episiotomy Description: none L&D Laceration Description: none Estimated blood loss (mL): 200 Anesthesia type: Epidural Disposition: floor Delivery date: 10/30/25 Gender: female presentation: vertex Placental delivery description: Spontaneous cord description: 3 Vessels
[2025-10-30] MEDS: ACETAMINOPHEN 325 MG TABLET 650 MG PO ×2 (16:20→23:11)
[2025-10-30] MEDS: IBUPROFEN 600 MG TABLET PO ×2 (16:21→23:12)
--- NOTE | 2025-10-30 19:32 | W.PC.ACHO ---
Registration Status: ADM IN Primary Language: Monegasque Preferred Language: Monegasque Report given Juan BARRAGAN at 1915. Care relinquished at this time. Active Medications Generic Name Dose Route Start Last Admin Trade Name Tanner PRN Reason Stop Dose Admin Acetaminophen 650 mg 10/30/25 11:13 10/30/25 16:20 Acetaminophen 325 Mg Tablet PO 650 mg Q6H PRN Administration Mild Pain Al Hydroxide/Mg Hydroxide 2,400 mg 10/30/25 11:13 Magnesium Hydroxide 2,400 Mg/10 Ml Oral.Susp PO Q6H PRN Dyspepsia Benzocaine/Menthol 1 applic 10/30/25 11:13 Benzocaine/Menthol 85 Gram [place] Bottle TOPICAL Q2H PRN Pain Carboprost Tromethamine 250 mcg 10/30/25 04:56 Carboprost Tromethamine 250 Mcg/Ml 1 Ml Vial IM 10/31/25 11:00 Q15M PRN Bleeding Diphtheria/Tetanus/Acell Pertussis 0.5 ml 11/01/25 09:00 Diphth,Pertuss(Acell),Tet Vac 0.5 Ml Syringe IM 11/01/25 09:01 .ONCE ONE Docusate Sodium 100 mg 10/31/25 09:00 Docusate Sodium 100 Mg Capsule PO BID ALAN Tranexamic Acid 1,000 mg/ 110 mls @ 440 mls/hr 10/30/25 04:56 Sodium Chloride IV 10/31/25 11:00 ONCE PRN Uterine Bleeding Sodium Chloride 1,000 mls @ 125 mls/hr 10/30/25 05:00 10/30/25 11:08 Sodium Chloride 0.9% 1,000 Ml IV 0 mls/hr .Q8H ALAN Infusion Ibuprofen 600 mg 10/30/25 11:13 10/30/25 16:21 Ibuprofen 600 Mg Tablet PO 600 mg Q6H PRN Administration Moderate Pain Measles/Mumps/Rubella Vaccine Live 0.5 ml 11/01/25 09:00 Measles,Mumps,Rubella Vacc/Pf 0.5 Ml Vial SQ 11/01/25 09:01 .ONCE ONE Methylergonovine Maleate 0.2 mg 10/30/25 04:56 Methylergonovine Maleate 0.2 Mg/Ml Ampule IM 10/31/25 11:00 ONCE PRN Uterine Contractility/Contract Methylergonovine Maleate 0.2 mg 10/30/25 04:56 Methylergonovine Maleate 0.2 Mg Tablet PO 10/31/25 11:00 Q4H PRN Uterine Contractility/Contract Misoprostol 600 mcg 10/30/25 04:56 Misoprostol 100 Mcg Tablet PO 10/31/25 11:00 ONCE PRN Uterine Bleeding Misoprostol 800 mcg 10/30/25 04:56 Misoprostol 100 Mcg Tablet SL 10/31/25 11:00 ONCE PRN Uterine Bleeding Misoprostol 1,000 mcg 10/30/25 04:56 Misoprostol [address] 10/31/25 11:00 ONCE PRN Uterine Bleeding Ondansetron HCl 4 mg 10/30/25 04:56 Ondansetron Pf 4 Mg/2 Ml Vial IV Q6H PRN Nausea And Vomiting Ondansetron HCl 4 mg 10/30/25 04:56 Ondansetron 4 Mg Rapdis Tablet SL Q6H PRN Nausea And Vomiting Oxytocin 10 unit 10/30/25 04:56 Oxytocin 10 Unit/Ml Vial IM 10/31/25 11:00 ONCE PRN bleeding Senna 17.2 mg 10/30/25 20:00 Sennosides 8.6 Mg Tablet PO QHS PRN Constipation Simethicone 80 mg 10/30/25 11:13 Simethicone 80 Mg Tab.Chew PO QID PRN Abdominal Distention Temazepam 15 mg 10/30/25 11:13 Temazepam 15 Mg Capsule PO QHS PRN Sleep Witch Kassy/Glycerin 1 pad 10/30/25 11:13 Glycerin/Witch Kassy Pads TOPICAL Q2H PRN Pain Diet Category Date Time Status Regular Consistency Diet Diet 10/30/25 11:13 Active IV Insertion/Site Date of IV Line Insertion [20g 10/30/25 right Hand] IV Insertion Time [20g right 05:40 Hand] Neurology Patient orientation (short person,place,time,situation list) Respiratory Oxygen Delivery Method Room Air Oxygen Delivery Method Room Air Oxygen Delivery Method Room Air Oxygen Delivery Method Room Air Cardiology Heart Sounds Regular Heart Sounds Regular Renal Bladder Pattern Continent Bladder Pattern Continent
[2025-10-31 00:07] VITALS: BP 117/79; PULSE 73
[2025-10-31 00:23] VITALS: TEMP 37.2
[2025-10-31 06:34] LABS: Hematocrit 33.3 % (36.0-48.0); Hemoglobin 11.0 g/dL (12.0-16.0); Immature Granulocytes Abs Auto 0.08 10^3/uL (0.00-0.03); Immature Granulocytes Pct Auto 0.8 % (0.0-0.5); Lymphocytes Absolute Auto 1.7 10^3/uL (1.2-3.8); Mean Corpuscular HGB Conc 33.0 g/dL (29.9-35.2); Mean Corpuscular Hemoglobin 33.2 pg (26.7-34.0); Mean Corpuscular Volume 100.6 fL (81.0-99.0); Platelet Count 129 10^3/uL (150-450); Red Blood Count 3.31 10^6/uL (4.20-5.40); White Blood Count 9.6 10^3/uL (4.0-11.0)
[2025-10-31] MEDS: ACETAMINOPHEN 325 MG TABLET 650 MG PO (07:21)
[2025-10-31] MEDS: IBUPROFEN 600 MG TABLET PO (07:22)
[2025-10-31 07:51] VITALS: BP 132/61; PULSE 81; TEMP 36.9
--- NOTE | 2025-10-31 10:01 | PM.OBPN ---
OB - PN: Subj Subjective Patient comments: no complaints and pain well controlled status: doing well Exam Constitutional Vital Signs, click to edit/add: Last Vital Signs Temp 98.4 F 10/31/25 07:51 Pulse 81 10/31/25 07:51 Resp 18 10/31/25 07:50 BP 132/61 10/31/25 07:51 O2 Del Method Room Air 10/31/25 07:50 Documenting provider has reviewed patient's vital signs: yes Common normals: no apparent distress Respiratory Common normals: normal respiratory effort and clear to auscultation bilaterally Cardio Common normals: regular rate and regular rhythm GI Common normals: Normal to inspection, nondistended, normoactive bowel sounds present Extremity Common normals: no clubbing, cyanosis or edema and no calf tenderness Results Labs Labs: Short CBC 10/31/25 Range/Units 06:21 WBC 9.6 (4.0-11.0) 10^3/uL Hgb 11.0 L (12.0-16.0) g/dL Hct 33.3 L (36.0-48.0) % Plt Count 129 L (150-450) 10^3/uL OB - PN: A/P Plan - Vaginal Delivery day: 1 Plan: routine care, discharge home and follow up 6 weeks Time Spent with Patient Time: Total time spent is greater than 50% in coordination of care (as documented) at patient's floor/unit and/or counseling patient: Total time spent with greater than 50% in coordination of care (as documented) at patient's floor/unit and/or counseling patient: less than 15 minutes
== END 2025-10-31 13:50 | disposition home or self-care (01) | DRG 560 ==
PROVIDERS: Admitting Provider Obstetrics & Gynecology; PCP Family Medicine; Visit Provider Obstetrics & Gynecology
DX: O24.425 Gestational diabetes mellitus in childbirth, controlled by oral hypoglycemic drugs (principal); Z3A.37 37 weeks gestation of pregnancy; Z37.0 Single live birth; O99.214 Obesity complicating childbirth; E66.01 Morbid (severe) obesity due to excess calories; O99.284 Endocrine, nutritional and metabolic diseases complicating childbirth; O99.52 Diseases of the respiratory system complicating childbirth; J44.9 Chronic obstructive pulmonary disease, unspecified; E01.0 Iodine-deficiency related diffuse (endemic) goiter
CPT/HCPCS: 36415; 51701; 59050; 59410; 76818; 80307; 85025; 86850; 86900; 86901; J0665; J2795